=== PATIENT | male | born 1945 | race Caucasian/White ===

== ENCOUNTER 2017-12-08 10:46 | Inpatient (IN) | payer MEDICARE ==
[2017-12-08] MEDS ORDERED: ASPIRIN 81 MG TABLET, CHEWABLE PO ONE (12:31)
[2017-12-08 12:39] LABS: HEMATOCRIT 51.7 % (37.9-51.0); HEMOGLOBIN 17.2 g/dL (13.5-17.0); MEAN CORPUSCULAR HEMOGLOBIN 28.9 pg (27.0-33.4); MEAN CORPUSCULAR HGB CONC 33.3 g/dL (32.0-36.0); MEAN CORPUSCULAR VOLUME 87 fl (80-97); PLATELET COUNT 231 10^3/uL (150-450); RED BLOOD COUNT 5.95 10^6/uL (4.35-5.55)
[2017-12-08 12:54] LABS: BLOOD UREA NITROGEN 15 mg/dL (7-20); CALCIUM 10.5 mg/dL (8.4-10.2); GLUCOSE 374 mg/dL (75-110)
[2017-12-08 12:55] LABS: ALANINE AMINOTRANSFERASE 17 U/L (21-72); ALBUMIN 4.2 g/dL (3.5-5.0); ALKALINE PHOSPHATASE 105 U/L (38-126); ANION GAP 17 (5-19); ASPARTATE AMINO TRANSFERASE 10 U/L (17-59); BILIRUBIN,DIRECT 0.4 mg/dL (0.0-0.4); BILIRUBIN,TOTAL 0.9 mg/dL (0.2-1.3); CARBON DIOXIDE 22 mmol/L (22-30); CHLORIDE 99 mmol/L (98-107); CREATINE KINASE 32 U/L (55-170); POTASSIUM 4.1 mmol/L (3.6-5.0); SODIUM 137.6 mmol/L (137-145); TOTAL PROTEIN 7.6 g/dL (6.3-8.2)
[2017-12-08 13:02] LABS: ABSOLUTE LYMPHOCYTES# (MANUAL) 0.8 10^3/uL (0.5-4.7); ABSOLUTE MONOCYTES # (MANUAL) 2.3 10^3/uL (0.1-1.4); ABSOLUTE NEUTROPHILS# (MANUAL) 17.9 10^3/uL (1.7-8.2); BASOPHILS % (MANUAL) 0 % (0-2); EOSINOPHILS % (MANUAL) 0 % (0-6); LYMPHOCYTES % (MANUAL) 4 % (13-45); MONOCYTES % (MANUAL) 11 % (3-13); SEGMENTED NEUTROPHILS % (MAN) 85 % (42-78); TOTAL CELLS COUNTED 100
--- NOTE | 2017-12-08 13:02 | ER Document Report ---
ED General - General Mode of Arrival: Ambulatory Information source: Patient TRAVEL OUTSIDE OF THE [place] IN LAST 30 DAYS: No <GAYLE CAPPS - Last Filed: 12/08/17 16:08> <CHARLENE FLORES - Last Filed: 12/08/17 19:38> - General Chief Complaint: Chest Pain Stated Complaint: CHEST PAIN Time Seen by Provider: 12/08/17 12:30 Notes: Patient is a 72 year old male that presents to the emergency department today with complaints of chest pain with associated shortness of breath for the last two days. Patient states yesterday these symptoms "eased off yesterday" but were worse this morning upon awakening. Patient states that he also has had a cough for around a month. Patient has an extensive smoking history. (GAYLE CAPPS) - Related Data Allergies/Adverse Reactions: No Known Allergies Allergy (Verified 04/12/14 12:57) Past Medical History - General Information source: Patient - Social History Smoking Status: Current Every Day Smoker Cigarette use (# per day): Yes Chew tobacco use (# tins/day): No Frequency of alcohol use: None Drug Abuse: None Lives with: Family Family History: Reviewed & Not Pertinent - Past Medical History Cardiac Medical History: Reports: Hx Atrial Fibrillation, Hx Hypercholesterolemia, Hx Hypertension Endocrine Medical History: Reports: Hx Diabetes Mellitus Type 2 Malignancy Medical History: Reports Hx Prostate Cancer Past Surgical History: Reports: Hx Abdominal Surgery, Other - Prostatectomy - Immunizations Hx Diphtheria, Pertussis, Tetanus Vaccination: Yes - <5 years <GAYLE CAPPS - Last Filed: 12/08/17 16:08> Review of Systems - Review of Systems Constitutional: No symptoms reported EENT: No symptoms reported Cardiovascular: See HPI, Chest pain Respiratory: See HPI, Cough, Short of breath Gastrointestinal: No symptoms reported Genitourinary: No symptoms reported Male Genitourinary: No symptoms reported Musculoskeletal: No symptoms reported Skin: No symptoms reported Hematologic/Lymphatic: No symptoms reported Neurological/Psychological: No symptoms reported -: Yes All other systems reviewed and negative <GAYLE CAPPS - Last Filed: 12/08/17 16:08> Physical Exam <GAYLE CAPPS - Last Filed: 12/08/17 16:08> <CHARLENE FLORES - Last Filed: 12/08/17 19:38> - Vital signs Vitals: Temp Pulse Resp BP Pulse Ox 97.8 F 84 24 H 137/59 H 95 12/08/17 11:06 12/08/17 11:06 12/08/17 11:06 12/08/17 11:06 12/08/17 11:06 - Notes Notes: PHYSICAL EXAM GENERAL: Alert, interacts well. Appears in mild distress secondary to shortness of breath. HEAD: Normocephalic, atraumatic. EYES: Pupils equal, round, and reactive to light. Extraocular movements intact. ENT: Oral mucosa moist, tongue midline. NECK: Full range of motion. Supple. Trachea midline. LUNGS: Clear to auscultation bilaterally, no wheezes, rales, or rhonchi. Mild respiratory distress, tachypneic. HEART: Irregularly irregular, tachycardic. Regular rate and rhythm. No murmurs, gallops, or rubs. ABDOMEN: Soft, non-tender. Non-distended. Bowel sounds present in all 4 quadrants. EXTREMITIES: Moves all 4 extremities spontaneously. No edema, radial and dorsalis pedis pulses 2/4 bilaterally. No cyanosis. NEUROLOGICAL: Alert and oriented x3. Normal speech. PSYCH: Normal affect, normal mood. SKIN: Warm, dry, normal turgor. No rashes or lesions noted. (GAYLE CAPPS) Course - Laboratory Result Diagrams: 12/08/17 12:07 12/08/17 12:07 <GAYLE CAPPS - Last Filed: 12/08/17 16:08> - Laboratory Result Diagrams: 12/08/17 12:07 12/08/17 12:07 <CHARLENE FLORES - Last Filed: 12/08/17 19:38> - Re-evaluation Re-evalutation: 12/08/17 16:06 CBC shows marked leukocytosis with some hemoconcentration with hemoglobin 17.2, platelets normal, denies using steroids at this time, glucose is elevated, chemistries otherwise unremarkable, cardiac enzymes negative, chest x-ray shows no acute process per radiology, there does appear to be a little bit of cephalization per my interpretation but there is no history of CHF and he has no crackles on exam. This may simply be scarring from his COPD. Patient does appear to have atrial fibrillation which he has had at least once before but does not recall this. Patient was set up for a CT angiogram to look for pulmonary embolism however when sent over for his CTA patient states that he cannot receive the dye because he has Buerger's disease and he has been told that receiving this diet could cause his fingers or toes to fall off. Patient will have a VQ scan instead. 12/08/17 19:11 Ventilation/perfusion scan is negative for PE. Patient has leukocytosis, persistent cough, A. fib, tachycardia, intermittent hypoxia and a new oxygen requirement. Patient is a presumed bacterial bronchitis given his history of COPD. Patient has been started on antibiotics, no steroids and indicated at this time as he is not wheezing. Maintained on oxygen and given a dose of Lovenox for the recurrence of atrial fibrillation. I will discuss this case with the hospitalist. 12/08/17 19:34 Agrees to accept the patient to his service in admission status on IMCU. Discussed with Dr. Landers. (CHARLENE FLORES) - Vital Signs Vital signs: Temp Pulse Resp BP Pulse Ox 97.8 F 84 19 124/85 95 12/08/17 11:06 12/08/17 11:06 12/08/17 19:01 12/08/17 19:01 12/08/17 19:01 - Laboratory Laboratory results interpreted by me: 12/08/17 12/08/17 12:07 12:07 WBC 21.0 H RBC 5.95 H Hgb 17.2 H Hct 51.7 H RDW 16.0 H Seg Neuts % (Manual) 85 H Lymphocytes % (Manual) 4 L Abs Neuts (Manual) 17.9 H Abs Monocytes (Manual) 2.3 H Glucose 374 H Calcium 10.5 H AST 10 L ALT 17 L Creatine Kinase 32 L - EKG Interpretation by Me Additional EKG results interpreted by me: 12/08/17 19:35 EKG shows A. fib RVR at a rate of 123, left axis deviation, no ST segment elevations or depressions, no T-wave inversions per my interpretation. (CHARLENE FLORES) Discharge <GAYLE CAPPS - Last Filed: 12/08/17 16:08> - Discharge Admitting Provider: [facility] - [facility] Unit Admitted: IMCU <CHARLENE FLORES - Last Filed: 12/08/17 19:38> - Discharge Clinical Impression: Atrial fibrillation with rapid ventricular response, Acute bacterial bronchitis Diabetes Qualifiers: Diabetes mellitus type: type 2 Diabetes mellitus complication status: with hyperglycemia Diabetes mellitus terminal block assembler insulin use: without terminal block assembler use Qualified Code(s): E11.65 - Type 2 diabetes mellitus with hyperglycemia Condition: Fair Disposition: ADMITTED INPATIENT Scribe Attestation: 12/08/17 19:38 I personally performed the services described in the documentation, reviewed and edited the documentation which was dictated to the scribe in my presence, and it accurately records my words and actions. (CHARLENE FLORES) Scribe Documentation - Scribe Written by Scribe:: Keely Cheung, 12/08/2017 1610 acting as scribe for :: Lilian <GAYLE CAPPS - Last Filed: 12/08/17 16:08>
[2017-12-08 13:06] LABS: ANISOCYTOSIS 1+; CREATINE KINASE MB 0.33 ng/mL (<4.55); TOXIC GRANULATION SLIGHT; TOXIC VACUOLATION PRESENT
[2017-12-08 13:07] LABS: PLATELET COMMENT ADEQUATE; PLATELET LARGE PRESENT
[2017-12-08 13:08] LABS: TROPONIN I < 0.012 ng/mL
--- NOTE | 2017-12-08 13:26 | RADIOLOGY REPORT (SQ) ---
EXAM DESCRIPTION: CHEST SINGLE VIEW COMPLETED DATE/TIME: 12/08/2017 1:17 pm REASON FOR STUDY: chest pain COMPARISON: None. EXAM PARAMETERS: NUMBER OF VIEWS: One view. TECHNIQUE: Single frontal radiographic view of the chest acquired. RADIATION DOSE: NA LIMITATIONS: None. FINDINGS: LUNGS AND PLEURA: No opacities, masses or pneumothorax. No pleural effusion. Chronic appe aring changes are identified. MEDIASTINUM AND HILAR STRUCTURES: No masses. Contour normal. HEART AND VASCULAR STRUCTURES: Heart normal in size. Normal vasculature. BONES: No acute findings. HARDWARE: None in the chest. OTHER: No other significant finding. IMPRESSION: NO ACUTE RADIOGRAPHIC FINDING IN THE CHEST. TECHNICAL DOCUMENTATION: JOB ID: [id number] [employer]- All Rights Reserved
[2017-12-08] MEDS ORDERED: ENOXAPARIN SODIUM INJ 80 MG/0.8 ML DISP.SYRIN SUBCUT ONE (16:07)
--- NOTE | 2017-12-08 19:00 | RADIOLOGY REPORT (SQ) ---
EXAM DESCRIPTION: NM LUNG VENT/PERF SCAN COMPLETED DATE/TIME: 12/08/2017 6:52 pm REASON FOR STUDY: hypoxia, SOB, nl CXE, r/o PE COMPARISON: Chest radiograph from 12/08/2017. RADIONUCLIDE AND DOSE: 5.36 millicuries TC-99m MAA Intravenous 32.0 millicuries TC-99m DTPA Inhaled aerosol TECHNIQUE: Eight views of the lungs acquired post ventilation of DTPA aerosol. Eight matching views of the lungs acquired following injection of MAA. LIMITATIONS: None. FINDINGS: VENTILATION: Symmetric and homogeneous distribution of DTPA aerosol during ventilatory pha se. No significant areas of photopenia. PERFUSION: Perfusion images with normal homogenous activity and no wedge-shaped or segmental defects. No ventilation-perfusion mismatches. OTHER: No other significant finding. IMPRESSION: NORMAL VENTILATION-PERFUSION LUNG SCAN. NEGATIVE FOR PULMONARY EMBOLI. TECHNICAL DOCUMENTATION: JOB ID: [id number] [employer]- All Rights Reserved
[2017-12-08] MEDS ORDERED: AZITHROMYCIN INJ 500 MG VIAL IV ONE (19:12)
[2017-12-08] MEDS ORDERED: HYDRALAZINE HCL INJ/PF 20 MG/1 ML SDV IV PRN (19:36)
[2017-12-08] MEDS ORDERED: IPRATROPIUM/ALBUTEROL 0.5-2.5 MG/3 ML AMPUL NEB PRN (19:37)
[2017-12-08] MEDS ORDERED: ACETAMINOPHEN 325 MG TABLET PO PRN (19:37)
[2017-12-08] MEDS ORDERED: DEXTROSE 50%-WATER 25 GM/50 ML DISP.SYRIN IV PRN ×2 (19:37)
[2017-12-08] MEDS ORDERED: INSULIN LISPRO 100 UNIT/ML 3 ML VIAL SUBCUT PRN (19:37)
[2017-12-08] MEDS ORDERED: GLUCAGON,HUMAN RECOMB 1 MG INJ IM PRN (19:37)
[2017-12-08] MEDS ORDERED: GUAIFENESIN SYRP 200 MG/10 ML UDC PO PRN (19:37)
[2017-12-08] MEDS ORDERED: DEXTROSE 40% GEL 15 GM TUBE PO PRN ×2 (19:37)
[2017-12-08] MEDS ORDERED: NORMAL SALINE 1000 ML 1,000 ML IV ONE (19:40)
[2017-12-08] MEDS ORDERED: DILTIAZEM HCL 60 MG TABLET PO ONE (19:42)
[2017-12-08] MEDS ORDERED: CEFEPIME 2 GM/D5W RTU 50 ML IV SCH (19:45)
[2017-12-08] MEDS ORDERED: CHLORPHENIRAMINE MALEATE 4 MG TABLET PO ONE (20:30)
[2017-12-08] MEDS: IPRATROPIUM/ALBUTEROL 0.5-2.5 MG/3 ML AMPUL NEB SCH (20:38)
[2017-12-08] MEDS ORDERED: HEPARIN SOD (PORCINE) 5,000 UNIT/ML 1 ML SYRINGE SUBCUT SCH (22:00)
[2017-12-08] MEDS: DILTIAZEM HCL 60 MG TABLET PO SCH (22:01)
--- NOTE | 2017-12-08 22:54 | PDOC H&P ---
History of Present Illness Admission Date/PCP: 12/08/17 19:46 Patient complains of: Shortness of breath and pleuritic chest pain History of Present Illness: RAJAN KEARNEY is a 72 year old male with a past medical history of diabetes, hypertension, paroxysmal atrial fibrillation, GERD, tobacco dependence and COPD. Patient presents with 3 days of exceptional shortness of breath, nonproductive cough and sharp chest wall pain with deep breathing. In the emergency room he is found to have A. fib with RVR, leukocytosis and a left lower lobe infiltrate. He started on empiric antibiotics, full dose Lovenox and referred to the hospitalist for admission. Patient admits [id number] medication use for symptoms without significant improvement. He denies infectious contacts Past Medical History Cardiac Medical History: Reports: Atrial Fibrillation, Hyperlipidema, Hypertension Pulmonary Medical History: Reports: Bronchitis, Chronic Obstructive Pulmonary Disease (COPD) Endocrine Medical History: Reports: Diabetes Mellitus Type 2 GI Medical History: Reports: Gastroesophageal Reflux Disease Psychiatric Medical History: Reports: Tobacco Dependency Past Surgical History Past Surgical History: Reports: Other - Prostatectomy Social History Information Source: Patient Lives with: Family Smoking Status: Current Every Day Smoker Frequency of Alcohol Use: None Drugs: None - Advance Directive Resuscitation Status: Full Code Family History Family History: COPD Parental Family History Reviewed: Yes Children Family History Reviewed: Yes Sibling(s) Family History Reviewed.: Yes Medication/Allergy Home Medications: Amlodipine Besylate [Norvasc 5 mg Tablet] 5 mg PO DAILY 12/08/17 Atorvastatin Calcium [Lipitor 80 mg Tablet] 80 mg PO DAILY 12/08/17 Glipizide [Glocotrol 5 Mg Tablet] 5 mg PO DAILY 12/08/17 Lisinopril [Prinivil 10 mg Tablet] 10 mg PO DAILY 12/08/17 Meclizine HCl [Antivert 25 mg Tablet] 25 mg PO Q8HP PRN 12/08/17 Metformin HCl [Glucophage] 1,000 mg PO Q12 12/08/17 Omeprazole 20 mg PO DAILY 12/08/17 Allergies/Adverse Reactions: No Known Allergies Allergy (Verified 04/12/14 12:57) Review of Systems Constitutional: PRESENT: as per HPI, fatigue, weakness. ABSENT: anorexia, chills, fever(s), headache(s), night sweats Eyes: ABSENT: visual disturbances Ears: ABSENT: hearing changes Cardiovascular: PRESENT: as per HPI, chest pain, dyspnea on exertion. ABSENT: edema, orthropnea, palpitations Respiratory: PRESENT: as per HPI, cough, dyspnea. ABSENT: hemoptysis, sputum Gastrointestinal: ABSENT: abdominal pain, constipation, diarrhea, hematemesis, hematochezia, nausea, vomiting Genitourinary: ABSENT: dysuria, hematuria Musculoskeletal: ABSENT: joint swelling Integumentary: ABSENT: rash, wounds Neurological: ABSENT: abnormal gait, abnormal speech, confusion, dizziness, focal weakness, syncope Psychiatric: ABSENT: anxiety, depression, homidical ideation, suicidal ideation Endocrine: ABSENT: cold intolerance, heat intolerance, polydipsia, polyuria Hematologic/Lymphatic: ABSENT: easy bleeding, easy bruising Physical Exam Vital Signs: Temp Pulse Resp BP Pulse Ox 97.8 F 135 H 18 124/85 92 12/08/17 11:06 12/08/17 20:38 12/08/17 20:38 12/08/17 19:01 12/08/17 20:38 General appearance: PRESENT: cooperative, mild distress, well-developed, well- nourished Head exam: PRESENT: atraumatic, normocephalic Eye exam: PRESENT: conjunctiva pink, EOMI, PERRLA. ABSENT: scleral icterus Ear exam: PRESENT: normal external ear exam Mouth exam: PRESENT: moist, tongue midline Neck exam: ABSENT: carotid bruit, JVD, lymphadenopathy, thyromegaly Respiratory exam: PRESENT: accessory muscle use, crackles, prolonged expiratory phas, rales, retraction, symmetrical, tachypnea. ABSENT: rhonchi, unlabored Cardiovascular exam: PRESENT: irregular rhythm, +S1, +S2, tachycardia. ABSENT: gallop, systolic murmur Pulses: PRESENT: normal dorsalis pedis pul Vascular exam: PRESENT: normal capillary refill GI/Abdominal exam: PRESENT: normal bowel sounds, soft. ABSENT: distended, guarding, mass, organolmegaly, rebound, tenderness Rectal exam: PRESENT: deferred Extremities exam: PRESENT: full ROM. ABSENT: calf tenderness, clubbing, pedal edema Neurological exam: PRESENT: alert, awake, oriented to person, oriented to place , oriented to time, oriented to situation, CN II-XII grossly intact. ABSENT: motor sensory deficit Psychiatric exam: PRESENT: anxious, unusual affect Skin exam: PRESENT: dry, intact, warm. ABSENT: cyanosis, rash Results Laboratory Results: 12/08/17 12/08/17 21:05 21:05 Troponin I < 0.012 NT-Pro-B Natriuret Pep 1840 H Impressions: Chest X-Ray 12/08/17 12:31 IMPRESSION: NO ACUTE RADIOGRAPHIC FINDING IN THE CHEST. Lung Scan-VQ NM 12/08/17 16:04 IMPRESSION: NORMAL VENTILATION-PERFUSION LUNG SCAN. NEGATIVE FOR PULMONARY EMBOLI. Assessment & Plan - Diagnosis (1) Acute bacterial bronchitis Is this a current diagnosis for this admission?: Yes Plan: Telemetry bed, empiric antibiotics, Flonase, flutter valve supplemental oxygen albuterol and Atrovent. (2) Atrial fibrillation with rapid ventricular response Is this a current diagnosis for this admission?: Yes Plan: Full dose Lovenox, Cardizem 60 every 8 hours and 2D echo, follow-up cardiac enzymes and TSH (3) Diabetes Qualifiers: Diabetes mellitus type: type 2 Diabetes mellitus complication status: with hyperglycemia Diabetes mellitus termite treater helper insulin use: without termite treater helper use Qualified Code(s): E11.65 - Type 2 diabetes mellitus with hyperglycemia Is this a current diagnosis for this admission?: Yes Plan: Home regiment with sliding scale coverage. - Time Time Spent: 50 to 70 Minutes - Inpatient Certification Medical Necessity: Need Close Monitoring Due to Risk of Patient Decompensation
[2017-12-08] MEDS ORDERED: METFORMIN HCL 500 MG TABLET PO ONE (23:00)
[2017-12-08] MEDS: GUAIFENESIN 600 MG TABLET.SA PO SCH (23:32)
[2017-12-08] MEDS: FLUTICASONE NASAL SPRAY 50 MCG/SPRY 120 SPRAY/16 GM NASL SCH (23:32)
[2017-12-08] MEDS: CEFEPIME HCL 2 GM in DEXTROSE 5%-WATER 50 ML IV SCH (23:33)
[2017-12-09] MEDS: IPRATROPIUM/ALBUTEROL 0.5-2.5 MG/3 ML AMPUL NEB SCH ×4 (02:29→19:38)
[2017-12-09 05:13] LABS: HEMATOCRIT 46.2 % (37.9-51.0); HEMOGLOBIN 15.4 g/dL (13.5-17.0); MEAN CORPUSCULAR HGB CONC 33.3 g/dL (32.0-36.0); MEAN CORPUSCULAR VOLUME 87 fl (80-97); PLATELET COUNT 210 10^3/uL (150-450); RED BLOOD COUNT 5.31 10^6/uL (4.35-5.55); RED CELL DISTRIBUTION WIDTH 15.9 % (11.5-14.0); WHITE BLOOD COUNT 22.3 10^3/uL (4.0-10.5)
[2017-12-09] MEDS: DILTIAZEM HCL 60 MG TABLET PO SCH ×3 (05:21→21:42)
[2017-12-09 05:28] LABS: ANION GAP 13 (5-19); BLOOD UREA NITROGEN 20 mg/dL (7-20); CALCIUM 9.8 mg/dL (8.4-10.2); CARBON DIOXIDE 21 mmol/L (22-30); CHLORIDE 102 mmol/L (98-107); GLUCOSE 229 mg/dL (75-110); POTASSIUM 4.2 mmol/L (3.6-5.0); SODIUM 136.4 mmol/L (137-145)
[2017-12-09 05:50] LABS: ABSOLUTE LYMPHOCYTES# (MANUAL) 2.7 10^3/uL (0.5-4.7); ABSOLUTE MONOCYTES # (MANUAL) 1.8 10^3/uL (0.1-1.4); ABSOLUTE NEUTROPHILS# (MANUAL) 17.8 10^3/uL (1.7-8.2); BAND NEUTROPHILS % (MANUAL) 1 % (3-5); BASOPHILS % (MANUAL) 0 % (0-2); EOSINOPHILS % (MANUAL) 0 % (0-6); LYMPHOCYTES % (MANUAL) 12 % (13-45); MONOCYTES % (MANUAL) 8 % (3-13); SEGMENTED NEUTROPHILS % (MAN) 79 % (42-78); TOTAL CELLS COUNTED 100; TOXIC GRANULATION SLIGHT; TOXIC VACUOLATION PRESENT
[2017-12-09 05:51] LABS: ANISOCYTOSIS 1+; PLATELET COMMENT ADEQUATE
[2017-12-09] MEDS: ASPIRIN 81 MG TABLET, CHEWABLE PO SCH (09:55)
[2017-12-09] MEDS: GUAIFENESIN 600 MG TABLET.SA PO SCH ×2 (09:55→21:41)
[2017-12-09] MEDS: LANSOPRAZOLE 15 MG TAB.RAP.DR PO SCH (09:56)
[2017-12-09] MEDS: CEFEPIME HCL 2 GM in DEXTROSE 5%-WATER 50 ML IV SCH ×2 (09:58→21:43)
[2017-12-09] MEDS: FLUTICASONE NASAL SPRAY 50 MCG/SPRY 120 SPRAY/16 GM NASL SCH ×2 (09:59→23:30)
[2017-12-09] MEDS ORDERED: GLIPIZIDE 5 MG TABLET PO SCH (10:00)
[2017-12-09] MEDS ORDERED: ENOXAPARIN SODIUM INJ 80 MG/0.8 ML DISP.SYRIN SUBCUT SCH (10:00)
[2017-12-09] MEDS ORDERED: METFORMIN HCL 500 MG TABLET PO SCH ×2 (10:00→16:00)
[2017-12-09] MEDS ORDERED: AMLODIPINE BESYLATE 5 MG TABLET PO SCH (10:00)
[2017-12-09] MEDS ORDERED: ATORVASTATIN CALCIUM 80 MG TABLET PO SCH (10:00)
--- NOTE | 2017-12-09 10:19 | EKG REPORT ---
SEVERITY:- ABNORMAL ECG - ATRIAL FIBRILLATION, V-RATE 102-163 : Confirmed by: Everardo Rocha 09-Dec-2017 10:17:31
[2017-12-09 12:22] LABS: APPEARANCE,URINE SLIGHTLY-CLOUDY; BILIRUBIN,URINE SMALL (NEGATIVE); COLOR,URINE AMBER; GLUCOSE, URINE 50 mg/dL (NEGATIVE); KETONES,URINE NEGATIVE (NEGATIVE); LEUKOCYTE ESTERASE,URINE TRACE (NEGATIVE); NITRITE,URINE POSITIVE (NEGATIVE); PROTEIN,URINE 100 mg/dL (NEGATIVE)
[2017-12-09] MEDS ORDERED: NICOTINE 14 MG/24 HR PATCH.TD24 TD PRN (13:18)
--- NOTE | 2017-12-09 13:24 | PDOC PROGRESS REPORT ---
Subjective Progress Note for:: 12/09/17 Subjective:: The patient is a 72-year-old male with a past medical history of diabetes, hypertension, proximal atrial fibrillation, GERD, tobacco dependence and COPD. He was admitted on 12/08/17 for bronchitis and atrial fibrillation with rapid ventricular response. He is currently on empiric antibiotics, full dose Lovenox , and Cardizem every 8 hours. He means in atrial fibrillation, although is now rate controlled. The patient is seen sitting upright in bed on supplemental oxygen via nasal cannula at 4 L/min with family members present. He reports continued productive cough and dyspnea with exertion. He denies fevers, chills, chest pain, palpitations, orthopnea. Reason For Visit: AFIB, COPD EXACERBATION ACUTE ON CHRONIC Physical Exam Vital Signs: Temp Pulse Resp BP Pulse Ox 98.5 F 106 H 18 129/75 H 96 12/09/17 12:08 12/09/17 12:08 12/09/17 12:08 12/09/17 12:08 12/09/17 12:08 Intake & Output 12/08/17 12/09/17 12/10/17 06:59 06:59 06:59 Intake Total 355 0 Output Total 0 1 Balance 355 -1 Weight 66.6 kg General appearance: PRESENT: no acute distress, cooperative, thin, well- developed, well-nourished Head exam: PRESENT: atraumatic, normocephalic Eye exam: PRESENT: conjunctiva pink, EOMI, PERRLA. ABSENT: scleral icterus Ear exam: PRESENT: normal external ear exam Mouth exam: PRESENT: moist, tongue midline Neck exam: ABSENT: carotid bruit, JVD, lymphadenopathy, thyromegaly Respiratory exam: PRESENT: clear to auscultation elise, prolonged expiratory phas , rales, rhonchi, symmetrical, tachypnea, other - Supplemental oxygen via nasal cannula. ABSENT: unlabored, wheezes Cardiovascular exam: PRESENT: irregular rhythm, +S1, +S2, tachycardia. ABSENT: diastolic murmur, rubs, systolic murmur Pulses: PRESENT: normal dorsalis pedis pul Vascular exam: PRESENT: normal capillary refill GI/Abdominal exam: PRESENT: normal bowel sounds, soft. ABSENT: distended, guarding, mass, organolmegaly, rebound, tenderness Rectal exam: PRESENT: deferred Extremities exam: PRESENT: full ROM. ABSENT: calf tenderness, clubbing, pedal edema Neurological exam: PRESENT: alert, awake, oriented to person, oriented to place , oriented to time, oriented to situation, CN II-XII grossly intact. ABSENT: motor sensory deficit Psychiatric exam: PRESENT: appropriate affect, normal mood. ABSENT: homicidal ideation, suicidal ideation Skin exam: PRESENT: dry, intact, warm. ABSENT: cyanosis, rash Results Laboratory Results: 12/09/17 04:24 12/09/17 04:24 12/09/17 12/09/17 12/09/17 04:24 04:24 04:24 WBC 22.3 H RBC 5.31 Hgb 15.4 Hct 46.2 MCV 87 MCH 29.0 MCHC 33.3 RDW 15.9 H Plt Count 210 Seg Neutrophils % Not Reportable Lymphocytes % Not Reportable Monocytes % Not Reportable Eosinophils % Not Reportable Basophils % Not Reportable Absolute Neutrophils Not Reportable Absolute Lymphocytes Not Reportable Absolute Monocytes Not Reportable Absolute Eosinophils Not Reportable Absolute Basophils Not Reportable Sodium 136.4 L Potassium 4.2 Chloride 102 Carbon Dioxide 21 L Anion Gap 13 BUN 20 Creatinine 0.90 Est GFR ( Amer) > 60 Est GFR (Non-Af Amer) > 60 Glucose 229 H Calcium 9.8 TSH 0.55 Urine Color Urine Appearance Urine pH Ur Specific Garrison Urine Protein Urine Glucose (UA) Urine Ketones Urine Blood Urine Nitrite Ur Leukocyte Esterase Urine WBC (Auto) Urine RBC (Auto) 12/09/17 07:16 WBC RBC Hgb Hct MCV MCH MCHC RDW Plt Count Seg Neutrophils % Lymphocytes % Monocytes % Eosinophils % Basophils % Absolute Neutrophils Absolute Lymphocytes Absolute Monocytes Absolute Eosinophils Absolute Basophils Sodium Potassium Chloride Carbon Dioxide Anion Gap BUN Creatinine Est GFR ( Amer) Est GFR (Non-Af Amer) Glucose Calcium TSH Urine Color PETE Urine Appearance SLIGHTLY-CLOUDY Urine pH 5.0 Ur Specific Garrison 1.030 Urine Protein 100 H Urine Glucose (UA) 50 H Urine Ketones NEGATIVE Urine Blood SMALL H Urine Nitrite POSITIVE H Ur Leukocyte Esterase TRACE H Urine WBC (Auto) 32 Urine RBC (Auto) 3 12/08/17 12/08/17 21:05 21:05 Troponin I < 0.012 NT-Pro-B Natriuret Pep 1840 H Impressions: Chest X-Ray 12/08/17 12:31 IMPRESSION: NO ACUTE RADIOGRAPHIC FINDING IN THE CHEST. Lung Scan-VQ MA 12/08/17 16:04 IMPRESSION: NORMAL VENTILATION-PERFUSION LUNG SCAN. NEGATIVE FOR PULMONARY EMBOLI. Assessment & Plan - Diagnosis (1) Acute bacterial bronchitis Is this a current diagnosis for this admission?: Yes Plan: The patient presented with worsening over the previous 3 days and a nonproductive cough. He does have a history of COPD with current tobacco use. Sputum and blood cultures are pending. He is admitted to [facility] on continuous cardiac telemetry. He has been empirically placed on cefepime. Will provide supplemental oxygen via nasal cannula to keep oxygen saturations greater than 88% He is provided scheduled and as needed DuoNeb treatments. He is provided Mucinex twice daily. Incentive spirometry and flutter valve to bedside. (2) Atrial fibrillation with rapid ventricular response Is this a current diagnosis for this admission?: Yes Plan: The patient's reports that he has been told that he has atrial fibrillation in the past. They state that he has never been on chronic anticoagulants. He does take a daily aspirin. TSH is appropriate at 0.55 Serial troponins are. He has been admitted on continuous cardiac telemetry. He was started on Cardizem 60 mg every 8 hours. He is now controlled in the low 100s. Continue full dose Lovenox; anticipate that the patient will require anticoagulation at discharge. Echocardiogram is pending. (3) Urinary tract infection Qualifiers: Urinary tract infection type: acute cystitis Hematuria presence: with hematuria Qualified Code(s): N30.01 - Acute cystitis with hematuria Is this a current diagnosis for this admission?: Yes Plan: Urinalysis reveals a urinary tract infection. Urine cultures are pending. He has empirically been placed on cefepime. (4) Leukocytosis Is this a current diagnosis for this admission?: Yes Plan: Secondary to bronchitis and urinary tract infection. Cultures are pending. He has been empirically placed on cefepime. (5) Diabetes Qualifiers: Diabetes mellitus type: type 2 Diabetes mellitus complication status: with hyperglycemia Diabetes mellitus terminologist insulin use: without half-way use Qualified Code(s): E11.65 - Type 2 diabetes mellitus with hyperglycemia Is this a current diagnosis for this admission?: Yes Plan: We will continue the patient's home regimen of glipizide 5 mg daily, metformin 1000 mg twice daily. He has been placed on a consistent carb diet. Will obtain Accu-Cheks before meals and at bedtime and provide Humalog for sliding scale coverage. (6) Tobacco dependence Is this a current diagnosis for this admission?: Yes Plan: Smoking cessation is encouraged. Nicotine replacement therapies are provided. - Time Time Spent with patient: 15-24 minutes Smoking Cessation Education: 3 to 10 minutes Medications reviewed and adjusted accordingly: Yes - Inpatient Certification Based on my medical assessment, after consideration of the patient's comorbidities, presenting symptoms, or acuity I expect that the services needed warrant INPATIENT care.: Yes Medical Necessity: Need For Continuous Telemetry Monitoring
[2017-12-09] MEDS ORDERED: CEFEPIME 2 GM/D5W RTU 2 GM/50 ML RTUPB IV ONE (21:21)
[2017-12-09] MEDS: ATORVASTATIN CALCIUM 80 MG TABLET PO SCH (21:40)
[2017-12-09] MEDS: AMLODIPINE BESYLATE 5 MG TABLET PO SCH (21:41)
[2017-12-09] MEDS: METFORMIN HCL 500 MG TABLET PO SCH (21:41)
[2017-12-10] MEDS: IPRATROPIUM/ALBUTEROL 0.5-2.5 MG/3 ML AMPUL NEB SCH ×4 (01:43→19:32)
[2017-12-10] MEDS: ENOXAPARIN SODIUM INJ 80 MG/0.8 ML DISP.SYRIN SUBCUT SCH ×3 (04:25→21:17)
[2017-12-10] MEDS: DILTIAZEM HCL 60 MG TABLET PO SCH ×3 (05:10→21:18)
[2017-12-10 05:41] LABS: HEMATOCRIT 42.5 % (37.9-51.0); HEMOGLOBIN 14.1 g/dL (13.5-17.0); MEAN CORPUSCULAR HEMOGLOBIN 28.7 pg (27.0-33.4); MEAN CORPUSCULAR HGB CONC 33.2 g/dL (32.0-36.0); MEAN CORPUSCULAR VOLUME 86 fl (80-97); RED BLOOD COUNT 4.93 10^6/uL (4.35-5.55); WHITE BLOOD COUNT 17.9 10^3/uL (4.0-10.5)
[2017-12-10 05:59] LABS: PLATELET COUNT 219 10^3/uL (150-450)
[2017-12-10 06:01] LABS: ANION GAP 11 (5-19); BLOOD UREA NITROGEN 25 mg/dL (7-20); CALCIUM 9.7 mg/dL (8.4-10.2); CARBON DIOXIDE 24 mmol/L (22-30); CHLORIDE 102 mmol/L (98-107); GLUCOSE 189 mg/dL (75-110); POTASSIUM 4.1 mmol/L (3.6-5.0); SODIUM 137.4 mmol/L (137-145)
[2017-12-10] MEDS: GUAIFENESIN 600 MG TABLET.SA PO SCH ×2 (07:44→21:18)
[2017-12-10] MEDS: GLIPIZIDE 5 MG TABLET PO SCH (07:44)
[2017-12-10] MEDS: CEFEPIME HCL 2 GM in DEXTROSE 5%-WATER 50 ML IV SCH ×2 (07:52→21:18)
[2017-12-10] MEDS: ASPIRIN 81 MG TABLET, CHEWABLE PO SCH ×2 (07:54→21:18)
[2017-12-10] MEDS: LANSOPRAZOLE 15 MG TAB.RAP.DR PO SCH (07:54)
--- NOTE | 2017-12-10 11:22 | PDOC PROGRESS REPORT ---
Subjective Progress Note for:: 12/10/17 Subjective:: The patient is a 72-year-old male with a past medical history of diabetes, hypertension, proximal atrial fibrillation, GERD, tobacco dependence and COPD. He was admitted on 12/08/17 for bronchitis and atrial fibrillation with rapid ventricular response. He is currently on empiric antibiotics, full dose Lovenox , and Cardizem every 8 hours. He means in atrial fibrillation, although is now rate controlled. The patient is seen sitting upright in bed on supplemental oxygen via nasal cannula at 4 L/min. He reports continued productive cough and dyspnea with exertion, although, states that this is slightly better today. He asks that I move as many of his medications as possible to a bedtime dose to reflect how he takes them at home. Otherwise, he has no questions or concerns. He denies fevers, chills, chest pain, palpitations, orthopnea. Reason For Visit: AFIB, COPD EXACERBATION ACUTE ON CHRONIC Physical Exam Vital Signs: Temp Pulse Resp BP Pulse Ox 98.6 F 81 20 135/77 H 93 12/10/17 07:30 12/10/17 07:50 12/10/17 07:50 12/10/17 07:30 12/10/17 07:50 Intake & Output 12/09/17 12/10/17 12/11/17 06:59 06:59 06:59 Intake Total 355 3255 Output Total 0 201 Balance 355 3054 Weight 66.6 kg 68.6 kg General appearance: PRESENT: no acute distress, thin, well-developed, well- nourished Head exam: PRESENT: atraumatic, normocephalic Eye exam: PRESENT: conjunctiva pink, EOMI, PERRLA. ABSENT: scleral icterus Ear exam: PRESENT: normal external ear exam Mouth exam: PRESENT: moist, tongue midline Neck exam: ABSENT: carotid bruit, JVD, lymphadenopathy, thyromegaly Respiratory exam: PRESENT: decreased breath sounds - bibasilar, prolonged expiratory phas, rhonchi, symmetrical, unlabored, other - Supplemental oxygen via NC at 4Lpm. ABSENT: rales, wheezes Cardiovascular exam: PRESENT: irregular rhythm, +S1, +S2. ABSENT: diastolic murmur, rubs, systolic murmur, tachycardia Pulses: PRESENT: normal dorsalis pedis pul Vascular exam: PRESENT: normal capillary refill GI/Abdominal exam: PRESENT: normal bowel sounds, soft. ABSENT: distended, guarding, mass, organolmegaly, rebound, tenderness Rectal exam: PRESENT: deferred Extremities exam: PRESENT: full ROM. ABSENT: calf tenderness, clubbing, pedal edema Neurological exam: PRESENT: alert, awake, oriented to person, oriented to place , oriented to time, oriented to situation, CN II-XII grossly intact. ABSENT: motor sensory deficit Psychiatric exam: PRESENT: appropriate affect, normal mood. ABSENT: homicidal ideation, suicidal ideation Skin exam: PRESENT: dry, intact, warm. ABSENT: cyanosis, rash Results Laboratory Results: 12/10/17 04:46 12/10/17 04:46 12/09/17 12/10/17 12/10/17 07:16 04:46 04:46 WBC 17.9 H RBC 4.93 Hgb 14.1 Hct 42.5 MCV 86 MCH 28.7 MCHC 33.2 RDW 16.0 H Plt Count 219 Sodium 137.4 Potassium 4.1 Chloride 102 Carbon Dioxide 24 Anion Gap 11 BUN 25 H Creatinine 0.98 Est GFR ( Amer) > 60 Est GFR (Non-Af Amer) > 60 Glucose 189 H Calcium 9.7 Urine Color PETE Urine Appearance SLIGHTLY-CLOUDY Urine pH 5.0 Ur Specific [place] 1.030 Urine Protein 100 H Urine Glucose (UA) 50 H Urine Ketones NEGATIVE Urine Blood SMALL H Urine Nitrite POSITIVE H Ur Leukocyte Esterase TRACE H Urine WBC (Auto) 32 Urine RBC (Auto) 3 12/08/17 12/08/17 21:05 21:05 Troponin I < 0.012 NT-Pro-B Natriuret Pep 1840 H Impressions: Chest X-Ray 12/08/17 12:31 IMPRESSION: NO ACUTE RADIOGRAPHIC FINDING IN THE CHEST. Lung Scan-VQ NM 12/08/17 16:04 IMPRESSION: NORMAL VENTILATION-PERFUSION LUNG SCAN. NEGATIVE FOR PULMONARY EMBOLI. Assessment & Plan - Diagnosis (1) Acute bacterial bronchitis Is this a current diagnosis for this admission?: Yes Plan: Slight improvement; The patient presented with worsening over the previous 3 days and a nonproductive cough. He does have a history of COPD with current tobacco use. Blood culture: No growth at 1 day Sputum culture: pending WBCs are trending down. He is admitted to [facility] on continuous cardiac telemetry. He has been empirically placed on cefepime. Will provide supplemental oxygen via nasal cannula to keep oxygen saturations greater than 88% He is provided scheduled and as needed DuoNeb treatments. He is provided Mucinex twice daily. Incentive spirometry and flutter valve to bedside. (2) Atrial fibrillation with rapid ventricular response Is this a current diagnosis for this admission?: Yes Plan: The patient's reports that he has been told that he has atrial fibrillation in the past. They state that he has never been on chronic anticoagulants. He does take a daily aspirin. TSH is appropriate at 0.55 Serial troponins are negative. He has been admitted on continuous cardiac telemetry. He was started on Cardizem 60 mg every 8 hours. He is now controlled in the 80- 90s; does increase to 130-140s during activity/coughing. Consider dose increase as HR and BP allow. Continue full dose Lovenox; anticipate that the patient will require anticoagulation at discharge. Echocardiogram is pending. (3) Urinary tract infection Qualifiers: Urinary tract infection type: acute cystitis Hematuria presence: with hematuria Qualified Code(s): N30.01 - Acute cystitis with hematuria Is this a current diagnosis for this admission?: Yes Plan: Urinalysis reveals a urinary tract infection. Urine cultures: No growth at 1 day He has empirically been placed on cefepime. (4) Leukocytosis Is this a current diagnosis for this admission?: Yes Plan: Trending down; Secondary to bronchitis and urinary tract infection. Cultures so far are negative. He has been empirically placed on cefepime. (5) Diabetes Qualifiers: Diabetes mellitus type: type 2 Diabetes mellitus complication status: with hyperglycemia Diabetes mellitus alf insulin use: without alf use Qualified Code(s): E11.65 - Type 2 diabetes mellitus with hyperglycemia Is this a current diagnosis for this admission?: Yes Plan: We will continue the patient's home regimen of glipizide 5 mg daily, metformin 1000 mg twice daily. He has been placed on a consistent carb diet. Will obtain Accu-Cheks before meals and at bedtime and provide Humalog for sliding scale coverage. (6) Tobacco dependence Is this a current diagnosis for this admission?: Yes Plan: Smoking cessation is encouraged. Nicotine replacement therapies are provided. - Time Time Spent with patient: 25-34 minutes Medications reviewed and adjusted accordingly: Yes Anticipated discharge: Home
[2017-12-10] MEDS: NORMAL SALINE 1000 ML 1,000 ML IV PRN (13:56)
[2017-12-10] MEDS: FLUTICASONE NASAL SPRAY 50 MCG/SPRY 120 SPRAY/16 GM NASL SCH ×2 (13:58→21:18)
[2017-12-10] MEDS: METFORMIN HCL 500 MG TABLET PO SCH (21:17)
[2017-12-10] MEDS: AMLODIPINE BESYLATE 5 MG TABLET PO SCH (21:18)
[2017-12-10] MEDS: ATORVASTATIN CALCIUM 80 MG TABLET PO SCH (21:18)
[2017-12-11] MEDS: IPRATROPIUM/ALBUTEROL 0.5-2.5 MG/3 ML AMPUL NEB SCH ×4 (01:22→20:00)
[2017-12-11] MEDS: NORMAL SALINE 1000 ML 1,000 ML IV PRN ×2 (03:50→18:39)
[2017-12-11 04:46] LABS: APPEARANCE,URINE CLEAR; BILIRUBIN,URINE NEGATIVE (NEGATIVE); COLOR,URINE YELLOW; GLUCOSE, URINE NEGATIVE (NEGATIVE); KETONES,URINE TRACE mg/dL (NEGATIVE); LEUKOCYTE ESTERASE,URINE NEGATIVE (NEGATIVE); NITRITE,URINE NEGATIVE (NEGATIVE); PROTEIN,URINE 30 mg/dL (NEGATIVE); URINE SPECIFIC GRAVITY 1.017; UROBILINOGEN,URINE NEGATIVE mg/dL (<2.0)
[2017-12-11] MEDS: DILTIAZEM HCL 60 MG TABLET PO SCH ×3 (05:09→22:09)
[2017-12-11 05:46] LABS: ANION GAP 11 (5-19); BLOOD UREA NITROGEN 20 mg/dL (7-20); CALCIUM 9.7 mg/dL (8.4-10.2); CARBON DIOXIDE 22 mmol/L (22-30); CHLORIDE 106 mmol/L (98-107); GLUCOSE 137 mg/dL (75-110); POTASSIUM 3.6 mmol/L (3.6-5.0); SODIUM 139.2 mmol/L (137-145)
[2017-12-11 05:49] LABS: HEMATOCRIT 40.3 % (37.9-51.0); HEMOGLOBIN 13.6 g/dL (13.5-17.0); MEAN CORPUSCULAR HEMOGLOBIN 29.2 pg (27.0-33.4); MEAN CORPUSCULAR HGB CONC 33.7 g/dL (32.0-36.0); MEAN CORPUSCULAR VOLUME 87 fl (80-97); RED BLOOD COUNT 4.66 10^6/uL (4.35-5.55); RED CELL DISTRIBUTION WIDTH 15.5 % (11.5-14.0); WHITE BLOOD COUNT 12.9 10^3/uL (4.0-10.5)
[2017-12-11 07:06] LABS: PLATELET COUNT 220 10^3/uL (150-450)
[2017-12-11] MEDS: GLIPIZIDE 5 MG TABLET PO SCH (07:33)
[2017-12-11] MEDS: FLUTICASONE NASAL SPRAY 50 MCG/SPRY 120 SPRAY/16 GM NASL SCH ×2 (10:31→22:10)
[2017-12-11] MEDS: LANSOPRAZOLE 15 MG TAB.RAP.DR PO SCH (10:33)
[2017-12-11] MEDS: GUAIFENESIN 600 MG TABLET.SA PO SCH ×2 (10:33→22:09)
[2017-12-11] MEDS: CEFEPIME HCL 2 GM in DEXTROSE 5%-WATER 50 ML IV SCH ×2 (10:34→22:09)
[2017-12-11] MEDS: ENOXAPARIN SODIUM INJ 80 MG/0.8 ML DISP.SYRIN SUBCUT SCH ×2 (10:34→22:09)
--- NOTE | 2017-12-11 10:51 | PDOC PROGRESS REPORT ---
Subjective Progress Note for:: 12/11/17 Subjective:: The patient is a 72-year-old male with a past medical history of diabetes, hypertension, proximal atrial fibrillation, GERD, tobacco dependence and COPD. He was admitted on 12/08/17 for bronchitis and atrial fibrillation with rapid ventricular response. He is currently on empiric antibiotics, full dose Lovenox , and Cardizem every 8 hours. He means in atrial fibrillation, although is now rate controlled. Remains oxygen dependent; pt does not have home oxygen. The patient is seen sitting upright in bed on supplemental oxygen via nasal cannula at 4 L/min. He reports that his productive cough has decreased slightly and his breathing is easier this morning. His primary concern today is his diet; he is unhappy with the consistent carb diet. He denies fevers, chills, chest pain, palpitations, and orthopnea. He has no other questions or concerns. Reason For Visit: AFIB, COPD EXACERBATION ACUTE ON CHRONIC Physical Exam Vital Signs: Temp Pulse Resp BP Pulse Ox 98.3 F 81 16 135/76 H 95 12/11/17 04:34 12/11/17 08:52 12/11/17 08:52 12/11/17 04:34 12/11/17 08:52 Intake & Output 12/10/17 12/11/17 12/12/17 06:59 06:59 06:59 Intake Total 3255 2722 Output Total 201 900 Balance 3054 1822 Weight 68.6 kg 67.3 kg General appearance: PRESENT: no acute distress, hard of hearing, thin, well- developed, well-nourished Head exam: PRESENT: atraumatic, normocephalic Eye exam: PRESENT: conjunctiva pink, EOMI, PERRLA. ABSENT: scleral icterus Ear exam: PRESENT: normal external ear exam Mouth exam: PRESENT: moist, tongue midline Neck exam: ABSENT: carotid bruit, JVD, lymphadenopathy, thyromegaly Respiratory exam: PRESENT: clear to auscultation elise, rhonchi, symmetrical, unlabored. ABSENT: rales, wheezes Cardiovascular exam: PRESENT: irregular rhythm, +S1, +S2. ABSENT: diastolic murmur, rubs, systolic murmur Pulses: PRESENT: normal dorsalis pedis pul Vascular exam: PRESENT: normal capillary refill GI/Abdominal exam: PRESENT: normal bowel sounds, soft. ABSENT: distended, guarding, mass, organolmegaly, rebound, tenderness Rectal exam: PRESENT: deferred Extremities exam: PRESENT: full ROM. ABSENT: calf tenderness, clubbing, pedal edema Neurological exam: PRESENT: alert, awake, oriented to person, oriented to place , oriented to time, oriented to situation, CN II-XII grossly intact. ABSENT: motor sensory deficit Psychiatric exam: PRESENT: agitated, appropriate affect, normal mood. ABSENT: homicidal ideation, suicidal ideation Skin exam: PRESENT: dry, intact, warm. ABSENT: cyanosis, rash Results Laboratory Results: 12/11/17 04:57 12/11/17 04:57 12/11/17 12/11/17 12/11/17 04:30 04:57 04:57 WBC 12.9 H RBC 4.66 Hgb 13.6 Hct 40.3 MCV 87 MCH 29.2 MCHC 33.7 RDW 15.5 H Plt Count 220 Sodium 139.2 Potassium 3.6 Chloride 106 Carbon Dioxide 22 Anion Gap 11 BUN 20 Creatinine 0.81 Est GFR ( Amer) > 60 Est GFR (Non-Af Amer) > 60 Glucose 137 H Calcium 9.7 Urine Color YELLOW Urine Appearance CLEAR Urine pH 5.0 Ur Specific [place] 1.017 Urine Protein 30 H Urine Glucose (UA) NEGATIVE Urine Ketones TRACE H Urine Blood NEGATIVE Urine Nitrite NEGATIVE Ur Leukocyte Esterase NEGATIVE Urine RBC (Auto) 1 12/09/17 07:16 Clean Catch Midstream Urine Culture - Final NO GROWTH 2 DAYS 12/08/17 12/08/17 21:05 21:05 Troponin I < 0.012 NT-Pro-B Natriuret Pep 1840 H Impressions: Chest X-Ray 12/08/17 12:31 IMPRESSION: NO ACUTE RADIOGRAPHIC FINDING IN THE CHEST. Lung Scan-VQ NM 12/08/17 16:04 IMPRESSION: NORMAL VENTILATION-PERFUSION LUNG SCAN. NEGATIVE FOR PULMONARY EMBOLI. Assessment & Plan - Diagnosis (1) Acute bacterial bronchitis Is this a current diagnosis for this admission?: Yes Plan: Improving; The patient presented with worsening shortness of breath over the previous 3 days and a nonproductive cough. He does have a history of COPD with current tobacco use. Blood culture: No growth at 48 hours Sputum culture: pending WBCs are trending down. He is admitted to [facility] on continuous cardiac telemetry. He has been empirically placed on cefepime. Will provide supplemental oxygen via nasal cannula to keep oxygen saturations greater than 88% He is provided scheduled and as needed DuoNeb treatments. He is provided Mucinex twice daily. Incentive spirometry and flutter valve to bedside. (2) Atrial fibrillation with rapid ventricular response Is this a current diagnosis for this admission?: Yes Plan: Now rate controlled. The patient's reports that he has been told that he has atrial fibrillation in the past. They state that he has never been on chronic anticoagulants. He does take a daily aspirin. TSH is appropriate at 0.55 Serial troponins are negative. He has been admitted on continuous cardiac telemetry. He was started on Cardizem 60 mg every 8 hours. He is now controlled in the 80- 90s. Continue full dose Lovenox; anticipate that the patient will require anticoagulation at discharge. Echocardiogram is pending. (3) Urinary tract infection Qualifiers: Urinary tract infection type: acute cystitis Hematuria presence: with hematuria Qualified Code(s): N30.01 - Acute cystitis with hematuria Is this a current diagnosis for this admission?: Yes Plan: Urinalysis reveals a urinary tract infection. Urine cultures: No growth at 2 day He has empirically been placed on cefepime. (4) Leukocytosis Is this a current diagnosis for this admission?: Yes Plan: Trending down; Secondary to bronchitis and urinary tract infection. Cultures so far are negative. He has been empirically placed on cefepime. 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 He has been placed on a consistent carb diet. Will obtain Accu-Cheks before meals and at bedtime and provide Humalog for sliding scale coverage. (6) Tobacco dependence Is this a current diagnosis for this admission?: Yes Plan: Smoking cessation is encouraged. Nicotine replacement therapies are provided. - Time Time Spent with patient: 25-34 minutes Medications reviewed and adjusted accordingly: Yes Anticipated discharge: Home
[2017-12-11] MEDS: METFORMIN HCL 500 MG TABLET PO SCH (18:40)
[2017-12-11] MEDS: ASPIRIN 81 MG TABLET, CHEWABLE PO SCH (22:09)
[2017-12-11] MEDS: ATORVASTATIN CALCIUM 80 MG TABLET PO SCH (22:09)
[2017-12-11] MEDS: AMLODIPINE BESYLATE 5 MG TABLET PO SCH (22:10)
[2017-12-12] MEDS: IPRATROPIUM/ALBUTEROL 0.5-2.5 MG/3 ML AMPUL NEB SCH ×4 (01:59→20:07)
[2017-12-12] MEDS: DILTIAZEM HCL 60 MG TABLET PO SCH ×3 (05:03→21:23)
[2017-12-12 05:13] LABS: ANION GAP 12 (5-19); BLOOD UREA NITROGEN 16 mg/dL (7-20); CALCIUM 9.5 mg/dL (8.4-10.2); CARBON DIOXIDE 22 mmol/L (22-30); CHLORIDE 107 mmol/L (98-107); GLUCOSE 131 mg/dL (75-110); POTASSIUM 3.5 mmol/L (3.6-5.0); SODIUM 141.4 mmol/L (137-145)
[2017-12-12 05:27] LABS: HEMATOCRIT 39.1 % (37.9-51.0); HEMOGLOBIN 13.1 g/dL (13.5-17.0); MEAN CORPUSCULAR HGB CONC 33.5 g/dL (32.0-36.0); MEAN CORPUSCULAR VOLUME 86 fl (80-97); PLATELET COUNT 296 10^3/uL (150-450); RED BLOOD COUNT 4.52 10^6/uL (4.35-5.55); RED CELL DISTRIBUTION WIDTH 15.5 % (11.5-14.0)
[2017-12-12] MEDS: CEFEPIME HCL 2 GM in DEXTROSE 5%-WATER 50 ML IV SCH ×2 (09:58→21:27)
[2017-12-12] MEDS: NORMAL SALINE 1000 ML 1,000 ML IV PRN (10:00)
[2017-12-12] MEDS: FLUTICASONE NASAL SPRAY 50 MCG/SPRY 120 SPRAY/16 GM NASL SCH ×2 (10:08→21:22)
[2017-12-12] MEDS: ENOXAPARIN SODIUM INJ 80 MG/0.8 ML DISP.SYRIN SUBCUT SCH ×2 (10:08→21:24)
[2017-12-12] MEDS: METFORMIN HCL 500 MG TABLET PO SCH ×2 (10:09→16:31)
[2017-12-12] MEDS: LANSOPRAZOLE 15 MG TAB.RAP.DR PO SCH (10:09)
[2017-12-12] MEDS: GUAIFENESIN 600 MG TABLET.SA PO SCH ×2 (10:09→21:22)
[2017-12-12] MEDS: GLIPIZIDE 5 MG TABLET PO SCH (10:10)
--- NOTE | 2017-12-12 19:47 | XCELERA REPORT ---
[address] [address] Transthoracic Echocardiogram Report Name: RAJAN KEARNEY Age: 72 yrs Gender: Male : 1945 Patient Status: Inpatient Patient Location: [address] [place] [address] Study Date: 12/12/2017 09:38 AM Height: 71 in Weight: 151 lb BSA: 1.9 m2 Procedure: A complete two-dimensional transthoracic echocardiogram was performed (2D, M-mode, spectral and color flow Doppler). The study was technically difficult with many images being suboptimal in quality. Reason For Study: AFIB Ordering Physician: CHIOMA GARG Performed By: Domi Prakash Interpretation Summary The study was technically difficult with many images being suboptimal in quality. The left ventricular ejection fraction is normal. LV diastolic function could not be adequately assessed. There is mild concentric left ventricular hypertrophy. The left ventricle is grossly normal size. Wall motion cannot be accurately commented on, but no definite regional wall motion abnormalities noted. The right ventricle is mildly dilated. The right atrium is moderately dilated. The left atrium is mildly dilated. There is no mitral valve stenosis. There is a trace to mild amount of mitral regurgitation There is no aortic valve stenosis No aortic regurgitation is present. No tricuspid regurgitation. There is no tricuspid stenosis. There is no pericardial effusion. MMode/2D Measurements & Calculations RVDd: 3.3 cm LVIDd: 5.5 cm FS: 30.5 % Ao root diam: 3.6 cm IVSd: 1.3 cm LVIDs: 3.8 cm EDV(Teich): 149.0 ml LVPWd: 1.3 cm ESV(Teich): 63.5 ml Ao root area: 10.1 cm2 EF(Teich): 57.4 % LA dimension: 4.7 cm Doppler Measurements & Calculations MV E max deni: MV P1/2t max deni: Ao V2 max: LV V1 max P.1 cm/sec 108.1 cm/sec 121.5 cm/sec 4.4 mmHg MV P1/2t: 91.6 msec Ao max PG: LV V1 max: 5.9 mmHg 105.5 cm/sec MVA(P1/2t): 2.4 cm2 MV dec slope: 345.7 cm/sec2 PA V2 max: 79.5 cm/sec PA max P.5 mmHg Left Ventricle The left ventricle is grossly normal size. There is mild concentric left ventricular hypertrophy. The left ventricular ejection fraction is normal. LV diastolic function could not be adequately assessed. Wall motion cannot be accurately commented on, but no definite regional wall motion abnormalities noted. Right Ventricle The right ventricle is mildly dilated. Right ventricular function cannot be assessed due to poor image quality. Atria The right atrium is moderately dilated. The left atrium is mildly dilated. Interarterial septum not well visualized and not well dopplered. Cannot comment on ASD/PFO presence. Mitral Valve The mitral valve is grossly normal. There is no mitral valve stenosis. There is a trace to mild amount of mitral regurgitation. Aortic Valve The aortic valve is not well visualized secondary to technical limitations. There is no aortic valve stenosis. No aortic regurgitation is present. Tricuspid Valve The tricuspid valve is not well visualized secondary to technical limitations. There is no tricuspid stenosis. No tricuspid regurgitation. Pulmonic Valve The pulmonic valve is not well visualized. Great Vessels The aortic root is not well visualized. The inferior vena cava appeared normal and decreased < 50% with respiration (RAP 10-15 mmHg). Effusions There is no pericardial effusion. : CHIOMA GARG > Everardo Rocha
[2017-12-12] MEDS: ATORVASTATIN CALCIUM 80 MG TABLET PO SCH (21:23)
[2017-12-12] MEDS: ASPIRIN 81 MG TABLET, CHEWABLE PO SCH (21:23)
[2017-12-12] MEDS: AMLODIPINE BESYLATE 5 MG TABLET PO SCH (21:23)
[2017-12-13] MEDS: NORMAL SALINE 1000 ML 1,000 ML IV PRN ×2 (00:35→13:53)
[2017-12-13] MEDS: IPRATROPIUM/ALBUTEROL 0.5-2.5 MG/3 ML AMPUL NEB SCH ×4 (02:15→19:44)
[2017-12-13] MEDS: DILTIAZEM HCL 60 MG TABLET PO SCH ×3 (05:02→21:27)
[2017-12-13 05:12] LABS: HEMATOCRIT 38.1 % (37.9-51.0); HEMOGLOBIN 12.6 g/dL (13.5-17.0); MEAN CORPUSCULAR HEMOGLOBIN 28.7 pg (27.0-33.4); MEAN CORPUSCULAR VOLUME 87 fl (80-97); PLATELET COUNT 321 10^3/uL (150-450); RED BLOOD COUNT 4.39 10^6/uL (4.35-5.55); RED CELL DISTRIBUTION WIDTH 15.5 % (11.5-14.0); WHITE BLOOD COUNT 13.3 10^3/uL (4.0-10.5)
[2017-12-13] MEDS: METFORMIN HCL 500 MG TABLET PO SCH ×2 (08:12→18:20)
[2017-12-13] MEDS: GLIPIZIDE 5 MG TABLET PO SCH (08:12)
[2017-12-13] MEDS ORDERED: POTASSIUM CHLORIDE 10 MEQ TABLET.SA PO ONE (09:14)
[2017-12-13] MEDS ORDERED: MAGNESIUM OXIDE 400 MG TABLET PO ONE (09:15)
--- NOTE | 2017-12-13 09:19 | PDOC PROGRESS REPORT ---
Subjective Progress Note for:: 12/12/17 Subjective:: 72-year-old who presents with COPD exacerbation due to bronchitis and A. fib with RVR. Patient states he is doing okay. Patient states he needs his dizzy pills. Patient also reports having fallen several times. Patient also complaining about his eyes getting worse and not being able to see anybody to have them taken care of. Patient states that every time he goes to see someone there if shuffling him around from place to place. Patient is requesting to be seen by an eye doctor while in the hospital. Reason For Visit: AFIB, COPD EXACERBATION ACUTE ON CHRONIC Physical Exam Vital Signs: Temp Pulse Resp BP Pulse Ox 98.7 F 90 20 113/76 100 12/12/17 20:17 12/12/17 20:17 12/12/17 20:17 12/12/17 20:17 12/12/17 20:17 Intake & Output 12/11/17 12/12/17 12/13/17 06:59 06:59 06:59 Intake Total 2722 2941 1923 Output Total 900 1160 600 Balance 1822 1781 1323 Weight 67.3 kg 68.9 kg General appearance: PRESENT: no acute distress, thin, well-developed Head exam: PRESENT: normocephalic Eye exam: PRESENT: EOMI. ABSENT: scleral icterus Ear exam: PRESENT: normal external ear exam Mouth exam: PRESENT: moist Neck exam: ABSENT: carotid bruit, JVD, lymphadenopathy, thyromegaly Respiratory exam: PRESENT: clear to auscultation elise. ABSENT: accessory muscle use, rales, rhonchi, unlabored, wheezes Cardiovascular exam: PRESENT: RRR. ABSENT: diastolic murmur, rubs, systolic murmur Pulses: PRESENT: normal dorsalis pedis pul Vascular exam: PRESENT: normal capillary refill GI/Abdominal exam: PRESENT: normal bowel sounds, soft. ABSENT: distended, guarding, mass, organolmegaly, rebound, tenderness Rectal exam: PRESENT: deferred Extremities exam: PRESENT: full ROM. ABSENT: calf tenderness, clubbing, pedal edema Neurological exam: PRESENT: alert, awake, oriented to person, oriented to place , oriented to time, oriented to situation, CN II-XII grossly intact. ABSENT: motor sensory deficit Psychiatric exam: PRESENT: appropriate affect, normal mood. ABSENT: homicidal ideation, suicidal ideation Skin exam: PRESENT: dry, intact, warm. ABSENT: cyanosis, rash Results Laboratory Results: 12/12/17 04:30 12/12/17 04:30 12/12/17 12/12/17 04:30 04:30 WBC 12.0 H RBC 4.52 Hgb 13.1 L Hct 39.1 MCV 86 MCH 29.0 MCHC 33.5 RDW 15.5 H Plt Count 296 Sodium 141.4 Potassium 3.5 L Chloride 107 Carbon Dioxide 22 Anion Gap 12 BUN 16 Creatinine 0.92 Est GFR ( Amer) > 60 Est GFR (Non-Af Amer) > 60 Glucose 131 H Calcium 9.5 12/08/17 12/08/17 21:05 21:05 Troponin I < 0.012 NT-Pro-B Natriuret Pep 1840 H Impressions: Chest X-Ray 12/08/17 12:31 IMPRESSION: NO ACUTE RADIOGRAPHIC FINDING IN THE CHEST. Lung Scan-VQ NM 12/08/17 16:04 IMPRESSION: NORMAL VENTILATION-PERFUSION LUNG SCAN. NEGATIVE FOR PULMONARY EMBOLI. Assessment & Plan - Diagnosis (1) Acute bacterial bronchitis Is this a current diagnosis for this admission?: Yes Plan: Patient with acute bronchitis. Patient appears to be doing well from a respiratory standpoint. Continue on nebs, antibiotics, Mucinex along with incentive spirometry and flutter valve. Will have patient ambulate in the a.m. PT. (2) Atrial fibrillation with rapid ventricular response Is this a current diagnosis for this admission?: Yes Plan: Patient heart rate still irregular however controlled on diltiazem to every 8. Patient on therapeutic doses of Lovenox. Echo completed and shows normal EF. TSH is appropriate serial troponins negative. Will monitor electrolytes. (3) Diabetes Qualifiers: Diabetes mellitus type: type 2 Diabetes mellitus complication status: with hyperglycemia Diabetes mellitus mcc insulin use: without mcc use Qualified Code(s): E11.65 - Type 2 diabetes mellitus with hyperglycemia Is this a current diagnosis for this admission?: Yes (4) Leukocytosis Is this a current diagnosis for this admission?: Yes Plan: Most likely due to acute infection. However this may have been a leukemoid reaction. His cultures are negative. You antibiotics for 1 more day empirically for acute bronchitis and then discontinue. 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 Continue patch ordered. (6) Urinary tract infection Qualifiers: Urinary tract infection type: acute cystitis Hematuria presence: with hematuria Qualified Code(s): N30.01 - Acute cystitis with hematuria Is this a current diagnosis for this admission?: Yes Plan: Patient urine culture is negative for antibiotics are being continued empirically for acute bronchitis. (7) Poor vision Is this a current diagnosis for this admission?: Yes Plan: Patient complaining of his vision patient getting worse. Patient states he has cataracts and has been evaluated several times however surgery has not been performed. Patient is asked that he seen by someone as he feels like he is losing vision in his good eye. Patient is very concerned. Will consult ophthalmology when available. - Time Time Spent with patient: 15-24 minutes
[2017-12-13] MEDS: LANSOPRAZOLE 15 MG TAB.RAP.DR PO SCH (09:59)
[2017-12-13] MEDS: MECLIZINE HCL 25 MG TABLET PO PRN (09:59)
[2017-12-13] MEDS: FLUTICASONE NASAL SPRAY 50 MCG/SPRY 120 SPRAY/16 GM NASL SCH ×2 (10:00→21:31)
[2017-12-13] MEDS: GUAIFENESIN 600 MG TABLET.SA PO SCH ×2 (10:00→21:27)
[2017-12-13] MEDS: ENOXAPARIN SODIUM INJ 80 MG/0.8 ML DISP.SYRIN SUBCUT SCH ×2 (10:01→21:28)
[2017-12-13] MEDS: CEFEPIME HCL 2 GM in DEXTROSE 5%-WATER 50 ML IV SCH ×2 (10:02→21:31)
[2017-12-13 10:28] LABS: APPEARANCE,URINE CLEAR; BILIRUBIN,URINE NEGATIVE (NEGATIVE); COLOR,URINE YELLOW; GLUCOSE, URINE NEGATIVE (NEGATIVE); KETONES,URINE TRACE mg/dL (NEGATIVE); LEUKOCYTE ESTERASE,URINE NEGATIVE (NEGATIVE); NITRITE,URINE NEGATIVE (NEGATIVE); PROTEIN,URINE NEGATIVE (NEGATIVE); URINE SPECIFIC GRAVITY 1.012; UROBILINOGEN,URINE NEGATIVE mg/dL (<2.0)
[2017-12-13 13:53] LABS: ANION GAP 8 (5-19); BLOOD UREA NITROGEN 12 mg/dL (7-20); CALCIUM 9.2 mg/dL (8.4-10.2); CARBON DIOXIDE 24 mmol/L (22-30); CHLORIDE 110 mmol/L (98-107); GLUCOSE 74 mg/dL (75-110); MAGNESIUM 1.4 mg/dL (1.6-2.3); POTASSIUM 3.8 mmol/L (3.6-5.0); SODIUM 142.3 mmol/L (137-145)
--- NOTE | 2017-12-13 19:25 | PDOC CONSULTATION ---
Consultation Consult Date: 12/13/17 Attending physician:: KRISTY SRINIVASAN Consult reason:: Atrial fibrillation History of Present Illness Admission Date/PCP: 12/08/17 19:46 Patient complains of: Shortness of breath History of Present Illness: RAJAN KEARNEY is a 72 year old male with a past medical history of diabetes, hypertension, paroxysmal atrial fibrillation, GERD, tobacco dependence and COPD. Patient presents with 3 days of exceptional shortness of breath, nonproductive cough and sharp chest wall pain with deep breathing. In the emergency room he is found to have A. fib with RVR, leukocytosis and a left lower lobe infiltrate. He started on empiric antibiotics, full dose Lovenox and referred to the hospitalist for admission. Patient admits [id number] medication use for symptoms without significant improvement. He denies infectious contacts. This history was reviewed, supplemented and confirmed. Patient denied any prior history of myocardial infarction, angina, congestive heart failure, strokes or mini strokes. Patient's and other family members at bedside. Past Medical History Cardiac Medical History: Reports: Atrial Fibrillation, Hyperlipidema, Hypertension Pulmonary Medical History: Reports: Bronchitis, Chronic Obstructive Pulmonary Disease (COPD) Endocrine Medical History: Reports: Diabetes Mellitus Type 2 GI Medical History: Reports: Gastroesophageal Reflux Disease Psychiatric Medical History: Reports: Tobacco Dependency Past Surgical History Past Surgical History: Reports: Other - Prostatectomy Social History Information Source: Patient Lives with: Family Smoking Status: Current Every Day Smoker Cigarettes Packs Per Day: 2 Frequency of Alcohol Use: None Hx Recreational Drug Use: No Drugs: None Hx Prescription Drug Abuse: No - Advance Directive Resuscitation Status: Full Code Surrogate healthcare decision maker:: Patient's is the surrogate decision-maker Family History Family History: COPD Parental Family History Reviewed: Yes Children Family History Reviewed: Yes Sibling(s) Family History Reviewed.: Yes Medication/Allergy Home Medications: Amlodipine Besylate [Norvasc 5 mg Tablet] 5 mg PO QHS 12/08/17 Atorvastatin Calcium [Lipitor 80 mg Tablet] 80 mg PO QHS 12/08/17 Glipizide [Glocotrol 5 Mg Tablet] 5 mg PO QHS 12/08/17 Lisinopril [Prinivil 10 mg Tablet] 10 mg PO QHS 12/08/17 Meclizine HCl [Antivert 25 mg Tablet] 25 mg PO Q8HP PRN 12/08/17 Metformin HCl [Glucophage] 1,000 mg PO QHS 12/08/17 Omeprazole 20 mg PO QHS 12/08/17 Metformin HCl [Glucophage] 1,000 mg PO DAILY PRN 12/09/17 Allergies/Adverse Reactions: No Known Allergies Allergy (Verified 04/12/14 12:57) Review of Systems Review of Systems: Please see history of present illness and past medical history as wall. Constitutional: Noted low-grade fever, general fatigue and tiredness. Head : No recent chronic headaches, recent head injury. Eyes: No recent eye pain, diplopia, redness, discharge, acute visual changes. Ears: No recent chronic ear pain, acute hearing loss, ear discharge. Oral cavity: No recent ulcerations, bleeding, oral cavity discomfort. Neck: No recent acute neck pain reported. Hematologic: No recent easy bruising or bleeding or hematologic malignancy reported. Lymphatic: No recent lymphatic malignancy, chronic lymphadenopathy reported yet Cardiovascular system review: See history of present illness. Respiratory system review: Noted cough with sputum production, occasionally blood-tinged but denied any history of blood clots in the lungs reported. Mild Shortness of breath on exertion at home which has gotten worse. Gastrointestinal system review: Negative for any recent acute or chronic abdominal pain, hematemesis, melena, recent change in bowel habits. Genitourinary system review: No recent acute or chronic hematuria, flank pain, UTI etc. reported. Skin system review: Negative for any recent abnormal bruising, no rash, no pruritus reported. Neurologic: No prior history of strokes, mini strokes, seizure disorder. Psychologic: No history of major psychosis or major depression reported. Musculoskeletal: Minor aches and pains reported. No acute joint swelling reported. Endocrine: No recent polyuria, polydipsia, recent heat or cold intolerance. Physical Exam Vital Signs: Temp Pulse Resp BP Pulse Ox 98.9 F 88 18 110/70 97 12/13/17 12:26 12/13/17 14:18 12/13/17 14:18 12/13/17 12:26 12/13/17 14:18 Intake & Output 12/12/17 12/13/17 12/14/17 06:59 06:59 06:59 Intake Total 2941 2423 1350 Output Total 1160 1650 650 Balance 1781 773 700 Weight 68.9 kg 70 kg Exam: GENERAL: well-nourished and in no acute distress. Alert and oriented x3 HEAD: Atraumatic, normocephalic. EYES: Pupils equal round and reactive to light, extraocular movements intact, sclera anicteric, conjunctiva are normal. ENT: TMs normal, nares patent, oropharynx clear without exudates. Moist mucous membranes. No oral ulcerations or bleeding gums noted NECK: supple without lymphadenopathy. Trachea is central. No cervical or axillary lymphadenopathy noted. Carotids are 2+, JVD WNL LUNGS: Respiration seems nonlabored, no significant accessory muscle action noted. Breath sounds bibasilar fine crackles and wheezing noted. CHEST: Palpation of the chest wall shows no significant chest wall tenderness. No other significant abnormalities noted. 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 ABDOMEN: Soft, no significant tenderness appreciated, normoactive bowel sounds. No guarding, no rebound. No rigidity noted . No masses appreciated. EXTREMITIES: Pedal pulses are 1-2+, no calf tenderness noted. No clubbing or cyanosis.trace to 1+ pedal edema noted NEUROLOGICAL: Focused neurological exam showed no significant neurologic deficit. Normal speech, no focal weakness appreciated. PSYCH: Normal mood, normal affect. Judgment and insight within normal limits. SKIN: No significant ecchymosis, rash, ulcerations or signs of pruritus noted. MUSCULOSKELETAL EXAM: No significant joint swelling noted. Results Laboratory Results: 12/13/17 04:28 12/13/17 13:12 12/13/17 12/13/17 12/13/17 04:28 10:10 13:12 WBC 13.3 H RBC 4.39 Hgb 12.6 L Hct 38.1 MCV 87 MCH 28.7 MCHC 33.0 RDW 15.5 H Plt Count 321 Sodium 142.3 Potassium 3.8 Chloride 110 H Carbon Dioxide 24 Anion Gap 8 BUN 12 Creatinine 0.74 Est GFR ( Amer) > 60 Est GFR (Non-Af Amer) > 60 Glucose 74 L Calcium 9.2 Magnesium 1.4 L Urine Color YELLOW Urine Appearance CLEAR Urine pH 5.0 Ur Specific [place] 1.012 Urine Protein NEGATIVE Urine Glucose (UA) NEGATIVE Urine Ketones TRACE H Urine Blood NEGATIVE Urine Nitrite NEGATIVE Ur Leukocyte Esterase NEGATIVE Urine WBC (Auto) 1 Urine RBC (Auto) 1 12/08/17 12/08/17 21:05 21:05 Troponin I < 0.012 NT-Pro-B Natriuret Pep 1840 H EKG Comments: Atrial fibrillation with rapid ventricular response. Borderline Q waves noted inferiorly. No acute ST-T wave changes noted. Impressions: Chest X-Ray 12/08/17 12:31 IMPRESSION: NO ACUTE RADIOGRAPHIC FINDING IN THE CHEST. Lung Scan-VQ NM 12/08/17 16:04 IMPRESSION: NORMAL VENTILATION-PERFUSION LUNG SCAN. NEGATIVE FOR PULMONARY EMBOLI. Assessment & Plan - Diagnosis (1) Atrial fibrillation with rapid ventricular response Is this a current diagnosis for this admission?: Yes (2) COPD with exacerbation Is this a current diagnosis for this admission?: Yes (3) Acute bacterial bronchitis Is this a current diagnosis for this admission?: Yes (4) Diabetes Qualifiers: Diabetes mellitus type: type 2 Diabetes mellitus complication status: with hyperglycemia Diabetes mellitus alf insulin use: without alf use Qualified Code(s): E11.65 - Type 2 diabetes mellitus with hyperglycemia Is this a current diagnosis for this admission?: Yes (5) Tobacco dependence Is this a current diagnosis for this admission?: Yes (6) Hypertension Qualifiers: Hypertension type: essential hypertension Qualified Code(s): I10 - Essential (primary) hypertension Is this a current diagnosis for this admission?: Yes - Notes Notes: Atrial fibrillation with rapid ventricular response: Recommend rate control with Cardizem or verapamil. Will also recommend chronic anticoagulation with newer oral anticoagulants. This is based on patient's chads score. However patient has been noted to have some progressive drop in hemoglobin. Will recommend that any active bleed to be ruled out prior to starting Eliquis therapy. COPD with exacerbation: Continue antibiotics and bronchodilator therapy as well as oxygen supplementation as needed. Patient seems to have element of emphysema. Acute bronchitis: Continue antibiotic therapy. Diabetes: Agree with current management plans. Will obtain a glycohemoglobin level. Hypertension: This is under reasonable control. Tobacco abuse: Patient has been advised to quit smoking. Patient currently generally stable. His chart was reviewed. Cardiac enzymes noted to be negative. 2D echocardiogram reviewed and does show enlarged right atrium and right ventricle most likely related to COPD and emphysema. Patient may need evaluation for nocturnal hypoxemia which can be performed through my office if needed. - Time Time Spent: 30 to 50 Minutes - CODE STATUS was discussed, patient remains full code. Surrogate decision-maker unchanged. Multiple medical problems were addressed. More than 50% of the time spent coordinating care, discussing management plans with involved caregivers. Management plans discussed with involved personnels. Medical decision making was of moderate to high complexity , patient's has multiple comorbidities. Medications reviewed and adjusted accordingly: Yes
[2017-12-13] MEDS: ATORVASTATIN CALCIUM 80 MG TABLET PO SCH (21:28)
[2017-12-13] MEDS: ASPIRIN 81 MG TABLET, CHEWABLE PO SCH (21:29)
[2017-12-13] MEDS: AMLODIPINE BESYLATE 5 MG TABLET PO SCH (21:30)
[2017-12-14] MEDS: IPRATROPIUM/ALBUTEROL 0.5-2.5 MG/3 ML AMPUL NEB SCH ×4 (02:02→19:56)
[2017-12-14] MEDS: NORMAL SALINE 1000 ML 1,000 ML IV PRN (04:37)
[2017-12-14] MEDS: DILTIAZEM HCL 60 MG TABLET PO SCH ×3 (05:15→22:17)
[2017-12-14] MEDS: METFORMIN HCL 500 MG TABLET PO SCH ×2 (08:59→16:25)
[2017-12-14] MEDS: GLIPIZIDE 5 MG TABLET PO SCH (08:59)
[2017-12-14] MEDS: GUAIFENESIN 600 MG TABLET.SA PO SCH ×2 (09:00→22:17)
[2017-12-14] MEDS: APIXABAN 5 MG TABLET PO SCH ×2 (09:01→18:08)
[2017-12-14] MEDS: FLUTICASONE NASAL SPRAY 50 MCG/SPRY 120 SPRAY/16 GM NASL SCH ×2 (09:01→22:17)
[2017-12-14] MEDS: LANSOPRAZOLE 15 MG TAB.RAP.DR PO SCH (09:01)
[2017-12-14] MEDS: MECLIZINE HCL 25 MG TABLET PO PRN (09:08)
--- NOTE | 2017-12-14 09:50 | PDOC PROGRESS REPORT ---
Subjective Progress Note for:: 12/13/17 Subjective:: 72-year-old who presents with COPD exacerbation due to bronchitis and A. fib with RVR. Patient states he is doing okay. He was happy to see the eye doctor. Per the nurse patient refused to work with PT despite complaining of falls. Patient refused to take his insulin despite being diabetic. Patient requesting to take a shower tomorrow. Informed patient that if he is doing well , he may be discharged home. Reason For Visit: AFIB, COPD EXACERBATION ACUTE ON CHRONIC Physical Exam Vital Signs: Temp Pulse Resp BP Pulse Ox 99.3 F 95 18 130/74 H 97 12/13/17 19:38 12/13/17 19:44 12/13/17 19:44 12/13/17 19:38 12/13/17 19:44 Intake & Output 12/12/17 12/13/17 12/14/17 06:59 06:59 06:59 Intake Total 2941 2423 1350 Output Total 1160 1650 650 Balance 1781 773 700 Weight 68.9 kg 70 kg General appearance: PRESENT: no acute distress, disheveled, thin Head exam: PRESENT: normocephalic Eye exam: PRESENT: EOMI. ABSENT: scleral icterus Ear exam: PRESENT: normal external ear exam Mouth exam: PRESENT: moist Neck exam: ABSENT: carotid bruit, JVD, lymphadenopathy, thyromegaly Respiratory exam: PRESENT: clear to auscultation elise. ABSENT: rales, rhonchi, wheezes Cardiovascular exam: PRESENT: RRR. ABSENT: diastolic murmur, rubs, systolic murmur Pulses: PRESENT: normal dorsalis pedis pul Vascular exam: PRESENT: normal capillary refill GI/Abdominal exam: PRESENT: normal bowel sounds, soft. ABSENT: distended, guarding, mass, organolmegaly, rebound, tenderness Rectal exam: PRESENT: deferred Extremities exam: PRESENT: full ROM. ABSENT: calf tenderness, clubbing, pedal edema Neurological exam: PRESENT: alert, awake, oriented to person, oriented to place , oriented to time, oriented to situation, CN II-XII grossly intact. ABSENT: motor sensory deficit Psychiatric exam: PRESENT: appropriate affect, normal mood. ABSENT: homicidal ideation, suicidal ideation Skin exam: PRESENT: dry, intact, warm. ABSENT: cyanosis, rash Results Laboratory Results: 12/13/17 04:28 12/13/17 13:12 12/13/17 12/13/17 12/13/17 04:28 10:10 13:12 WBC 13.3 H RBC 4.39 Hgb 12.6 L Hct 38.1 MCV 87 MCH 28.7 MCHC 33.0 RDW 15.5 H Plt Count 321 Sodium 142.3 Potassium 3.8 Chloride 110 H Carbon Dioxide 24 Anion Gap 8 BUN 12 Creatinine 0.74 Est GFR ( Amer) > 60 Est GFR (Non-Af Amer) > 60 Glucose 74 L Calcium 9.2 Magnesium 1.4 L Urine Color YELLOW Urine Appearance CLEAR Urine pH 5.0 Ur Specific [place] 1.012 Urine Protein NEGATIVE Urine Glucose (UA) NEGATIVE Urine Ketones TRACE H Urine Blood NEGATIVE Urine Nitrite NEGATIVE Ur Leukocyte Esterase NEGATIVE Urine WBC (Auto) 1 Urine RBC (Auto) 1 12/08/17 12/08/17 21:05 21:05 Troponin I < 0.012 NT-Pro-B Natriuret Pep 1840 H Impressions: Chest X-Ray 12/08/17 12:31 IMPRESSION: NO ACUTE RADIOGRAPHIC FINDING IN THE CHEST. Lung Scan-VQ NM 12/08/17 16:04 IMPRESSION: NORMAL VENTILATION-PERFUSION LUNG SCAN. NEGATIVE FOR PULMONARY EMBOLI. Assessment & Plan - Diagnosis (1) Acute bacterial bronchitis Is this a current diagnosis for this admission?: Yes Plan: Patient with acute bronchitis. Patient appears to be doing well from a respiratory standpoint. Continue on nebs, antibiotics, Mucinex along with incentive spirometry and flutter valve. Continue IV antibiotics for 1 more day. (2) Atrial fibrillation with rapid ventricular response Is this a current diagnosis for this admission?: Yes Plan: Patient heart rate still irregular however controlled on diltiazem to every 8. Patient on therapeutic doses of Lovenox. Echo completed and shows normal EF. TSH is appropriate serial troponins negative. Cardiology following. Patient will need on going anticoagulation. (3) Diabetes Qualifiers: Diabetes mellitus type: type 2 Diabetes mellitus complication status: with hyperglycemia Diabetes mellitus manager intermediate insulin use: without manager intermediate use Qualified Code(s): E11.65 - Type 2 diabetes mellitus with hyperglycemia Is this a current diagnosis for this admission?: Yes Plan: Continue home medications. Patient refusing SSI. (4) Leukocytosis Is this a current diagnosis for this admission?: Yes Plan: Most likely due to acute infection. However this may have been a leukemoid reaction. His cultures are negative. Continue antibiotics for 1 more day. 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 Continue patch ordered. (6) Urinary tract infection Qualifiers: Urinary tract infection type: acute cystitis Hematuria presence: with hematuria Qualified Code(s): N30.01 - Acute cystitis with hematuria Is this a current diagnosis for this admission?: Yes Plan: Patient urine culture is negative for antibiotics are being continued empirically for acute bronchitis. (7) Poor vision Is this a current diagnosis for this admission?: Yes Plan: Patient complaining of his vision patient getting worse. Patient states he has cataracts and has been evaluated several times however surgery has not been performed. Patient seen by ophthalmology and they would like to follow with patient on discharge. Patient states he will call to make an appointment when he has some money. (8) Anemia Is this a current diagnosis for this admission?: Yes Plan: This may be dilutional as patient has been on fluids. He may have been a little dehydrated in the beginning which would explain a hemoglobin of 17 on admission. Will do an anemia work up. - Time Time Spent with patient: Less than 15 minutes Anticipated discharge: Home Within: within 48 hours
[2017-12-14] MEDS ORDERED: LEVOFLOXACIN 500 MG TABLET PO SCH (10:00)
[2017-12-14 10:40] LABS: ABSOLUTE RETICS # 0.033 10^6/uL (0.028-0.122); HEMATOCRIT 40.5 % (37.9-51.0); HEMOGLOBIN 13.7 g/dL (13.5-17.0); MEAN CORPUSCULAR HEMOGLOBIN 29.2 pg (27.0-33.4); MEAN CORPUSCULAR HGB CONC 33.7 g/dL (32.0-36.0); MEAN CORPUSCULAR VOLUME 87 fl (80-97); PLATELET COUNT 353 10^3/uL (150-450); RED BLOOD COUNT 4.68 10^6/uL (4.35-5.55); RED CELL DISTRIBUTION WIDTH 15.2 % (11.5-14.0); RETICULOCYTE COUNT (AUTO) 0.71 % (0.66-2.85); WHITE BLOOD COUNT 14.9 10^3/uL (4.0-10.5)
[2017-12-14 12:17] LABS: IRON(TIBC) < 10.1 ug/dL (49-181)
[2017-12-14] MEDS ORDERED: IRON SUCROSE COMPLEX INJ/PF 100 MG/5 ML SDV IV ONE (13:05)
[2017-12-14] MEDS ORDERED: CYANOCOBALAMIN (VITAMIN B-12) INJ 1000 MCG/1 ML VIAL IM ONE (13:12)
[2017-12-14] MEDS ORDERED: IRON SUCROSE COMPLEX 200 MG in NORMAL SALINE 100 ML IV ONE (15:00)
--- NOTE | 2017-12-14 16:40 | PDOC PROGRESS REPORT ---
Subjective Subjective:: 72-year-old who presents with COPD exacerbation due to bronchitis and A. fib with RVR. She states he is doing better today. Explained to patient that he is severely anemic and will need iron infusion. Explained to patient that he is most likely be discharged tomorrow after he received his infusion. Patient will most likely have to continue oral iron replacement. Patient did well today with ambulating to the restroom and washing and shaving. Reason For Visit: AFIB, COPD EXACERBATION ACUTE ON CHRONIC Physical Exam Vital Signs: Temp Pulse Resp BP Pulse Ox 98.7 F 89 18 111/70 98 12/14/17 12:18 12/14/17 14:32 12/14/17 14:32 12/14/17 12:18 12/14/17 14:32 Intake & Output 12/13/17 12/14/17 12/15/17 06:59 06:59 06:59 Intake Total 2423 3000 237 Output Total 1650 1860 450 Balance 773 1140 -213 Weight 70 kg 68.8 kg General appearance: PRESENT: no acute distress, thin, well-developed Head exam: PRESENT: normocephalic Eye exam: PRESENT: EOMI. ABSENT: scleral icterus Ear exam: PRESENT: normal external ear exam Mouth exam: PRESENT: moist Neck exam: ABSENT: carotid bruit, JVD, lymphadenopathy, thyromegaly Respiratory exam: PRESENT: clear to auscultation elise. ABSENT: rales, rhonchi, wheezes Cardiovascular exam: PRESENT: RRR. ABSENT: diastolic murmur, rubs, systolic murmur Pulses: PRESENT: normal dorsalis pedis pul Vascular exam: PRESENT: normal capillary refill GI/Abdominal exam: PRESENT: normal bowel sounds, soft. ABSENT: distended, guarding, mass, organolmegaly, rebound, tenderness Rectal exam: PRESENT: deferred Extremities exam: PRESENT: full ROM. ABSENT: calf tenderness, clubbing, pedal edema Neurological exam: PRESENT: alert, awake, oriented to person, oriented to place , oriented to time, oriented to situation, CN II-XII grossly intact. ABSENT: motor sensory deficit Psychiatric exam: PRESENT: appropriate affect, normal mood. ABSENT: homicidal ideation, suicidal ideation Skin exam: PRESENT: dry, intact, warm. ABSENT: cyanosis, rash Results Laboratory Results: 12/14/17 10:21 12/13/17 13:12 12/14/17 12/14/17 12/14/17 04:44 10:21 10:21 WBC 14.9 H RBC 4.68 Hgb 13.7 Hct 40.5 MCV 87 MCH 29.2 MCHC 33.7 RDW 15.2 H Plt Count 353 Retic Count (auto) 0.71 Absolute Retic 0.033 Iron < 10.1 L TIBC 204 L % Saturation UNABLE TO CALCULATE Ferritin 205.00 Vitamin B12 289.0 Folate 10.50 Stool Occult Blood NEGATIVE 12/09/17 03:09 Blood Blood Culture - Final NO GROWTH IN 5 DAYS 12/09/17 01:28 Blood Blood Culture - Final NO GROWTH IN 5 DAYS 12/08/17 12/08/17 21:05 21:05 Troponin I < 0.012 NT-Pro-B Natriuret Pep 1840 H Impressions: Chest X-Ray 12/08/17 12:31 IMPRESSION: NO ACUTE RADIOGRAPHIC FINDING IN THE CHEST. Lung Scan-VQ NM 12/08/17 16:04 IMPRESSION: NORMAL VENTILATION-PERFUSION LUNG SCAN. NEGATIVE FOR PULMONARY EMBOLI. Assessment & Plan - Diagnosis (1) Acute bacterial bronchitis Is this a current diagnosis for this admission?: Yes Plan: Patient with acute bronchitis. Patient appears to be doing well from a respiratory standpoint. Continue on nebs, antibiotics, Mucinex along with incentive spirometry and flutter valve. Discontinue cefepime. Patient has received 5 days of antibiotics. (2) Atrial fibrillation with rapid ventricular response Is this a current diagnosis for this admission?: Yes Plan: Patient heart rate still irregular however controlled on diltiazem to every 8. Eliquis 5 mg p.o. twice daily. Consult discharge planning in regards to assisting patient with the medication.. Echo completed and shows normal EF. TSH is appropriate serial troponins negative. Cardiology following. (3) Diabetes Qualifiers: Diabetes mellitus type: type 2 Diabetes mellitus complication status: with hyperglycemia Diabetes mellitus chcf insulin use: without chcf use Qualified Code(s): E11.65 - Type 2 diabetes mellitus with hyperglycemia Is this a current diagnosis for this admission?: Yes Plan: Continue home medications. Patient refusing SSI. Blood glucoses have been on the lower side of normal. Patient advised that he needs to eat. Patient has not been in the hospital. And that it does not taste good. Patient is going to get something for him to eat. (4) Leukocytosis Is this a current diagnosis for this admission?: Yes Plan: Leukocytosis has improved. 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 Continue patch ordered. (6) Urinary tract infection Qualifiers: Urinary tract infection type: acute cystitis Hematuria presence: with hematuria Qualified Code(s): N30.01 - Acute cystitis with hematuria Is this a current diagnosis for this admission?: Yes Plan: Patient urine culture is negative for antibiotics are being continued empirically for acute bronchitis. (7) Poor vision Is this a current diagnosis for this admission?: Yes Plan: Patient complaining of his vision patient getting worse. Patient states he has cataracts and has been evaluated several times however surgery has not been performed. Patient seen by ophthalmology and they would like to follow with patient on discharge. Patient states he will call to make an appointment when he has some money. (8) Anemia Is this a current diagnosis for this admission?: Yes Plan: She with profound iron deficiency anemia. Patient iron level is less than 10. Stool occult blood was negative. Venofer 200 mg 2. Patient will be given oral iron on discharge. Patient will be advised to follow his PCP and have colonoscopy completed along with endoscopy help determine why patient is so iron deficient. I do not believe this is only related to poor nutrition. - Time Time Spent with patient: 15-24 minutes Anticipated discharge: Home Within: within 24 hours
[2017-12-14] MEDS: ATORVASTATIN CALCIUM 80 MG TABLET PO SCH (22:17)
[2017-12-14] MEDS: ASPIRIN 81 MG TABLET, CHEWABLE PO SCH (22:17)
[2017-12-15] MEDS: IPRATROPIUM/ALBUTEROL 0.5-2.5 MG/3 ML AMPUL NEB SCH ×2 (01:28→08:02)
[2017-12-15 05:18] LABS: HEMATOCRIT 38.9 % (37.9-51.0); HEMOGLOBIN 13.1 g/dL (13.5-17.0); MEAN CORPUSCULAR HEMOGLOBIN 29.1 pg (27.0-33.4); MEAN CORPUSCULAR HGB CONC 33.6 g/dL (32.0-36.0); MEAN CORPUSCULAR VOLUME 86 fl (80-97); PLATELET COUNT 338 10^3/uL (150-450); RED CELL DISTRIBUTION WIDTH 15.2 % (11.5-14.0); WHITE BLOOD COUNT 14.2 10^3/uL (4.0-10.5)
[2017-12-15] MEDS: DILTIAZEM HCL 60 MG TABLET PO SCH (05:20)
[2017-12-15] MEDS ORDERED: IRON SUCROSE COMPLEX 200 MG in NORMAL SALINE 100 ML IV ONE (06:00)
[2017-12-15] MEDS ORDERED: CYANOCOBALAMIN (VITAMIN B-12) INJ 1000 MCG/1 ML VIAL IM ONE (08:30)
[2017-12-15] MEDS: METFORMIN HCL 500 MG TABLET PO SCH (08:44)
[2017-12-15] MEDS: GLIPIZIDE 5 MG TABLET PO SCH (08:45)
[2017-12-15] MEDS ORDERED: MAGNESIUM SULFATE 4 GM/100 ML RTUPB IV ONE (09:00)
[2017-12-15] MEDS ORDERED: POTASSIUM CHLORIDE 20 MEQ/15 ML UDCUP PO ONE (09:00)
[2017-12-15] MEDS ORDERED: DILTIAZEM HCL 180 MG CAPSULE.CR PO SCH (10:00)
[2017-12-15] MEDS: GUAIFENESIN 600 MG TABLET.SA PO SCH (10:05)
[2017-12-15] MEDS: LANSOPRAZOLE 15 MG TAB.RAP.DR PO SCH (10:05)
[2017-12-15] MEDS: APIXABAN 5 MG TABLET PO SCH (10:06)
[2017-12-15] MEDS: FLUTICASONE NASAL SPRAY 50 MCG/SPRY 120 SPRAY/16 GM NASL SCH (10:07)
[2017-12-15 13:22] VITALS: BP 132/55
--- NOTE | 2017-12-15 20:23 | PDOC PROGRESS REPORT ---
Subjective Progress Note for:: 12/14/17 Subjective:: Feels better. Patient seems to be doing better with gradual improvement. Pt is denying any chest arm or neck discomfort. Patient denying any PND, orthopnea. Patient denied any sustained palpitations, dizziness, syncope, near syncope. Patient denying any fever chills. Patient denying any other significant discomfort. Patient is maintaining chronic atrial fibrillation, heart rate is well controlled. Review of systems: Rest review of systems negative. Medications: Medications have been reviewed. Reason For Visit: AFIB, COPD EXACERBATION ACUTE ON CHRONIC Physical Exam Vital Signs: Temp Pulse Resp BP Pulse Ox 98.3 F 101 H 19 121/73 90 L 12/14/17 15:34 12/14/17 15:34 12/14/17 15:34 12/14/17 15:34 12/14/17 15:34 Intake & Output 12/13/17 12/14/17 12/15/17 06:59 06:59 06:59 Intake Total 2423 3000 724 Output Total 1650 1860 820 Balance 773 1140 -96 Weight 70 kg 68.8 kg Exam: GENERAL: well-nourished and in no acute distress. Alert and oriented x3 HEAD: Atraumatic, normocephalic. EYES: Pupils equal round and reactive to light, extraocular movements intact, sclera anicteric, conjunctiva are normal. ENT: TMs normal, nares patent, oropharynx clear without exudates. Moist mucous membranes. No oral ulcerations or bleeding gums noted NECK: supple without lymphadenopathy. Trachea is central. No cervical or axillary lymphadenopathy noted. Carotids are 2+, JVD WNL LUNGS: Respiration seems nonlabored, no significant accessory muscle action noted. Breath sounds bibasilar fine crackles and wheezing noted. CHEST: Palpation of the chest wall shows no significant chest wall tenderness. No other significant abnormalities noted. 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 ABDOMEN: Soft, no significant tenderness appreciated, normoactive bowel sounds. No guarding, no rebound. No rigidity noted . No masses appreciated. EXTREMITIES: Pedal pulses are 1-2+, no calf tenderness noted. No clubbing or cyanosis.trace to 1+ pedal edema noted NEUROLOGICAL: Focused neurological exam showed no significant neurologic deficit. Normal speech, no focal weakness appreciated. PSYCH: Normal mood, normal affect. Judgment and insight within normal limits. SKIN: No significant ecchymosis, rash, ulcerations or signs of pruritus noted. MUSCULOSKELETAL EXAM: No significant joint swelling noted. Results Laboratory Results: 12/14/17 10:21 12/13/17 13:12 12/14/17 12/14/17 12/14/17 04:44 10:21 10:21 WBC 14.9 H RBC 4.68 Hgb 13.7 Hct 40.5 MCV 87 MCH 29.2 MCHC 33.7 RDW 15.2 H Plt Count 353 Retic Count (auto) 0.71 Absolute Retic 0.033 Iron < 10.1 L TIBC 204 L % Saturation UNABLE TO CALCULATE Ferritin 205.00 Vitamin B12 289.0 Folate 10.50 Stool Occult Blood NEGATIVE 12/09/17 03:09 Blood Blood Culture - Final NO GROWTH IN 5 DAYS 12/09/17 01:28 Blood Blood Culture - Final NO GROWTH IN 5 DAYS 12/08/17 12/08/17 21:05 21:05 Troponin I < 0.012 NT-Pro-B Natriuret Pep 1840 H EKG Comments: Atrial fibrillation with well-controlled heart rate response Impressions: Chest X-Ray 12/08/17 12:31 IMPRESSION: NO ACUTE RADIOGRAPHIC FINDING IN THE CHEST. Lung Scan-VQ NM 12/08/17 16:04 IMPRESSION: NORMAL VENTILATION-PERFUSION LUNG SCAN. NEGATIVE FOR PULMONARY EMBOLI. Assessment & Plan - Diagnosis (1) Atrial fibrillation with rapid ventricular response Is this a current diagnosis for this admission?: Yes (2) COPD with exacerbation Is this a current diagnosis for this admission?: Yes (3) Acute bacterial bronchitis Is this a current diagnosis for this admission?: Yes (4) Diabetes Qualifiers: Diabetes mellitus type: type 2 Diabetes mellitus complication status: with hyperglycemia Diabetes mellitus supervisor intermediates insulin use: without fdc use Qualified Code(s): E11.65 - Type 2 diabetes mellitus with hyperglycemia Is this a current diagnosis for this admission?: Yes (5) Tobacco dependence Is this a current diagnosis for this admission?: Yes (6) Hypertension Qualifiers: Hypertension type: essential hypertension Qualified Code(s): I10 - Essential (primary) hypertension Is this a current diagnosis for this admission?: Yes - Notes Notes: Atrial fibrillation with rapid ventricular response: Recommend rate control with Cardizem or verapamil. Will also recommend chronic anticoagulation with newer oral anticoagulants. This is based on patient's chads score. Patient started on Eliquis therapy. COPD with exacerbation: Continue antibiotics and bronchodilator therapy as well as oxygen supplementation as needed. Patient seems to have element of emphysema. This has significantly improved. Acute bronchitis: Continue antibiotic therapy. Improved. Diabetes: Agree with current management plans. Hypertension: This is under reasonable control. Tobacco abuse: Patient has been advised to quit smoking. Patient currently generally stable. His chart was reviewed. Cardiac enzymes noted to be negative. 2D echocardiogram reviewed and does show enlarged right atrium and right ventricle most likely related to COPD and emphysema. Patient may need evaluation for nocturnal hypoxemia which can be performed through my office if needed. - Time Time with patient: 15-25 minutes - CODE STATUS was discussed, patient remains full code. Surrogate decision-maker unchanged. Multiple medical problems were addressed. More than 50% of the time spent coordinating care, discussing management plans with involved caregivers. Management plans discussed with involved personnels. Medical decision making was of moderate to high complexity , patient's has multiple comorbidities. Medications reviewed and adjusted accordingly: Yes
--- NOTE | 2017-12-15 20:25 | PDOC PROGRESS REPORT ---
Subjective Progress Note for:: 12/15/17 Subjective:: Feels better. Patient seen on morning rounds. He claims to be improved enough to go home. Pt is denying any chest arm or neck discomfort. Patient denying any PND, orthopnea. Patient denied any sustained palpitations, dizziness, syncope, near syncope. Patient denying any fever chills. Patient denying any other significant discomfort. Patient is maintaining chronic atrial fibrillation, heart rate is well controlled. Review of systems: Rest review of systems negative. Medications: Medications have been reviewed. Reason For Visit: AFIB, COPD EXACERBATION ACUTE ON CHRONIC Physical Exam Vital Signs: Temp Pulse Resp BP Pulse Ox 98.9 F 73 18 132/55 H 94 12/15/17 13:20 12/15/17 13:20 12/15/17 13:20 12/15/17 13:20 12/15/17 13:20 Intake & Output 12/14/17 12/15/17 12/16/17 06:59 06:59 06:59 Intake Total 3000 2124 Output Total 1860 1520 Balance 1140 604 Weight 68.8 kg 67.9 kg Exam: GENERAL: well-nourished and in no acute distress. Alert and oriented x3 HEAD: Atraumatic, normocephalic. EYES: Pupils equal round and reactive to light, extraocular movements intact, sclera anicteric, conjunctiva are normal. ENT: TMs normal, nares patent, oropharynx clear without exudates. Moist mucous membranes. No oral ulcerations or bleeding gums noted NECK: supple without lymphadenopathy. Trachea is central. No cervical or axillary lymphadenopathy noted. Carotids are 2+, JVD WNL LUNGS: Respiration seems nonlabored, no significant accessory muscle action noted. Breath sounds clear to auscultation bilaterally and equal noted. No wheezes rales or rhonchi noted. No significant dullness noted on percussion. CHEST: Palpation of the chest wall shows no significant chest wall tenderness. No other significant abnormalities noted. 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 ABDOMEN: Soft, no significant tenderness appreciated, normoactive bowel sounds. No guarding, no rebound. No rigidity noted . No masses appreciated. EXTREMITIES: Pedal pulses are 1-2+, no calf tenderness noted. No clubbing or cyanosis.trace pedal edema noted NEUROLOGICAL: Focused neurological exam showed no significant neurologic deficit. Normal speech, no focal weakness appreciated. PSYCH: Normal mood, normal affect. Judgment and insight within normal limits. SKIN: No significant ecchymosis, rash, ulcerations or signs of pruritus noted. MUSCULOSKELETAL EXAM: No significant joint swelling noted. Results Laboratory Results: 12/15/17 04:22 12/13/17 13:12 12/15/17 04:22 WBC 14.2 H RBC 4.50 Hgb 13.1 L Hct 38.9 MCV 86 MCH 29.1 MCHC 33.6 RDW 15.2 H Plt Count 338 12/08/17 12/08/17 21:05 21:05 Troponin I < 0.012 NT-Pro-B Natriuret Pep 1840 H EKG Comments: Atrial fibrillation with controlled ventricular response Impressions: Chest X-Ray 12/08/17 12:31 IMPRESSION: NO ACUTE RADIOGRAPHIC FINDING IN THE CHEST. Lung Scan-VQ NM 12/08/17 16:04 IMPRESSION: NORMAL VENTILATION-PERFUSION LUNG SCAN. NEGATIVE FOR PULMONARY EMBOLI. Assessment & Plan - Diagnosis (1) Atrial fibrillation with rapid ventricular response Is this a current diagnosis for this admission?: Yes (2) COPD with exacerbation Is this a current diagnosis for this admission?: Yes (3) Acute bacterial bronchitis Is this a current diagnosis for this admission?: Yes (4) Diabetes Qualifiers: Diabetes mellitus type: type 2 Diabetes mellitus complication status: with hyperglycemia Diabetes mellitus care home insulin use: without care home use Qualified Code(s): E11.65 - Type 2 diabetes mellitus with hyperglycemia Is this a current diagnosis for this admission?: Yes (5) Tobacco dependence Is this a current diagnosis for this admission?: Yes (6) Hypertension Qualifiers: Hypertension type: essential hypertension Qualified Code(s): I10 - Essential (primary) hypertension Is this a current diagnosis for this admission?: Yes - Notes Notes: Atrial fibrillation with rapid ventricular response: Heart rate now well controlled. Patient on chronic anticoagulation with newer Eliquis. No bleeding complications noted. COPD with exacerbation: This has significantly improved. Acute bronchitis: Continue antibiotic therapy. Improved. Diabetes: Agree with current management plans. Hypertension: This is under reasonable control. Tobacco abuse: Patient has been advised to quit smoking. Patient currently generally stable. His chart was reviewed. Cardiac enzymes noted to be negative. 2D echocardiogram reviewed and does show enlarged right atrium and right ventricle most likely related to COPD and emphysema. Patient may need evaluation for nocturnal hypoxemia which can be performed through my office if needed. - Time Time Spent with patient: CODE STATUS was discussed, patient remains full code. Surrogate decision-maker unchanged. Multiple medical problems were addressed. More than 50% of the time spent coordinating care, discussing management plans with involved caregivers. Management plans discussed with involved personnels. Medical decision making was of moderate to high complexity, patient's has multiple comorbidities. Time with patient: 15-25 minutes - CODE STATUS was discussed, patient remains full code. Surrogate decision-maker unchanged. Multiple medical problems were addressed. More than 50% of the time spent coordinating care, discussing management plans with involved caregivers. Management plans discussed with involved personnels. Medical decision making was of moderate to high complexity , patient's has multiple comorbidities. Medications reviewed and adjusted accordingly: Yes
--- NOTE | 2017-12-15 23:16 | PDOC DISCHARGE SUMMARY ---
General - Admit/Disc Date/PCP Admission Date/Primary Care Provider: 12/08/17 19:46 Discharge Date: 12/15/17 - Discharge Diagnosis (1) Acute bacterial bronchitis Is this a current diagnosis for this admission?: Yes (2) Atrial fibrillation with rapid ventricular response Is this a current diagnosis for this admission?: Yes (3) Diabetes Is this a current diagnosis for this admission?: Yes (4) Leukocytosis Is this a current diagnosis for this admission?: Yes (5) Tobacco dependence Is this a current diagnosis for this admission?: Yes (6) Urinary tract infection Is this a current diagnosis for this admission?: Yes (7) Poor vision Is this a current diagnosis for this admission?: Yes (8) Anemia Is this a current diagnosis for this admission?: Yes - Additional Information Resuscitation Status: Full Code Discharge Diet: Cardiac, Diabetic Discharge Activity: Activity As Tolerated, Balance Activity w/Rest Prescriptions: Apixaban [Eliquis 5 mg Tablet] 5 mg PO BID 60 Days #60 tablet Diltiazem HCl [Cardizem Cd 180 mg Capsule] 180 mg PO Q12 60 Days #60 capsule.cr Ferrous Sulfate 325 mg PO DAILY 30 Days #30 tablet. [place] Medications: Atorvastatin Calcium [Lipitor 80 mg Tablet] 80 mg PO QHS 12/08/17 Glipizide [Glucotrol 5 mg Tablet] 5 mg PO QHS 12/08/17 Meclizine HCl [Antivert 25 mg Tablet] 25 mg PO Q8HP PRN 12/08/17 Metformin HCl [Glucophage] 1,000 mg PO QHS 12/08/17 Omeprazole 20 mg PO QHS 12/08/17 Metformin HCl [Glucophage] 1,000 mg PO DAILY PRN 12/09/17 Apixaban [Eliquis 5 mg Tablet] 5 mg PO BID 60 Days #60 tablet 12/15/17 Diltiazem HCl [Cardizem Cd 180 mg Capsule] 180 mg PO Q12 60 Days #60 capsule.cr 12/15/17 Ferrous Sulfate 325 mg PO DAILY 30 Days #30 tablet. 12/15/17 Lisinopril [Prinivil 10 mg Tablet] 5 mg PO QHS #0 12/15/17 History of Present Illness History of Present Illness: RAJAN KEARNEY is a 72 year old male with a past medical history of diabetes, hypertension, paroxysmal atrial fibrillation, GERD, tobacco dependence and COPD. Patient presents with 3 days of exceptional shortness of breath, nonproductive cough and sharp chest wall pain with deep breathing. In the emergency room he is found to have A. fib with RVR, leukocytosis and a left lower lobe infiltrate. He started on empiric antibiotics, full dose Lovenox and referred to the hospitalist for admission. Patient admits [id number] medication use for symptoms without significant improvement. He denies infectious contacts This H&P was dictated by Dr. Landers, please refer to it for further details. Hospital Course Hospital Course: Patient was admitted for acute bronchitis and chest pain. Patient was treated with nebs and 5 days of antibiotics. Patient leukocytosis did resolved. Due to his complaint of chest pain, PE was ruled out with VQ scan. VQ scan was low probability. Patient was noted to have afib with RVR. Patient was started on po cardizem and lovenox. Echo was normal and troponins was normal. Patient was transisted to extended release cardizem. 120mg po bid and eliquis. Patient currently in NSR with PVCs. Patient is to follow up with cardiology. Patient was found to be profoundly anemic. Patient was given IV iron 200 x 2 and B12 1000mcg x 2 injections (for low normal B12 level). Patient was discharge on oral iron. Patient advised for follow up with PCP GI work up. EGD and colonoscopy. Patient continue on his oral medication for diabetes. Patient also has poor vision. Patient was seen by ophthalmology who asked him to please follow up as out patient. Patient is overall doing well and being discharge home with the appropriate medications and follow up. Physical Exam Vital Signs: Temp Pulse Resp BP Pulse Ox 98.9 F 73 18 132/55 H 94 12/15/17 13:20 12/15/17 13:20 12/15/17 13:20 12/15/17 13:20 12/15/17 13:20 Intake & Output 12/14/17 12/15/17 12/16/17 06:59 06:59 06:59 Intake Total 3000 2124 Output Total 1860 1520 Balance 1140 604 Weight 68.8 kg 67.9 kg General appearance: PRESENT: no acute distress, thin, well-developed Head exam: PRESENT: normocephalic Eye exam: PRESENT: EOMI. ABSENT: scleral icterus Mouth exam: PRESENT: moist Teeth exam: PRESENT: edentulous Neck exam: ABSENT: carotid bruit, JVD, lymphadenopathy, thyromegaly Respiratory exam: PRESENT: clear to auscultation elise. ABSENT: rales, rhonchi, wheezes Cardiovascular exam: PRESENT: RRR. ABSENT: diastolic murmur, rubs, systolic murmur Pulses: PRESENT: normal dorsalis pedis pul Vascular exam: PRESENT: normal capillary refill GI/Abdominal exam: PRESENT: normal bowel sounds, soft. ABSENT: distended, guarding, mass, organolmegaly, rebound, tenderness Rectal exam: PRESENT: deferred Extremities exam: PRESENT: full ROM. ABSENT: calf tenderness, clubbing, pedal edema Neurological exam: PRESENT: alert, awake, oriented to person, oriented to place , oriented to time, oriented to situation, CN II-XII grossly intact. ABSENT: motor sensory deficit Psychiatric exam: PRESENT: appropriate affect, normal mood. ABSENT: homicidal ideation, suicidal ideation Skin exam: PRESENT: dry, intact, warm. ABSENT: cyanosis, rash Results Laboratory Results: 12/15/17 04:22 12/13/17 13:12 12/15/17 04:22 WBC 14.2 H RBC 4.50 Hgb 13.1 L Hct 38.9 MCV 86 MCH 29.1 MCHC 33.6 RDW 15.2 H Plt Count 338 12/08/17 12/08/17 21:05 21:05 Troponin I < 0.012 NT-Pro-B Natriuret Pep 1840 H Impressions: Chest X-Ray 12/08/17 12:31 IMPRESSION: NO ACUTE RADIOGRAPHIC FINDING IN THE CHEST. Lung Scan-VQ HI 12/08/17 16:04 IMPRESSION: NORMAL VENTILATION-PERFUSION LUNG SCAN. NEGATIVE FOR PULMONARY EMBOLI. Qualifiers PATEINT BEING DISCHARGED WITH ANY OF THE FOLLOWING DIAGNOSIS?: No Plan Time Spent: Greater than 30 Minutes
== END 2017-12-15 14:04 | disposition home or self-care (01) | DRG 202 ==
LOC: ER 10:46 → EH 19:46 → 3W 12-09 02:25
PROVIDERS: ADMIT Internal Medicine; ATTEND Internal Medicine
PROC: 3E0F73Z Introduction of Anti-inflammatory into Respiratory Tract, Via Natural or Artificial Opening (ICD-10-PCS; principal; 2017-12-08)
DX: J20.9 Acute bronchitis, unspecified (principal); J44.1 Chronic obstructive pulmonary disease with (acute) exacerbation; J44.0 Chronic obstructive pulmonary disease with (acute) lower respiratory infection; N30.01 Acute cystitis with hematuria; I48.0 Paroxysmal atrial fibrillation; H54.7 Unspecified visual loss; D64.9 Anemia, unspecified; I10 Essential (primary) hypertension; K21.9 Gastro-esophageal reflux disease without esophagitis; F17.210 Nicotine dependence, cigarettes, uncomplicated; E11.65 Type 2 diabetes mellitus with hyperglycemia; E78.00 Pure hypercholesterolemia, unspecified; Z79.899 Other long term (current) drug therapy; Z90.79 Acquired absence of other genital organ(s); Z83.6 Family history of other diseases of the respiratory system; Z85.46 Personal history of malignant neoplasm of prostate
CPT/HCPCS: 36415; 71045; 78582; 80048; 80053; 81001; 82272; 82550; 82553; 82607; 82728; 82746; 82962; 83036; 83540; 83550; 83735; 83880; 84443; 84466; 84484; 85025; 85027; 85045; 87040; 87070; 87086; 87205; 93005; 93010; 93306; 94640; 94667; 94668; 94799; 96372; 99285; A9540; A9567; J0456; J0692; J1650; J1756; J1815; J3420; J3475; J3490; J7030; J7620; Q9969

== ENCOUNTER 2018-07-11 08:01 | Day surgery (SDC) | payer MEDICARE ==
[~2018-07-11 08:01] MED LIST: KETOROLAC TROMETHAMINE 0.45% 4 DROP/0.4 ML DROPERETTE OS PRN; MIDAZOLAM 2 MG/2 ML INJ ONE
[2018-07-11] MEDS ORDERED: LIDOCAINE 1% INJ-PF (10 MG/ML) 30 ML SDV ONE (08:35)
[2018-07-11] MEDS ORDERED: ALBUTEROL SULFATE 0.083% NEB 2.5 MG/3 ML AMPUL NEB ONE (08:40)
[2018-07-11] MEDS: TROPICAMIDE 1% OPH SOLN 3 ML OS PRN ×4 (08:40→09:00)
[2018-07-11] MEDS: CYCLOPENTOLATE 0.2%/PHENYLEPHRINE 1% OPH SOLN 2 ML OS PRN ×4 (08:40→09:00)
[2018-07-11] MEDS: TETRACAINE HCL 0.5% OPH SOLN 0.6 ML DROPERETTE OS PRN ×3 (08:41→09:13)
[2018-07-11] MEDS: BESIFLOXACIN HCL 0.6% OPH SUSP 5 ML BOTTLE OS PRN ×5 (08:41→09:36)
[2018-07-11] MEDS: CHONDR SU A NA/HYALUR INTRAOC KIT (SURGICARE) ONE ×2 (09:25)
[2018-07-11] MEDS: EPINEPHRINE INJ/PF 1 MG/1 ML AMPULE ONE ×2 (09:25)
[2018-07-11] MEDS: TOBRAMYCIN SULFATE/DEXAMETH OPH OINTMENT 3.5 GM ONE ×2 (09:36)
== END 2018-07-11 10:20 | disposition home or self-care (01) ==
LOC: SC 08:01
PROVIDERS: ATTEND Ophthalmology
DX: H25.12 Age-related nuclear cataract, left eye (principal); F17.210 Nicotine dependence, cigarettes, uncomplicated; E11.9 Type 2 diabetes mellitus without complications; K21.9 Gastro-esophageal reflux disease without esophagitis; M19.90 Unspecified osteoarthritis, unspecified site; I10 Essential (primary) hypertension; E78.00 Pure hypercholesterolemia, unspecified; Z79.899 Other long term (current) drug therapy; Z79.84 Long term (current) use of oral hypoglycemic drugs; Z85.46 Personal history of malignant neoplasm of prostate
CPT/HCPCS: 66984; 82962; V2632; J2250; J3490 ×3; A9270 ×2; J0171; 142

== ENCOUNTER 2019-01-24 17:45 | Inpatient (IN) | payer MEDICARE ==
[2019-01-24 18:28] LABS: ABSOLUTE BASOPHILS # (AUTO) 0.1 10^3/uL (0.0-0.2); ABSOLUTE LYMPHOCYTES (AUTO) 2.5 10^3/uL (0.5-4.7); ABSOLUTE MONOCYTES (AUTO) 1.3 10^3/uL (0.1-1.4); ABSOLUTE NEUT (AUTO) 10.4 10^3/uL (1.7-8.2); BASOPHILS % (AUTO) 0.7 % (0-2); EOSINOPHILS % (AUTO) 0.3 % (0-6); HEMOGLOBIN 15.9 g/dL (13.5-17.0); LYMPHOCYTES % (AUTO) 17.7 % (13-45); MEAN CORPUSCULAR HEMOGLOBIN 30.6 pg (27.0-33.4); MEAN CORPUSCULAR HGB CONC 33.9 g/dL (32.0-36.0); MEAN CORPUSCULAR VOLUME 90 fl (80-97); MONOCYTES % (AUTO) 8.9 % (3-13); PLATELET COUNT 217 10^3/uL (150-450); RED BLOOD COUNT 5.21 10^6/uL (4.35-5.55); RED CELL DISTRIBUTION WIDTH 16.3 % (11.5-14.0); SEGMENTED NEUTROPHILS % (AUTO) 72.4 % (42-78); TOTAL CELLS COUNTED % (AUTO) 100 %; WHITE BLOOD COUNT 14.4 10^3/uL (4.0-10.5)
[2019-01-24 18:45] LABS: ALANINE AMINOTRANSFERASE < 6 U/L (21-72); ALBUMIN 4.5 g/dL (3.5-5.0); ALKALINE PHOSPHATASE 94 U/L (38-126); ANION GAP 16 (5-19); ASPARTATE AMINO TRANSFERASE 17 U/L (17-59); BILIRUBIN,DIRECT 0.4 mg/dL (0.0-0.4); BILIRUBIN,TOTAL 0.5 mg/dL (0.2-1.3); BLOOD UREA NITROGEN 20 mg/dL (7-20); CALCIUM 10.4 mg/dL (8.4-10.2); CARBON DIOXIDE 22 mmol/L (22-30); CHLORIDE 102 mmol/L (98-107); CREATINE KINASE 63 U/L (55-170); GLUCOSE 278 mg/dL (75-110); POTASSIUM 4.3 mmol/L (3.6-5.0); SODIUM 140.3 mmol/L (137-145); TOTAL PROTEIN 7.7 g/dL (6.3-8.2)
--- NOTE | 2019-01-24 18:59 | RADIOLOGY REPORT (SQ) ---
EXAM DESCRIPTION: CHEST SINGLE VIEW COMPLETED DATE/TIME: 01/24/2019 6:35 pm REASON FOR STUDY: chest pain; irregular HR COMPARISON: None. EXAM PARAMETERS: NUMBER OF VIEWS: One view. TECHNIQUE: Single frontal radiographic view of the chest acquired. RADIATION DOSE: NA LIMITATIONS: None. FINDINGS: LUNGS AND PLEURA: No opacities, masses or pneumothorax. No pleural effusion. MEDIASTINUM AND HILAR STRUCTURES: Age-appropriate contour. HEART AND VASCULAR STRUCTURES: Heart normal in size. Normal vasculature. BONES: No acute findings. HARDWARE: None in the chest. OTHER: No other significant finding. IMPRESSION: NO ACUTE RADIOGRAPHIC FINDING IN THE CHEST. TECHNICAL DOCUMENTATION: JOB ID: [id number] [employer]- All Rights Reserved Reading location - IP/workstation name: [email or web address]
[2019-01-24 19:02] LABS: CREATINE KINASE MB 0.91 ng/mL (<4.55)
[2019-01-24 19:10] LABS: TROPONIN I < 0.012 ng/mL
[2019-01-24] MEDS ORDERED: DILTIAZEM HCL 60 MG TABLET PO ONE (20:22)
[2019-01-24] MEDS ORDERED: DILTIAZEM HCL INJ 25 MG/5 ML VIAL IV ONE (20:22)
[2019-01-24] MEDS ORDERED: METHYLPREDNISOLONE INJ 125 MG/2 ML SDV IV ONE (20:26)
[2019-01-24] MEDS ORDERED: APIXABAN 5 MG TABLET PO ONE (20:26)
--- NOTE | 2019-01-24 20:26 | ER Document Report ---
ED Cardiac - General Chief Complaint: Irregular Pulse Stated Complaint: HEART PALPITATIONS Time Seen by Provider: 01/24/19 18:42 Primary Care Provider: LALITA EDWARD PA [Primary Care Provider] - Follow up as needed Notes: This is a 73-year-old male to the emergency department chief complaint of heart racing, cough generally not feeling well. Patient states that he has been seen as an outpatient today. Received a shot of antibiotics and a prescription but told to come here because his heart was racing. Patient has a history of atrial fibrillation. Smokes a pack a day of cigarettes. History of prostate cancer. Not on anticoagulation therapy. Generally has not been feeling well for 2 weeks he says. Denies any chest pain at this time. TRAVEL OUTSIDE OF THE [place] IN LAST 30 DAYS: No - HPI Patient complains to provider of: Palpitations, Shortness of breath Quality of pain: None Severity now: Moderate Severity at worst: Moderate Pain level currently: Denies Associated symptoms: Lightheaded, Palpitations, Shortness of breath Relieved by: Nothing - Related Data Allergies/Adverse Reactions: No Known Allergies Allergy (Verified 01/24/19 17:49) Past Medical History - General Information source: Patient - Social History Smoking Status: Current Every Day Smoker Frequency of alcohol use: None Drug Abuse: None Lives with: Spouse/Significant other Family History: COPD Patient has suicidal ideation: No Patient has homicidal ideation: No - Past Medical History Cardiac Medical History: Reports: Hx Atrial Fibrillation, Hx Hypercholesterolemia, Hx Hypertension Denies: Hx Heart Attack Pulmonary Medical History: Reports: Hx Bronchitis, Hx COPD Denies: Hx Asthma Neurological Medical History: Denies: Hx Cerebrovascular Accident, Hx Seizures Endocrine Medical History: Reports: Hx Diabetes Mellitus Type 2 Renal/ Medical History: Denies: Hx Peritoneal Dialysis Malignancy Medical History: Reports Hx Prostate Cancer GI Medical History: Reports: Hx Gastroesophageal Reflux Disease. Denies: Hx Hepatitis, Hx Hiatal Hernia, Hx Ulcer Infectious Medical History: Denies: Hx Hepatitis Past Surgical History: Reports: Hx Abdominal Surgery, Other - Prostatectomy. Denies: Hx Open Heart Surgery, Hx Pacemaker - Immunizations Hx Diphtheria, Pertussis, Tetanus Vaccination: Yes - <5 years Review of Systems - Review of Systems Notes: Constitutional: denies: Chills, Diaphoresis, Fever, Malaise, Weakness EENT: denies: Eye discharge, Blurred vision, Tearing, Double vision, Nose congestion, Nose discharge, Throat swelling, Mouth pain Cardiovascular: Complaining of palpitations, tachycardia, dyspnea, dyspnea on exertion Respiratory: Cough, congestion, shortness of breath, difficulty breathing Gastrointestinal: denies: Abdominal pain, Diarrhea, Nausea, Vomiting, Black stools, bright red blood in stool Genitourinary: denies: Burning, Dysuria, Discharge, Frequency, Flank pain, Hematuria Musculoskeletal: denies: Joint pain, Joint swelling, Muscle pain, Muscle stiffness, back pain Hematologic/Lymphatic: denies: Anemia, Easy bleeding, Easy bruising, Blood clots Neurological/Psychological: denies: Confusion, Dementia, Depression, Loss of c onsciousness Skin: No lesions, no masses, no skin breakdown, no abscesses Physical Exam - Vital signs Vitals: Resp Pulse Ox 26 H 94 01/24/19 18:12 01/24/19 18:12 Interpretation: Normal - General General appearance: Appears well, Alert - HEENT Head: Normocephalic, Atraumatic Eyes: Normal Pupils: PERRL - Respiratory Respiratory status: No respiratory distress Chest status: Nontender Breath sounds: Decreased air movement, Nonproductive cough, Wheezing Chest palpation: Normal - Cardiovascular Rhythm: Irregularly irregular, Tachycardia Heart sounds: Normal auscultation Murmur: No - Abdominal Inspection: Normal Distension: No distension Bowel sounds: Normal Tenderness: Nontender Organomegaly: No organomegaly - Back Back: Normal, Nontender - Extremities General upper extremity: Normal inspection, Nontender, Normal color, Normal ROM, Normal temperature General lower extremity: Normal inspection, Nontender, Normal color, Normal ROM, Normal temperature, Normal weight bearing. No: Leroy's sign - Neurological Neuro grossly intact: Yes Cognition: Normal Orientation: AAOx4 Martin Coma Scale Eye Opening: Spontaneous Martin Coma Scale Verbal: Oriented [place] Coma Scale Motor: Obeys Commands [place] Coma Scale Total: 15 Speech: Normal Motor strength normal: LUE, RUE, LLE, RLE Sensory: Normal - Psychological Associated symptoms: Normal affect, Normal mood - Skin Skin Temperature: Warm Skin Moisture: Dry Skin Color: Normal Course - Re-evaluation Re-evalutation: 01/24/19 21:13 Patient has A. fib with RVR. Started on diltiazem, diltiazem drip come to size and p.o. Not a great candidate for anticoagulant therapy at his age. Also has COPD exacerbation with some low oxygen sats. Patient will benefit from inpatient admission. Consulted hospitalist will admit at this time in stable condition. 01/24/19 21:13 Laboratory 01/24/19 01/24/19 01/24/19 18:12 18:12 18:12 WBC 14.4 H RBC 5.21 Hgb 15.9 Hct 47.0 MCV 90 MCH 30.6 MCHC 33.9 RDW 16.3 H Plt Count 217 Seg Neutrophils % 72.4 Lymphocytes % 17.7 Monocytes % 8.9 Eosinophils % 0.3 Basophils % 0.7 Absolute Neutrophils 10.4 H Absolute Lymphocytes 2.5 Absolute Monocytes 1.3 Absolute Eosinophils 0.0 Absolute Basophils 0.1 PT INR APTT Sodium 140.3 Potassium 4.3 Chloride 102 Carbon Dioxide 22 Anion Gap 16 BUN 20 Creatinine 0.87 Est GFR ( Amer) > 60 Est GFR (Non-Af Amer) > 60 Glucose 278 H Calcium 10.4 H Total Bilirubin 0.5 Direct Bilirubin 0.4 Neonat Total Bilirubin Not Reportable Neonat Direct Bilirubin Not Reportable Neonat Indirect Bili Not Reportable AST 17 ALT < 6 L Alkaline Phosphatase 94 Creatine Kinase 63 CK-MB (CK-2) 0.91 Troponin I < 0.012 Total Protein 7.7 Albumin 4.5 01/24/19 18:12 WBC RBC Hgb Hct MCV MCH MCHC RDW Plt Count Seg Neutrophils % Lymphocytes % Monocytes % Eosinophils % Basophils % Absolute Neutrophils Absolute Lymphocytes Absolute Monocytes Absolute Eosinophils Absolute Basophils PT 13.8 INR 1.01 APTT 32.0 Sodium Potassium Chloride Carbon Dioxide Anion Gap BUN Creatinine Est GFR ( Amer) Est GFR (Non-Af Amer) Glucose Calcium Total Bilirubin Direct Bilirubin Neonat Total Bilirubin Neonat Direct Bilirubin Neonat Indirect Bili AST ALT Alkaline Phosphatase Creatine Kinase CK-MB (CK-2) Troponin I Total Protein Albumin Chest X-Ray 01/24/19 18:15 IMPRESSION: NO ACUTE RADIOGRAPHIC FINDING IN THE CHEST. - Vital Signs Vital signs: Temp Pulse Resp BP Pulse Ox 97.9 F 18 143/86 H 93 01/24/19 18:22 01/24/19 21:00 01/24/19 20:54 01/24/19 21:00 - Laboratory Result Diagrams: 01/24/19 18:12 01/24/19 18:12 Laboratory results interpreted by me: 01/24/19 01/24/19 18:12 18:12 WBC 14.4 H RDW 16.3 H Absolute Neutrophils 10.4 H Glucose 278 H Calcium 10.4 H ALT < 6 L Critical Care Note - Critical Care Note Total time excluding time spent on procedures (mins): 35 Comments: Tachycardia, hypoxia, consultation with specialist, coordination of care. Discharge - Discharge Clinical Impression: Atrial fibrillation with RVR, COPD exacerbation Condition: Good Disposition: ADMITTED INPATIENT [facility] Unit Admitted: I[facility]U Referrals: LALITA EDWARD PA [Primary Care Provider] - Follow up as needed
[2019-01-24 20:41] LABS: INTERNATIONAL RATION (INR) 1.01; PROTHROMBIN TIME 13.8 SEC (11.4-15.4)
[2019-01-24] MEDS ORDERED: DILTIAZEM HCL/D5W 125 MG/125 ML RTUINJ IV PRN ×2 (21:06→21:29)
[2019-01-24] MEDS ORDERED: MAG HYDROX/AL HYDROX/SIMETH SUSP 30 ML UDCUP PO PRN (21:09)
[2019-01-24] MEDS ORDERED: MAGNESIUM HYDROXIDE SUSP 30 ML UDCUP PO PRN (21:09)
[2019-01-24] MEDS ORDERED: ONDANSETRON 4 MG TAB.RAPDIS PO PRN (21:09)
[2019-01-24] MEDS ORDERED: DEXTROSE 40% GEL 15 GM TUBE PO PRN ×2 (21:23)
[2019-01-24] MEDS ORDERED: GLUCAGON,HUMAN RECOMB 1 MG INJ IM PRN (21:23)
[2019-01-24] MEDS ORDERED: ALBUTEROL SULFATE 0.083% NEB 2.5 MG/3 ML AMPUL NEB PRN (21:23)
[2019-01-24] MEDS ORDERED: METOPROLOL TARTRATE PF/INJ 5 MG/5 ML SDV IV PRN (21:23)
[2019-01-24] MEDS ORDERED: DEXTROSE 50%-WATER 25 GM/50 ML DISP.SYRIN IV PRN ×2 (21:23)
[2019-01-24] MEDS: LEVOFLOXACIN 750 MG/D5W RTU 750 MG/150 ML RTUPB IV SCH (21:29)
[2019-01-24] MEDS ORDERED: LEVOFLOXACIN 750 MG/D5W RTU 750 MG/150 ML RTUPB IV SCH (21:30)
[2019-01-24] MEDS ORDERED: NICOTINE 21 MG/24 HR PATCH.TD24 TD PRN (22:07)
--- NOTE | 2019-01-24 23:57 | PDOC H&P ---
History of Present Illness Admission Date/PCP: SB FERNANDEZ Patient complains of: Palpitations with dyspnea History of Present Illness: RAJAN KEARNEY is a 73 year old male who presented to the emergency room with a 3-week history of progressively worsening dyspnea. He admits that for the last 3 weeks he has not been feeling well with generally slowly worsening dyspnea and a nonproductive cough, both of which increased substantially over the last 24 hours when he developed palpitations and a rapid heartbeat. He states his dyspnea is severe and severely limits his ability to be active as it is substantially worsened by any exertion. He has palpitations are also severe and seem to be increased with any activity. He was seen in his primary care [facility] p[facility]'s office today and was given a shot of Rocephin and a prescription for Augmentin and instructed that he might need to be in the hospital if he is not getting better. After a short interval when he was not feeling better he presented to the emergency room for further evaluation and treatment. He admits numerous similar previous episodes related to his COPD and he has not identified any additional aggravating or ameliorating factors for his dyspnea or palpitations. In the emergency room he was found to have atrial fibrillation with a rapid ventricular response and acute on chronic respiratory failure with hypoxia. With these findings patient was admitted to the hospital for further evaluation and treatment. Past Medical History Cardiac Medical History: Reports: Atrial Fibrillation, Hyperlipidema, Hypertension Denies: Myocardial Infarction Pulmonary Medical History: Reports: Bronchitis, Chronic Obstructive Pulmonary Disease (COPD), Pneumonia - more than 16 times Denies: Asthma, Intubation, Respiratory Failure EENT Medical History: Denies: Cataracts, Nose - Nasal polyps Neurological Medical History: Denies: Hemorrhagic CVA, Ischemic CVA, Seizures Endocrine Medical History: Reports: Diabetes Mellitus Type 2 Denies: Diabetes Mellitus Type 1, Hyperthyroidism, Hypothyroidism, Obesity Renal/ Medical History: Denies: Chronic Kidney Disease, Nephrolithiasis Malignancy Medical History: Reports: Other - Prostate cancer GI Medical History: Reports: Gastroesophageal Reflux Disease Denies: Cirrhosis, Hepatitis, Hiatal Hernia Musculoskeltal Medical History: Denies: Arthritis, Gout Skin Medical History: Denies: Eczema, Psoriasis Psychiatric Medical History: Reports: Tobacco Dependency Denies: Alcohol Dependency, Substance Abuse Traumatic Medical History: Reports: None Hematology: Denies: Anemia, Bleeding Tendencies Infectious Medical History: Reports: None Past Surgical History Past Surgical History: Reports: Other - Prostatectomy Social History Information Source: Patient Lives with: Spouse/Significant other Smoking Status: Current Every Day Smoker Frequency of Alcohol Use: None Hx Recreational Drug Use: No Drugs: None Hx Prescription Drug Abuse: No - Advance Directive Resuscitation Status: Full Code Surrogate healthcare decision maker:: Spouse Family History Family History: COPD Parental Family History Reviewed: Yes Children Family History Reviewed: No Sibling(s) Family History Reviewed.: Yes Medication/Allergy Home Medications: Amlodipine Besylate [Norvasc 5 mg Tablet] 5 mg PO QPM 01/24/19 Atorvastatin Calcium [Lipitor 80 mg Tablet] 80 mg PO QPM 01/24/19 Glipizide [Glucotrol] 5 mg PO QPM 01/24/19 Lisinopril [Zestril] 10 mg PO QPM 01/24/19 Meclizine HCl [Antivert 25 mg Tablet] 25 mg PO TIDP PRN 01/24/19 Metformin HCl [Glucophage] 1,000 mg PO QPM 01/24/19 Omeprazole 20 mg PO QPM 01/24/19 Allergies/Adverse Reactions: No Known Allergies Allergy (Verified 01/24/19 17:49) Review of Systems Constitutional: ABSENT: chills, fever(s) Eyes: PRESENT: other - General chronic decreased vision bilaterally. ABSENT: visual disturbances Ears: ABSENT: hearing changes, other - Ear pain Nose, Mouth, and Throat: ABSENT: mouth pain, sore throat Cardiovascular: PRESENT: as per HPI, dyspnea on exertion, palpitations. ABSENT: chest pain, edema, orthropnea Respiratory: PRESENT: as per HPI, cough, dyspnea Gastrointestinal: ABSENT: abdominal pain, constipation, diarrhea, nausea, vomiting Genitourinary: ABSENT: dysuria, hematuria Musculoskeletal: ABSENT: deformity, joint swelling Integumentary: ABSENT: pruritus, rash Neurological: ABSENT: confusion, convulsions, focal weakness, memory loss Psychiatric: ABSENT: anxiety, depression Endocrine: ABSENT: cold intolerance, heat intolerance Hematologic/Lymphatic: ABSENT: easy bleeding, easy bruising Physical Exam Vital Signs: Temp Pulse Resp BP Pulse Ox 97.9 F 18 143/86 H 93 01/24/19 18:22 01/24/19 21:00 01/24/19 20:54 01/24/19 21:00 Intake & Output 01/22/19 01/23/1901/24/19 23:59 23:59 23:59 Weight 57 kg General appearance: PRESENT: cooperative, mild distress - Mild respiratory distress noted, thin Head exam: PRESENT: atraumatic, normocephalic Eye exam: ABSENT: conjunctiva pink, scleral icterus Ear exam: PRESENT: normal external ear exam. ABSENT: bleeding, drainage Mouth exam: PRESENT: dry mucosa, neck supple Neck exam: ABSENT: thyromegaly, tracheal deviation Respiratory exam: PRESENT: decreased breath sounds - Moderately decreased breath sounds throughout all franks consistent with moderate to severe COPD, prolonged expiratory phas - Moderately prolonged expiratory phase in all franks, symmetrical, tachypnea, wheezes - Moderate expiratory wheezes throughout all franks. ABSENT: rales, rhonchi Cardiovascular exam: PRESENT: irregular rhythm - Irregularly irregular rate and rhythm, tachycardia. ABSENT: clicks, gallop, rubs Pulses: PRESENT: normal radial pulses, normal dorsalis pedis pul Vascular exam: PRESENT: normal capillary refill. ABSENT: pallor GI/Abdominal exam: PRESENT: normal bowel sounds, soft Rectal exam: PRESENT: deferred Extremities exam: ABSENT: joint swelling, pedal edema Musculoskeletal exam: ABSENT: deformity, dislocation Neurological exam: PRESENT: alert, oriented to person, oriented to place, oriented to time, oriented to situation, CN II-XII grossly intact. ABSENT: motor sensory deficit Psychiatric exam: PRESENT: appropriate affect, normal mood Skin exam: PRESENT: dry, intact, warm. ABSENT: jaundice, rash, urticaria Results Laboratory Results: 01/24/19 18:12 01/24/19 18:12 01/24/19 01/24/19 18:12 18:12 WBC 14.4 H RBC 5.21 Hgb 15.9 Hct 47.0 MCV 90 MCH 30.6 MCHC 33.9 RDW 16.3 H Plt Count 217 Seg Neutrophils % 72.4 Lymphocytes % 17.7 Monocytes % 8.9 Eosinophils % 0.3 Basophils % 0.7 Absolute Neutrophils 10.4 H Absolute Lymphocytes 2.5 Absolute Monocytes 1.3 Absolute Eosinophils 0.0 Absolute Basophils 0.1 Sodium 140.3 Potassium 4.3 Chloride 102 Carbon Dioxide 22 Anion Gap 16 BUN 20 Creatinine 0.87 Est GFR ( Amer) > 60 Est GFR (Non-Af Amer) > 60 Glucose 278 H Calcium 10.4 H Total Bilirubin 0.5 AST 17 ALT < 6 L Alkaline Phosphatase 94 Total Protein 7.7 Albumin 4.5 01/24/19 01/24/19 18:12 18:12 Creatine Kinase 63 CK-MB (CK-2) 0.91 Troponin I < 0.012 Impressions: Chest X-Ray 01/24/19 18:15 IMPRESSION: NO ACUTE RADIOGRAPHIC FINDING IN THE CHEST. Assessment & Plan - Diagnosis (1) Acute and chronic respiratory failure with hypoxia Is this a current diagnosis for this admission?: Yes Plan: Patient is treated with supplemental oxygen per nasal cannula to support his oxygen saturation to 90-94%. He will receive further oxygen support with nasal cannula and/or other pressure support devices such as CPAP or BiPAP as required. DNI status. (2) COPD with exacerbation Is this a current diagnosis for this admission?: Yes Plan: Patient will be treated with an aggressive pulmonary toilet utilizing Xopenex, Pulmicort, Atrovent and albuterol via nebulizers. He will receive IV Solu- Medrol and other supportive and symptomatic cares as needed. He will also be on supplemental oxygen as required to maintain an O2 sat between 90 and 94%. (3) Atrial fibrillation with rapid ventricular response Is this a current diagnosis for this admission?: Yes Plan: Patient is placed on a diltiazem infusion to control his atrial fibrillation. Once control has been established patient can be converted to oral rate control agents. Patient is noted to have recently been discontinued from anticoagulants after a risk versus benefit analysis by his primary care provider. Patient will therefore not be restarted on anticoagulation at this time. (4) Diabetes mellitus type 2 in nonobese Is this a current diagnosis for this admission?: Yes Plan: Patient will be continued on his current diabetic therapeutic regiment. Hemoglobin A1c will be obtained to evaluate the efficacy of his current therapy and he will also be on a sliding scale regular insulin regiment with before meals and at bedtime blood sugars during his hospital course especially while he is being treated with IV steroids. (5) Tobacco use disorder, severe, dependence Is this a current diagnosis for this admission?: Yes Plan: Recommendation for discontinuation of smoking has been made. Cessation counseling has been provided briefly. A nicotine patch is available for the patient's use if desired. - Time Time Spent: 30 to 50 Minutes Critical Time spent with patient: Less than 15 minutes Smoking Cessation Education: 3 to 10 minutes Medications reviewed and adjusted accordingly: Yes Anticipated discharge: Home - Inpatient Certification Based on my medical assessment, after consideration of the patient's comorbidities, presenting symptoms, or acuity I expect that the services needed warrant INPATIENT care.: Yes I certify that my determination is in accordance with my understanding of Medicare's requirements for reasonable and necessary INPATIENT services [42 CFR 412.3e].: Yes Medical Necessity: Failure to Improve With Outpatient Therapy, Significant Comorbidiites Make Outpatient Treatment Too Risky, Need Close Monitoring Due to Risk of Patient Decompensation, Need For Continuous Telemetry Monitoring, Need for Nebulizer Therapy and Monitoring of Response, Risk of Complication if Not Cared For in Hospital
[2019-01-25] MEDS: IPRATROPIUM BROMIDE 0.02% NEB 0.5 MG/2.5 ML AMPUL NEB SCH ×3 (00:24→16:01)
[2019-01-25] MEDS: LEVALBUTEROL HCL NEB 1.25 MG/3 ML AMPUL NEB SCH ×3 (00:24→16:01)
[2019-01-25 01:05] LABS: CREATINE KINASE MB 0.78 ng/mL (<4.55); TROPONIN I 0.018 ng/mL
[2019-01-25] MEDS: LISINOPRIL 10 MG TABLET PO SCH ×2 (01:07→21:56)
[2019-01-25] MEDS: ATORVASTATIN CALCIUM 80 MG TABLET PO SCH ×2 (01:07→21:56)
[2019-01-25] MEDS: FAMOTIDINE 20 MG TABLET PO SCH ×3 (01:07→21:57)
[2019-01-25] MEDS: AMLODIPINE BESYLATE 5 MG TABLET PO SCH ×2 (01:08→21:57)
[2019-01-25] MEDS: METFORMIN HCL 500 MG TABLET PO SCH ×2 (01:08→21:57)
[2019-01-25] MEDS: INSULIN REG, HUMAN 100 UNIT/ML 3 ML VIAL (PYX) SUBCUT PRN ×2 (01:09→22:17)
[2019-01-25] MEDS: HEPARIN SOD (PORCINE) 5,000 UNIT/ML 1 ML SYRINGE SUBCUT SCH ×3 (01:11→14:58)
[2019-01-25 02:55] LABS: APPEARANCE,URINE SLIGHTLY-CLOUDY; BILIRUBIN,URINE NEGATIVE (NEGATIVE); COLOR,URINE AMBER; GLUCOSE, URINE 150 mg/dL (NEGATIVE); KETONES,URINE TRACE mg/dL (NEGATIVE); LEUKOCYTE ESTERASE,URINE NEGATIVE (NEGATIVE); NITRITE,URINE NEGATIVE (NEGATIVE); PROTEIN,URINE 100 mg/dL (NEGATIVE); URINE SPECIFIC GRAVITY 1.032; UROBILINOGEN,URINE NEGATIVE mg/dL (<2.0)
[2019-01-25] MEDS: METHYLPREDNISOLONE INJ 40 MG/1 ML SDV IV SCH ×4 (04:30→21:57)
[2019-01-25 07:48] LABS: BLOOD UREA NITROGEN 24 mg/dL (7-20); CALCIUM 10.1 mg/dL (8.4-10.2); GLUCOSE 288 mg/dL (75-110); POTASSIUM 4.9 mmol/L (3.6-5.0); TRIGLYCERIDES 102 mg/dL (<150)
[2019-01-25 07:53] LABS: ABSOLUTE LYMPHOCYTES (AUTO) 1.3 10^3/uL (0.5-4.7); ABSOLUTE MONOCYTES (AUTO) 0.3 10^3/uL (0.1-1.4); BASOPHILS % (AUTO) 0.1 % (0-2); CARBON DIOXIDE 15 mmol/L (22-30); CHLORIDE 104 mmol/L (98-107); HEMATOCRIT 45.7 % (37.9-51.0); HEMOGLOBIN 15.2 g/dL (13.5-17.0); LYMPHOCYTES % (AUTO) 12.5 % (13-45); MEAN CORPUSCULAR HEMOGLOBIN 29.9 pg (27.0-33.4); MEAN CORPUSCULAR HGB CONC 33.3 g/dL (32.0-36.0); MEAN CORPUSCULAR VOLUME 90 fl (80-97); MONOCYTES % (AUTO) 2.6 % (3-13); RED BLOOD COUNT 5.08 10^6/uL (4.35-5.55); RED CELL DISTRIBUTION WIDTH 15.7 % (11.5-14.0); SEGMENTED NEUTROPHILS % (AUTO) 84.8 % (42-78); SODIUM 140.1 mmol/L (137-145); TOTAL CELLS COUNTED % (AUTO) 100 %; WHITE BLOOD COUNT 10.7 10^3/uL (4.0-10.5)
[2019-01-25 07:55] LABS: PLATELET COUNT 191 10^3/uL (150-450)
[2019-01-25 07:59] LABS: DIRECT LDL 122 mg/dL (<100)
[2019-01-25 08:00] LABS: CREATINE KINASE MB 0.69 ng/mL (<4.55)
[2019-01-25 08:03] LABS: ANION GAP 21 (5-19); FREE T3 3.12 pg/mL (2.77-5.27); FREE T4 (FREE THYROXINE) 1.62 ng/dL (0.78-2.19); TROPONIN I < 0.012 ng/mL
[2019-01-25] MEDS: BUDESONIDE NEB 0.5 MG/2 ML AMPUL NEB SCH ×2 (08:12→20:18)
[2019-01-25 08:16] LABS: THYROID STIMULATING HORMONE 0.37 uIU/mL (0.47-4.68)
[2019-01-25] MEDS: GLIPIZIDE 5 MG TABLET PO SCH (08:45)
[2019-01-25] MEDS: DOCUSATE SODIUM 100 MG CAPSULE PO SCH ×2 (09:34→17:02)
[2019-01-25 14:33] LABS: CREATINE KINASE MB 0.85 ng/mL (<4.55)
[2019-01-25 14:39] LABS: TROPONIN I < 0.012 ng/mL
[2019-01-25] MEDS ORDERED: DILTIAZEM HCL 30 MG TABLET PO ONE (18:10)
--- NOTE | 2019-01-25 21:25 | PDOC PROGRESS REPORT ---
Subjective Progress Note for:: 01/25/19 Subjective:: The patient is resting comfortably in bed. Talking on the phone. Reason For Visit: ACUTE EXACERBATION OF COPD,ATRIAL FIBRILLATION W Physical Exam Vital Signs: Temp Pulse Resp BP Pulse Ox 98.3 F 94 18 127/61 H 92 01/25/19 03:46 01/25/19 19:00 01/25/19 16:01 01/25/19 19:00 01/25/19 16:01 Intake & Output 01/24/19 01/25/19 01/26/19 06:59 06:59 06:59 Intake Total 470 575 Output Total 200 275 Balance 270 300 Weight 57 kg General appearance: PRESENT: no acute distress, cooperative, thin, well-developed Head exam: PRESENT: atraumatic, normocephalic Eye exam: PRESENT: conjunctiva pink. ABSENT: scleral icterus Mouth exam: PRESENT: moist, neck supple, tongue midline Respiratory exam: PRESENT: clear to auscultation elise, symmetrical, unlabored. ABSENT: rhonchi, wheezes Cardiovascular exam: PRESENT: irregular rhythm GI/Abdominal exam: PRESENT: normal bowel sounds, soft. ABSENT: distended, tenderness Rectal exam: PRESENT: deferred Gentrourinary exam: ABSENT: indwelling catheter Extremities exam: ABSENT: pedal edema Musculoskeletal exam: PRESENT: ambulatory, normal inspection Neurological exam: PRESENT: alert, awake, oriented to person, oriented to place, oriented to time, oriented to situation, CN II-XII grossly intact Psychiatric exam: PRESENT: appropriate affect, normal mood. ABSENT: agitated, anxious Focused psych exam: ABSENT: delusional, restlessness Skin exam: PRESENT: dry, normal color, warm. ABSENT: rash Results Laboratory Results: 01/25/19 06:45 01/25/19 06:45 01/25/19 01/25/19 01/25/19 02:35 06:45 06:45 WBC 10.7 H RBC 5.08 Hgb 15.2 Hct 45.7 MCV 90 MCH 29.9 MCHC 33.3 RDW 15.7 H Plt Count 191 Seg Neutrophils % 84.8 H Lymphocytes % 12.5 L Monocytes % 2.6 L Eosinophils % 0.0 Basophils % 0.1 Absolute Neutrophils 9.0 H Absolute Lymphocytes 1.3 Absolute Monocytes 0.3 Absolute Eosinophils 0.0 Absolute Basophils 0.0 Sodium 140.1 Potassium 4.9 Chloride 104 Carbon Dioxide 15 L Anion Gap 21 H BUN 24 H Creatinine 0.85 Est GFR ( Amer) > 60 Est GFR (Non-Af Amer) > 60 Glucose 288 H Calcium 10.1 Magnesium 1.6 Triglycerides 102 Cholesterol 179.40 LDL Cholesterol Direct 122 H VLDL Cholesterol 20.0 HDL Cholesterol 34 L TSH Free T4 Free T3 pg/mL Urine Color PETE Urine Appearance SLIGHTLY-CLOUDY Urine pH 5.0 Ur Specific [place] 1.032 Urine Protein 100 H Urine Glucose (UA) 150 H Urine Ketones TRACE H Urine Blood NEGATIVE Urine Nitrite NEGATIVE Ur Leukocyte Esterase NEGATIVE Urine WBC (Auto) 2 Urine RBC (Auto) 2 01/25/19 06:45 WBC RBC Hgb Hct MCV MCH MCHC RDW Plt Count Seg Neutrophils % Lymphocytes % Monocytes % Eosinophils % Basophils % Absolute Neutrophils Absolute Lymphocytes Absolute Monocytes Absolute Eosinophils Absolute Basophils Sodium Potassium Chloride Carbon Dioxide Anion Gap BUN Creatinine Est GFR ( Amer) Est GFR (Non-Af Amer) Glucose Calcium Magnesium Triglycerides Cholesterol LDL Cholesterol Direct VLDL Cholesterol HDL Cholesterol TSH 0.37 L Free T4 1.62 Free T3 pg/mL 3.12 Urine Color Urine Appearance Urine pH Ur Specific [place] Urine Protein Urine Glucose (UA) Urine Ketones Urine Blood Urine Nitrite Ur Leukocyte Esterase Urine WBC (Auto) Urine RBC (Auto) 01/24/19 01/24/19 01/24/19 18:12 18:12 18:12 Creatine Kinase 63 CK-MB (CK-2) 0.91 Troponin I < 0.012 Cancelled NT-Pro-B Natriuret Pep 591 01/25/19 01/25/19 01/25/19 00:32 00:32 06:45 Creatine Kinase 52 L 46 L CK-MB (CK-2) 0.78 Troponin I 0.018 NT-Pro-B Natriuret Pep 01/25/19 01/25/19 01/25/19 06:45 12:58 12:58 Creatine Kinase 46 L CK-MB (CK-2) 0.69 0.85 Troponin I < 0.012 < 0.012 NT-Pro-B Natriuret Pep Impressions: Chest X-Ray 01/24/19 18:15 IMPRESSION: NO ACUTE RADIOGRAPHIC FINDING IN THE CHEST. Assessment & Plan - Diagnosis (1) Acute and chronic respiratory failure with hypoxia Is this a current diagnosis for this admission?: Yes Plan: Nebulizer therapy with intravenous steroids and antibiotics (patient did have an elevated white blood cell count). Oxygen supplementation as well. (2) Atrial fibrillation with rapid ventricular response Is this a current diagnosis for this admission?: Yes Plan: The diltiazem drip at 5 mg/h has got the patient into good rate control. I am going to switch him to 30 mg every 6 hours. If this is effective he can switch to the 120 mg long-acting daily dose. Apixaban for anticoagulation. He did have an episode of atrial fibrillation when he had his prostatectomy years ago. (3) COPD exacerbation Is this a current diagnosis for this admission?: Yes Plan: Continue nebulizer treatments as well as systemic steroids. The systemic steroids are greatly increasing his glucose. (4) Diabetes mellitus type 2 in nonobese Is this a current diagnosis for this admission?: Yes Plan: Significant increase in serum glucose with steroids. I have added Lantus in add ition to the sliding scale. (5) Tobacco use disorder, severe, dependence Is this a current diagnosis for this admission?: Yes Plan: Encourage tobacco cessation. Nicotine patch available. (6) Constipation Qualifiers: Constipation type: unspecified constipation type Qualified Code(s): K59.00 - Constipation, unspecified Is this a current diagnosis for this admission?: Yes Plan: MiraLAX has been added. If this is ineffective he can receive magnesium citrate. - Time Time Spent with patient: 15-24 minutes Smoking Cessation Education: 3 to 10 minutes Medications reviewed and adjusted accordingly: Yes Anticipated discharge: Home Within: within 48 hours
[2019-01-25] MEDS: LEVOFLOXACIN 750 MG TABLET PO SCH (21:57)
[2019-01-25] MEDS: LEVOFLOXACIN 750 MG/D5W RTU 750 MG/150 ML RTUPB IV SCH (21:58)
[2019-01-25] MEDS: APIXABAN 5 MG TABLET PO SCH (22:02)
[2019-01-26] MEDS: ZOLPIDEM TARTRATE 5 MG TABLET PO PRN ×2 (00:01→23:50)
[2019-01-26] MEDS: DILTIAZEM HCL 30 MG TABLET PO SCH ×3 (00:01→12:02)
[2019-01-26] MEDS: LEVALBUTEROL HCL NEB 1.25 MG/3 ML AMPUL NEB SCH ×4 (00:37→23:54)
[2019-01-26] MEDS: IPRATROPIUM BROMIDE 0.02% NEB 0.5 MG/2.5 ML AMPUL NEB SCH ×4 (00:37→23:54)
[2019-01-26] MEDS: METHYLPREDNISOLONE INJ 40 MG/1 ML SDV IV SCH ×3 (05:18→21:30)
[2019-01-26 06:25] LABS: ABSOLUTE LYMPHOCYTES (AUTO) 1.3 10^3/uL (0.5-4.7); ABSOLUTE MONOCYTES (AUTO) 1.1 10^3/uL (0.1-1.4); ABSOLUTE NEUT (AUTO) 16.7 10^3/uL (1.7-8.2); BASOPHILS % (AUTO) 0.2 % (0-2); HEMATOCRIT 42.4 % (37.9-51.0); HEMOGLOBIN 14.1 g/dL (13.5-17.0); LYMPHOCYTES % (AUTO) 6.9 % (13-45); MEAN CORPUSCULAR HEMOGLOBIN 30.2 pg (27.0-33.4); MEAN CORPUSCULAR HGB CONC 33.3 g/dL (32.0-36.0); MEAN CORPUSCULAR VOLUME 91 fl (80-97); MONOCYTES % (AUTO) 5.5 % (3-13); RED BLOOD COUNT 4.67 10^6/uL (4.35-5.55); RED CELL DISTRIBUTION WIDTH 15.7 % (11.5-14.0); SEGMENTED NEUTROPHILS % (AUTO) 87.4 % (42-78); TOTAL CELLS COUNTED % (AUTO) 100 %; WHITE BLOOD COUNT 19.2 10^3/uL (4.0-10.5)
[2019-01-26 06:52] LABS: BLOOD UREA NITROGEN 37 mg/dL (7-20); CARBON DIOXIDE 17 mmol/L (22-30); CHLORIDE 100 mmol/L (98-107); GLUCOSE 198 mg/dL (75-110); POTASSIUM 4.2 mmol/L (3.6-5.0)
[2019-01-26 06:58] LABS: SODIUM 137.4 mmol/L (137-145)
[2019-01-26 06:59] LABS: ANION GAP 20 (5-19)
[2019-01-26 07:05] LABS: PLATELET COUNT 193 10^3/uL (150-450)
[2019-01-26] MEDS: BUDESONIDE NEB 0.5 MG/2 ML AMPUL NEB SCH ×2 (08:23→19:53)
[2019-01-26] MEDS: INSULIN REG, HUMAN 100 UNIT/ML 3 ML VIAL (PYX) SUBCUT PRN ×4 (08:25→21:29)
[2019-01-26] MEDS: GLIPIZIDE 5 MG TABLET PO SCH (08:25)
[2019-01-26] MEDS: FAMOTIDINE 20 MG TABLET PO SCH ×2 (09:27→21:31)
[2019-01-26] MEDS: DOCUSATE SODIUM 100 MG CAPSULE PO SCH ×2 (09:27→18:27)
[2019-01-26] MEDS: APIXABAN 5 MG TABLET PO SCH ×2 (09:27→18:27)
[2019-01-26] MEDS: POLYETHYLENE GLYCOL 3350 POWDER 17 GM/1 PACKET PO SCH (12:02)
[2019-01-26] MEDS ORDERED: MAGNESIUM CITRATE 296 ML BOTTLE PO PRN (18:02)
[2019-01-26] MEDS ORDERED: MAGNESIUM CITRATE 296 ML BOTTLE PO ONE (18:15)
--- NOTE | 2019-01-26 19:25 | PDOC PROGRESS REPORT ---
Subjective Progress Note for:: 01/26/19 Subjective:: The patient is resting in bed. I was told that when he tried to get up and walk earlier he became lightheaded. He thought it might have been due to no Antivert being available however it is more likely related to his pulse rate and blood pressure. Reason For Visit: ACUTE EXACERBATION OF COPD,ATRIAL FIBRILLATION W Physical Exam Vital Signs: Temp Pulse Resp BP Pulse Ox 97.3 F 108 H 18 122/73 94 01/26/19 15:43 01/26/19 15:43 01/26/19 15:43 01/26/19 15:43 01/26/19 15:43 Intake & Output 01/25/19 01/26/19 01/27/19 06:59 06:59 07:59 Intake Total 470 575 Output Total 200 775 875 Balance 270 -200 -875 Weight 57 kg 58.3 kg General appearance: PRESENT: no acute distress, thin, well-developed Head exam: PRESENT: normocephalic Eye exam: PRESENT: conjunctiva pale Mouth exam: PRESENT: moist, neck supple, tongue midline Neck exam: ABSENT: carotid bruit, JVD, lymphadenopathy Respiratory exam: PRESENT: clear to auscultation elise, symmetrical. ABSENT: rales, rhonchi, wheezes Cardiovascular exam: PRESENT: irregular rhythm, tachycardia GI/Abdominal exam: PRESENT: normal bowel sounds, soft. ABSENT: distended, tenderness Rectal exam: PRESENT: deferred Extremities exam: ABSENT: pedal edema Musculoskeletal exam: PRESENT: ambulatory Neurological exam: PRESENT: alert, awake, oriented to person, oriented to place, oriented to time, oriented to situation, CN II-XII grossly intact Psychiatric exam: PRESENT: appropriate affect, normal mood. ABSENT: agitated, anxious Focused psych exam: ABSENT: delusional, restlessness Results Laboratory Results: 01/26/19 05:47 01/26/19 05:47 01/26/19 01/26/19 05:47 05:47 WBC 19.2 H RBC 4.67 Hgb 14.1 Hct 42.4 MCV 91 MCH 30.2 MCHC 33.3 RDW 15.7 H Plt Count 193 Seg Neutrophils % 87.4 H Lymphocytes % 6.9 L Monocytes % 5.5 Eosinophils % 0.0 Basophils % 0.2 Absolute Neutrophils 16.7 H Absolute Lymphocytes 1.3 Absolute Monocytes 1.1 Absolute Eosinophils 0.0 Absolute Basophils 0.0 Sodium 137.4 Potassium 4.2 Chloride 100 Carbon Dioxide 17 L Anion Gap 20 H BUN 37 H Creatinine 1.04 Est GFR ( Amer) > 60 Est GFR (Non-Af Amer) > 60 Glucose 198 H Calcium 10.0 Magnesium 2.3 01/24/19 01/24/19 01/24/19 18:12 18:12 18:12 Creatine Kinase 63 CK-MB (CK-2) 0.91 Troponin I < 0.012 Cancelled NT-Pro-B Natriuret Pep 591 01/25/19 01/25/19 01/25/19 00:32 00:32 06:45 Creatine Kinase 52 L 46 L CK-MB (CK-2) 0.78 Troponin I 0.018 NT-Pro-B Natriuret Pep 01/25/19 01/25/19 01/25/19 06:45 12:58 12:58 Creatine Kinase 46 L CK-MB (CK-2) 0.69 0.85 Troponin I < 0.012 < 0.012 NT-Pro-B Natriuret Pep Impressions: Chest X-Ray 01/24/19 18:15 IMPRESSION: NO ACUTE RADIOGRAPHIC FINDING IN THE CHEST. Assessment & Plan - Diagnosis (1) Acute and chronic respiratory failure with hypoxia Is this a current diagnosis for this admission?: Yes Plan: The patient has a congested cough. His white blood cell count has gone up. It is most likely due to steroids but I will repeat a chest x-ray tomorrow. Otherwise continue nebulizer treatments and steroids. He will be off of the steroids in 1-2 days. (2) Atrial fibrillation with rapid ventricular response Is this a current diagnosis for this admission?: Yes Plan: I thought I had reasonable control however he has been tachycardic quite a few times today. It is unlikely to be the steroids. I increased his diltiazem once already. I am going to give him 0.25 mg of digoxin IV x1 now and then start 0.125 mg each morning. I am also going to start 240 mg of extended release diltiazem in the morning with overlap from his 6 AM 60 mg short acting diltiazem dose. When he tries to exert himself he gets a quick response with rapid ventricular rate. Hopefully the medication changes will be effective. I discontinued his amlodipine and decreased his lisinopril to 5 mg 2 compensate for the increased dose of diltiazem with regard to his blood pressure. (3) COPD exacerbation Is this a current diagnosis for this admission?: Yes Plan: Inhalers and steroids. He is on levofloxacin for possible bronchitis. (4) Diabetes mellitus type 2 in nonobese Is this a current diagnosis for this admission?: Yes Plan: Initially the patient was refusing fingersticks and sliding scale coverage. I stressed today that it was because of the steroids and would be temporary. He is amenable to comply with the regimen. Fingersticks are slowly improving. (5) Tobacco use disorder, severe, dependence Is this a current diagnosis for this admission?: Yes Plan: Encourage tobacco cessation. Nicotine patch available. (6) Constipation Qualifiers: Constipation type: unspecified constipation type Qualified Code(s): K59.00 - Constipation, unspecified Is this a current diagnosis for this admission?: Yes Plan: Still with no bowel movement. We will administer a bottle of citrate of magnesia. - Time Time Spent with patient: 15-24 minutes Smoking Cessation Education: 3 to 10 minutes Medications reviewed and adjusted accordingly: Yes Anticipated discharge: Home
[2019-01-26] MEDS: METFORMIN HCL 500 MG TABLET PO SCH (21:30)
[2019-01-26] MEDS: LEVOFLOXACIN 750 MG TABLET PO SCH (21:30)
[2019-01-26] MEDS ORDERED: DIGOXIN INJ 0.5 MG/2 ML AMPULE IV ONE (21:30)
[2019-01-26] MEDS: DILTIAZEM HCL 60 MG TABLET PO SCH (21:31)
[2019-01-26] MEDS: ATORVASTATIN CALCIUM 80 MG TABLET PO SCH (21:31)
[2019-01-26] MEDS: LISINOPRIL 10 MG TABLET PO SCH (21:31)
--- NOTE | 2019-01-26 22:05 | RADIOLOGY REPORT (SQ) ---
EXAM DESCRIPTION: XR CHEST 2 VIEWS COMPLETED DATE/TME: 01/26/2019 00:00 CLINICAL HISTORY: 73 years, Male, COPD COMPARISON: 01/24/2019 chest NUMBER OF VIEWS: 2 TECHNIQUE: 2 view chest LIMITATIONS: None. FINDINGS: Heart size is normal. Atheromatous change of the thoracic aorta. Osteopenia with COPD. Lungs are clear. No pneumothorax IMPRESSION: COPD. Lungs are clear copyright 2010 [employer]- All Rights Reserved
[2019-01-27] MEDS: DILTIAZEM HCL 60 MG TABLET PO SCH (05:17)
[2019-01-27 05:37] LABS: HEMATOCRIT 41.1 % (37.9-51.0); HEMOGLOBIN 13.8 g/dL (13.5-17.0); MEAN CORPUSCULAR HGB CONC 33.6 g/dL (32.0-36.0); MEAN CORPUSCULAR VOLUME 89 fl (80-97); RED BLOOD COUNT 4.59 10^6/uL (4.35-5.55); RED CELL DISTRIBUTION WIDTH 16.2 % (11.5-14.0); WHITE BLOOD COUNT 22.7 10^3/uL (4.0-10.5)
[2019-01-27 05:44] LABS: ANION GAP 16 (5-19); BLOOD UREA NITROGEN 49 mg/dL (7-20); CALCIUM 9.8 mg/dL (8.4-10.2); CARBON DIOXIDE 21 mmol/L (22-30); CHLORIDE 99 mmol/L (98-107); GLUCOSE 275 mg/dL (75-110); POTASSIUM 4.4 mmol/L (3.6-5.0); SODIUM 135.9 mmol/L (137-145)
[2019-01-27 06:28] LABS: ABSOLUTE LYMPHOCYTES# (MANUAL) 0.7 10^3/uL (0.5-4.7); ABSOLUTE MONOCYTES # (MANUAL) 0.2 10^3/uL (0.1-1.4); ABSOLUTE NEUTROPHILS# (MANUAL) 21.8 10^3/uL (1.7-8.2); BASOPHILS % (MANUAL) 0 % (0-2); EOSINOPHILS % (MANUAL) 0 % (0-6); LYMPHOCYTES % (MANUAL) 3 % (13-45); MONOCYTES % (MANUAL) 1 % (3-13); SEGMENTED NEUTROPHILS % (MAN) 96 % (42-78); TOTAL CELLS COUNTED 100
[2019-01-27 06:33] LABS: ANISOCYTOSIS 1+; BURR CELLS SLIGHT; OVALOCYTES 1+; PLATELET COMMENT ADEQUATE; POIKILOCYTOSIS 1+; TEAR DROP CELLS SLIGHT; TOXIC GRANULATION 1+; TOXIC VACUOLATION PRESENT
[2019-01-27 06:34] LABS: PLATELET COUNT 184 10^3/uL (150-450)
[2019-01-27] MEDS: GLIPIZIDE 5 MG TABLET PO SCH (08:00)
[2019-01-27] MEDS: INSULIN REG, HUMAN 100 UNIT/ML 3 ML VIAL (PYX) SUBCUT PRN ×3 (08:00→21:43)
[2019-01-27] MEDS: IPRATROPIUM BROMIDE 0.02% NEB 0.5 MG/2.5 ML AMPUL NEB SCH ×2 (08:20→17:08)
[2019-01-27] MEDS: LEVALBUTEROL HCL NEB 1.25 MG/3 ML AMPUL NEB SCH ×2 (08:20→17:08)
[2019-01-27] MEDS: BUDESONIDE NEB 0.5 MG/2 ML AMPUL NEB SCH (08:20)
[2019-01-27] MEDS: DOCUSATE SODIUM 100 MG CAPSULE PO SCH ×2 (09:07→17:41)
[2019-01-27] MEDS: DIGOXIN 0.125 MG TABLET PO SCH (09:07)
[2019-01-27] MEDS: DILTIAZEM HCL 240 MG CAPSULE.CR PO SCH (09:07)
[2019-01-27] MEDS: FAMOTIDINE 20 MG TABLET PO SCH ×2 (09:07→21:29)
[2019-01-27] MEDS: APIXABAN 5 MG TABLET PO SCH ×2 (09:07→17:41)
[2019-01-27] MEDS: MECLIZINE HCL 25 MG TABLET PO PRN ×2 (09:12→15:43)
[2019-01-27] MEDS: ONDANSETRON HCL INJ/PF 4 MG/2 ML SDV IV PRN ×2 (15:57→18:58)
[2019-01-27] MEDS ORDERED: ALBUTEROL SULFATE 0.083% NEB 2.5 MG/3 ML AMPUL NEB PRN (17:26)
--- NOTE | 2019-01-27 17:34 | PDOC PROGRESS REPORT ---
Subjective Progress Note for:: 01/27/19 Subjective:: Resting in bed. and son are at the bedside. Reason For Visit: ACUTE EXACERBATION OF COPD,ATRIAL FIBRILLATION W Physical Exam Vital Signs: Temp Pulse Resp BP Pulse Ox 97.2 F 91 22 H 109/64 95 01/27/19 11:24 01/27/19 15:39 01/27/19 15:39 01/27/19 15:39 01/27/19 15:39 Intake & Output 01/26/19 01/27/19 01/28/19 05:59 06:59 06:59 Intake Total Output Total 250 Balance -250 Weight General appearance: PRESENT: no acute distress, cooperative, thin, well- developed Head exam: PRESENT: normocephalic Ear exam: PRESENT: normal external ear exam Mouth exam: PRESENT: moist, tongue midline Respiratory exam: PRESENT: symmetrical, unlabored, wheezes - Intermittently. ABSENT: accessory muscle use, rhonchi Cardiovascular exam: PRESENT: irregular rhythm GI/Abdominal exam: PRESENT: normal bowel sounds, soft. ABSENT: distended, tenderness Rectal exam: PRESENT: deferred Musculoskeletal exam: PRESENT: ambulatory Neurological exam: PRESENT: alert, awake, oriented to person, oriented to place, oriented to time, oriented to situation, CN II-XII grossly intact Psychiatric exam: PRESENT: flat affect. ABSENT: agitated, anxious Focused psych exam: ABSENT: delusional, restlessness Results Laboratory Results: 01/27/19 04:08 01/27/19 04:08 01/27/19 01/27/19 04:08 04:08 WBC 22.7 H RBC 4.59 Hgb 13.8 Hct 41.1 MCV 89 MCH 30.0 MCHC 33.6 RDW 16.2 H Plt Count 184 Seg Neutrophils % Not Reportable Lymphocytes % Not Reportable Monocytes % Not Reportable Eosinophils % Not Reportable Basophils % Not Reportable Absolute Neutrophils Not Reportable Absolute Lymphocytes Not Reportable Absolute Monocytes Not Reportable Absolute Eosinophils Not Reportable Absolute Basophils Not Reportable Sodium 135.9 L Potassium 4.4 Chloride 99 Carbon Dioxide 21 L Anion Gap 16 BUN 49 H Creatinine 0.99 Est GFR ( Amer) > 60 Est GFR (Non-Af Amer) > 60 Glucose 275 H Calcium 9.8 Magnesium 3.7 H D 03/07/19 03/07/19 03/07/19 18:12 18:12 18:12 Creatine Kinase 63 CK-MB (CK-2) 0.91 Troponin I < 0.012 Cancelled NT-Pro-B Natriuret Pep 591 01/25/19 01/25/19 01/25/19 00:32 00:32 06:45 Creatine Kinase 52 L 46 L CK-MB (CK-2) 0.78 Troponin I 0.018 NT-Pro-B Natriuret Pep 01/25/19 01/25/19 01/25/19 06:45 12:58 12:58 Creatine Kinase 46 L CK-MB (CK-2) 0.69 0.85 Troponin I < 0.012 < 0.012 NT-Pro-B Natriuret Pep Impressions: Chest X-Ray 01/26/19 00:00 IMPRESSION: COPD. Lungs are clear copyright 2011 [employer]- All Rights Reserved Assessment & Plan - Diagnosis (1) Acute and chronic respiratory failure with hypoxia Is this a current diagnosis for this admission?: Yes Plan: Is still a smoker. I am going to convert his nebulizers to a Brio Ellipta for outpatient use. He is back on room air. (2) Atrial fibrillation with rapid ventricular response Is this a current diagnosis for this admission?: Yes Plan: Changing to long-acting diltiazem. Anticoagulation on board. (3) COPD exacerbation Is this a current diagnosis for this admission?: Yes Plan: The patient denies using any scheduled inhalers at home. I will initiate Brio Ellipta as above. I encouraged him to stop smoking. Family agrees. (4) Diabetes mellitus type 2 in nonobese Is this a current diagnosis for this admission?: Yes Plan: Still without adequate glucose control. Steroids are completed so his sugars should start decreasing. (5) Tobacco use disorder, severe, dependence Is this a current diagnosis for this admission?: Yes Plan: Continue nicotine but reinforce tobacco cessation. 1 pack of cigarettes last some 3-4 days. He used to smoke 2-3 packs a day. (6) Constipation Qualifiers: Constipation type: unspecified constipation type Qualified Code(s): K59.00 - Constipation, unspecified Is this a current diagnosis for this admission?: Yes Plan: Citrate of magnesia given. On scheduled MiraLAX. Continue as needed med ications. (7) Buergers disease Is this a current diagnosis for this admission?: Yes Plan: The patient reported that he has a history of Buerger's disease. He states that he used to take aspirin. I will start aspirin 81 mg daily. This is in addition to his anticoagulation for his atrial fibrillation. - Time Time Spent with patient: 15-24 minutes Smoking Cessation Education: 3 to 10 minutes Medications reviewed and adjusted accordingly: Yes Anticipated discharge: Home Within: within 48 hours
[2019-01-27] MEDS: ACETAMINOPHEN 325 MG TABLET PO PRN ×2 (17:43→21:43)
[2019-01-27] MEDS: POLYETHYLENE GLYCOL 3350 POWDER 17 GM/1 PACKET PO SCH (17:44)
[2019-01-27] MEDS: ATORVASTATIN CALCIUM 80 MG TABLET PO SCH (21:29)
[2019-01-27] MEDS: LEVOFLOXACIN 750 MG TABLET PO SCH (21:30)
[2019-01-27] MEDS: METFORMIN HCL 500 MG TABLET PO SCH (21:30)
[2019-01-27] MEDS: LISINOPRIL 10 MG TABLET PO SCH (21:31)
[2019-01-27] MEDS ORDERED: ASPIRIN 81 MG TABLET, ENT COATED PO SCH (22:00)
[2019-01-28 05:02] LABS: HEMATOCRIT 41.9 % (37.9-51.0); MEAN CORPUSCULAR HGB CONC 33.5 g/dL (32.0-36.0); MEAN CORPUSCULAR VOLUME 90 fl (80-97); RED BLOOD COUNT 4.67 10^6/uL (4.35-5.55); RED CELL DISTRIBUTION WIDTH 16.2 % (11.5-14.0)
[2019-01-28 05:25] LABS: PLATELET COUNT 189 10^3/uL (150-450); WHITE BLOOD COUNT 21.9 10^3/uL (4.0-10.5)
[2019-01-28 05:55] LABS: ANION GAP 14 (5-19); BLOOD UREA NITROGEN 53 mg/dL (7-20); CALCIUM 9.8 mg/dL (8.4-10.2); CARBON DIOXIDE 23 mmol/L (22-30); CHLORIDE 99 mmol/L (98-107); POTASSIUM 4.6 mmol/L (3.6-5.0); SODIUM 136.2 mmol/L (137-145)
[2019-01-28 05:58] LABS: GLUCOSE 63 mg/dL (75-110)
[2019-01-28] MEDS: ACETAMINOPHEN 325 MG TABLET PO PRN ×2 (08:18→14:24)
[2019-01-28] MEDS: GLIPIZIDE 5 MG TABLET PO SCH (08:18)
[2019-01-28] MEDS: DILTIAZEM HCL 240 MG CAPSULE.CR PO SCH (09:55)
[2019-01-28] MEDS: DOCUSATE SODIUM 100 MG CAPSULE PO SCH (09:55)
[2019-01-28] MEDS: POLYETHYLENE GLYCOL 3350 POWDER 17 GM/1 PACKET PO SCH (09:55)
[2019-01-28] MEDS: APIXABAN 5 MG TABLET PO SCH (09:55)
[2019-01-28] MEDS: FAMOTIDINE 20 MG TABLET PO SCH (09:55)
[2019-01-28] MEDS: DIGOXIN 0.125 MG TABLET PO SCH (09:56)
[2019-01-28] MEDS ORDERED: FLUTICASONE/VILANTEROL 100-25 MCG/DOSE IH SCH (10:00)
[2019-01-28 17:11] VITALS: BP 114/60
--- NOTE | 2019-01-28 22:25 | PDOC DISCHARGE SUMMARY ---
General - Admit/Disc Date/PCP Admission Date/Primary Care Provider: 01/24/19 21:22 SYED DELONG MD Discharge Date: 01/28/19 - Discharge Diagnosis (1) Acute and chronic respiratory failure with hypoxia Is this a current diagnosis for this admission?: Yes Summary: Patient has history of chronic obstructive pulmonary disease and continues to smoke. He had transient episodes of pulse oximetry less than 90%. With deep breathing he was able to restore this. I do not believe he required oxygen supplementation during his admission. (2) Atrial fibrillation with rapid ventricular response Is this a current diagnosis for this admission?: Yes Summary: It took several adjustments in medication but the patient is in fact quite stable. He is on digoxin 0.125 mg daily and diltiazem 240 mg long-acting daily. He is on apixaban 5 mg twice daily for anticoagulation. (3) COPD exacerbation Is this a current diagnosis for this admission?: Yes Summary: I am going to discharge the patient on chronic inhaler therapy (Brio Ellipta) and a rescue inhaler. He needs to follow-up with his primary care provider. He still smokes and I encouraged him strongly to stop as his health will only decline if he does not. (4) Diabetes mellitus type 2 in nonobese Is this a current diagnosis for this admission?: Yes Summary: He will return to his oral medication regimen. (5) Tobacco use disorder, severe, dependence Is this a current diagnosis for this admission?: Yes Summary: Again I strongly encouraged him to stop smoking. A nicotine patch was available for use while in the hospital. (6) Constipation Is this a current diagnosis for this admission?: Yes Summary: Resolved (7) Buergers disease Is this a current diagnosis for this admission?: Yes Summary: Resume aspirin therapy - Additional Information Resuscitation Status: Full Code Discharge Diet: Cardiac, Diabetic Discharge Activity: Activity As Tolerated, Balance Activity w/Rest Prescriptions: Albuterol Sulfate [Proair Hfa Inhalation Aerosol 8.5 gm Mdi] 1 puff IH Q4 PRN #1 mdi PRN Reason: Apixaban [Eliquis 5 mg Tablet] 5 mg PO BID 30 Days #60 tablet Digoxin [Lanoxin 0.125 mg Tablet] 0.125 mg PO DAILY 30 Days #30 tablet Diltiazem HCl [Cardizem Cd 240 mg Capsule.cr] 240 mg PO DAILY 30 Days #30 capsule.cr Fluticasone/Vilanterol [Breo 100-25 Mcg Ellipta 14 Dose/Dpi] 1 inh IH DAILY 14 Days #1 inhaler Levofloxacin [Levaquin 500 mg Tablet] 500 mg PO DAILY 4 Days #4 tablet Lisinopril [Prinivil 5 mg Tablet] 5 mg PO DAILY #30 tablet Home Medications: Atorvastatin Calcium [Lipitor 80 mg Tablet] 80 mg PO QPM 01/24/19 Glipizide [Glucotrol] 5 mg PO QPM 01/24/19 Meclizine HCl [Antivert 25 mg Tablet] 25 mg PO TIDP PRN 01/24/19 Metformin HCl [Glucophage] 1,000 mg PO QPM 01/24/19 Omeprazole 20 mg PO QPM 01/24/19 Acetaminophen [Tylenol 325 mg Tablet] 650 mg PO Q4HP PRN tablet 01/28/19 Albuterol Sulfate [Proair Hfa Inhalation Aerosol 8.5 gm Mdi] 1 puff IH Q4 PRN #1 mdi 01/28/19 Apixaban [Eliquis 5 mg Tablet] 5 mg PO BID 30 Days #60 tablet 01/28/19 Aspirin [Ecotrin 81 mg EC Tablet] 81 mg PO QHS tabec 01/28/19 Atorvastatin Calcium [Lipitor 80 mg Tablet] 80 mg PO QHS tablet 01/28/19 Digoxin [Lanoxin 0.125 mg Tablet] 0.125 mg PO DAILY 30 Days #30 tablet 01/28/19 Diltiazem HCl [Cardizem Cd 240 mg Capsule.cr] 240 mg PO DAILY 30 Days #30 capsule.cr 01/28/19 Docusate Sodium [Colace 100 mg Capsule] 100 mg PO BID capsule 01/28/19 Fluticasone/Vilanterol [Breo 100-25 Mcg Ellipta 14 Dose/Dpi] 1 inh IH DAILY 14 Days #1 inhaler 01/28/19 Glipizide [Glucotrol 5 mg Tablet] 5 mg PO [id number] tablet 01/28/19 Levofloxacin [Levaquin 500 mg Tablet] 500 mg PO DAILY 4 Days #4 tablet 01/28/19 Lisinopril [Prinivil 5 mg Tablet] 5 mg PO DAILY #30 tablet 01/28/19 Meclizine HCl [Antivert 25 mg Tablet] 25 mg PO TIDP PRN tablet 01/28/19 Metformin HCl [Glucophage 500 mg Tablet] 1,000 mg PO QHS tablet 01/28/19 Nicotine [Nicoderm 21 mg/24 Hr Transderm Patch] 1 each TD DAILYP PRN patch.td24 01/28/19 Polyethylene Glycol 3350 [Miralax Powder 17 gm/Packet] 17 gm PO DAILY powd.pack 01/28/19 History of Present Illness Patient complains of: Repetitions and shortness of breath History of Present Illness: RAJAN KEARNEY is a 73 year old male who over the course of 3 weeks developed progressively worsening dyspnea. He felt unwell in general. He noted a nonproductive cough. The day prior to admission he noticed rapid heartbeat and this also compromised his activity. He finally presented to the emergency department for evaluation. He is found to be in atrial fibrillation. He also e xhibited acute on chronic respiratory failure with hypoxia. He was referred to the hospital service for admission. Hospital Course Hospital Course: Patient had a relatively uncomplicated hospital course. He was initially on diltiazem infusion. We utilized metoprolol and diltiazem for rate control. Unfortunately due to blood pressure limitations I discontinued the metoprolol in favor of digoxin and diltiazem. This seemed to work quite well. He completed a course of antibiotic therapy for the exacerbation of COPD with possible bronchitis. His blood pressure was controlled with the diltiazem and a decreased dose of lisinopril. He was decreased from 10-5 mg daily. His amlodipine was discontinued altogether. He was on a short course of steroids and this necessitated use of a sliding scale. At the time of discharge she was able to return to his oral medication regimen for his diabetes. Constipation was treated with stool softeners and laxatives. He does have a history of Buerger's disease. He is on statin therapy for hypercholesterolemia and reduction of plaque formation. He also has Buerger's disease. This is another reason why he should stop smoking. I did ask him to return to aspirin therapy. Physical Exam Vital Signs: Temp Pulse Resp BP Pulse Ox 97.3 F 96 16 122/58 L 93 01/28/19 07:35 01/28/19 08:00 01/28/19 08:00 01/28/19 07:35 01/28/19 08:00 Intake & Output 01/27/19 01/28/19 01/29/19 06:59 06:59 06:59 Output Total 625 Balance -625 Weight 56.3 kg General appearance: PRESENT: no acute distress, cooperative, thin, well- developed Head exam: PRESENT: normocephalic Mouth exam: PRESENT: moist, tongue midline Neck exam: ABSENT: carotid bruit, lymphadenopathy Respiratory exam: PRESENT: symmetrical, unlabored. ABSENT: clear to auscultation elise - Still with a congested cough, rales, rhonchi, wheezes Cardiovascular exam: PRESENT: irregular rhythm GI/Abdominal exam: PRESENT: normal bowel sounds, soft. ABSENT: distended, tenderness Rectal exam: PRESENT: deferred Gentrourinary exam: ABSENT: indwelling catheter Extremities exam: ABSENT: pedal edema Musculoskeletal exam: PRESENT: ambulatory Neurological exam: PRESENT: alert, awake, oriented to person, oriented to place, oriented to time, oriented to situation, CN II-XII grossly intact Psychiatric exam: PRESENT: appropriate affect, normal mood. ABSENT: agitated, anxious Focused psych exam: ABSENT: delusional, restlessness Results Laboratory Results: 01/28/19 04:16 01/28/19 04:16 01/28/19 01/28/19 04:16 04:16 WBC 21.9 H RBC 4.67 Hgb 14.0 Hct 41.9 MCV 90 MCH 30.0 MCHC 33.5 RDW 16.2 H Plt Count 189 Sodium 136.2 L Potassium 4.6 Chloride 99 Carbon Dioxide 23 Anion Gap 14 BUN 53 H Creatinine 1.01 Est GFR ( Amer) > 60 Est GFR (Non-Af Amer) > 60 Glucose 63 L Calcium 9.8 Magnesium 3.5 H 01/24/19 01/24/19 01/24/19 18:12 18:12 18:12 Creatine Kinase 63 CK-MB (CK-2) 0.91 Troponin I < 0.012 Cancelled NT-Pro-B Natriuret Pep 591 01/25/19 01/25/19 01/25/19 00:32 00:32 06:45 Creatine Kinase 52 L 46 L CK-MB (CK-2) 0.78 Troponin I 0.018 NT-Pro-B Natriuret Pep 01/25/19 01/25/19 01/25/19 06:45 12:58 12:58 Creatine Kinase 46 L CK-MB (CK-2) 0.69 0.85 Troponin I < 0.012 < 0.012 NT-Pro-B Natriuret Pep Impressions: Chest X-Ray 01/26/19 00:00 IMPRESSION: COPD. Lungs are clear copyright 2011 [employer]- All Rights Reserved Qualifiers - * PATIENT BEING DISCHARGED WITH ANY OF THE FOLLOWING DIAGNOSIS: No Plan Discharge Plan: Follow-up with primary care provider Establish locally with cardiology Time Spent: Greater than 30 Minutes
== END 2019-01-28 17:25 | disposition home or self-care (01) | DRG 308 ==
LOC: ER 17:45 → EH 21:22 → 3N 23:47
PROVIDERS: ADMIT Emergency Medicine; ATTEND Emergency Medicine
PROC: 3E0F73Z Introduction of Anti-inflammatory into Respiratory Tract, Via Natural or Artificial Opening (ICD-10-PCS; principal; 2019-01-25)
DX: I48.91 Unspecified atrial fibrillation (principal); J96.21 Acute and chronic respiratory failure with hypoxia; J44.1 Chronic obstructive pulmonary disease with (acute) exacerbation; E11.9 Type 2 diabetes mellitus without complications; K59.00 Constipation, unspecified; I73.1 Thromboangiitis obliterans [Buerger's disease]; E78.5 Hyperlipidemia, unspecified; I10 Essential (primary) hypertension; K21.9 Gastro-esophageal reflux disease without esophagitis; F17.210 Nicotine dependence, cigarettes, uncomplicated; Z71.6 Tobacco abuse counseling; Z79.899 Other long term (current) drug therapy; Z79.84 Long term (current) use of oral hypoglycemic drugs; Z85.46 Personal history of malignant neoplasm of prostate; Z90.79 Acquired absence of other genital organ(s); Z83.6 Family history of other diseases of the respiratory system
CPT/HCPCS: 36415; 71045; 71046; 80048; 80053; 80061; 81001; 82550; 82553; 82962; 83735; 83880; 84439; 84443; 84481; 84484; 85025; 85027; 85610; 85730; 87040; 96374; 96375; 99291; J1160; J1815; J1956; J2405; J2920; J2930; J3490

== ENCOUNTER 2019-07-05 22:13 | Inpatient (IN) | payer MEDICARE ==
[2019-07-05 23:01] LABS: ABSOLUTE BASOPHILS # (AUTO) 0.3 10^3/uL (0.0-0.2); ABSOLUTE EOSINOPHILS # (AUTO) 0.1 10^3/uL (0.0-0.6); ABSOLUTE LYMPHOCYTES (AUTO) 2.9 10^3/uL (0.5-4.7); ABSOLUTE NEUT (AUTO) 10.4 10^3/uL (1.7-8.2); BASOPHILS % (AUTO) 2.1 % (0-2); EOSINOPHILS % (AUTO) 0.9 % (0-6); HEMATOCRIT 49.3 % (37.9-51.0); HEMOGLOBIN 16.1 g/dL (13.5-17.0); LYMPHOCYTES % (AUTO) 19.6 % (13-45); MEAN CORPUSCULAR HEMOGLOBIN 28.9 pg (27.0-33.4); MEAN CORPUSCULAR HGB CONC 32.7 g/dL (32.0-36.0); MEAN CORPUSCULAR VOLUME 89 fl (80-97); MONOCYTES % (AUTO) 7.1 % (3-13); RED BLOOD COUNT 5.57 10^6/uL (4.35-5.55); RED CELL DISTRIBUTION WIDTH 14.9 % (11.5-14.0); SEGMENTED NEUTROPHILS % (AUTO) 70.3 % (42-78); TOTAL CELLS COUNTED % (AUTO) 100 %; WHITE BLOOD COUNT 14.8 10^3/uL (4.0-10.5)
--- NOTE | 2019-07-05 23:06 | RADIOLOGY REPORT (SQ) ---
XR CHEST 1 VIEW CLINICAL STATEMENT: SOB COMPARISON: 01/26/2019 FINDINGS: Heart is mildly enlarged. Mild pulmonary edema. Small bilateral pleural effusions. No pneumothorax. IMPRESSION: Findings consistent with mild CHF.
[2019-07-05] MEDS ORDERED: IPRATROPIUM/ALBUTEROL 0.5-2.5 MG/3 ML AMPUL NEB ONE (23:07)
[2019-07-05] MEDS ORDERED: APIXABAN 5 MG TABLET PO ONE (23:08)
[2019-07-05] MEDS ORDERED: DILTIAZEM HCL INJ 25 MG/5 ML VIAL IV ONE (23:08)
[2019-07-05 23:09] LABS: INTERNATIONAL RATION (INR) 1.02; PROTHROMBIN TIME 13.4 SEC (11.4-15.4)
[2019-07-05] MEDS ORDERED: METHYLPREDNISOLONE INJ 125 MG/2 ML SDV IV ONE (23:11)
[2019-07-05] MEDS ORDERED: FUROSEMIDE INJ/PF 40 MG/4 ML SDV IV ONE (23:12)
[2019-07-05] MEDS ORDERED: LISINOPRIL 5 MG TABLET PO ONE (23:13)
[2019-07-05 23:18] LABS: ALBUMIN 4.4 g/dL (3.5-5.0); ALKALINE PHOSPHATASE 107 U/L (38-126); ANION GAP 12 (5-19); ASPARTATE AMINO TRANSFERASE 19 U/L (17-59); BILIRUBIN,DIRECT 0.4 mg/dL (0.0-0.4); BILIRUBIN,TOTAL 0.5 mg/dL (0.2-1.3); BLOOD UREA NITROGEN 14 mg/dL (7-20); CALCIUM 9.9 mg/dL (8.4-10.2); CARBON DIOXIDE 22 mmol/L (22-30); CHLORIDE 103 mmol/L (98-107); GLUCOSE 237 mg/dL (75-110); TOTAL PROTEIN 7.7 g/dL (6.3-8.2)
--- NOTE | 2019-07-05 23:20 | ER Document Report ---
ED General - General Chief Complaint: Shortness Of Breath Stated Complaint: TROUBLE BREATHING Time Seen by Provider: 07/05/19 22:43 Primary Care Provider: SYED DELONG MD [ACTIVE STAFF] - Follow up as needed Mode of Arrival: Ambulatory Information source: Patient, Relative TRAVEL OUTSIDE OF THE [place] IN LAST 30 DAYS: No - HPI Notes: Patient is a 74-year-old male history of COPD, atrial fibrillation, type 2 diabetes, Buerger's disease, and medication noncompliance with continued smoking presents to the emergency department with report of progressive dyspnea with generalized malaise over the course of the last month. He has noticed slight amount of lower extremity edema. He reports dyspnea on exertion. He denies any chest pain, nausea, vomiting, constipation, diarrhea, dysuria. The patient reports no fever or chills. Patient has been taking his medications for diabetes which would include glipizide and metformin, but has been noncompliant for over a month with his cardiac medications which include digoxin 0.125 mg daily, diltiazem long-acting 240 mg daily, apixaban 5 mg p.o. twice daily, lisinopril 5 mg daily and Lipitor and aspirin. He claims a family does not have a car and he is unable to get in for follow-up visits and to get to the pharmacy. No productive cough - Related Data Allergies/Adverse Reactions: No Known Allergies Allergy (Verified 01/24/19 17:49) Past Medical History - General Information source: Patient, Relative - Social History Smoking Status: Current Every Day Smoker Frequency of alcohol use: None Drug Abuse: None Lives with: Family Family History: COPD - Past Medical History Cardiac Medical History: Reports: Hx Atrial Fibrillation, Hx Hypercholesterolemia, Hx Hypertension Denies: Hx Heart Attack Pulmonary Medical History: Reports: Hx Bronchitis, Hx COPD, Hx Pneumonia - more than 16 times Denies: Hx Asthma, Hx Intubation, Hx Respiratory Failure Neurological Medical History: Denies: Hx Cerebrovascular Accident, Hx Seizures Endocrine Medical History: Reports: Hx Diabetes Mellitus Type 2. Denies: Hx Diabetes Mellitus Type 1, Hx Hyperthyroidism, Hx Hypothyroidism Renal/ Medical History: Denies: Hx Peritoneal Dialysis Malignancy Medical History: Reports Hx Prostate Cancer GI Medical History: Reports: Hx Gastroesophageal Reflux Disease. Denies: Hx Cirrhosis, Hx Hepatitis, Hx Hiatal Hernia, Hx Ulcer Musculoskeletal Medical History: Denies Hx Arthritis, Denies Hx Gout Skin Medical History: Denies Hx Eczema, Denies Hx Psoriasis Infectious Medical History: Denies: Hx Hepatitis Past Surgical History: Reports: Hx Abdominal Surgery, Other - Prostatectomy. Denies: Hx Open Heart Surgery, Hx Pacemaker - Immunizations Hx Diphtheria, Pertussis, Tetanus Vaccination: Yes - <5 years Review of Systems - Review of Systems -: Yes All other systems reviewed and negative Physical Exam - Vital signs Vitals: Temp Pulse 98.0 F 133 H 07/05/19 22:40 07/05/19 22:40 - Notes Notes: PHYSICAL EXAMINATION: GENERAL: Well-appearing, well-nourished and in no acute distress. HEAD: Atraumatic, normocephalic. EYES: Pupils equal round and reactive to light, extraocular movements intact, sclera anicteric, conjunctiva are normal. ENT: Nares patent, oropharynx clear without exudates. Moist mucous membranes. NECK: Normal range of motion, supple without lymphadenopathy LUNGS: Coarse and diminished breath sounds. Scant expiratory wheeze. Slightly diminished with Rales in both bases. HEART: Tachycardic irregular rate 130 at the bedside. 1/6 DIEGO over apex. ABDOMEN: Soft, nontender, nondistended abdomen. No guarding, no rebound. No masses appreciated. Musculoskeletal: Normal range of motion, 1+ BLE edema. No cyanosis. Negative Homans. No palpable cord. NEUROLOGICAL: Cranial nerves grossly intact. Normal speech, normal gait. Normal sensory, motor exams PSYCH: Normal mood, normal affect. SKIN: Warm, Dry, normal turgor, no rashes or lesions noted. Course - Re-evaluation Re-evalutation: 07/05/19 23:24 Chest x-ray showed evidence for COPD with by basilar small effusions and evidence for CHF. The patient was in atrial fibrillation with heart rate ranging from 100 to 160 at rest, averaging approximately 120. The patient admitted to noncompliance with his digoxin and diltiazem and other medications. Patient was given diltiazem 20 mg IV x1 and then was given his regular dose of apixaban for anticoagulation and was given Solu-Medrol and a DuoNeb treatment. Patient was also given his regular dose of lisinopril 5 mg. 07/05/19 23:34 Patient was given diltiazem 20 mg IV x1 and repeat heart rate came down 80s to 90s with a systolic of 144. The patient repetitively would not hold still for the completion of the blood pressure as he would clench up in the diastolic was 131 which was erroneous. Manual blood pressures were improved from this. 07/06/19 00:34 Patient's BNP was elevated at 5800 today. The patient previously had a BNP of 1800 in November 2017, and only a BNP of 591 noted on admission 5 months ago, but he denies any history of CHF. After receiving the IV diltiazem, patient's heart rate came down into the 70s and 80s. He was given p.o. diltiazem 60 by mouth. The patient had no digoxin in his system at all, consistent with him not taking it for over a month. He was given a p.o. digoxin load at 0.25 mg, whereas his normal daily dose is 0.125 mg. 07/06/19 00:40 After diuresis and diltiazem and Solu-Medrol and DuoNeb, patient stated he felt better. Again he denied ever having any chest pain. The patient had appropriate O2 sat on room air and a pulse rate of 82 with a blood pressure 152/85 after medications. Discussed with the patient and he was in agreement with admission for further evaluation and care. Discussed with Dr. Felix, who agreed to admit the patient. 07/06/19 00:47 - Vital Signs Vital signs: Temp Pulse Resp BP Pulse Ox 98.0 F 133 H 27 H 162/91 H 96 07/05/19 22:40 07/05/19 22:40 07/05/19 23:46 07/05/19 23:46 07/05/19 23:46 - Laboratory Result Diagrams: 07/05/19 22:40 07/05/19 22:40 Laboratory results interpreted by nv: 07/05/19 07/05/19 07/05/19 22:40 22:40 22:40 WBC 14.8 H RBC 5.57 H RDW 14.9 H Basophils % 2.1 H Absolute Neutrophils 10.4 H Absolute Basophils 0.3 H Sodium 136.9 L Glucose 237 H NT-Pro-B Natriuret Pep Digoxin < 0.40 L 07/05/19 22:40 WBC RBC RDW Basophils % Absolute Neutrophils Absolute Basophils Sodium Glucose NT-Pro-B Natriuret Pep 5800 H Digoxin - EKG Interpretation by Me Rate: Tachycardia Rhythm: A.Fib Additional EKG results interpreted by me: 07/05/19 23:23 EKG as interpreted by me showed atrial fibrillation with rapid ventricular response rate of [address] segment depression. LVH is noted. There is a significant elevation of the heart rate as compared to previous EKG reviewed from 12/08/2017. LVH findings appear more pronounced. Critical Care Note - Critical Care Note Total time excluding time spent on procedures (mins): 46 Discharge - Discharge Clinical Impression: Medical non-compliance, Tobacco abuse CHF (congestive heart failure) Qualifiers: Heart failure type: unspecified Heart failure chronicity: acute Qualified Code(s): I50.9 - Heart failure, unspecified Atrial fibrillation Qualifiers: Atrial fibrillation type: chronic Qualified Code(s): I48.2 - Chronic atrial fibrillation COPD (chronic obstructive pulmonary disease) Qualifiers: COPD type: COPD with acute exacerbation Qualified Code(s): J44.1 - Chronic obstructive pulmonary disease with (acute) exacerbation Condition: Stable Disposition: ADMITTED INPATIENT Admitting Provider: Isidro (Hospitalist) Unit Admitted: IMCU Referrals: SYED DELONG MD [ACTIVE STAFF] - Follow up as needed
[2019-07-05 23:22] LABS: PLATELET COUNT 229 10^3/uL (150-450)
[2019-07-05 23:24] LABS: DIGOXIN < 0.40 ng/mL (0.8-2.0)
[2019-07-05] MEDS ORDERED: DILTIAZEM HCL 60 MG TABLET PO ONE (23:33)
[2019-07-06] MEDS ORDERED: DIGOXIN 0.25 MG TABLET PO ONE (00:32)
[2019-07-06] MEDS ORDERED: MAG HYDROX/AL HYDROX/SIMETH SUSP 30 ML UDCUP PO PRN (00:46)
[2019-07-06] MEDS ORDERED: MAGNESIUM HYDROXIDE SUSP 30 ML UDCUP PO PRN (00:46)
[2019-07-06] MEDS ORDERED: ACETAMINOPHEN 325 MG TABLET PO PRN (00:46)
[2019-07-06] MEDS ORDERED: ONDANSETRON HCL INJ/PF 4 MG/2 ML SDV IV PRN (00:46)
[2019-07-06 01:14] LABS: APPEARANCE,URINE CLEAR; BILIRUBIN,URINE NEGATIVE (NEGATIVE); COLOR,URINE STRAW; GLUCOSE, URINE 50 mg/dL (NEGATIVE); KETONES,URINE NEGATIVE (NEGATIVE); LEUKOCYTE ESTERASE,URINE NEGATIVE (NEGATIVE); NITRITE,URINE NEGATIVE (NEGATIVE); PROTEIN,URINE >=500 mg/dL (NEGATIVE); URINE SPECIFIC GRAVITY 1.008; UROBILINOGEN,URINE NEGATIVE mg/dL (<2.0)
--- NOTE | 2019-07-06 01:26 | PDOC H&P ---
History of Present Illness Admission Date/PCP: SB FERNANDEZ Patient complains of: Shortness of breath History of Present Illness: RAJAN KEARNEY is a 74 year old male with history of multiple medical problems that will be mentioned below who presented to the emergency room with acute onset of worsening dyspnea over the last 3 weeks with lower extr emity edema. He admits to dyspnea on exertion as well as orthopnea and dry cough without paroxysmal nocturnal dyspnea or wheezing. He denies any fever or chills. No chest pain or palpitations. No nausea vomiting or abdominal pain. No dysuria, oliguria or hematuria or flank pain. No bleeding diathesis. Upon presentation to the emergency room, blood pressure was 162/85 with a pulse oximetry of 93% on room air and otherwise normal vital signs as listed below. Labs are remarkable for leukocytosis of 14.8 with neutrophilia, magnesium of 1.7 and proBNP of 5800 with negative cardiac enzymes and urinalysis that showed proteinuria more than 500 with 50 glucose. Portable chest x-ray showed ca rdiomegaly with acute CHF. EKG showed atrial ablation with rapid ventricular response of 162 with PVCs and PACs, LVH with early repolarization and Q waves in V1. The patient was given 20 g of IV Cardizem and repeat EKG revealed atrial fibrillation with RVR of 123 and later on his heart rate on monitor came down to 90s. The patient was given 40 mg of IV Lasix, 0.25 mg p.o. digoxin in addition to 20 mg of IV Cardizem and nebulized duo nebs as well as Eliquis and lisinopril. He was also given 125 mg of IV Solu-Medrol. He will be admitted to telemetry bed for further evaluation and management. Past Medical History Cardiac Medical History: Reports: Atrial Fibrillation, Hyperlipidema, Hypertension Denies: Myocardial Infarction Pulmonary Medical History: Reports: Bronchitis, Chronic Obstructive Pulmonary Disease (COPD), Pneumonia - more than 16 times Denies: Asthma, Intubation, Respiratory Failure Neurological Medical History: Denies: Seizures Endocrine Medical History: Reports: Diabetes Mellitus Type 2 Denies: Diabetes Mellitus Type 1, Hyperthyroidism, Hypothyroidism GI Medical History: Reports: Gastroesophageal Reflux Disease Denies: Cirrhosis, Hepatitis, Hiatal Hernia Musculoskeltal Medical History: Denies: Arthritis, Gout Skin Medical History: Denies: Eczema, Psoriasis Hematology: Denies: Anemia, Sickle Cell Disease, Bleeding Tendencies Past Surgical History Past Surgical History: Reports: Other - Prostatectomy Denies: Pacemaker Social History Lives with: Family Smoking Status: Current Every Day Smoker Frequency of Alcohol Use: None Hx Recreational Drug Use: No Drugs: None Hx Prescription Drug Abuse: No Family History Family History: COPD Parental Family History Reviewed: Yes Children Family History Reviewed: Yes Sibling(s) Family History Reviewed.: Yes Medication/Allergy Home Medications: Atorvastatin Calcium [Lipitor 80 mg Tablet] 80 mg PO QPM 01/24/19 Glipizide [Glucotrol] 5 mg PO QPM 01/24/19 Meclizine HCl [Antivert 25 mg Tablet] 25 mg PO TIDP PRN 01/24/19 Metformin HCl [Glucophage] 1,000 mg PO QPM 01/24/19 Omeprazole 20 mg PO QPM 01/24/19 Acetaminophen [Tylenol 325 mg Tablet] 650 mg PO Q4HP PRN tablet 01/28/19 Albuterol Sulfate [Proair Hfa Inhalation Aerosol 8.5 gm Mdi] 1 puff IH Q4 PRN #1 mdi 01/28/19 Apixaban [Eliquis 5 mg Tablet] 5 mg PO BID 30 Days #60 tablet 01/28/19 Aspirin [Ecotrin 81 mg EC Tablet] 81 mg PO QHS tabec 01/28/19 Atorvastatin Calcium [Lipitor 80 mg Tablet] 80 mg PO QHS tablet 01/28/19 Digoxin [Lanoxin 0.125 mg Tablet] 0.125 mg PO DAILY 30 Days #30 tablet 01/28/19 Diltiazem HCl [Cardizem Cd 240 mg Capsule.cr] 240 mg PO DAILY 30 Days #30 capsule.cr 01/28/19 Docusate Sodium [Colace 100 mg Capsule] 100 mg PO BID capsule 01/28/19 Fluticasone/Vilanterol [Breo 100-25 Mcg Ellipta 14 Dose/Dpi] 1 inh IH DAILY 14 Days #1 inhaler 01/28/19 Glipizide [Glucotrol 5 mg Tablet] 5 mg PO [id number] tablet 01/28/19 Levofloxacin [Levaquin 500 mg Tablet] 500 mg PO DAILY 4 Days #4 tablet 01/28/19 Lisinopril [Prinivil 5 mg Tablet] 5 mg PO DAILY #30 tablet 01/28/19 Meclizine HCl [Antivert 25 mg Tablet] 25 mg PO TIDP PRN tablet 01/28/19 Metformin HCl [Glucophage 500 mg Tablet] 1,000 mg PO QHS tablet 01/28/19 Nicotine [Nicoderm 21 mg/24 Hr Transderm Patch] 1 each TD DAILYP PRN patch.td24 01/28/19 Polyethylene Glycol 3350 [Miralax Powder 17 gm/Packet] 17 gm PO DAILY powd.pack 01/28/19 Allergies/Adverse Reactions: No Known Allergies Allergy (Verified 01/24/19 17:49) Review of Systems Review of Systems: As per history of present illness. All pertinent systems were reviewed above. Constitutional, HEENT, cardiovascular, respiratory, GI, , musculoskeletal, neuro, psychiatric, endocrine, integumentary and hematologic systems were reviewed and are otherwise negative/unremarkable except for positive findings mentioned above in the HPI. Physical Exam Vital Signs: Temp Pulse Resp BP Pulse Ox 98.0 F 133 H 18 152/85 H 93 07/05/19 22:40 07/05/19 22:40 07/06/19 00:31 07/06/19 00:31 07/06/19 00:31 Intake & Output 07/04/19 07/05/19 07/06/19 06:59 06:59 06:59 Weight 63.5 kg Additional comments: Generally: Pleasant elderly male in mild respiratory distress with conversational dyspnea Vital signs-as listed Head - atraumatic, normocephalic. Pupils - equal, round and reactive to light and accommodation. Extraocular movements are intact. No scleral icterus. Oropharynx - moist mucous membranes and tongue. No pharyngeal erythema or exudate. Neck - supple. No JVD. Carotid pulses 2+ bilaterally. No carotid bruits. No palpable thyromegaly or lymphadenopathy. Cardiovascular - regular rate and rhythm. Normal S1 and S2. No murmurs, gallops or rubs. Lungs -diminished bibasilar breath sounds with bibasilar rales Abdomen - soft and nontender. Positive bowel sounds. No palpable organomegaly or masses. Extremities - no pitting edema, clubbing or cyanosis. Neuro - grossly non-focal. Skin - no rashes. and rectal exam - deferred. Results Laboratory Results: 07/05/19 22:40 07/05/19 22:40 07/05/19 07/05/19 07/05/19 22:40 22:40 22:40 WBC 14.8 H RBC 5.57 H Hgb 16.1 Hct 49.3 MCV 89 MCH 28.9 MCHC 32.7 RDW 14.9 H Plt Count 229 Seg Neutrophils % 70.3 Lymphocytes % 19.6 Monocytes % 7.1 Eosinophils % 0.9 Basophils % 2.1 H Absolute Neutrophils 10.4 H Absolute Lymphocytes 2.9 Absolute Monocytes 1.0 Absolute Eosinophils 0.1 Absolute Basophils 0.3 H Sodium 136.9 L Potassium 4.0 Chloride 103 Carbon Dioxide 22 Anion Gap 12 BUN 14 Creatinine 0.88 Est GFR ( Amer) > 60 Est GFR (Non-Af Amer) > 60 Glucose 237 H Calcium 9.9 Magnesium 1.7 Total Bilirubin 0.5 AST 19 Alkaline Phosphatase 107 Total Protein 7.7 Albumin 4.4 07/05/19 07/05/19 22:40 22:40 Troponin I 0.041 NT-Pro-B Natriuret Pep 5800 H Impressions: Chest X-Ray 07/05/19 22:17 IMPRESSION: Findings consistent with mild CHF. Assessment and Plan - Diagnosis (1) Acute CHF Qualifiers: Heart failure type: diastolic Qualified Code(s): I50.31 - Acute diastolic (congestive) heart failure Is this a current diagnosis for this admission?: Yes Plan: The patient will be admitted to a telemetry bed and will be diuresed with IV Lasix. Will follow serial cardiac enzymes. Will obtain a 2D echo(if not done last 6 months) and a cardiology consultation in a.m. the patient's last EF was within normal in November 2017 that showed mild concentric left ventricular hypertrophy and mild left atrial dilatation and moderate right atrial dilatation. (2) Atrial fibrillation with rapid ventricular response Is this a current diagnosis for this admission?: Yes Plan: The patient will be continued on p.o. Cardizem as he slowed down with IV Cardizem. Will follow serial cardiac enzymes and obtain a 2D echo and cardiology consult in a.m. we will continue Eliquis. (3) Type 2 diabetes mellitus Is this a current diagnosis for this admission?: Yes Plan: The patient will be placed on supplemental coverage with NovoLog. We will continue glipizide and hold off metformin. (4) Hypertension Qualifiers: Hypertension type: essential hypertension Qualified Code(s): I10 - Essential (primary) hypertension Is this a current diagnosis for this admission?: Yes Plan: We will continue lisinopril. (5) Tobacco dependence Is this a current diagnosis for this admission?: Yes Plan: The patient was counseled for smoking cessation and receive further counseling here. (6) DVT prophylaxis Is this a current diagnosis for this admission?: Yes Plan: Subcutaneous Lovenox - Time Time Spent with patient: 35 or more minutes Smoking Cessation Education: 3 to 10 minutes Medications reviewed and adjusted accordingly: Yes Anticipated discharge: Home Within: within 72 hours - Inpatient Certification Based on my medical assessment, after consideration of the patient's comorbidities, presenting symptoms, or acuity I expect that the services needed warrant INPATIENT care.: Yes I certify that my determination is in accordance with my understanding of Medicare's requirements for reasonable and necessary INPATIENT services [42 CFR 412.3e].: Yes Medical Necessity: Significant Comorbidiites Make Outpatient Treatment Too Risky, Need Close Monitoring Due to Risk of Patient Decompensation, Need For Continuous Telemetry Monitoring, Risk of Complication if Not Cared For in Hospital - Plan Summary Plan Summary: The plan of care was discussed in details with the patient. I answered all questions. The patient agreed to proceed with the above-mentioned plan. The patient is presumably full code. This note was created by [employer] dictating software and may contain typo errors that may have not been proofread.
[2019-07-06 06:05] LABS: ANION GAP 14 (5-19); BLOOD UREA NITROGEN 18 mg/dL (7-20); CALCIUM 9.7 mg/dL (8.4-10.2); CARBON DIOXIDE 22 mmol/L (22-30); CHLORIDE 101 mmol/L (98-107); GLUCOSE 338 mg/dL (75-110); POTASSIUM 4.4 mmol/L (3.6-5.0)
[2019-07-06 06:18] LABS: CREATINE KINASE MB 1.35 ng/mL (<4.55); TROPONIN I 0.046 ng/mL
[2019-07-06] MEDS ORDERED: ENOXAPARIN SODIUM INJ 40 MG/0.4 ML DISP.SYRIN SUBCUT SCH (10:00)
[2019-07-06] MEDS ORDERED: POTASSIUM CHLORIDE 10 MEQ CAPSULE.ER PO SCH (10:00)
[2019-07-06] MEDS ORDERED: FUROSEMIDE INJ/PF 40 MG/4 ML SDV IV SCH (10:00)
--- NOTE | 2019-07-06 10:12 | EKG REPORT ---
SEVERITY:- ABNORMAL ECG - ATRIAL FIBRILLATION WITH RAPID V-RATE PREMATURE COMPLEXES, VENTRICULAR LVH WITH SECONDARY REPOLARIZATION ABNORMALITY ANTERIOR Q WAVES, POSSIBLY DUE TO LVH : Confirmed by: Everardo Rocha 06-Jul-2019 10:11:45
[2019-07-06 11:33] LABS: CREATINE KINASE MB 1.38 ng/mL (<4.55); TROPONIN I 0.031 ng/mL
[2019-07-06] MEDS ORDERED: (PENDING PHARMACY ID) (Diltiazem Hcl [Cartia Xt] 240 MG) PO SCH (13:00)
[2019-07-06] MEDS ORDERED: DIGOXIN 0.125 MG TABLET PO SCH (13:30)
[2019-07-06 13:50] VITALS: BP 158/62
[2019-07-06] MEDS ORDERED: DILTIAZEM HCL 240 MG CAPSULE.CR PO SCH (14:00)
--- NOTE | 2019-07-06 15:56 | Left Against Medical Advice ---
Against Medical Advice Admission Date/Time: 07/06/19 00:46 Primary Care Provider: SB FERNANDEZ Date of Patient Emigration: 07/06/19 - Diagnosis: (1) Acute CHF Is this a current diagnosis for this admission?: Yes (2) Atrial fibrillation with rapid ventricular response Is this a current diagnosis for this admission?: Yes (3) Hypertension Is this a current diagnosis for this admission?: Yes (4) Tobacco dependence Is this a current diagnosis for this admission?: Yes (5) Type 2 diabetes mellitus Is this a current diagnosis for this admission?: Yes - Summary: Summary: Please see Admission and Progress Notes as well. RAJAN KEARNEY is a 74 M, who LEFT AGAINST MEDICAL ADVICE. The Patient was admitted on 07/06/19 00:46. H&P per Dr. Felix: RAJAN KEARNEY is a 74 year old male with history of multiple medical problems that will be mentioned below who presented to the emergency room with acute onset of worsening dyspnea over the last 3 weeks with lower extremity edema. He admits to dyspnea on exertion as well as orthopnea and dry cough without paroxysmal nocturnal dyspnea or wheezing. He denies any fever or chills. No chest pain or palpitations. No nausea vomiting or abdomina l pain. No dysuria, oliguria or hematuria or flank pain. No bleeding diathesis. Upon presentation to the emergency room, blood pressure was 162/85 with a pulse oximetry of 93% on room air and otherwise normal vital signs as listed below. Labs are remarkable for leukocytosis of 14.8 with neutrophilia, magnesium of 1.7 and proBNP of 5800 with negative cardiac enzymes and urinalysis that showed p roteinuria more than 500 with 50 glucose. Portable chest x-ray showed cardiomegaly with acute CHF. EKG showed atrial ablation with rapid ventricular response of 162 with PVCs and PACs, LVH with early repolarization and Q waves in V1. The patient was given 20 g of IV Cardizem and repeat EKG revealed atrial fibrillation with RVR of 123 and later on his heart rate on monitor came down to 90s. The patient was given 40 mg of IV Lasix, 0.25 mg p.o. digoxin in addition to 20 mg of IV Cardizem and nebulized duo nebs as well as Eliquis and lisinopril. He was also given 125 mg of IV Solu-Medrol. He will be admitted to telemetry bed for further evaluation and management. Course: Notified by nursing today that the patient remains in a.fib with HR generally in the mid-90s; increases to 140-160 when agitated (reportedly has been yelling at multiple staff members today). Per nursing, patient has been very agitated/aggressive with staff members regarding his current dietary recommendation of a cardiac diet. They have made multiple attempts to educate the patient on the importance of a low-sodium diet related to CHF. Patient met with registered dietitian as well. Despite this, he asked his family members to bring him outside food and to continue to be irate with the dietary staff when they called for meal orders. Nursing was advised that the patient would be seen this afternoon (was admitted after midnight today by the receipt and report clerk), however, the patient elected to leave AGAINST MEDICAL ADVICE prior to being seen again today. At the time of the patient's emigration, he demonstrated atrial fibrillation with a heart rate of 116 on cardiac telemetry, was maintaining oxygen saturations on room air, and was able to ambulate independently off of the floor.
[2019-07-06] MEDS ORDERED: ATORVASTATIN CALCIUM 80 MG TABLET PO SCH (22:00)
[2019-07-07] MEDS ORDERED: LISINOPRIL 5 MG TABLET PO SCH (10:00)
[2019-07-07] MEDS ORDERED: AMLODIPINE BESYLATE 5 MG TABLET PO SCH (10:00)
[2019-07-07] MEDS ORDERED: FLUTICASONE/VILANTEROL 100-25 MCG/DOSE IH SCH (10:00)
[2019-07-07] MEDS ORDERED: PANTOPRAZOLE SODIUM 20 MG TABLET.DR PO SCH (10:00)
[2019-07-07] MEDS ORDERED: RIVAROXABAN 10 MG TABLET PO SCH (10:00)
== END 2019-07-06 14:10 | disposition home or self-care (01) | DRG 291 ==
LOC: ER 22:13 → EH 07-06 00:46 → 5 07-06 03:20
PROVIDERS: ADMIT Family Medicine; ATTEND Family Medicine
DX: I11.0 Hypertensive heart disease with heart failure (principal); I50.31 Acute diastolic (congestive) heart failure; J44.1 Chronic obstructive pulmonary disease with (acute) exacerbation; I48.2 Chronic atrial fibrillation; E11.8 Type 2 diabetes mellitus with unspecified complications; K21.9 Gastro-esophageal reflux disease without esophagitis; I73.1 Thromboangiitis obliterans [Buerger's disease]; F17.210 Nicotine dependence, cigarettes, uncomplicated; Z91.14 Patient's other noncompliance with medication regimen; Z79.2 Long term (current) use of antibiotics; Z79.01 Long term (current) use of anticoagulants; Z79.84 Long term (current) use of oral hypoglycemic drugs; Z79.82 Long term (current) use of aspirin; Z79.51 Long term (current) use of inhaled steroids; Z79.899 Other long term (current) drug therapy
CPT/HCPCS: 36415; 71045; 80048; 80053; 80162; 81001; 82550; 82553; 83735; 83880; 84443; 84484; 85025; 85610; 93005; 93010; 94640; 96374; 96375; 99291; J1940; J2930; J3490; J7620

== ENCOUNTER 2019-10-08 04:48 | Emergency (ER) | payer MEDICARE ==
[2019-10-08] MEDS ORDERED: HEPARIN SOD (PORCINE) 1,000 UNIT/ML 10 ML VIAL IV ONE (05:14)
[2019-10-08] MEDS ORDERED: HEPARIN SODIUM,PORCINE/D5W 25,000 UNIT/250 ML RTUINJ IV PRN (05:14)
[2019-10-08] MEDS ORDERED: HEPARIN SODIUM,PORCINE/D5W 25,000 UNIT/250 ML RTUINJ IV ONE (05:20)
[2019-10-08] MEDS ORDERED: LIDOCAINE 2% URO-JET 5 ML KIT MM ONE (05:31)
[2019-10-08 05:41] LABS: ABSOLUTE BASOPHILS # (AUTO) 0.1 10^3/uL (0.0-0.2); ABSOLUTE EOSINOPHILS # (AUTO) 0.1 10^3/uL (0.0-0.6); ABSOLUTE LYMPHOCYTES (AUTO) 2.3 10^3/uL (0.5-4.7); ABSOLUTE MONOCYTES (AUTO) 1.1 10^3/uL (0.1-1.4); ABSOLUTE NEUT (AUTO) 14.7 10^3/uL (1.7-8.2); BASOPHILS % (AUTO) 0.5 % (0-2); EOSINOPHILS % (AUTO) 0.3 % (0-6); HEMATOCRIT 45.2 % (37.9-51.0); HEMOGLOBIN 15.1 g/dL (13.5-17.0); LYMPHOCYTES % (AUTO) 12.7 % (13-45); MEAN CORPUSCULAR HEMOGLOBIN 28.6 pg (27.0-33.4); MEAN CORPUSCULAR HGB CONC 33.3 g/dL (32.0-36.0); MEAN CORPUSCULAR VOLUME 86 fl (80-97); MONOCYTES % (AUTO) 6.2 % (3-13); PLATELET COUNT 211 10^3/uL (150-450); RED BLOOD COUNT 5.27 10^6/uL (4.35-5.55); SEGMENTED NEUTROPHILS % (AUTO) 80.3 % (42-78); TOTAL CELLS COUNTED % (AUTO) 100 %; WHITE BLOOD COUNT 18.3 10^3/uL (4.0-10.5)
[2019-10-08 05:44] LABS: INTERNATIONAL RATION (INR) 1.11; PROTHROMBIN TIME 14.3 SEC (11.4-15.4)
--- NOTE | 2019-10-08 05:51 | ER Document Report ---
ED Extremity Problem, Lower - General Chief Complaint: Leg Pain Stated Complaint: LEFT LEG PAIN Time Seen by Provider: 10/08/19 04:57 Primary Care Provider: LALITA EDWARD PA [Primary Care Provider] - Follow up as needed Mode of Arrival: Medic Information source: Patient Notes: Patient is a 74-year-old male with past medical history of atrial fibrillation, hyperlipidemia, hypertension, chronic obstructive pulmonary disease, pneumonia and Buerger's disease presenting to the emergency department with complaints of pain, altered sensation and cold temperature to his left lower extremity. Patient reports that from the knee down he has severe pain and altered sensati on. Patient reports the symptoms have been going on for 1 week. Patient denies any history of DVTs. He is on anticoagulant therapy, he takes Plavix daily. Patient denies any other complaints. When asked why patient has been having symptoms for 1 week without treatment, patient reports he just got tired of dealing with the pain. TRAVEL OUTSIDE OF THE [place] IN LAST 30 DAYS: No - Related Data Allergies/Adverse Reactions: No Known Allergies Allergy (Verified 10/08/19 04:51) Past Medical History - General Information source: Patient - Social History Smoking Status: Current Every Day Smoker Chew tobacco use (# tins/day): No Frequency of alcohol use: None Drug Abuse: None Family History: COPD Patient has suicidal ideation: No Patient has homicidal ideation: No - Past Medical History Cardiac Medical History: Reports: Hx Atrial Fibrillation, Hx Hypercholesterolemia, Hx Hypertension Denies: Hx Heart Attack Pulmonary Medical History: Reports: Hx Bronchitis, Hx COPD, Hx Pneumonia - more than 16 times Denies: Hx Asthma, Hx Intubation, Hx Respiratory Failure Neurological Medical History: Denies: Hx Cerebrovascular Accident, Hx Seizures Endocrine Medical History: Reports: Hx Diabetes Mellitus Type 2. Denies: Hx Diabetes Mellitus Type 1, Hx Hyperthyroidism, Hx Hypothyroidism Renal/ Medical History: Denies: Hx Peritoneal Dialysis Malignancy Medical History: Reports Hx Prostate Cancer GI Medical History: Reports: Hx Gastroesophageal Reflux Disease. Denies: Hx Cirrhosis, Hx Hepatitis, Hx Hiatal Hernia, Hx Ulcer Musculoskeletal Medical History: Denies Hx Arthritis, Denies Hx Gout Skin Medical History: Denies Hx Eczema, Denies Hx Psoriasis Infectious Medical History: Denies: Hx Hepatitis Past Surgical History: Reports: Hx Abdominal Surgery, Other - Prostatectomy. Denies: Hx Open Heart Surgery, Hx Pacemaker - Immunizations Hx Diphtheria, Pertussis, Tetanus Vaccination: Yes - <5 years Review of Systems - Review of Systems Constitutional: No symptoms reported EENT: No symptoms reported Cardiovascular: No symptoms reported Respiratory: No symptoms reported Gastrointestinal: No symptoms reported Genitourinary: No symptoms reported Male Genitourinary: No symptoms reported Musculoskeletal: See HPI Skin: See HPI Hematologic/Lymphatic: No symptoms reported Neurological/Psychological: No symptoms reported Physical Exam - Vital signs Vitals: Temp Pulse Resp BP Pulse Ox 95.6 F L 76 15 106/78 100 10/08/19 04:50 10/08/19 04:50 10/08/19 04:50 10/08/19 04:50 10/08/19 04:50 - Notes Notes: PHYSICAL EXAMINATION: GENERAL: Cachectic. HEAD: Atraumatic, normocephalic. EYES: Pupils equal round and reactive to light, extraocular movements intact, sclera anicteric, conjunctiva are normal. ENT: Nares patent, oropharynx clear without exudates. Moist mucous membranes. NECK: Normal range of motion, supple without lymphadenopathy LUNGS: Breath sounds clear to auscultation bilaterally and equal. No wheezes rales or rhonchi. HEART: Regular rate and rhythm without murmurs ABDOMEN: Soft, nontender, nondistended abdomen. No guarding, no rebound. No masses appreciated. Musculoskeletal: Left lower extremity cold and dusky from just below the knee down to the toes. Unable to find popliteal, dorsalis pedis or posterior tibialis pulse with Doppler or palpation. Cap refill absent. NEUROLOGICAL: Cranial nerves grossly intact. Normal speech. Normal sensory, motor exams PSYCH: Normal mood, normal affect. SKIN: See above. Course - Re-evaluation Re-evalutation: Patient rapidly evaluated on arrival due to concern for cold foot. Patient does have a cold foot with neurovascular compromise. I did call my attending to the room who also independently evaluated the patient and is in agreements. Unable to palpate or find via Doppler pulses in the left leg other than the femoral pulse. No dorsalis pedis pulse, posterior tibialis pulse or popliteal pulse. Skin to left leg very cool in comparison with right leg. 10/08/19 05:35 Patient accepted for transfer to [facility]. Dr. Rich Mcleod accepting for vascular surgery. 10/08/19 06:51 We have not received a bed assignment yet and are being told that we are on a wait list for [facility], calls being initiated for potential transfer to [facility] in [place]. No change in patient status at this time. 10/08/19 07:06 Called and spoke with Dr. Berry De La Cruz, vascular surgeon at [facility]. He is agreed to accept the patient for transfer, the patient will go ED to ED. Their transport crew is currently doing weather check. 10/08/19 07:34 [facility] is unable to fly in the current weather. Ground transport will be here within 30 minutes to take the patient to [facility]. 10/08/19 08:04 [facility] ground is at bedside to transport the patient. No change in patient's status. Patient stable for transport at this time. - Vital Signs Vital signs: Temp Pulse Resp BP Pulse Ox 96.4 F L 55 L 13 119/64 96 10/08/19 06:40 10/08/19 06:21 10/08/19 07:02 10/08/19 07:02 10/08/19 07:02 - Laboratory Result Diagrams: 10/08/19 05:10 10/08/19 05:10 Laboratory results interpreted by me: 10/08/19 10/08/19 05:10 05:10 WBC 18.3 H RDW 16.0 H Lymph % (Auto) 12.7 L Absolute Neuts (auto) 14.7 H Seg Neutrophils % 80.3 H Potassium 5.1 H Carbon Dioxide 16 L BUN 33 H Creatinine 2.10 H Est GFR ( Amer) 37 L Est GFR (MDRD) Non-Af 31 L Glucose 190 H AST 16 L Discharge - Discharge Clinical Impression: Arterial occlusion left lower extremity Condition: Fair Disposition: [facility] Referrals: LALITA EDWARD PA [Primary Care Provider] - Follow up as needed
--- NOTE | 2019-10-08 05:53 | ER Document Report ---
Doctor's Note Notes: 10/08/19 05:52 Patient was seen in conjunction with the nurse practitioner, please see her note correlate with mine. In short this is a 74-year-old male with known Buerger's disease, heavy smoker, who presented to the emergency department for evaluation of increasing and worsening left leg pain, over the last week. On exam he is found to be hypothermic. Palpation of the left lower extremity yields extreme coolness from the knee down. He has 2+ femoral pulses but popliteal and posterior tibial pulses on the left are not palpable. His toes on the left are dusky and pale. The patient has significant pain with palpation of the entire left lower extremity. Decision was made to proceed with anticoagulation and tra nsfer this patient to a facility with vascular surgery capabilities. Patient was placed on the bear hugger for rewarming, heparin started, patient will be sent to [facility] for further treatment and evaluation.
[2019-10-08 06:08] LABS: ALBUMIN 3.8 g/dL (3.5-5.0); ALKALINE PHOSPHATASE 104 U/L (38-126); ANION GAP 16 (5-19); ASPARTATE AMINO TRANSFERASE 16 U/L (17-59); BILIRUBIN,DIRECT 0.3 mg/dL (0.0-0.4); BILIRUBIN,TOTAL 0.4 mg/dL (0.2-1.3); BLOOD UREA NITROGEN 33 mg/dL (7-20); CARBON DIOXIDE 16 mmol/L (22-30); CHLORIDE 105 mmol/L (98-107); GLUCOSE 190 mg/dL (75-110); POTASSIUM 5.1 mmol/L (3.6-5.0); TOTAL PROTEIN 7.1 g/dL (6.3-8.2)
[2019-10-08] MEDS ORDERED: MORPHINE SULFATE 10 MG/ML INJ IV ONE (06:36)
--- NOTE | 2019-10-08 07:29 | EKG REPORT ---
SEVERITY:- ABNORMAL ECG - ATRIAL FIBRILLATION DIFFUSENONSPECIFIC ST-T CHANGES : Confirmed by: Jamshid Maldonado MD 08-Oct-2019 07:28:37
[2019-10-08 08:22] VITALS: BP 147/70
== END 2019-10-08 08:10 | disposition short-term general hospital (02) ==
LOC: ER 04:48
DX: I70.202 Unspecified atherosclerosis of native arteries of extremities, left leg (principal); T68.XXXA Hypothermia, initial encounter; M79.605 Pain in left leg; I10 Essential (primary) hypertension; J44.9 Chronic obstructive pulmonary disease, unspecified; F17.200 Nicotine dependence, unspecified, uncomplicated; E11.9 Type 2 diabetes mellitus without complications; I49.8 Other specified cardiac arrhythmias; I48.91 Unspecified atrial fibrillation; Z79.02 Long term (current) use of antithrombotics/antiplatelets; Z85.46 Personal history of malignant neoplasm of prostate
CPT/HCPCS: 93005; 36415; 85025; 85610; 85730; 80053; 93010; J1644 ×2; J2270; A9270; 96365; 96366; 96375; 96376; 99285; J3490

== ENCOUNTER 2019-10-23 10:16 | Inpatient (IN) | payer MEDICARE ==
[2019-10-23 11:14] LABS: ABSOLUTE BASOPHILS # (AUTO) 0.1 10^3/uL (0.0-0.2); ABSOLUTE EOSINOPHILS # (AUTO) 0.5 10^3/uL (0.0-0.6); ABSOLUTE LYMPHOCYTES (AUTO) 2.4 10^3/uL (0.5-4.7); ABSOLUTE MONOCYTES (AUTO) 1.3 10^3/uL (0.1-1.4); ABSOLUTE NEUT (AUTO) 12.7 10^3/uL (1.7-8.2); BASOPHILS % (AUTO) 0.4 % (0-2); EOSINOPHILS % (AUTO) 2.9 % (0-6); HEMATOCRIT 21.8 % (37.9-51.0); LYMPHOCYTES % (AUTO) 14.3 % (13-45); MEAN CORPUSCULAR HEMOGLOBIN 30.2 pg (27.0-33.4); MEAN CORPUSCULAR HGB CONC 32.2 g/dL (32.0-36.0); MONOCYTES % (AUTO) 7.7 % (3-13); PLATELET COUNT 512 10^3/uL (150-450); RED BLOOD COUNT 2.32 10^6/uL (4.35-5.55); RED CELL DISTRIBUTION WIDTH 19.7 % (11.5-14.0); SEGMENTED NEUTROPHILS % (AUTO) 74.7 % (42-78); TOTAL CELLS COUNTED % (AUTO) 100 %; WHITE BLOOD COUNT 16.9 10^3/uL (4.0-10.5)
[2019-10-23 11:19] LABS: MEAN CORPUSCULAR VOLUME 94 fl (80-97)
[2019-10-23 11:31] LABS: ALBUMIN 3.1 g/dL (3.5-5.0); ALKALINE PHOSPHATASE 95 U/L (38-126); ANION GAP 10 (5-19); ASPARTATE AMINO TRANSFERASE 17 U/L (17-59); BILIRUBIN,DIRECT 0.2 mg/dL (0.0-0.4); BILIRUBIN,TOTAL 0.3 mg/dL (0.2-1.3); BLOOD UREA NITROGEN 19 mg/dL (7-20); CALCIUM 9.3 mg/dL (8.4-10.2); CARBON DIOXIDE 24 mmol/L (22-30); CHLORIDE 103 mmol/L (98-107); GLUCOSE 171 mg/dL (75-110); POTASSIUM 4.9 mmol/L (3.6-5.0); TOTAL PROTEIN 6.2 g/dL (6.3-8.2)
--- NOTE | 2019-10-23 12:36 | ER Document Report ---
ED General - General Chief Complaint: Abnormal Lab Results Stated Complaint: ABNORMAL LABS Time Seen by Provider: 10/23/19 12:21 Primary Care Provider: LALITA EDWARD PA [Primary Care Provider] - Follow up as needed Notes: 74-year-old male with past medical history of atrial fibrillation, hyperlipidemia, hypertension, chronic obstructive pulmonary disease, pneumonia and Buerger's disease status post left SFA and popliteal artery stents, right RUNNER ON enterotomy Star close, left SFA AT, PT thrombectomy, and left lower ex tremity 4 compartment fasciotomy on October 08, 2019 presents to the emergency department for abnormal labs. Patient is on Plavix and Eliquis. Patient was transferred from his SNF for a critical hemoglobin measured at 6.7 there. Hemoglobin is 7.0 here. Patient also has a leukocytosis. Patient is a poor historian but said "all my records are at [place] you can call them". Patient denies any symptoms at this time to include dizziness, lightheadedness, fatigue. Denies chest pain, denies shortness of breath. Denies fevers or chills. TRAVEL OUTSIDE OF THE [place] IN LAST 30 DAYS: No - Related Data Allergies/Adverse Reactions: No Known Allergies Allergy (Verified 10/08/19 04:51) Past Medical History - Social History Smoking Status: Former Smoker Family History: COPD Patient has suicidal ideation: No Patient has homicidal ideation: No - Past Medical History Cardiac Medical History: Reports: Hx Atrial Fibrillation, Hx Hypercholestero lemia, Hx Hypertension Denies: Hx Heart Attack Pulmonary Medical History: Reports: Hx Bronchitis, Hx COPD, Hx Pneumonia - more than 16 times Denies: Hx Asthma, Hx Intubation, Hx Respiratory Failure Neurological Medical History: Denies: Hx Cerebrovascular Accident, Hx Seizures Endocrine Medical History: Reports: Hx Diabetes Mellitus Type 2. Denies: Hx Diabetes Mellitus Type 1, Hx Hyperthyroidism, Hx Hypothyroidism Renal/ Medical History: Denies: Hx Peritoneal Dialysis Malignancy Medical History: Reports Hx Prostate Cancer GI Medical History: Reports: Hx Gastroesophageal Reflux Disease. Denies: Hx Cirrhosis, Hx Hepatitis, Hx Hiatal Hernia, Hx Ulcer Musculoskeletal Medical History: Denies Hx Arthritis, Denies Hx Gout Skin Medical History: Denies Hx Eczema, Denies Hx Psoriasis Infectious Medical History: Denies: Hx Hepatitis Past Surgical History: Reports: Hx Abdominal Surgery, Other - Prostatectomy. Denies: Hx Open Heart Surgery, Hx Pacemaker - Immunizations Hx Diphtheria, Pertussis, Tetanus Vaccination: Yes - <5 years Review of Systems - Review of Systems Constitutional: See HPI EENT: No symptoms reported Cardiovascular: See HPI Respiratory: See HPI Gastrointestinal: See HPI Genitourinary: No symptoms reported Male Genitourinary: No symptoms reported Musculoskeletal: No symptoms reported Skin: No symptoms reported Hematologic/Lymphatic: No symptoms reported Neurological/Psychological: No symptoms reported Physical Exam - Vital signs Vitals: Temp Pulse Resp BP Pulse Ox 97.9 F 68 24 H 106/56 L 96 10/23/19 10:17 10/23/19 10:17 10/23/19 10:17 10/23/19 10:17 10/23/19 10:17 - Notes Notes: PHYSICAL EXAMINATION: Reviewed vital signs and charting by RN GENERAL: Alert, interacts well. Cachectic HEAD: Normocephalic, atraumatic. EYES: Pupils equal and round. Extraocular movements intact. ENT: Oral mucosa moist, tongue midline. NECK: Full range of motion. Trachea midline. LUNGS: Clear to auscultation bilaterally, no wheezes, rales, or rhonchi. No respiratory distress. HEART: Irregularly irregular rhythm with normal rate. No murmur ABDOMEN: soft, non-tender. No distention. Bowel sounds present EXTREMITIES: Moves all 4 extremities spontaneously. There is an incision site in the left groin with haleigh and a palpable mass deep to it unclear if this is clot versus infection, 2 longitudinal surgical incisions on the medial lateral aspect of the distal left lower extremity with haleigh, the lateral incision does have some mild serous weeping discharge and is warm to touch compared to the right leg, no obvious purulent discharge PSYCH: Normal affect, normal mood. SKIN: Warm, dry, normal turgor. No rashes or lesions noted. Course - Re-evaluation Re-evalutation: 10/23/19 12:43 Patient presents from his SNF for abnormal labs. 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 Patient is on anticoagulation. Hemoglobin 7.0 and normocytic. On 10/08 prior to his transfer to tertiary facility his hemoglobin was within normal limits. Plan is to give him 1 unit of packed RBCs and I will add an EKG, lactate. 10/23/19 14:35 I did speak with Dr. Luna, the patient's vascular surgeon, who said in the absence of any hematoma or significant bruising it is unlikely that the blood loss is secondary to surgery. He did recommend seeking out another source and did recommend against a CT angiogram as the benefits would not outweigh the risks with a lower index of suspicion for a vascular problem. I am going to do a Hemoccult. 10/23/19 15:19 Received a call from the lab lactate 4.4. Hemoccult was positive. [place] give a dose of pantoprazole 80 mg IV once. Attempted to call Dr. Lo to initiate admission or potential transfer. Patient is about to receive blood. 10/23/19 20:[address] Lo who is comfortable consulting on the patient for medical admission. He wanted to clarify that there was no pseudoaneurysm in the left groin which would be a reason to transfer patient. An serial duplex of the left upper extremity at the groin site was completed and I received a call from Dr. Murdock who states that there was no pseudoaneurysm present. I then initiated admission with Dr. Landers who was concerned due to the patient's significant comorbidities and the fact that we do not have GI animal control supervisor. I then had a conference call with the patient and his who both agreed that they were co mfortable staying here with the absence of GI coverage. I then spoke with Dr. Lo and he corroborated that yes he was going to do an EGD and a colonoscopy in the morning. Dr. Landers then admitted the patient to the [facility]. - Vital Signs Vital signs: Temp Pulse Resp BP Pulse Ox 98.1 F 48 L 18 102/57 L 100 10/23/19 16:15 10/23/19 16:00 10/23/19 16:15 10/23/19 16:15 10/23/19 16:10 - Laboratory Result Diagrams: 10/23/19 10:45 10/23/19 10:45 Laboratory results interpreted by me: 10/23/19 10/23/19 10/23/19 10:45 10:45 10:45 WBC 16.9 H RBC 2.32 L Hgb 7.0 L Hct 21.8 L RDW 19.7 H Plt Count 512 H Absolute Neuts (auto) 12.7 H Glucose 171 H Lactic Acid (Sepsis) Total Protein 6.2 L Albumin 3.1 L Crossmatch See Detail 12/04/19 13:49 WBC RBC Hgb Hct RDW Plt Count Absolute Neuts (auto) Glucose Lactic Acid (Sepsis) 4.4 H Total Protein Albumin Crossmatch Discharge - Discharge Clinical Impression: Upper GI bleed Anemia Qualifiers: Anemia type: unspecified type Qualified Code(s): D64.9 - Anemia, unspecified Condition: Stable Disposition: ADMITTED INPATIENT Admitting Provider: Anshul (Hospitalist) Unit Admitted: [facility]U Referrals: LALITA EDWARD PA [Primary Care Provider] - Follow up as needed
[2019-10-23] MEDS ORDERED: NORMAL SALINE 250 ML IV PRN ×3 (12:47→19:59)
--- NOTE | 2019-10-23 13:47 | RADIOLOGY REPORT (SQ) ---
EXAM DESCRIPTION: CHEST SINGLE VIEW COMPLETED DATE/TIME: 10/23/2019 1:36 pm REASON FOR STUDY: hx sob COMPARISON: 07/05/2019 EXAM PARAMETERS: NUMBER OF VIEWS: One view. TECHNIQUE: Single frontal radiographic view of the chest acquired. RADIATION DOSE: NA LIMITATIONS: None. FINDINGS: LUNGS AND PLEURA: The tip of the costophrenic angle is not included on the image. No opa cities, masses or pneumothorax. No pleural effusion. MEDIASTINUM AND HILAR STRUCTURES: No masses. Contour normal. HEART AND VASCULAR STRUCTURES: Heart normal in size. Normal vasculature. BONES: The osseous structures are stable in appearance. Old healed left rib fractures. HARDWARE: None in the chest. OTHER: No other significant finding. IMPRESSION: 1. Examination is slightly limited as above. NO ACUTE RADIOGRAPHIC FINDING IN THE CHES T. TECHNICAL DOCUMENTATION: JOB ID: [id number] [employer]- All Rights Reserved Reading location - IP/workstation name: [email or web address]
[2019-10-23 14:11] LABS: APPEARANCE,URINE CLEAR; BILIRUBIN,URINE NEGATIVE (NEGATIVE); COLOR,URINE STRAW; GLUCOSE, URINE NEGATIVE (NEGATIVE); KETONES,URINE NEGATIVE (NEGATIVE); PROTEIN,URINE NEGATIVE (NEGATIVE); URINE SPECIFIC GRAVITY 1.009; UROBILINOGEN,URINE NEGATIVE mg/dL (<2.0)
[2019-10-23] MEDS ORDERED: PANTOPRAZOLE SODIUM 40 MG VIAL IV ONE (15:58)
[2019-10-23] MEDS ORDERED: PANTOPRAZOLE SODIUM 40 MG VIAL IV PRN (19:58)
[2019-10-23] MEDS ORDERED: ACETAMINOPHEN 325 MG TABLET PO PRN ×2 (19:59)
[2019-10-23] MEDS ORDERED: IPRATROPIUM/ALBUTEROL 0.5-2.5 MG/3 ML AMPUL NEB PRN (19:59)
[2019-10-23] MEDS ORDERED: NORMAL SALINE 100 ML with PANTOPRAZOLE SODIUM 80 MG IV PRN ×2 (20:00)
[2019-10-23 20:24] LABS: ABSOLUTE RETICS # 0.153 10^6/uL (0.028-0.122); RETICULOCYTE COUNT (AUTO) 6.66 % (0.66-2.85)
[2019-10-23 20:27] LABS: IRON(TIBC) 82.9 ug/dL (49-181)
[2019-10-23] MEDS ORDERED: POLYETHYLENE GLYCOL 3350 POWDER 17 GM/1 PACKET PO ONE ×2 (21:00→23:30)
[2019-10-23] MEDS ORDERED: BISACODYL 5 MG TABEC PO ONE (21:30)
[2019-10-23] MEDS: HEPARIN SOD (PORCINE) 5,000 UNIT/ML 1 ML VIAL SUBCUT SCH (22:01)
--- NOTE | 2019-10-23 22:15 | PDOC CONSULTATION ---
Consultation Consult Date: 10/23/19 Provider Consulted: SURGICAL SURGICALIST History of Present Illness Admission Date/PCP: 10/23/19 20:07 SB FERNANDEZ Patient complains of: Melena History of Present Illness: RAJAN KEARNEY is a 74 year old male taking Eliquis and Pradaxa for history of peripheral vascular disease. The patient is seen in consultation by the hospitalist service. He is recently status post percutaneous arterial intervention including stent placement in the lower extremity. He was noted today to have melanotic stool and a hemoglobin of 6.7 at his nursing facility. He was transferred to the hospital for evaluation. The patient at this time denies any abdominal pain, hematemesis, surendra hematochezia, shortness of breath, chest pain, dizziness, orthostasis. Surgery has been consulted to evaluate his anemia and GI bleeding. Past Medical History Cardiac Medical History: Reports: Atrial Fibrillation, Hyperlipidema, Hypertens ion, Peripheral Vascular Disease Denies: Myocardial Infarction Pulmonary Medical History: Reports: Bronchitis, Chronic Obstructive Pulmonary Disease (COPD), Pneumonia - more than 16 times Denies: Asthma, Intubation, Respiratory Failure Neurological Medical History: Denies: Seizures Endocrine Medical History: Reports: Diabetes Mellitus Type 2 Denies: Diabetes Mellitus Type 1, Hyperthyroidism, Hypothyroidism GI Medical History: Reports: Gastroesophageal Reflux Disease Denies: Cirrhosis, Hepatitis, Hiatal Hernia Musculoskeltal Medical History: Denies: Arthritis, Gout Skin Medical History: Denies: Eczema, Psoriasis Hematology: Denies: Anemia, Sickle Cell Disease, Bleeding Tendencies Past Surgical History Past Surgical History: Reports: Other - Prostatectomy. Recent stent placement in lower extremities. Denies: Pacemaker Social History Smoking Status: Former Smoker Frequency of Alcohol Use: None Hx Recreational Drug Use: No Drugs: None Hx Prescription Drug Abuse: No Family History Family History: COPD Parental Family History Reviewed: Yes Children Family History Reviewed: Yes Sibling(s) Family History Reviewed.: Yes Medication/Allergy Allergies/Adverse Reactions: No Known Allergies Allergy (Verified 10/08/19 04:51) Review of Systems Constitutional: ABSENT: anorexia, chills, fatigue, fever(s), headache(s), night sweats Eyes: ABSENT: visual disturbances Ears: ABSENT: hearing changes Nose, Mouth, and Throat: ABSENT: sore throat Cardiovascular: ABSENT: chest pain Gastrointestinal: PRESENT: melena. ABSENT: abdominal pain, bloating, hematemesis, hematochezia, nausea, vomiting Genitourinary: ABSENT: dysuria Musculoskeletal: ABSENT: deformity Integumentary: ABSENT: pruritus, rash Neurological: ABSENT: confusion, convulsions, dizziness Psychiatric: ABSENT: anxiety, depression Endocrine: ABSENT: cold intolerance, heat intolerance Hematologic/Lymphatic: ABSENT: easy bleeding, easy bruising Physical Exam Vital Signs: Temp Pulse Resp BP Pulse Ox 98.1 F 48 L 18 102/57 L 100 10/23/19 16:15 10/23/19 16:00 10/23/19 16:15 10/23/19 16:15 10/23/19 16:10 Intake & Output 10/22/19 10/23/19 10/24/19 06:59 06:59 06:59 Intake Total 0 Balance 0 Weight 58.5 kg General appearance: PRESENT: cooperative. ABSENT: no acute distress Head exam: PRESENT: atraumatic, normocephalic Eye exam: PRESENT: EOMI, PERRLA. ABSENT: scleral icterus Mouth exam: PRESENT: moist, neck supple Neck exam: ABSENT: tenderness, thyromegaly, tracheal deviation, tracheostomy Respiratory exam: PRESENT: unlabored. ABSENT: tachypnea, wheezes Cardiovascular exam: PRESENT: RRR Pulses: PRESENT: normal radial pulses GI/Abdominal exam: PRESENT: soft. ABSENT: distended, tenderness Rectal exam: PRESENT: deferred Extremities exam: ABSENT: clubbing Musculoskeletal exam: ABSENT: deformity Neurological exam: PRESENT: alert, awake, oriented to person, oriented to place, oriented to time, oriented to situation, CN II-XII grossly intact Psychiatric exam: ABSENT: agitated, anxious, depressed Focused psych exam: ABSENT: delusional Skin exam: ABSENT: cyanosis, erythema, jaundice Results Laboratory Results: 10/23/19 10:45 10/23/19 10:45 10/23/19 10/23/19 10/23/19 10:45 10:45 10:45 WBC 16.9 H RBC 2.32 L Hgb 7.0 L Hct 21.8 L MCV 94 D MCH 30.2 MCHC 32.2 RDW 19.7 H Plt Count 512 H Seg Neutrophils % 74.7 Retic Count (auto) Sodium 137.3 Potassium 4.9 Chloride 103 Carbon Dioxide 24 Anion Gap 10 BUN 19 Creatinine 0.90 Est GFR ( Amer) > 60 Glucose 171 H Calcium 9.3 Total Bilirubin 0.3 AST 17 Alkaline Phosphatase 95 Total Protein 6.2 L Albumin 3.1 L Urine Color Urine Appearance Urine pH Ur Specific [place] Urine Protein Urine Glucose (UA) Urine Ketones Urine Blood Urine RBC (Auto) Blood Type B POSITIVE Antibody Screen NEGATIVE 10/23/19 10/23/19 10:45 10:45 WBC RBC Hgb Hct MCV MCH MCHC RDW Plt Count Seg Neutrophils % Retic Count (auto) 6.66 H Sodium Potassium Chloride Carbon Dioxide Anion Gap BUN Creatinine Est GFR ( Amer) Glucose Calcium Total Bilirubin AST Alkaline Phosphatase Total Protein Albumin Urine Color STRAW Urine Appearance CLEAR Urine pH 5.0 Ur Specific [place] 1.009 Urine Protein NEGATIVE Urine Glucose (UA) NEGATIVE Urine Ketones NEGATIVE Urine Blood NEGATIVE Urine RBC (Auto) 0 Blood Type Antibody Screen Impressions: Chest X-Ray 10/23/19 12:48 IMPRESSION: 1. Examination is slightly limited as above. NO ACUTE RADIOGRAPHIC FINDING IN THE CHEST. Assessment & Plan - Diagnosis (1) Melena Is this a current diagnosis for this admission?: Yes (2) Anemia Qualifiers: Anemia type: unspecified type Qualified Code(s): D64.9 - Anemia, unspecified Is this a current diagnosis for this admission?: Yes - Plan Summary Plan Summary: This is a 74-year-old male with a history of recent melena and anemia. His hemoglobin was measured at 7.0 in the ER. Surgery has been consulted to evaluate his anemia with EGD and colonoscopy. The patient denies abdominal pain, chest pain, or other signs of bowel wall compromise. The patient has been taking Plavix and Eliquis after his percutaneous peripheral intervention. It would be prudent to stop the Eliquis and Plavix at this time. Upon my evaluation, the patient is receiving a transfusion. I will order the patient a bowel prep to be given tonight, in anticipation of endoscopy tomorrow. Will follow.
--- NOTE | 2019-10-24 00:03 | EKG REPORT ---
SEVERITY:- ABNORMAL ECG - ATRIAL FIBRILLATION : Confirmed by: Bing Doty MD 24-Oct-2019 00:02:54
[2019-10-24] MEDS: IPRATROPIUM/ALBUTEROL 0.5-2.5 MG/3 ML AMPUL NEB SCH ×3 (00:26→16:38)
[2019-10-24] MEDS ORDERED: PANTOPRAZOLE SODIUM 40 MG VIAL IV ONE (02:52)
[2019-10-24 03:10] LABS: RED BLOOD COUNT 2.58 10^6/uL (4.35-5.55); WHITE BLOOD COUNT 12.6 10^3/uL (4.0-10.5)
[2019-10-24 03:19] LABS: ABSOLUTE EOSINOPHILS # (AUTO) 0.2 10^3/uL (0.0-0.6); ABSOLUTE LYMPHOCYTES (AUTO) 1.6 10^3/uL (0.5-4.7); ABSOLUTE MONOCYTES (AUTO) 0.9 10^3/uL (0.1-1.4); ABSOLUTE NEUT (AUTO) 9.8 10^3/uL (1.7-8.2); BASOPHILS % (AUTO) 0.2 % (0-2); EOSINOPHILS % (AUTO) 1.8 % (0-6); HEMATOCRIT 23.7 % (37.9-51.0); LYMPHOCYTES % (AUTO) 12.8 % (13-45); MEAN CORPUSCULAR HEMOGLOBIN 30.2 pg (27.0-33.4); MEAN CORPUSCULAR HGB CONC 32.9 g/dL (32.0-36.0); MEAN CORPUSCULAR VOLUME 92 fl (80-97); MONOCYTES % (AUTO) 7.1 % (3-13); PLATELET COUNT 332 10^3/uL (150-450); RED CELL DISTRIBUTION WIDTH 16.7 % (11.5-14.0); SEGMENTED NEUTROPHILS % (AUTO) 78.1 % (42-78); TOTAL CELLS COUNTED % (AUTO) 100 %
[2019-10-24 03:24] LABS: HEMOGLOBIN 7.8 g/dL (13.5-17.0)
--- NOTE | 2019-10-24 05:25 | PDOC H&P ---
History of Present Illness Admission Date/PCP: 10/23/19 20:07 SB FERNANDEZ Patient complains of: Abnormal labs History of Present Illness: RAJAN KEARNEY is a 74 year old male with a past medical history of COPD, diabetes, A. 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 Patient had follow-up labs while in rehab revealing a hemoglobin of 7 from 15. Patient is asymptomatic but is seen in the emergency room lying flat and comfortable. Hemoglobin is verified to be low at 7, Hemoccult stool is positive and admits approximately 6 days of black stools. His surgical site is clean and dry without aneurysm or pain. He is ordered 1 unit of packed red blood cells and referred to the hospitalist for admission. Consultation with vascular surgeon in [place] suggest holding Plavix. General surgery is consulted for GI bleed. Past Medical History Cardiac Medical History: Reports: Atrial Fibrillation, Hyperlipidema, Hypertension, Peripheral Vascular Disease Denies: Myocardial Infarction Pulmonary Medical History: Reports: Bronchitis, Chronic Obstructive Pulmonary Disease (COPD), Pneumonia - more than 16 times Denies: Asthma, Intubation, Respiratory Failure Neurological Medical History: Denies: Seizures Endocrine Medical History: Reports: Diabetes Mellitus Type 2 Denies: Diabetes Mellitus Type 1, Hyperthyroidism, Hypothyroidism GI Medical History: Reports: Gastroesophageal Reflux Disease Denies: Cirrhosis, Hepatitis, Hiatal Hernia Musculoskeltal Medical History: Denies: Arthritis, Gout Skin Medical History: Denies: Eczema, Psoriasis Hematology: Denies: Anemia, Sickle Cell Disease, Bleeding Tendencies Past Surgical History Past Surgical History: Reports: Vascular Surgery, Other - Prostatectomy. Recent stent placement in lower extremities. Denies: Pacemaker Social History Information Source: Patient, Emergency Med Personnel, [facility] Records Lives with: Spouse/Significant other Smoking Status: Former Smoker Frequency of Alcohol Use: None Hx Recreational Drug Use: No Drugs: None Hx Prescription Drug Abuse: No - Advance Directive Resuscitation Status: Full Code Family History Family History: COPD Parental Family History Reviewed: Yes Children Family History Reviewed: Yes Sibling(s) Family History Reviewed.: Yes Medication/Allergy Allergies/Adverse Reactions: No Known Allergies Allergy (Verified 10/08/19 04:51) Review of Systems Constitutional: ABSENT: chills, fever(s), headache(s), weight gain, weight loss Eyes: ABSENT: visual disturbances Ears: ABSENT: hearing changes Cardiovascular: ABSENT: chest pain, dyspnea on exertion, edema, orthropnea, pa lpitations Respiratory: ABSENT: cough, hemoptysis Gastrointestinal: ABSENT: abdominal pain, constipation, diarrhea, hematemesis, hematochezia, nausea, vomiting Genitourinary: ABSENT: dysuria, hematuria Musculoskeletal: ABSENT: joint swelling Integumentary: ABSENT: rash, wounds Neurological: ABSENT: abnormal gait, abnormal speech, confusion, dizziness, focal weakness, syncope Psychiatric: ABSENT: anxiety, depression, homidical ideation, suicidal ideation Endocrine: ABSENT: cold intolerance, heat intolerance, polydipsia, polyuria Hematologic/Lymphatic: ABSENT: easy bleeding, easy bruising Physical Exam Vital Signs: Temp Pulse Resp BP Pulse Ox 98.4 F 38 L 15 111/61 97 10/23/19 21:40 10/23/19 21:40 10/23/19 22:45 10/23/19 22:45 10/23/19 22:45 Intake & Output 10/22/19 10/23/19 10/24/19 11:59 11:59 11:59 Intake Total 550 Balance 550 Weight 58.5 kg General appearance: PRESENT: no acute distress, cooperative, thin, well- developed, well-nourished Head exam: PRESENT: atraumatic, normocephalic Eye exam: PRESENT: conjunctiva pink, EOMI, PERRLA. ABSENT: scleral icterus Ear exam: PRESENT: normal external ear exam Mouth exam: PRESENT: moist, tongue midline Neck exam: ABSENT: carotid bruit, JVD, lymphadenopathy, thyromegaly Respiratory exam: PRESENT: clear to auscultation elise. ABSENT: rales, rhonchi, wheezes Cardiovascular exam: PRESENT: RRR. ABSENT: diastolic murmur, rubs, systolic murmur Pulses: PRESENT: normal dorsalis pedis pul Vascular exam: PRESENT: normal capillary refill GI/Abdominal exam: PRESENT: normal bowel sounds, soft. ABSENT: distended, guarding, mass, organolmegaly, rebound, tenderness Rectal exam: PRESENT: deferred Extremities exam: PRESENT: full ROM. ABSENT: calf tenderness, clubbing, pedal edema Neurological exam: PRESENT: alert, awake, oriented to person, oriented to place, oriented to time, oriented to situation, CN II-XII grossly intact. ABSENT: motor sensory deficit Psychiatric exam: PRESENT: appropriate affect, normal mood. ABSENT: homicidal ideation, suicidal ideation Skin exam: PRESENT: dry, intact, warm. ABSENT: cyanosis, rash Results Laboratory Results: 10/24/19 02:28 10/23/19 10:45 10/23/19 10/23/19 10/23/19 10:45 10:45 10:45 WBC 16.9 H RBC 2.32 L Hgb 7.0 L Hct 21.8 L MCV 94 D MCH 30.2 MCHC 32.2 RDW 19.7 H Plt Count 512 H Seg Neutrophils % 74.7 Retic Count (auto) Sodium 137.3 Potassium 4.9 Chloride 103 Carbon Dioxide 24 Anion Gap 10 BUN 19 Creatinine 0.90 Est GFR ( Amer) > 60 Glucose 171 H Calcium 9.3 Iron TIBC % Saturation Ferritin Total Bilirubin 0.3 AST 17 Alkaline Phosphatase 95 Total Protein 6.2 L Albumin 3.1 L Vitamin B12 Folate Urine Color Urine Appearance Urine pH Ur Specific [place] Urine Protein Urine Glucose (UA) Urine Ketones Urine Blood Urine RBC (Auto) Blood Type B POSITIVE Antibody Screen NEGATIVE 10/23/19 10/23/19 10/23/19 10:45 10:45 10:45 WBC RBC Hgb Hct MCV MCH MCHC RDW Plt Count Seg Neutrophils % Retic Count (auto) 6.66 H Sodium Potassium Chloride Carbon Dioxide Anion Gap BUN Creatinine Est GFR ( Amer) Glucose Calcium Iron 82.9 TIBC 218 L % Saturation 38 Ferritin 163.00 Total Bilirubin AST Alkaline Phosphatase Total Protein Albumin Vitamin B12 443.0 Folate 13.60 Urine Color STRAW Urine Appearance CLEAR Urine pH 5.0 Ur Specific [place] 1.009 Urine Protein NEGATIVE Urine Glucose (UA) NEGATIVE Urine Ketones NEGATIVE Urine Blood NEGATIVE Urine RBC (Auto) 0 Blood Type Antibody Screen 10/24/19 02:28 WBC 12.6 H RBC 2.58 L Hgb 7.8 L Hct 23.7 L MCV 92 MCH 30.2 MCHC 32.9 RDW 16.7 H Plt Count 332 Seg Neutrophils % 78.1 H Retic Count (auto) Sodium Potassium Chloride Carbon Dioxide Anion Gap BUN Creatinine Est GFR ( Amer) Glucose Calcium Iron TIBC % Saturation Ferritin Total Bilirubin AST Alkaline Phosphatase Total Protein Albumin Vitamin B12 Folate Urine Color Urine Appearance Urine pH Ur Specific [place] Urine Protein Urine Glucose (UA) Urine Ketones Urine Blood Urine RBC (Auto) Blood Type Antibody Screen 10/23/19 10:45 NT-Pro-B Natriuret Pep 3040 H Impressions: Chest X-Ray 10/23/19 12:48 IMPRESSION: 1. Examination is slightly limited as above. NO ACUTE RADIOGRAPHIC FINDING IN THE CHEST. Assessment and Plan - Diagnosis (1) Anemia Qualifiers: Anemia type: unspecified type Qualified Code(s): D64.9 - Anemia, unspecified Is this a current diagnosis for this admission?: Yes Plan: Posthemorrhagic from GI source, complicated by anticoagulation, Plavix held. 2 units of packed red blood cells ordered. N.p.o. for endoscopy. Follow-up CBC and surgical consult (2) Upper GI bleed Is this a current diagnosis for this admission?: Yes Plan: See #1 follow-up CBC (3) COPD exacerbation Is this a current diagnosis for this admission?: Yes Plan: Albuterol, Atrovent, incentive spirometry (4) Diabetes mellitus type 2 in nonobese Is this a current diagnosis for this admission?: Yes Plan: Humalog sliding scale every 6. - Time Time Spent with patient: 25-34 minutes - Inpatient Certification Medical Necessity: Need Close Monitoring Due to Risk of Patient Decompensation
[2019-10-24] MEDS: HEPARIN SOD (PORCINE) 5,000 UNIT/ML 1 ML VIAL SUBCUT SCH ×2 (05:29→15:26)
[2019-10-24 06:36] LABS: ABSOLUTE BASOPHILS # (AUTO) 0.1 10^3/uL (0.0-0.2); ABSOLUTE EOSINOPHILS # (AUTO) 0.2 10^3/uL (0.0-0.6); ABSOLUTE MONOCYTES (AUTO) 1.1 10^3/uL (0.1-1.4); ABSOLUTE NEUT (AUTO) 11.2 10^3/uL (1.7-8.2); BASOPHILS % (AUTO) 0.4 % (0-2); EOSINOPHILS % (AUTO) 1.6 % (0-6); HEMATOCRIT 31.2 % (37.9-51.0); MEAN CORPUSCULAR HEMOGLOBIN 30.6 pg (27.0-33.4); MEAN CORPUSCULAR HGB CONC 34.1 g/dL (32.0-36.0); MEAN CORPUSCULAR VOLUME 90 fl (80-97); MONOCYTES % (AUTO) 7.5 % (3-13); PLATELET COUNT 446 10^3/uL (150-450); RED BLOOD COUNT 3.47 10^6/uL (4.35-5.55); RED CELL DISTRIBUTION WIDTH 17.3 % (11.5-14.0); SEGMENTED NEUTROPHILS % (AUTO) 76.5 % (42-78); TOTAL CELLS COUNTED % (AUTO) 100 %; WHITE BLOOD COUNT 14.6 10^3/uL (4.0-10.5)
[2019-10-24 06:41] LABS: HEMOGLOBIN 10.6 g/dL (13.5-17.0)
[2019-10-24 06:52] LABS: ANION GAP 9 (5-19); BLOOD UREA NITROGEN 23 mg/dL (7-20); CALCIUM 9.4 mg/dL (8.4-10.2); CARBON DIOXIDE 25 mmol/L (22-30); CHLORIDE 106 mmol/L (98-107); GLUCOSE 130 mg/dL (75-110); POTASSIUM 4.5 mmol/L (3.6-5.0)
--- NOTE | 2019-10-24 11:03 | PDOC PROGRESS REPORT ---
Subjective Progress Note for:: 10/24/19 Subjective:: No complaints at this time. No abdominal pain. Had some brown liquid and debris still with his bowel prep but no blood per rectum. He noted very dark bowel movement in the past but not gross blood per rectum and not gelatinous black bowel movements. He denies any NSAID nor alcohol abuse. Reason For Visit: GI BLEED Physical Exam Vital Signs: Temp Pulse Resp BP Pulse Ox 98.6 F 67 16 112/53 L 94 10/24/19 06:00 10/24/19 09:16 10/24/19 09:16 10/24/19 07:00 10/24/19 09:16 Intake & Output 10/23/19 10/24/19 10/25/19 06:59 06:59 06:59 Intake Total 550 Balance 550 Weight 58.5 kg General appearance: PRESENT: no acute distress, cooperative Respiratory exam: PRESENT: clear to auscultation elise Cardiovascular exam: PRESENT: RRR GI/Abdominal exam: PRESENT: other - Soft, nondistended, nontender to palpation. Results Laboratory Results: 10/24/19 06:12 10/24/19 06:12 10/23/19 10/23/19 10/23/19 10:45 10:45 10:45 WBC 16.9 H RBC 2.32 L Hgb 7.0 L Hct 21.8 L MCV 94 D MCH 30.2 MCHC 32.2 RDW 19.7 H Plt Count 512 H Seg Neutrophils % 74.7 Retic Count (auto) Sodium 137.3 Potassium 4.9 Chloride 103 Carbon Dioxide 24 Anion Gap 10 BUN 19 Creatinine 0.90 Est GFR ( Amer) > 60 Glucose 171 H Calcium 9.3 Iron TIBC % Saturation Ferritin Total Bilirubin 0.3 AST 17 Alkaline Phosphatase 95 Total Protein 6.2 L Albumin 3.1 L Vitamin B12 Folate Urine Color Urine Appearance Urine pH Ur Specific [place] Urine Protein Urine Glucose (UA) Urine Ketones Urine Blood Urine RBC (Auto) Blood Type B POSITIVE Antibody Screen NEGATIVE 10/23/19 10/23/19 10/23/19 10:45 10:45 10:45 WBC RBC Hgb Hct MCV MCH MCHC RDW Plt Count Seg Neutrophils % Retic Count (auto) 6.66 H Sodium Potassium Chloride Carbon Dioxide Anion Gap BUN Creatinine Est GFR ( Amer) Glucose Calcium Iron 82.9 TIBC 218 L % Saturation 38 Ferritin 163.00 Total Bilirubin AST Alkaline Phosphatase Total Protein Albumin Vitamin B12 443.0 Folate 13.60 Urine Color STRAW Urine Appearance CLEAR Urine pH 5.0 Ur Specific [place] 1.009 Urine Protein NEGATIVE Urine Glucose (UA) NEGATIVE Urine Ketones NEGATIVE Urine Blood NEGATIVE Urine RBC (Auto) 0 Blood Type Antibody Screen 10/24/19 10/24/19 10/24/19 02:28 06:12 06:12 WBC 12.6 H 14.6 H RBC 2.58 L 3.47 L Hgb 7.8 L 10.6 L D Hct 23.7 L 31.2 L MCV 92 90 MCH 30.2 30.6 MCHC 32.9 34.1 RDW 16.7 H 17.3 H Plt Count 332 446 Seg Neutrophils % 78.1 H 76.5 Retic Count (auto) Sodium 140.2 Potassium 4.5 Chloride 106 Carbon Dioxide 25 Anion Gap 9 BUN 23 H Creatinine 0.82 Est GFR ( Amer) > 60 Glucose 130 H Calcium 9.4 Iron TIBC % Saturation Ferritin Total Bilirubin AST Alkaline Phosphatase Total Protein Albumin Vitamin B12 Folate Urine Color Urine Appearance Urine pH Ur Specific [place] Urine Protein Urine Glucose (UA) Urine Ketones Urine Blood Urine RBC (Auto) Blood Type Antibody Screen 10/23/19 10:45 NT-Pro-B Natriuret Pep 3040 H Impressions: Chest X-Ray 10/23/19 12:48 IMPRESSION: 1. Examination is slightly limited as above. NO ACUTE RADIOGRAP HIC FINDING IN THE CHEST. Assessment & Plan - Diagnosis (1) Anemia Qualifiers: Anemia type: unspecified type Qualified Code(s): D64.9 - Anemia, unspecified Is this a current diagnosis for this admission?: Yes Plan: Anemia with heme positive stool, will plan upper endoscopy today. I have discussed with the patient the risk and benefits of the procedure including risk of intestinal injury and bleeding. Patient understands and agrees to proceed. Patient with inadequate bowel prep for a colonoscopy today. If upper endoscopy does not demonstrate a distinct source for bleed, will plan further bowel prep today for a colonoscopy tomorrow. - Time Time Spent with patient: Less than 15 minutes
[2019-10-24] MEDS ORDERED: NALOXONE HCL INJ/PF 0.4 MG/1 ML SDV ONE (11:49)
[2019-10-24] MEDS ORDERED: ONDANSETRON HCL INJ/PF 4 MG/2 ML SDV ONE (11:49)
[2019-10-24] MEDS ORDERED: GLUCAGON,HUMAN RECOMB 1 MG INJ ONE (11:49)
[2019-10-24] MEDS ORDERED: FLUMAZENIL INJ 0.5 MG/5 ML VIAL ONE (11:49)
[2019-10-24] MEDS ORDERED: EPINEPHRINE INJ 1 MG/10 ML DISP.SYRIN ONE (11:49)
[2019-10-24] MEDS ORDERED: DIPHENHYDRAMINE HCL 50 MG/ML VIAL ONE (11:49)
[2019-10-24] MEDS: MIDAZOLAM 2 MG/2 ML INJ ONE ×6 (12:00→14:00)
[2019-10-24] MEDS: FENTANYL CITRATE INJ/PF 100 MCG/2 ML AMPUL ONE ×2 (12:02→13:44)
--- NOTE | 2019-10-24 12:54 | XCELERA REPORT ---
[address] [address] Lower Extremity Arterial Evaluation Name: RAJAN KEARNEY Age: 74 yrs Gender: Male : 1945 Patient Status: Emergency Patient Location: ER Study Date: 10/23/2019 05:37 PM Procedure: A color flow and duplex scan of the lower extremity arteries was performed on the left with velocity and waveform anaylsis. Reason For Study: Rule out pseudoaneurysm Left groin Ordering Physician: ONDINA ARELLANO Performed By: Reyna Thornton Measurements and Calculations Right Left DIRECTOR OF CLINICAL SERVICES PSV 144.6 cm/sec Prox PFA PSV -113.1 cm/sec Prox Pop A PSV 51.3 cm/sec Left Side Arterial Evaluation A crescentic area of lucency noted immediately posterior to the Common Femoral artery. minimal episodic, Colour flow, partial, within. Normal velocity and triphasic waveforms noted from the Common Femoral artery to the Popliteal artery. Bandages in place, prevent evaluation of leg. Critical Findings Called in to Dr Arellano, in the Emergency room. Interpretation Summary Duplex study at rest shows normal arterial flow to the Popliteal on the left. An area of lucency, posterior to the Common Femoral may represent residua of intervention, possibly a thrombosed pseudoaneurysm. unusual in appearance. Most likely consistent with recent intervention. : ONDINA ARELLANO > Moises Murdock
[2019-10-24] MEDS ORDERED: MIDAZOLAM 2 MG/2 ML INJ ONE ×2 (13:57)
--- NOTE | 2019-10-24 13:59 | Operative Report ---
Operative Report DATE OF SURGERY: 10/24/19 PREOPERATIVE DIAGNOSIS: Anemia, gastrointestinal bleed. POSTOPERATIVE DIAGNOSIS: Same, duodenal bleed OPERATION: Esophagogastroduodenoscopy SURGEON: PARMINDER ROBERSON ANESTHESIA: Moderate Sedation TISSUE REMOVED OR ALTERED: None COMPLICATIONS: None ESTIMATED BLOOD LOSS: 10 cc PROCEDURE: Informed consent was obtained. Patient was brought to the endoscopy suite. IV sedation with Versed and fentanyl was administered. Endoscope was passed via the patient's mouth into stomach. The scope was able to be placed into the duodenum but with some difficulty due to the angulations. The second portion of the duodenum was visualized and the ampulla was visualized. There was a small amount of blood in the second portion of the duodenum. The ampulla was clearly visualized and there was no bleeding from the ampulla. Just proximal to the ampulla at the junction of the first and second portion of the duodenum there was a point of slow oozing of blood. This region was irrigated and I could not see any ulcerations nor any other visible lesions however it had continued slow oozing. The duodenal bulb was visualized and no ulcerations were seen in the duodenal bulb. There was small amount of blood in the duodenal bulb that was irrigated and no blood reaccumulated. The stomach appeared normal with no ulcerations no lesions. Retroflexed view demonstrated no lesions at the hiatus. The esophagus appeared normal. The stomach was desufflated and the scope was withdrawn. Patient tolerated procedure well with no apparent complications. Bleeding at the duodenum just proximal to the ampulla of unclear etiology. I have discussed this case with Dr. Peterson (gastroenterology) who has agreed to re- scope the patient today and perform any intervention he deems appropriate. I suspect that perhaps he has a vascular abnormality that is slowly bleeding secondary to his anticoagulation. Will await Dr. Christina's input. I have attempted to reach the patient's family who has left the hospital to obtain permission for the second endoscopy. If they do not call back I think it is perfectly appropriate for Dr. Cordova to proceed with the second endoscopy in this setting of ongoing bleeding.
--- NOTE | 2019-10-24 14:15 | Operative Report ---
Operative Report DATE OF SURGERY: 10/24/19 Operative Report: The risks benefits and alternatives of the procedure explained to the patient in detail and informed consent is obtained.A GIF Olympus video scope was inserted into the patient's mouth and hypopharynx, the esophagus is identified intubated and insufflated, the scope was then advanced through the esophagus stomach and duodenum, retroflexion maneuver is done the esophagus stomach and first and second portions of the duodenum examined. Dr. Duran contacted me about this patient who was initially seen by him. He had previously done an endoscopy and saw a potential bleeding lesion just proximal to the ampulla. I was asked to see if we could control the bleed. It appeared to be in the consistent with an AVM or Dieulafoy lesion. PREOPERATIVE DIAGNOSIS: GI bleeding POSTOPERATIVE DIAGNOSIS: Small bleeding AVM versus a Dieulafoy lesion. The lesion is ablated using ERBE device and hemospray is used OPERATION: EGD with control of hemorrhage SURGEON: KADE CALERO ANESTHESIA: Moderate Sedation - 5 mg of Versed, 50 mcg of fentanyl. Conscious sedation monitoring time 30 minutes. TISSUE REMOVED OR ALTERED: None. COMPLICATIONS: None. ESTIMATED BLOOD LOSS: None. INTRAOPERATIVE FINDINGS: As noted above. PROCEDURE: Patient tolerated the procedure well. No immediate postprocedure complications are noted. Patient is sent to his room in good condition. Keep n.p.o. Follow-up H&H. Surgery intends for probable colonoscopy although in the event that no further blood is seen and his H&H has stabilized that could probably be deferred as an outpatient follow-up to decide on that.
[2019-10-24] MEDS ORDERED: ACETAMINOPHEN 325 MG TABLET PO PRN (15:37)
--- NOTE | 2019-10-24 15:59 | PDOC PROGRESS REPORT ---
Subjective Progress Note for:: 10/24/19 Subjective:: Patient endorsed fatigue at time of encounter. Frustrated that he is on anticoagulation and that it probably caused his GI bleed. Patient is unable to tell me exactly why he is on anticoagulation medication. Patient denies any chest pains or shortness of breath at the time. Reason For Visit: GI BLEED Physical Exam Vital Signs: Temp Pulse Resp BP Pulse Ox 98.6 F 96 18 109/54 L 96 10/24/19 06:00 10/24/19 13:05 10/24/19 13:05 10/24/19 13:05 10/24/19 13:05 Intake & Output 10/23/19 10/24/19 10/25/19 06:59 06:59 06:59 Intake Total 550 500 Balance 550 500 Weight 58.5 kg General appearance: PRESENT: no acute distress, cooperative Respiratory exam: PRESENT: prolonged expiratory phas, symmetrical, unlabored. ABSENT: tachypnea Cardiovascular exam: PRESENT: RRR, +S1, +S2. ABSENT: tachycardia - She is GI/Abdominal exam: PRESENT: normal bowel sounds, soft. ABSENT: rebound, rigid, tenderness Neurological exam: PRESENT: alert, awake Psychiatric exam: ABSENT: agitated Results Laboratory Results: 10/24/19 06:12 10/24/19 06:12 10/23/19 10/23/19 10/23/19 10:45 10:45 10:45 WBC RBC Hgb Hct MCV MCH MCHC RDW Plt Count Seg Neutrophils % Retic Count (auto) 6.66 H Sodium Potassium Chloride Carbon Dioxide Anion Gap BUN Creatinine Est GFR ( Amer) Glucose Calcium Iron 82.9 TIBC 218 L % Saturation 38 Ferritin 163.00 Vitamin B12 443.0 Folate 13.60 Blood Type B POSITIVE Antibody Screen NEGATIVE 10/24/19 10/24/19 10/24/19 02:28 06:12 06:12 WBC 12.6 H 14.6 H RBC 2.58 L 3.47 L Hgb 7.8 L 10.6 L D Hct 23.7 L 31.2 L MCV 92 90 MCH 30.2 30.6 MCHC 32.9 34.1 RDW 16.7 H 17.3 H Plt Count 332 446 Seg Neutrophils % 78.1 H 76.5 Retic Count (auto) Sodium 140.2 Potassium 4.5 Chloride 106 Carbon Dioxide 25 Anion Gap 9 BUN 23 H Creatinine 0.82 Est GFR ( Amer) > 60 Glucose 130 H Calcium 9.4 Iron TIBC % Saturation Ferritin Vitamin B12 Folate Blood Type Antibody Screen 10/23/19 10:45 NT-Pro-B Natriuret Pep 3040 H Impressions: Chest X-Ray 10/23/19 12:48 IMPRESSION: 1. Examination is slightly limited as above. NO ACUTE RADIOGRAPHIC FINDING IN THE CHEST. Assessment and Plan - Diagnosis (1) Upper GI bleed Is this a current diagnosis for this admission?: Yes Plan: EGD today showed small bleeding lesion just proximal to the ampulla suspected to be an AVM or Dieulafoy lesion. The lesion was ablated and Hemospray was done. Anticoagulation will remain on hold for at least 48 hours per the recommendation from surgery. Keep n.p.o. for 24 hours. I will transition from Protonix drip to Protonix IV every 12 hours. (2) Anemia due to acute blood loss Is this a current diagnosis for this admission?: Yes Plan: Likely secondary to upper GI bleed Apparently, patient's hemoglobin has dropped from 15-7 in the past week per documentation Received 2 units of blood with improvement in hemoglobin level Monitor H&H (3) Buergers disease Is this a current diagnosis for this admission?: Yes Plan: Patient is status post left femoral and popliteal artery stenting with thrombectomy done at [facility] in [place] 7 days ago. Was on Plavix but Plavix has been held given upper GI bleed as documentation of admission says that vascular surgeon in [place] advised holding Plavix Will be resumed in 48 hours along with Eliquis. (4) COPD exacerbation Is this a current diagnosis for this admission?: Yes Plan: Mild exacerbation-albuterol, Atrovent, incentive spirometry (5) Diabetes mellitus type 2 in nonobese Is this a current diagnosis for this admission?: Yes Plan: Humalog sliding scale every 6 while n.p.o. Resume metformin once patient resumes diet. Accu-Cheks (6) Chronic atrial fibrillation Is this a current diagnosis for this admission?: Yes Plan: Continue Lopressor and diltiazem Eliquis on hold giving significant upper GI bleed. Will consider resuming in 48 hours. - Time Time Spent with patient: 15-24 minutes
[2019-10-24 17:03] LABS: HEMATOCRIT 28.5 % (37.9-51.0); HEMOGLOBIN 9.6 g/dL (13.5-17.0); MEAN CORPUSCULAR HEMOGLOBIN 30.7 pg (27.0-33.4); MEAN CORPUSCULAR HGB CONC 33.7 g/dL (32.0-36.0); MEAN CORPUSCULAR VOLUME 91 fl (80-97); PLATELET COUNT 402 10^3/uL (150-450); RED BLOOD COUNT 3.13 10^6/uL (4.35-5.55); RED CELL DISTRIBUTION WIDTH 16.9 % (11.5-14.0); WHITE BLOOD COUNT 15.7 10^3/uL (4.0-10.5)
[2019-10-24] MEDS: DOCUSATE SODIUM 100 MG CAPSULE PO SCH (17:05)
[2019-10-24 18:57] LABS: HEMATOCRIT 29.9 % (37.9-51.0); MEAN CORPUSCULAR HEMOGLOBIN 30.4 pg (27.0-33.4); MEAN CORPUSCULAR HGB CONC 33.4 g/dL (32.0-36.0); MEAN CORPUSCULAR VOLUME 91 fl (80-97); PLATELET COUNT 446 10^3/uL (150-450); RED BLOOD COUNT 3.29 10^6/uL (4.35-5.55); RED CELL DISTRIBUTION WIDTH 17.4 % (11.5-14.0); WHITE BLOOD COUNT 15.1 10^3/uL (4.0-10.5)
[2019-10-24] MEDS ORDERED: DEXTROSE 50%-WATER SYRINGE 25 GM/50 ML DOSE IV PRN (19:30)
[2019-10-24] MEDS ORDERED: DEXTROSE 50%-WATER SYRINGE 12.5 GM/25 ML DOSE IV PRN (19:30)
[2019-10-24] MEDS ORDERED: DEXTROSE 40% GEL 15 GM TUBE PO PRN (19:30)
[2019-10-24] MEDS ORDERED: DEXTROSE 40% GEL 15 GM TUBE X 2 PO PRN (19:30)
[2019-10-24] MEDS ORDERED: GLUCAGON,HUMAN RECOMB 1 MG INJ IM PRN (19:30)
[2019-10-24] MEDS: PANTOPRAZOLE SODIUM 40 MG VIAL IV SCH (21:46)
[2019-10-24] MEDS: METOPROLOL TARTRATE 25 MG TABLET PO SCH (21:54)
[2019-10-25] MEDS: IPRATROPIUM/ALBUTEROL 0.5-2.5 MG/3 ML AMPUL NEB SCH ×3 (00:26→16:42)
--- NOTE | 2019-10-25 01:04 | PDOC PROGRESS REPORT ---
Subjective Progress Note for:: 10/25/19 Subjective:: Easily arousable and appropriate. No complaints. Denies any abdominal pain. Reason For Visit: GI BLEED Physical Exam Vital Signs: Temp Pulse Resp BP Pulse Ox 97.5 F 49 L 15 137/55 H 98 10/24/19 20:16 10/25/19 00:26 10/25/19 00:26 10/24/19 20:16 10/25/19 00:26 Intake & Output 10/23/19 10/24/19 10/25/19 06:59 06:59 06:59 Intake Total 550 1280 Output Total 400 Balance 550 880 Weight 58.5 kg 57.1 kg General appearance: PRESENT: no acute distress, cooperative Respiratory exam: PRESENT: clear to auscultation elise Cardiovascular exam: PRESENT: bradycardia - Heart rate 50. GI/Abdominal exam: PRESENT: other - Soft, nondistended, nontender to palpation. Results Laboratory Results: 10/24/19 18:30 10/24/19 06:12 10/24/19 10/24/19 10/24/19 02:28 06:12 06:12 WBC 12.6 H 14.6 H RBC 2.58 L 3.47 L Hgb 7.8 L 10.6 L D Hct 23.7 L 31.2 L MCV 92 90 MCH 30.2 30.6 MCHC 32.9 34.1 RDW 16.7 H 17.3 H Plt Count 332 446 Seg Neutrophils % 78.1 H 76.5 Sodium 140.2 Potassium 4.5 Chloride 106 Carbon Dioxide 25 Anion Gap 9 BUN 23 H Creatinine 0.82 Est GFR ( Amer) > 60 Glucose 130 H Calcium 9.4 10/24/19 10/24/19 16:36 18:30 WBC 15.7 H 15.1 H RBC 3.13 L 3.29 L Hgb 9.6 L 10.0 L Hct 28.5 L 29.9 L MCV 91 91 MCH 30.7 30.4 MCHC 33.7 33.4 RDW 16.9 H 17.4 H Plt Count 402 446 Seg Neutrophils % Sodium Potassium Chloride Carbon Dioxide Anion Gap BUN Creatinine Est GFR ( Amer) Glucose Calcium 10/23/19 10:45 NT-Pro-B Natriuret Pep 3040 H Impressions: Chest X-Ray 10/23/19 12:48 IMPRESSION: 1. Examination is slightly limited as above. NO ACUTE RADIOGRAPHIC FINDING IN THE CHEST. Assessment & Plan - Diagnosis (1) Anemia Qualifiers: Anemia type: unspecified type Qualified Code(s): D64.9 - Anemia, unspecified Is this a current diagnosis for this admission?: Yes (2) Bleeding duodenal lesion Is this a current diagnosis for this admission?: Yes Plan: Bleeding ill-defined source at duodenum noted on EGD. Possible vascular malformation but could not be clearly visualized. No ulcer seen. The lesion was ablated by Dr. Christina. Patient does not demonstrate evidence of active bleeding. Recommend keeping the patient n.p.o. for 24 hours. If serial hematocrits are stable may start a clear liquid diet after 24 hours. Proton pump inhibitor. Defer work-up of his bradycardia to hospitalist but patient is asymptomatic. Discussed with patient the endoscopic findings. - Time Time Spent with patient: Less than 15 minutes
[2019-10-25 04:25] LABS: HEMATOCRIT 27.8 % (37.9-51.0); HEMOGLOBIN 9.5 g/dL (13.5-17.0); MEAN CORPUSCULAR HEMOGLOBIN 30.6 pg (27.0-33.4); MEAN CORPUSCULAR VOLUME 90 fl (80-97); PLATELET COUNT 403 10^3/uL (150-450); RED BLOOD COUNT 3.09 10^6/uL (4.35-5.55); RED CELL DISTRIBUTION WIDTH 17.2 % (11.5-14.0); WHITE BLOOD COUNT 11.7 10^3/uL (4.0-10.5)
[2019-10-25 04:44] LABS: ANION GAP 7 (5-19); BLOOD UREA NITROGEN 17 mg/dL (7-20); CARBON DIOXIDE 24 mmol/L (22-30); CHLORIDE 106 mmol/L (98-107); GLUCOSE 143 mg/dL (75-110)
[2019-10-25] MEDS: LIDOCAINE 5% (700 MG) TRANSDERMAL ADH..PATCH TP SCH (08:26)
[2019-10-25] MEDS: DILTIAZEM HCL 240 MG CAPSULE.CR PO SCH (08:51)
[2019-10-25] MEDS: TAMSULOSIN HCL 0.4 MG CAP.SR.24H PO SCH (08:52)
[2019-10-25] MEDS: DIGOXIN 0.125 MG TABLET PO SCH (08:53)
--- NOTE | 2019-10-25 10:33 | PDOC PROGRESS REPORT ---
Subjective Progress Note for:: 10/25/19 Subjective:: Feels okay this morning having bowel function Reason For Visit: GI BLEED Physical Exam Vital Signs: Temp Pulse Resp BP Pulse Ox 98.1 F 82 14 116/59 L 95 10/25/19 08:02 10/25/19 08:40 10/25/19 08:20 10/25/19 08:02 10/25/19 08:20 Intake & Output 10/24/19 10/25/19 10/26/19 06:59 06:59 06:59 Intake Total 550 1280 Output Total 550 Balance 550 730 Weight 58.5 kg 49.1 kg General appearance: PRESENT: no acute distress Head exam: PRESENT: normocephalic Eye exam: PRESENT: EOMI Ear exam: PRESENT: normal external ear exam Mouth exam: PRESENT: moist Neck exam: PRESENT: full ROM Respiratory exam: PRESENT: clear to auscultation elise Cardiovascular exam: PRESENT: RRR Pulses: PRESENT: normal radial pulses, normal femoral pulses GI/Abdominal exam: PRESENT: soft Rectal exam: PRESENT: deferred Extremities exam: PRESENT: full ROM Musculoskeletal exam: PRESENT: full ROM Neurological exam: PRESENT: alert, awake, oriented to person Psychiatric exam: PRESENT: appropriate affect Skin exam: PRESENT: dry Results Laboratory Results: 10/25/19 04:12 10/25/19 04:12 10/24/19 10/24/19 10/25/19 16:36 18:30 04:12 WBC 15.7 H 15.1 H 11.7 H RBC 3.13 L 3.29 L 3.09 L Hgb 9.6 L 10.0 L 9.5 L Hct 28.5 L 29.9 L 27.8 L MCV 91 91 90 MCH 30.7 30.4 30.6 MCHC 33.7 33.4 34.0 RDW 16.9 H 17.4 H 17.2 H Plt Count 402 446 403 Sodium Potassium Chloride Carbon Dioxide Anion Gap BUN Creatinine Est GFR ( Amer) Glucose Calcium 10/25/19 04:12 WBC RBC Hgb Hct MCV MCH MCHC RDW Plt Count Sodium 136.6 L Potassium 4.0 Chloride 106 Carbon Dioxide 24 Anion Gap 7 BUN 17 Creatinine 0.68 Est GFR ( Amer) > 60 Glucose 143 H Calcium 9.0 10/23/19 10:45 NT-Pro-B Natriuret Pep 3040 H Impressions: Chest X-Ray 10/23/19 12:48 IMPRESSION: 1. Examination is slightly limited as above. NO ACUTE RADIOGRAPHIC FINDING IN THE CHEST. 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 Morning hemoglobin dropped 0.5 g patient does not report any bloody bowel movements We will continue observation he can start on clear liquid diet today.
[2019-10-25] MEDS: DOCUSATE SODIUM 100 MG CAPSULE PO SCH ×2 (11:13→18:37)
[2019-10-25] MEDS: AMLODIPINE BESYLATE 5 MG TABLET PO SCH (11:13)
[2019-10-25] MEDS: METOPROLOL TARTRATE 25 MG TABLET PO SCH ×2 (11:13→22:14)
[2019-10-25] MEDS: LISINOPRIL 10 MG TABLET PO SCH (11:14)
[2019-10-25] MEDS: PANTOPRAZOLE SODIUM 40 MG VIAL IV SCH ×2 (11:15→22:14)
[2019-10-25] MEDS: NORMAL SALINE 1000 ML 1,000 ML IV PRN ×2 (11:20→22:30)
--- NOTE | 2019-10-25 12:49 | PDOC PROGRESS REPORT ---
Subjective Progress Note for:: 10/25/19 Subjective:: Patient is doing well today. States that he has not had a bowel movement yet. I also spoke to patient's Marylin after seeing Zyvox on his med rec but patient's states that patient is not on Zyvox anymore. Patient denies any melena or abdominal pain. Reason For Visit: GI BLEED Physical Exam Vital Signs: Temp Pulse Resp BP Pulse Ox 98.1 F 82 14 116/59 L 95 10/25/19 08:02 10/25/19 08:40 10/25/19 08:20 10/25/19 08:02 10/25/19 08:20 Intake & Output 10/24/19 10/25/19 10/26/19 06:59 06:59 06:59 Intake Total 550 1280 Output Total 550 Balance 550 730 Weight 58.5 kg 49.1 kg General appearance: PRESENT: no acute distress, cooperative Neck exam: ABSENT: JVD Respiratory exam: PRESENT: clear to auscultation elise, symmetrical, unlabored. ABSENT: tachypnea, wheezes Cardiovascular exam: PRESENT: irregular rhythm, +S1, +S2. ABSENT: tachycardia GI/Abdominal exam: PRESENT: normal bowel sounds, soft. ABSENT: distended, firm, guarding, tenderness Neurological exam: PRESENT: alert, awake, oriented to person, oriented to place, oriented to time Results Laboratory Results: 10/25/19 04:12 10/25/19 04:12 10/24/19 10/24/19 10/25/19 16:36 18:30 04:12 WBC 15.7 H 15.1 H 11.7 H RBC 3.13 L 3.29 L 3.09 L Hgb 9.6 L 10.0 L 9.5 L Hct 28.5 L 29.9 L 27.8 L MCV 91 91 90 MCH 30.7 30.4 30.6 MCHC 33.7 33.4 34.0 RDW 16.9 H 17.4 H 17.2 H Plt Count 402 446 403 Sodium Potassium Chloride Carbon Dioxide Anion Gap BUN Creatinine Est GFR ( Amer) Glucose Calcium 10/25/19 04:12 WBC RBC Hgb Hct MCV MCH MCHC RDW Plt Count Sodium 136.6 L Potassium 4.0 Chloride 106 Carbon Dioxide 24 Anion Gap 7 BUN 17 Creatinine 0.68 Est GFR ( Amer) > 60 Glucose 143 H Calcium 9.0 10/23/19 10:45 NT-Pro-B Natriuret Pep 3040 H Impressions: Chest X-Ray 10/23/19 12:48 IMPRESSION: 1. Examination is slightly limited as above. NO ACUTE RADIOGRAPHIC FINDING IN THE CHEST. Assessment and Plan - Diagnosis (1) Upper GI bleed Is this a current diagnosis for this admission?: Yes Plan: EGD done by surgicalist & Dr Peterson on 10/24/2019 showed small bleeding lesion just proximal to the ampulla suspected to be an AVM or Dieulafoy lesion. The lesion was ablated and Hemospray was done. Anticoagulation will remain on hold for at least until tomorrow morning per the recommendation from surgery. We will resume patient on clear liquids this afternoon Protonix IV every 12 hours. (2) Anemia due to acute blood loss Is this a current diagnosis for this admission?: Yes Plan: Likely secondary to upper GI bleed Apparently, patient's hemoglobin had dropped from 15 in the past week to 7 on admission according to documentation Received 2 units of blood on admission with improvement in hemoglobin level Continue to monitor H&H (3) Buergers disease Is this a current diagnosis for this admission?: Yes Plan: Patient is status post left femoral and popliteal artery stenting with thr ombectomy done at [facility] in [place] 7 days ago. Was on Plavix but Plavix has been held given upper GI bleed as documentation of admission says that vascular surgeon in [place] advised holding Plavix May need to consider putting patient on the on Eliquis and for going antiplatelet therapy given risk of bleeding. (4) COPD exacerbation Is this a current diagnosis for this admission?: Yes Plan: Mild exacerbation-albuterol, Atrovent, incentive spirometry (5) Diabetes mellitus type 2 in nonobese Is this a current diagnosis for this admission?: Yes Plan: Humalog sliding scale every 6 while n.p.o. Resume metformin. Accu-Cheks (6) Chronic atrial fibrillation Is this a current diagnosis for this admission?: Yes Plan: Continue Lopressor and diltiazem Eliquis on hold giving significant upper GI bleed. Will consider resuming later tomorrow. - Time Time Spent with patient: 15-24 minutes
[2019-10-25] MEDS: POLYETHYLENE GLYCOL 3350 POWDER 17 GM/1 PACKET PO SCH (18:36)
[2019-10-25] MEDS: OXYCODONE HCL IR 5 MG TABLET PO PRN (22:18)
[2019-10-26] MEDS: IPRATROPIUM/ALBUTEROL 0.5-2.5 MG/3 ML AMPUL NEB SCH ×4 (00:24→23:55)
[2019-10-26 05:21] LABS: HEMATOCRIT 25.1 % (37.9-51.0); HEMOGLOBIN 8.7 g/dL (13.5-17.0); MEAN CORPUSCULAR HEMOGLOBIN 31.6 pg (27.0-33.4); MEAN CORPUSCULAR HGB CONC 34.7 g/dL (32.0-36.0); MEAN CORPUSCULAR VOLUME 91 fl (80-97); PLATELET COUNT 383 10^3/uL (150-450); RED BLOOD COUNT 2.75 10^6/uL (4.35-5.55); RED CELL DISTRIBUTION WIDTH 17.3 % (11.5-14.0); WHITE BLOOD COUNT 10.5 10^3/uL (4.0-10.5)
[2019-10-26 05:46] LABS: ANION GAP 7 (5-19); BLOOD UREA NITROGEN 11 mg/dL (7-20); CALCIUM 8.5 mg/dL (8.4-10.2); CARBON DIOXIDE 24 mmol/L (22-30); CHLORIDE 108 mmol/L (98-107); GLUCOSE 146 mg/dL (75-110); POTASSIUM 3.8 mmol/L (3.6-5.0)
--- NOTE | 2019-10-26 08:44 | PDOC PROGRESS REPORT ---
Subjective Progress Note for:: 10/26/19 Reason For Visit: GI BLEED Physical Exam Vital Signs: Temp Pulse Resp BP Pulse Ox 97.9 F 43 L 17 125/58 L 98 10/26/19 08:07 10/26/19 08:07 10/26/19 08:07 10/26/19 08:07 10/26/19 08:07 Intake & Output 10/25/19 10/26/19 10/27/19 06:59 06:59 06:59 Intake Total 1280 1720 Output Total 550 1550 Balance 730 170 Weight 49.1 kg 49.4 kg General appearance: PRESENT: no acute distress Head exam: PRESENT: normocephalic Eye exam: PRESENT: EOMI Mouth exam: PRESENT: moist Neck exam: PRESENT: full ROM Respiratory exam: PRESENT: clear to auscultation elise Cardiovascular exam: PRESENT: RRR Pulses: PRESENT: other - ` Left foot is warm to touch good capillary refill palpable pedal pedis GI/Abdominal exam: PRESENT: soft Rectal exam: PRESENT: deferred Extremities exam: PRESENT: full ROM Musculoskeletal exam: PRESENT: full ROM Neurological exam: PRESENT: alert, awake, oriented to person Psychiatric exam: PRESENT: appropriate affect Skin exam: PRESENT: dry Results Laboratory Results: 10/26/19 04:15 10/26/19 04:15 10/26/19 10/26/19 04:15 04:15 WBC 10.5 RBC 2.75 L Hgb 8.7 L Hct 25.1 L MCV 91 MCH 31.6 MCHC 34.7 RDW 17.3 H Plt Count 383 Sodium 138.7 Potassium 3.8 Chloride 108 H Carbon Dioxide 24 Anion Gap 7 BUN 11 Creatinine 0.64 Est GFR ( Amer) > 60 Glucose 146 H Calcium 8.5 10/23/19 10:45 NT-Pro-B Natriuret Pep 3040 H Impressions: Chest X-Ray 10/23/19 12:48 IMPRESSION: 1. Examination is slightly limited as above. NO ACUTE RADIOGRAPHIC FINDING IN THE CHEST. Assessment & Plan - Time Time Spent with patient: 25-34 minutes - Plan Summary Plan Summary: Patient doing well this morning did not have stool or flatus yesterday hemoglobin this morning is 8.7 down to 9.5 however this most likely secondary to abrasion continue to trend. Left lower extremity is been evaluating the incisions are clean and dry we will remove the haleigh from the left groin and lower extremity from the previous vascular intervention We will continue to trend his hemoglobin.
[2019-10-26] MEDS: PANTOPRAZOLE SODIUM 40 MG VIAL IV SCH ×2 (10:06→21:35)
[2019-10-26] MEDS: METFORMIN HCL 500 MG TABLET PO SCH (10:06)
[2019-10-26] MEDS: AMLODIPINE BESYLATE 5 MG TABLET PO SCH (10:07)
[2019-10-26] MEDS: TAMSULOSIN HCL 0.4 MG CAP.SR.24H PO SCH (10:07)
[2019-10-26] MEDS: DOCUSATE SODIUM 100 MG CAPSULE PO SCH (10:07)
[2019-10-26] MEDS: METOPROLOL TARTRATE 25 MG TABLET PO SCH ×2 (10:07→21:36)
[2019-10-26] MEDS: DILTIAZEM HCL 240 MG CAPSULE.CR PO SCH (10:07)
[2019-10-26] MEDS: LISINOPRIL 10 MG TABLET PO SCH (10:07)
[2019-10-26] MEDS: DIGOXIN 0.125 MG TABLET PO SCH (10:07)
[2019-10-26] MEDS: POLYETHYLENE GLYCOL 3350 POWDER 17 GM/1 PACKET PO SCH (10:08)
[2019-10-26] MEDS: LIDOCAINE 5% (700 MG) TRANSDERMAL ADH..PATCH TP SCH ×3 (10:16→21:34)
[2019-10-26] MEDS: NORMAL SALINE 1000 ML 1,000 ML IV PRN ×2 (10:17→19:46)
--- NOTE | 2019-10-26 14:18 | PDOC PROGRESS REPORT ---
Subjective Progress Note for:: 10/26/19 Subjective:: Patient states that he has not had a bowel movement so far. He also expresses that he does not want to take any laxatives or stool softeners and asked that the orders be discontinued. Denies any hematochezia, hematemesis or hematuria. Denies abdominal pain shortness of breath or chest pain. Reason For Visit: GI BLEED Physical Exam Vital Signs: Temp Pulse Resp BP Pulse Ox 97.9 F 55 L 16 125/58 L 98 10/26/19 08:07 10/26/19 08:27 10/26/19 08:27 10/26/19 08:07 10/26/19 08:27 Intake & Output 10/25/19 10/26/19 10/27/19 06:59 06:59 06:59 Intake Total 1280 1720 1000 Output Total 550 1550 Balance 075 020 5804 Weight 49.1 kg 49.4 kg General appearance: PRESENT: no acute distress Neck exam: ABSENT: JVD Respiratory exam: PRESENT: clear to auscultation elise, unlabored. ABSENT: tachypnea, wheezes Cardiovascular exam: PRESENT: +S1, +S2. ABSENT: irregular rhythm, tachycardia GI/Abdominal exam: PRESENT: normal bowel sounds, soft. ABSENT: rebound, rigid, tenderness Extremities exam: PRESENT: other - [place] in left lower extremity with good healing of incision Neurological exam: PRESENT: alert, awake, oriented to person, oriented to place, oriented to time, oriented to situation, other - Speech somewhat slurred throughout hospital stay but that is patient's baseline Psychiatric exam: ABSENT: agitated Results Laboratory Results: 10/26/19 04:15 10/26/19 04:15 10/26/19 10/26/19 04:15 04:15 WBC 10.5 RBC 2.75 L Hgb 8.7 L Hct 25.1 L MCV 91 MCH 31.6 MCHC 34.7 RDW 17.3 H Plt Count 383 Sodium 138.7 Potassium 3.8 Chloride 108 H Carbon Dioxide 24 Anion Gap 7 BUN 11 Creatinine 0.64 Est GFR ( Amer) > 60 Glucose 146 H Calcium 8.5 10/23/19 10:45 NT-Pro-B Natriuret Pep 3040 H Impressions: Chest X-Ray 10/23/19 12:48 IMPRESSION: 1. Examination is slightly limited as above. NO ACUTE RADIOGRAPHIC FINDING IN THE CHEST. Assessment and Plan - Diagnosis (1) Upper GI bleed Is this a current diagnosis for this admission?: Yes Plan: EGD done by surgicalist & Dr Peterson on 10/24/2019 showed small bleeding lesion just proximal to the ampulla suspected to be an AVM or Dieulafoy lesion. The lesion was ablated and Hemospray was done. Keep holding anticoagulation. I will consider resuming tomorrow if hemoglobin hold steady. Diet escalated to full liquid diet. Protonix IV every 12 hours. (2) Anemia due to acute blood loss Is this a current diagnosis for this admission?: Yes Plan: Likely secondary to upper GI bleed Apparently, patient's hemoglobin had dropped from 15 in the past week to 7 on admission according to documentation Received 2 units of blood on admission with improvement in hemoglobin level to 10 but has now dropped back to 8.7 over the past 2 days. We will need to keep monitoring H&H (3) Buergers disease Is this a current diagnosis for this admission?: Yes Plan: Patient is status post left femoral and popliteal artery stenting with thrombectomy done at [facility] in [place] 7 days ago. Was on Plavix but Plavix has been held given upper GI bleed as documentation of admission says that vascular surgeon in [place] advised holding Plavix I will restart Plavix tomorrow if hemoglobin hold steady. (4) COPD exacerbation Is this a current diagnosis for this admission?: Yes Plan: Mild exacerbation has resolved-nebulizers as needed (5) Diabetes mellitus type 2 in nonobese Is this a current diagnosis for this admission?: Yes Plan: Humalog sliding scale continue metformin. Accu-Cheks (6) Chronic atrial fibrillation Is this a current diagnosis for this admission?: Yes Plan: Continue Lopressor and diltiazem Eliquis on hold giving significant upper GI bleed. Will consider resuming later tomorrow. - Time Time Spent with patient: 15-24 minutes
[2019-10-26 17:41] LABS: HEMATOCRIT 25.7 % (37.9-51.0); HEMOGLOBIN 8.7 g/dL (13.5-17.0); MEAN CORPUSCULAR HGB CONC 33.7 g/dL (32.0-36.0); MEAN CORPUSCULAR VOLUME 92 fl (80-97); PLATELET COUNT 379 10^3/uL (150-450); RED BLOOD COUNT 2.79 10^6/uL (4.35-5.55); RED CELL DISTRIBUTION WIDTH 17.8 % (11.5-14.0); WHITE BLOOD COUNT 12.6 10^3/uL (4.0-10.5)
[2019-10-26] MEDS: OXYCODONE HCL IR 5 MG TABLET PO PRN (19:44)
[2019-10-26] MEDS: ATORVASTATIN CALCIUM 80 MG TABLET PO SCH (21:35)
[2019-10-26] MEDS ORDERED: LIDOCAINE 5% (700 MG) TRANSDERMAL ADH..PATCH TP SCH (22:00)
[2019-10-27 05:20] LABS: HEMATOCRIT 25.7 % (37.9-51.0); HEMOGLOBIN 8.7 g/dL (13.5-17.0); MEAN CORPUSCULAR HEMOGLOBIN 31.1 pg (27.0-33.4); MEAN CORPUSCULAR HGB CONC 33.9 g/dL (32.0-36.0); MEAN CORPUSCULAR VOLUME 92 fl (80-97); PLATELET COUNT 378 10^3/uL (150-450); RED BLOOD COUNT 2.79 10^6/uL (4.35-5.55); RED CELL DISTRIBUTION WIDTH 17.6 % (11.5-14.0); WHITE BLOOD COUNT 11.3 10^3/uL (4.0-10.5)
[2019-10-27 05:47] LABS: ANION GAP 8 (5-19); BLOOD UREA NITROGEN 7 mg/dL (7-20); CALCIUM 8.5 mg/dL (8.4-10.2); CARBON DIOXIDE 22 mmol/L (22-30); CHLORIDE 109 mmol/L (98-107); GLUCOSE 139 mg/dL (75-110)
[2019-10-27] MEDS: NORMAL SALINE 1000 ML 1,000 ML IV PRN (07:42)
[2019-10-27] MEDS: TAMSULOSIN HCL 0.4 MG CAP.SR.24H PO SCH (08:25)
[2019-10-27] MEDS: OXYCODONE HCL IR 5 MG TABLET PO PRN (08:25)
[2019-10-27] MEDS: DILTIAZEM HCL 240 MG CAPSULE.CR PO SCH (08:29)
[2019-10-27] MEDS: AMLODIPINE BESYLATE 5 MG TABLET PO SCH (08:29)
[2019-10-27] MEDS: DIGOXIN 0.125 MG TABLET PO SCH (08:29)
[2019-10-27] MEDS: LISINOPRIL 10 MG TABLET PO SCH (08:29)
[2019-10-27] MEDS: IPRATROPIUM/ALBUTEROL 0.5-2.5 MG/3 ML AMPUL NEB SCH ×2 (08:46→16:35)
[2019-10-27] MEDS: METOPROLOL TARTRATE 25 MG TABLET PO SCH ×2 (09:22→22:15)
[2019-10-27] MEDS: METFORMIN HCL 500 MG TABLET PO SCH (09:22)
[2019-10-27] MEDS: PANTOPRAZOLE SODIUM 40 MG VIAL IV SCH (09:22)
[2019-10-27] MEDS: CLOPIDOGREL BISULFATE 75 MG TABLET PO SCH (10:16)
--- NOTE | 2019-10-27 12:27 | PDOC PROGRESS REPORT ---
Subjective Progress Note for:: 10/27/19 Subjective:: Patient has no complaints today. He is pleased that his hemoglobin is holding steady now. He still does not know exactly why he takes Eliquis and Plavix as well as some of his other medications and he states that he would like his primary care doctor to explain to him why he put him on all those medications. He essentially states that they tell him what to take and he takes its but does not really know what the exact medications he is on and why. He denies any history of blood clot but does know he has irregular heartbeat. I spoke to patient's yesterday who also is not fully certain of the exact indications for certain medications. also tells me that patient is no longer on Zyvox. Reason For Visit: GI BLEED Physical Exam Vital Signs: Temp Pulse Resp BP Pulse Ox 97.6 F 66 16 118/48 L 97 10/27/19 08:30 10/27/19 08:46 10/27/19 08:46 10/27/19 08:30 10/27/19 08:46 Intake & Output 10/26/19 10/27/19 10/28/19 06:59 06:59 06:59 Intake Total 1720 3573 225 Output Total 1550 900 Balance 170 2673 225 Weight 49.4 kg 57.3 kg General appearance: PRESENT: no acute distress, cooperative Neck exam: ABSENT: JVD Respiratory exam: PRESENT: clear to auscultation elise, symmetrical, unlabored. ABSENT: tachypnea, wheezes Cardiovascular exam: PRESENT: irregular rhythm, +S1, +S2. ABSENT: tachycardia GI/Abdominal exam: PRESENT: normal bowel sounds, soft. ABSENT: rebound, rigid, tenderness Neurological exam: PRESENT: alert, awake, oriented to person, oriented to place, oriented to time Results Laboratory Results: 10/27/19 04:41 10/27/19 04:41 10/26/19 10/27/19 10/27/19 17:03 04:41 04:41 WBC 12.6 H 11.3 H RBC 2.79 L 2.79 L Hgb 8.7 L 8.7 L Hct 25.7 L 25.7 L MCV 92 92 MCH 31.0 31.1 MCHC 33.7 33.9 RDW 17.8 H 17.6 H Plt Count 379 378 Sodium 138.7 Potassium 4.0 Chloride 109 H Carbon Dioxide 22 Anion Gap 8 BUN 7 Creatinine 0.67 Est GFR ( Amer) > 60 Glucose 139 H Calcium 8.5 10/23/19 10:45 NT-Pro-B Natriuret Pep 3040 H Impressions: Chest X-Ray 10/23/19 12:48 IMPRESSION: 1. Examination is slightly limited as above. NO ACUTE RADIOGRAPHIC FINDING IN THE CHEST. Assessment and Plan - Diagnosis (1) Upper GI bleed Is this a current diagnosis for this admission?: Yes Plan: EGD done by surgicalist & Dr Peterson on 10/24/2019 showed small bleeding lesion just proximal to the ampulla suspected to be an AVM or Dieulafoy lesion. The lesion was ablated and Hemospray was done. Keep holding anticoagulation. Tolerated full liquid diet. I will escalate to regular consistency diabetic/cardiac diet. Protonix BID. (2) Anemia due to acute blood loss Is this a current diagnosis for this admission?: Yes Plan: Likely secondary to upper GI bleed Apparently, patient's hemoglobin had dropped from 15 in the past week to 7 on admission according to documentation Received 2 units of blood on admission Patient's hemoglobin is now holding at 8.7 We will keep monitoring H&H I will call patient's primary care provider tomorrow once office is open to discuss patient's anticoagulation regimen with Eliquis and also on Plavix to determine if it is okay to simply hold off on Eliquis for now rales just resuming Plavix. In the meantime I will go ahead and resume Plavix given ildefonso sawyer has had a recent stent to his lower extremity. (3) Buergers disease Is this a current diagnosis for this admission?: Yes Plan: Patient is status post left femoral and popliteal artery stenting with thrombectomy done at [facility] in [place] 7 days prior to presentation. Plavix restarted (4) COPD exacerbation Is this a current diagnosis for this admission?: Yes Plan: Mild exacerbation has resolved-nebulizers as needed (5) Diabetes mellitus type 2 in nonobese Is this a current diagnosis for this admission?: Yes Plan: Humalog sliding scale continue metformin. Accu-Cheks Check A1c as patient claims that he is not a diabetic and states he only takes metformin for prediabetes. (6) Chronic atrial fibrillation Is this a current diagnosis for this admission?: Yes Plan: Continue Lopressor, digoxin and diltiazem Patient has a high CHADSVASC score of 5 which puts him at a high yearly stroke risk of 7.2%. However, he has HASBLED score of 4 which also puts him at a high risk of major bleeding of 8.9%. At this point, I will have to talk to patient's primary care provider tomorrow about whether or not he should be restarted on Eliquis with risks vs benefit assessment. As of now I have had some discussion with patient regarding this and we have opted to keep Eliquis on hold for now. - Time Time Spent with patient: 15-24 minutes
[2019-10-27] MEDS: PANTOPRAZOLE SODIUM 40 MG TABLET.DR PO SCH (17:16)
--- NOTE | 2019-10-27 20:21 | PDOC PROGRESS REPORT ---
Subjective Progress Note for:: 10/27/19 Subjective:: This is a 74-year-old male with upper GI bleeding due to a presumed AVM. It is status post cauterization. He has had no further bleeding. He denies melena, hematochezia, hematemesis. He denies any abdominal pain. He reports that he has not been taking his Eliquis or Plavix while in the hospital. He also denies chest pain, shortness of breath, fevers, chills, dizziness, blurry vision. Reason For Visit: GI BLEED Physical Exam Vital Signs: Temp Pulse Resp BP Pulse Ox 97.2 F 58 L 14 118/51 L 99 10/27/19 15:43 10/27/19 16:35 10/27/19 16:35 10/27/19 15:43 10/27/19 16:35 Intake & Output 10/26/19 10/27/19 10/28/19 06:59 06:59 06:59 Intake Total 1720 3573 1185 Output Total 1550 900 400 Balance 170 2673 785 Weight 49.4 kg 57.3 kg General appearance: PRESENT: no acute distress, cooperative Head exam: PRESENT: atraumatic, normocephalic Eye exam: PRESENT: EOMI, PERRLA. ABSENT: scleral icterus Mouth exam: PRESENT: moist, neck supple Neck exam: ABSENT: tenderness, thyromegaly, tracheal deviation Respiratory exam: PRESENT: unlabored. ABSENT: chest wall tenderness, tachypnea, wheezes Cardiovascular exam: ABSENT: tachycardia Vascular exam: PRESENT: normal capillary refill GI/Abdominal exam: PRESENT: soft. ABSENT: distended, firm, guarding, tenderness Rectal exam: PRESENT: deferred Extremities exam: ABSENT: clubbing Neurological exam: PRESENT: alert, awake, oriented to person, oriented to place, oriented to time, oriented to situation, CN II-XII grossly intact Psychiatric exam: ABSENT: agitated, anxious, depressed Focused psych exam: ABSENT: delusional Skin exam: ABSENT: erythema, jaundice Results Laboratory Results: 10/27/19 04:41 10/27/19 04:41 10/27/19 10/27/19 04:41 04:41 WBC 11.3 H RBC 2.79 L Hgb 8.7 L Hct 25.7 L MCV 92 MCH 31.1 MCHC 33.9 RDW 17.6 H Plt Count 378 Sodium 138.7 Potassium 4.0 Chloride 109 H Carbon Dioxide 22 Anion Gap 8 BUN 7 Creatinine 0.67 Est GFR ( Amer) > 60 Glucose 139 H Calcium 8.5 10/23/19 10:45 NT-Pro-B Natriuret Pep 3040 H Impressions: Chest X-Ray 10/23/19 12:48 IMPRESSION: 1. Examination is slightly limited as above. NO ACUTE RADIOGRAPHIC FINDING IN THE CHEST. Assessment & Plan - Diagnosis (1) Melena Is this a current diagnosis for this admission?: Yes (2) Anemia Qualifiers: Anemia type: unspecified type Qualified Code(s): D64.9 - Anemia, u nspecified Is this a current diagnosis for this admission?: Yes - Time Time Spent with patient: Less than 15 minutes - Plan Summary Plan Summary: This is a 74-year-old male with upper GI bleeding. His hemoglobin has been stable over the last several days. I would certainly hold the patient's Eliquis at this time. No further intervention is likely warranted from a surgical perspective. Surgery will sign off at this time. Please renotify with any questions or concerns.
[2019-10-27] MEDS: ATORVASTATIN CALCIUM 80 MG TABLET PO SCH (22:14)
[2019-10-27] MEDS: LIDOCAINE 5% (700 MG) TRANSDERMAL ADH..PATCH TP SCH (22:14)
[2019-10-27] MEDS: DIPHENHYDRAMINE HCL 25 MG CAPSULE PO PRN (22:28)
[2019-10-28] MEDS: IPRATROPIUM/ALBUTEROL 0.5-2.5 MG/3 ML AMPUL NEB SCH ×3 (00:03→16:36)
[2019-10-28 05:11] LABS: HEMATOCRIT 27.2 % (37.9-51.0); HEMOGLOBIN 9.1 g/dL (13.5-17.0); MEAN CORPUSCULAR HEMOGLOBIN 31.3 pg (27.0-33.4); MEAN CORPUSCULAR HGB CONC 33.5 g/dL (32.0-36.0); MEAN CORPUSCULAR VOLUME 94 fl (80-97); PLATELET COUNT 389 10^3/uL (150-450); RED BLOOD COUNT 2.91 10^6/uL (4.35-5.55); RED CELL DISTRIBUTION WIDTH 18.2 % (11.5-14.0); WHITE BLOOD COUNT 11.4 10^3/uL (4.0-10.5)
[2019-10-28 05:59] LABS: ANION GAP 8 (5-19); BLOOD UREA NITROGEN 6 mg/dL (7-20); CALCIUM 8.9 mg/dL (8.4-10.2); CARBON DIOXIDE 21 mmol/L (22-30); CHLORIDE 109 mmol/L (98-107); GLUCOSE 130 mg/dL (75-110); POTASSIUM 4.2 mmol/L (3.6-5.0)
[2019-10-28] MEDS: PANTOPRAZOLE SODIUM 40 MG TABLET.DR PO SCH ×2 (06:22→16:16)
[2019-10-28] MEDS: FUROSEMIDE 20 MG TABLET PO SCH (08:18)
[2019-10-28] MEDS: LISINOPRIL 10 MG TABLET PO SCH (08:18)
[2019-10-28] MEDS: DILTIAZEM HCL 240 MG CAPSULE.CR PO SCH (08:18)
[2019-10-28] MEDS: TAMSULOSIN HCL 0.4 MG CAP.SR.24H PO SCH (08:18)
[2019-10-28] MEDS: AMLODIPINE BESYLATE 5 MG TABLET PO SCH (08:18)
[2019-10-28] MEDS: DIGOXIN 0.125 MG TABLET PO SCH (08:18)
[2019-10-28] MEDS: METOPROLOL TARTRATE 25 MG TABLET PO SCH ×2 (09:23→21:50)
[2019-10-28] MEDS: CLOPIDOGREL BISULFATE 75 MG TABLET PO SCH (09:23)
[2019-10-28] MEDS: METFORMIN HCL 500 MG TABLET PO SCH (09:23)
--- NOTE | 2019-10-28 14:57 | PDOC PROGRESS REPORT ---
Subjective Progress Note for:: 10/28/19 Subjective:: I once again had discussion about risk versus benefits of holding Eliquis. Patient is agreeable to holding Eliquis for now but will think about it and have further discussion with his . Otherwise has no complaints. Reason For Visit: GI BLEED Physical Exam Vital Signs: Temp Pulse Resp BP Pulse Ox 97.9 F 65 18 115/75 93 10/28/19 12:46 10/28/19 12:46 10/28/19 12:46 10/28/19 12:46 10/28/19 12:46 Intake & Output 10/27/19 10/28/19 10/29/19 06:59 06:59 06:59 Intake Total 3573 1425 Output Total 900 850 Balance 2673 575 Weight 57.3 kg 64 kg General appearance: PRESENT: no acute distress, cooperative Neck exam: ABSENT: JVD Respiratory exam: PRESENT: clear to auscultation elise, unlabored. ABSENT: symmetrical, tachypnea, wheezes Cardiovascular exam: PRESENT: irregular rhythm, RRR, +S1, +S2 GI/Abdominal exam: PRESENT: normal bowel sounds, soft. ABSENT: rebound, rigid, tenderness Neurological exam: PRESENT: alert, awake, oriented to person, oriented to place, oriented to time, oriented to situation Results Laboratory Results: 10/28/19 04:38 10/28/19 04:38 10/28/19 10/28/19 04:38 04:38 WBC 11.4 H RBC 2.91 L Hgb 9.1 L Hct 27.2 L MCV 94 MCH 31.3 MCHC 33.5 RDW 18.2 H Plt Count 389 Sodium 138.0 Potassium 4.2 Chloride 109 H Carbon Dioxide 21 L Anion Gap 8 BUN 6 L Creatinine 0.67 Est GFR ( Amer) > 60 Glucose 130 H Calcium 8.9 10/23/19 13:56 Blood Blood Culture - Final NO GROWTH IN 5 DAYS 10/23/19 13:49 Blood Blood Culture - Final NO GROWTH IN 5 DAYS 10/23/19 10:45 NT-Pro-B Natriuret Pep 3040 H Impressions: Chest X-Ray 10/23/19 12:48 IMPRESSION: 1. Examination is slightly limited as above. NO ACUTE RADIOGRAPHIC FINDING IN THE CHEST. Assessment and Plan - Diagnosis (1) Upper GI bleed Is this a current diagnosis for this admission?: Yes Plan: EGD done by surgicalist & Dr Peterson on 10/24/2019 showed small bleeding lesion just proximal to the ampulla suspected to be an AVM or Dieulafoy lesion. The lesion was ablated and Hemospray was done. Keep holding anticoagulation. Tolerated regular consistency diabetic/cardiac diet. Protonix BID. (2) Anemia due to acute blood loss Is this a current diagnosis for this admission?: Yes Plan: Likely secondary to upper GI bleed Apparently, patient's hemoglobin had dropped from 15 in the past week to 7 on admission according to documentation Received 2 units of blood on admission Patient's hemoglobin is now holding steady at 8s-9s (3) Buergers disease Is this a current diagnosis for this admission?: Yes Plan: Patient is status post left femoral and popliteal artery stenting with thrombectomy done at [facility] in [place] 7 days prior to presentation. Plavix restarted and will be continued (4) COPD exacerbation Is this a current diagnosis for this admission?: Yes Plan: Mild exacerbation has resolved-nebulizers as needed (5) Diabetes mellitus type 2 in nonobese Is this a current diagnosis for this admission?: Yes Plan: Humalog sliding scale continue metformin. Accu-Cheks patient claims that he is not a diabetic but A1c is 6.8. (6) Chronic atrial fibrillation Is this a current diagnosis for this admission?: Yes Plan: Continue Lopressor, digoxin and diltiazem Patient has a high CHADSVASC score of 5 which puts him at a high yearly stroke risk of 7.2%. However, he has HASBLED score of 4 which also puts him at a high risk of major bleeding including brain bleed of 8.9%. At this point, I will continue to hold Eliquis and I have spoken with patient's primary care provider Maile Roman PA-C regarding this plan who is ok with plan and she will follow-up with patient and have her office call patient tomorrow to discuss follow-up appointment. I will have also talked to patient about these risks versus benefits of holding Eliquis patient is agreeable with holding it for now but will discuss further with his to determine if it should be held on a long-term basis. - Plan Summary Summary: Currently awaiting SNF placement - Time Anticipated discharge: SNF
[2019-10-28] MEDS: OXYCODONE HCL IR 5 MG TABLET PO PRN ×2 (16:19→21:55)
[2019-10-28] MEDS ORDERED: IPRATROPIUM/ALBUTEROL 0.5-2.5 MG/3 ML AMPUL NEB PRN (18:00)
[2019-10-28] MEDS: ATORVASTATIN CALCIUM 80 MG TABLET PO SCH (21:54)
[2019-10-28] MEDS: LIDOCAINE 5% (700 MG) TRANSDERMAL ADH..PATCH TP SCH ×2 (21:54→22:01)
[2019-10-28] MEDS: DIPHENHYDRAMINE HCL 25 MG CAPSULE PO PRN (21:55)
[2019-10-29] MEDS: PANTOPRAZOLE SODIUM 40 MG TABLET.DR PO SCH ×2 (05:14→17:36)
[2019-10-29] MEDS: OXYCODONE HCL IR 5 MG TABLET PO PRN ×3 (05:17→22:29)
[2019-10-29 06:05] LABS: MEAN CORPUSCULAR HEMOGLOBIN 30.9 pg (27.0-33.4); MEAN CORPUSCULAR HGB CONC 33.5 g/dL (32.0-36.0); MEAN CORPUSCULAR VOLUME 92 fl (80-97); PLATELET COUNT 355 10^3/uL (150-450); RED BLOOD COUNT 2.92 10^6/uL (4.35-5.55); RED CELL DISTRIBUTION WIDTH 18.7 % (11.5-14.0)
[2019-10-29 06:22] LABS: ANION GAP 9 (5-19); BLOOD UREA NITROGEN 8 mg/dL (7-20); CALCIUM 8.8 mg/dL (8.4-10.2); CARBON DIOXIDE 26 mmol/L (22-30); CHLORIDE 102 mmol/L (98-107); GLUCOSE 112 mg/dL (75-110); POTASSIUM 4.1 mmol/L (3.6-5.0)
[2019-10-29] MEDS: LISINOPRIL 10 MG TABLET PO SCH (07:53)
[2019-10-29] MEDS: DIGOXIN 0.125 MG TABLET PO SCH (07:53)
[2019-10-29] MEDS: TAMSULOSIN HCL 0.4 MG CAP.SR.24H PO SCH (07:53)
[2019-10-29] MEDS: FUROSEMIDE 20 MG TABLET PO SCH (07:53)
[2019-10-29] MEDS: DILTIAZEM HCL 240 MG CAPSULE.CR PO SCH (07:53)
[2019-10-29] MEDS: AMLODIPINE BESYLATE 5 MG TABLET PO SCH (07:53)
[2019-10-29] MEDS: CLOPIDOGREL BISULFATE 75 MG TABLET PO SCH (09:16)
[2019-10-29] MEDS: METOPROLOL TARTRATE 25 MG TABLET PO SCH ×2 (09:16→22:30)
[2019-10-29] MEDS: METFORMIN HCL 500 MG TABLET PO SCH (09:16)
--- NOTE | 2019-10-29 11:18 | PDOC PROGRESS REPORT ---
Subjective Progress Note for:: 10/29/19 Subjective:: Patient states he feels well. Denies any shortness of breath chest pain fevers or chills. Incision scar in left lower extremity short started to open up a little bit when working with physical therapy. Reason For Visit: GI BLEED Physical Exam Vital Signs: Temp Pulse Resp BP Pulse Ox 98.0 F 61 16 119/62 98 10/29/19 07:36 10/29/19 10:33 10/29/19 10:33 10/29/19 07:36 10/29/19 10:33 Intake & Output 10/28/19 10/29/19 10/30/19 06:59 06:59 06:59 Intake Total 1425 1389 Output Total 850 1350 Balance 575 39 Weight 64 kg 61.9 kg General appearance: PRESENT: no acute distress, cooperative Respiratory exam: PRESENT: clear to auscultation elise, unlabored. ABSENT: tachypnea, wheezes Cardiovascular exam: PRESENT: irregular rhythm, +S1, +S2. ABSENT: tachycardia GI/Abdominal exam: PRESENT: normal bowel sounds, soft. ABSENT: rebound, rigid, tenderness Extremities exam: PRESENT: other - Dehiscence of left lower extremity incision Neurological exam: PRESENT: alert, awake, oriented to person, oriented to place, oriented to time Results Laboratory Results: 10/29/19 05:03 10/29/19 05:03 10/29/19 10/29/19 05:03 05:03 WBC 12.0 H RBC 2.92 L Hgb 9.0 L Hct 27.0 L MCV 92 MCH 30.9 MCHC 33.5 RDW 18.7 H Plt Count 355 Sodium 136.5 L Potassium 4.1 Chloride 102 Carbon Dioxide 26 Anion Gap 9 BUN 8 Creatinine 0.75 Est GFR ( Amer) > 60 Glucose 112 H Calcium 8.8 10/23/19 13:56 Blood Blood Culture - Final NO GROWTH IN 5 DAYS 10/23/19 13:49 Blood Blood Culture - Final NO GROWTH IN 5 DAYS 10/23/19 10:45 NT-Pro-B Natriuret Pep 3040 H Impressions: Chest X-Ray 10/23/19 12:48 IMPRESSION: 1. Examination is slightly limited as above. NO ACUTE RADIOGRAPHIC FINDING IN THE CHEST. Assessment and Plan - Diagnosis (1) Upper GI bleed Is this a current diagnosis for this admission?: Yes Plan: EGD done by surgicalist & Dr Peterson on 10/24/2019 showed small bleeding lesion just proximal to the ampulla suspected to be an AVM or Dieulafoy lesion. The lesion was ablated and Hemospray was done. Keep holding anticoagulation. Tolerated regular consistency diabetic/cardiac diet. Protonix BID. 10/29/2019 No recurrence of GI bleed (2) Anemia due to acute blood loss Is this a current diagnosis for this admission?: Yes Plan: Likely secondary to upper GI bleed Apparently, patient's hemoglobin had dropped from 15 in the past week to 7 on admission according to documentation Received 2 units of blood on admission Patient's hemoglobin is now holding steady at 8s-9s 10/29/2019-hemoglobin now holding steady. Continue PPI. Continue to hold Eliquis. (3) Buergers disease Is this a current diagnosis for this admission?: Yes Plan: Patient is status post left femoral and popliteal artery stenting with thrombectomy done at [facility] in [place] 7 days prior to presentation. Plavix restarted and will be continued 10/29/2019 continue Plavix and statin (4) COPD exacerbation Is this a current diagnosis for this admission?: Yes Plan: Mild exacerbation has resolved-nebulizers as needed (5) Diabetes mellitus type 2 in nonobese Is this a current diagnosis for this admission?: Yes Plan: Humalog sliding scale continue metformin. Accu-Cheks patient claims that he is not a diabetic but A1c is 6.8. 10/29/2019 continue metformin. Blood sugars acceptably controlled (6) Chronic atrial fibrillation Is this a current diagnosis for this admission?: Yes Plan: Continue Lopressor, digoxin and diltiazem Patient has a high CHADSVASC score of 5 which puts him at a high yearly stroke risk of 7.2%. However, he has HASBLED score of 4 which also puts him at a high risk of major bleeding including brain bleed of 8.9%. At this point, I will continue to hold Eliquis and I have spoken with patient's primary care provider Maile Roman PA-C regarding this plan who is ok with plan and she will follow-up with patient and have her office call patient tomorrow to discuss follow-up appointment. I will have also talked to patient about these risks versus benefits of holding Eliquis patient is agreeable with holding it for now but will discuss further with his to determine if it should be held on a long-term basis. 10/29/2019 continue to hold Eliquis. We will leave it up to primary care provider to determine if she wants to restart upon outpatient follow-up. So far patient is agreeable to keeping it on hold for now despite the risks after thorough explanation yesterday. (7) Surgical wound dehiscence Qualifiers: Encounter type: initial encounter Qualified Code(s): T81.31XA - Disruption of external operation (surgical) wound, not elsewhere classified, initial encounter Is this a current diagnosis for this admission?: Yes Plan: Patient's wound from his stenting of his LLE is dehiscent today after sutures were removed and patient worked with PT. Surgery to evaluate. (8) Constipation Qualifiers: Constipation type: unspecified constipation type Qualified Code(s): K59.00 - Constipation, unspecified Is this a current diagnosis for this admission?: Yes Plan: Today patient is open to docusate but still does not want any laxities. - Plan Summary Summary: Currently awaiting SNF placement - Time Time Spent with patient: 15-24 minutes
[2019-10-29] MEDS: DOCUSATE SODIUM 100 MG CAPSULE PO SCH ×2 (12:14→17:36)
[2019-10-29] MEDS: DIPHENHYDRAMINE HCL 25 MG CAPSULE PO PRN (22:29)
[2019-10-29] MEDS: ATORVASTATIN CALCIUM 80 MG TABLET PO SCH (22:30)
[2019-10-29] MEDS: LIDOCAINE 5% (700 MG) TRANSDERMAL ADH..PATCH TP SCH (22:34)
[2019-10-30 05:14] LABS: HEMATOCRIT 29.4 % (37.9-51.0); HEMOGLOBIN 9.9 g/dL (13.5-17.0); MEAN CORPUSCULAR HEMOGLOBIN 31.1 pg (27.0-33.4); MEAN CORPUSCULAR HGB CONC 33.7 g/dL (32.0-36.0); MEAN CORPUSCULAR VOLUME 92 fl (80-97); PLATELET COUNT 377 10^3/uL (150-450); RED BLOOD COUNT 3.18 10^6/uL (4.35-5.55)
[2019-10-30] MEDS: PANTOPRAZOLE SODIUM 40 MG TABLET.DR PO SCH (05:27)
[2019-10-30 05:37] LABS: ANION GAP 12 (5-19); BLOOD UREA NITROGEN 11 mg/dL (7-20); CALCIUM 8.9 mg/dL (8.4-10.2); CARBON DIOXIDE 26 mmol/L (22-30); CHLORIDE 98 mmol/L (98-107); GLUCOSE 112 mg/dL (75-110); POTASSIUM 4.2 mmol/L (3.6-5.0)
[2019-10-30] MEDS: AMLODIPINE BESYLATE 5 MG TABLET PO SCH (07:40)
[2019-10-30] MEDS: LISINOPRIL 10 MG TABLET PO SCH (07:40)
[2019-10-30] MEDS: DILTIAZEM HCL 240 MG CAPSULE.CR PO SCH (07:42)
[2019-10-30] MEDS: TAMSULOSIN HCL 0.4 MG CAP.SR.24H PO SCH (07:43)
[2019-10-30] MEDS: FUROSEMIDE 20 MG TABLET PO SCH (07:43)
[2019-10-30] MEDS: DIGOXIN 0.125 MG TABLET PO SCH (08:36)
[2019-10-30] MEDS: CLOPIDOGREL BISULFATE 75 MG TABLET PO SCH (09:40)
[2019-10-30] MEDS: METFORMIN HCL 500 MG TABLET PO SCH (09:41)
[2019-10-30] MEDS: DOCUSATE SODIUM 100 MG CAPSULE PO SCH (09:42)
[2019-10-30] MEDS: METOPROLOL TARTRATE 25 MG TABLET PO SCH (09:42)
--- NOTE | 2019-10-30 13:24 | PDOC DISCHARGE SUMMARY ---
Impression - Admit/DC Date/PCP Admission Date/Primary Care Provider: 10/23/19 20:07 SB FERNANDEZ Discharge Date: 10/30/19 - Discharge Diagnosis (1) Upper GI bleed Is this a current diagnosis for this admission?: Yes (2) Anemia due to acute blood loss Is this a current diagnosis for this admission?: Yes (3) Buergers disease Is this a current diagnosis for this admission?: Yes (4) COPD exacerbation Is this a current diagnosis for this admission?: Yes (5) Diabetes mellitus type 2 in nonobese Is this a current diagnosis for this admission?: Yes (6) Longstanding persistent atrial fibrillation Is this a current diagnosis for this admission?: Yes (7) Surgical wound dehiscence Is this a current diagnosis for this admission?: Yes (8) Constipation Is this a current diagnosis for this admission?: Yes - Assessment Summary: Refused SNF placement - Additional Information Resuscitation Status: Full Code Discharge Diet: Cardiac Discharge Activity: Activity As Tolerated, Balance Activity w/Rest Referrals: MAILE ROMAN PA [Primary Care Provider] - 11/07/19 10:00 am Prescriptions: Atorvastatin Calcium [Lipitor 80 mg Tablet] 80 mg PO QHS 14 Days #14 tablet Clopidogrel Bisulfate [Plavix 75 mg Tablet] 75 mg PO DAILY 14 Days #14 tablet Pantoprazole Sodium [Protonix [address] Tablet] 40 mg PO BID@0600,1700 14 Days #28 tablet.dr Home Medications: Acetaminophen [Tylenol] 650 mg PO Q6HP PRN 10/24/19 Amlodipine Besylate [Norvasc 5 mg Tablet] 5 mg PO QAM 10/24/19 Atorvastatin Calcium [Lipitor 80 mg Tablet] 80 mg PO QHS 10/24/19 Clopidogrel Bisulfate [Plavix 75 mg Tablet] 75 mg PO QAM 10/24/19 Digoxin [Lanoxin 0.125 mg Tablet] 0.125 mg PO QAM 10/24/19 Diltiazem HCl [Cardizem Cd 240 mg Capsule.cr] 240 mg PO QAM 10/24/19 Diphenhydramine HCl [Benadryl] 25 mg PO Q6HP PRN 10/24/19 Docusate Sodium [Colace] 100 mg PO BID 10/24/19 Furosemide [Lasix 20 mg Tablet] 20 mg PO QAM 10/24/19 Lidocaine [Lidoderm 5% (700 mg) Transdermal Patch] 1 patch TP QAM 10/24/19 Linezolid [Zyvox 600 mg Tablet] 600 mg PO Q12 10/24/19 Lisinopril [Prinivil 10 mg Tablet] 10 mg PO QAM 10/24/19 Metformin HCl [Glucophage] 1,000 mg PO QAM 10/24/19 Metoprolol Tartrate [Lopressor 25 mg Tablet] 12.5 mg PO Q12 10/24/19 Multivitamin with Minerals [One Daily Plus Minerals] 1 each PO QAM 10/24/19 Nystatin [Mycostatin 672597 Unit/1 ml Susp 60 ml Btl] 5 ml PO QID 10/24/19 Oxycodone HCl [Oxy-Ir 5 mg Tablet] 5 mg PO Q4HP PRN 10/24/19 Polyethylene Glycol 3350 [Miralax Powder 17 gm/Packet] 1 packet PO QAM 10/24/19 Sennosides [Senna] 17.2 mg PO QPM 10/24/19 Tamsulosin HCl [Flomax] 0.4 mg PO QAM 10/24/19 Atorvastatin Calcium [Lipitor 80 mg Tablet] 80 mg PO QHS 14 Days #14 tablet 10/30/19 Clopidogrel Bisulfate [Plavix 75 mg Tablet] 75 mg PO DAILY 14 Days #14 tablet 10/30/19 Docusate Sodium [Colace 100 mg Capsule] 100 mg PO BID capsule 10/30/19 Metformin HCl [Glucophage 500 mg Tablet] 1,000 mg PO DAILY tablet 10/30/19 Pantoprazole Sodium [Protonix [address] Tablet] 40 mg PO BID@0600,1700 14 Days #28 tablet. 10/30/19 History of Present Illiness History of Present Illness: RAJAN KEARNEY is a 74 year old male with a complex medical history. Due to his Buerger's disease he had a left femoral and popliteal arterial stent with thrombectomy 1 week ago at [facility]. Follow-up labs revealed a hemoglobin of 7 down from 15. He was referred to the emergency department. His hemoglobin was indeed 7 and he admits to 6 days of black stool. Stool is Hem occult positive. He was referred to hospital service for admission. The emergency room physician did speak to the vascular surgeon in [place] who recommended temporarily holding Plavix. 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 This was ablated. He was placed on twice daily Protonix. The patient is on Plavix. The Eliquis is currently being held. This was per discussion between and the patient's primary care provider Maile Roman PA-C. She will follow-up with the patient shortly in decide when to resume the Eliquis. Because of the arterial stents Plavix will be continued. The patient did receive a total of 2 units of packed red blood cells and his hemoglobin has been stable. In addition the sutures from his leg incision were removed and slight dehiscence was noted. Surgery then applied Steri-Strips. The patient reports that he is not having follow-up with the vascular surgeon. [place] too far away. I encouraged him to discuss these issues with his primary care provider. Physical Exam Vital Signs: Temp Pulse Resp BP Pulse Ox 98.6 F 80 17 117/45 L 95 10/30/19 11:32 10/30/19 11:32 10/30/19 11:32 10/30/19 11:32 10/30/19 11:32 Intake & Output 10/29/19 10/30/19 10/31/19 06:59 06:59 06:59 Intake Total 1389 580 Output Total 1350 900 Balance 39 -320 Weight 61.9 kg 59.2 kg General appearance: PRESENT: no acute distress, cooperative, well-developed Head exam: PRESENT: atraumatic, normocephalic Eye exam: PRESENT: conjunctiva pink. ABSENT: scleral icterus Respiratory exam: PRESENT: clear to auscultation elise, unlabored. ABSENT: rales, rhonchi, wheezes Cardiovascular exam: PRESENT: irregular rhythm, +S1, +S2 GI/Abdominal exam: PRESENT: normal bowel sounds, soft. ABSENT: distended, tenderness Rectal exam: PRESENT: deferred Extremities exam: PRESENT: other - Steri-Stripped incision with some dried drainage left leg. No erythema.. ABSENT: pedal edema Musculoskeletal exam: PRESENT: ambulatory. ABSENT: deformity Neurological exam: PRESENT: alert, awake, oriented to person, oriented to place, oriented to time, oriented to situation, CN II-XII grossly intact Psychiatric exam: PRESENT: flat affect. ABSENT: agitated, anxious Focused psych exam: ABSENT: delusional, restlessness Skin exam: PRESENT: other - Healing incision as above Results Laboratory Results: WBC 12.0 10^3/uL (4.0-10.5) H 10/30/19 04:14 RBC 3.18 10^6/uL (4.35-5.55) L 10/30/19 04:14 Hgb 9.9 g/dL (13.5-17.0) L 10/30/19 04:14 Hct 29.4 % (37.9-51.0) L 10/30/19 04:14 MCV 92 fl (80-97) 10/30/19 04:14 MCH 31.1 pg (27.0-33.4) 10/30/19 04:14 MCHC 33.7 g/dL (32.0-36.0) 10/30/19 04:14 RDW 18.0 % (11.5-14.0) H 10/30/19 04:14 Plt Count 377 10^3/uL (150-450) 10/30/19 04:14 Lymph % (Auto) 14.0 % (13-45) 10/24/19 06:12 [place] % (Auto) 7.5 % (3-13) 10/24/19 06:12 Eos % (Auto) 1.6 % (0-6) 10/24/19 06:12 Baso % (Auto) 0.4 % (0-2) 10/24/19 06:12 Reticulocyte # 0.153 10^6/uL (0.028-0.122) H 10/23/19 10:45 Absolute Neuts (auto) 11.2 10^3/uL (1.7-8.2) H 10/24/19 06:12 Absolute Lymphs (auto) 2.0 10^3/uL (0.5-4.7) 10/24/19 06:12 Absolute Monos (auto) 1.1 10^3/uL (0.1-1.4) 10/24/19 06:12 Absolute Eos (auto) 0.2 10^3/uL (0.0-0.6) 10/24/19 06:12 Absolute Basos (auto) 0.1 10^3/uL (0.0-0.2) 10/24/19 06:12 Seg Neutrophils % 76.5 % (42-78) 10/24/19 06:12 Retic Count (auto) 6.66 % (0.66-2.85) H 10/23/19 10:45 Sodium 135.7 mmol/L (137-145) L 10/30/19 04:14 Potassium 4.2 mmol/L (3.6-5.0) 10/30/19 04:14 Chloride 98 mmol/L (98-107) 10/30/19 04:14 Carbon Dioxide 26 mmol/L (22-30) 10/30/19 04:14 Anion Gap 12 (5-19) 10/30/19 04:14 BUN 11 mg/dL (7-20) 10/30/19 04:14 Creatinine 0.74 mg/dL (0.52-1.25) 10/30/19 04:14 Est GFR ( Amer) > 60 (>60) 10/30/19 04:14 Est GFR (MDRD) Non-Af > 60 (>60) 10/30/19 04:14 Glucose 112 mg/dL (75-110) H 10/30/19 04:14 POC Glucose 148 mg/dL (70-110) H 10/24/19 18:41 Hemoglobin A1c % 6.8 % (4.7-6.0) H 10/28/19 04:38 Lactic Acid (Sepsis) 1.5 mmol/L (0.7-2.1) 10/23/19 20:27 Calcium 8.9 mg/dL (8.4-10.2) 10/30/19 04:14 Iron 82.9 ug/dL (49-181) 10/23/19 10:45 TIBC 218 ug/dL (250-450) L 10/23/19 10:45 % Saturation 38 % 10/23/19 10:45 Ferritin 163.00 ng/mL (17.9-464.0) 10/23/19 10:45 Total Bilirubin 0.3 mg/dL (0.2-1.3) 10/23/19 10:45 Direct Bilirubin 0.2 mg/dL (0.0-0.4) 10/23/19 10:45 Neonat Total Bilirubin Not Reportable 10/23/19 10:45 Neonat Direct Bilirubin Not Reportable 10/23/19 10:45 Neonat Indirect Bili Not Reportable 10/23/19 10:45 AST 17 U/L (17-59) 10/23/19 10:45 ALT 10 U/L (<50) 10/23/19 10:45 Alkaline Phosphatase 95 U/L (38-126) 10/23/19 10:45 NT-Pro-B Natriuret Pep 3040 pg/mL (<450) H 10/23/19 10:45 Total Protein 6.2 g/dL (6.3-8.2) L 10/23/19 10:45 Albumin 3.1 g/dL (3.5-5.0) L 10/23/19 10:45 Vitamin B12 443.0 pg/mL (239-931) 10/23/19 10:45 Folate 13.60 ng/mL (>2.76) 10/23/19 10:45 Urine Color STRAW 10/23/19 10:45 Urine Appearance CLEAR 10/23/19 10:45 Urine pH 5.0 (5.0-9.0) 10/23/19 10:45 Ur Specific [place] 1.009 10/23/19 10:45 Urine Protein NEGATIVE mg/dL (NEGATIVE) 10/23/19 10:45 Urine Glucose (UA) NEGATIVE mg/dL (NEGATIVE) 10/23/19 10:45 Urine Ketones NEGATIVE mg/dL (NEGATIVE) 10/23/19 10:45 Urine Blood NEGATIVE (NEGATIVE) 10/23/19 10:45 Urine Nitrite (Reflex) NEGATIVE (NEGATIVE) 10/23/19 10:45 Urine Bilirubin NEGATIVE (NEGATIVE) 10/23/19 10:45 Urine Urobilinogen NEGATIVE mg/dL (<2.0) 10/23/19 10:45 Leukocyte Esterase Rfl NEGATIVE (NEGATIVE) 10/23/19 10:45 Urine RBC (Auto) 0 /HPF 10/23/19 10:45 U Hyaline Cast (Auto) 3 /LPF 10/23/19 10:45 Urine WBC (Reflex) < 1 /HPF 10/23/19 10:45 Squamous Epi Cells Auto <1 /HPF 10/23/19 10:45 Urine Mucus (Auto) RARE /LPF 10/23/19 10:45 Urine Ascorbic Acid NEGATIVE (NEGATIVE) 10/23/19 10:45 POC Stool Occult Blood POSITIVE (NEGATIVE) 10/23/19 15:06 Digoxin 0.92 ng/mL (0.8-2.0) 10/30/19 04:14 Blood Type B POSITIVE 10/23/19 10:45 Blood Type Confirm B POSITIVE 10/23/19 13:49 Antibody Screen NEGATIVE 10/23/19 10:45 Crossmatch See Detail 10/23/19 10:45 10/23/19 10:45 NT-Pro-B Natriuret Pep 3040 H Impressions: Chest X-Ray 10/23/19 12:48 IMPRESSION: 1. Examination is slightly limited as above. NO ACUTE RADIOGRAPHIC FINDING IN THE CHEST. Plan Health Concerns: Current antiplatelet therapy as well as resuming anticoagulant therapy for persistent atrial fibrillation versus risk of recurrent bleeding. Plan of Treatment: Hold Eliquis. Resume Plavix. Follow-up with primary care provider. We will need repeat endoscopy. Will defer to primary care provider and gastroenterology. Goals: Appropriate treatment for peripheral arterial disease, atrial fibrillation without recurrent gastrointestinal bleeding. Time Spent: Greater than 30 Minutes Stroke Is this a Stroke Patient?: No Acute Heart Failure - Is this a Heart Failure Patient?: No
[2019-10-30 14:17] VITALS: BP 119/40
== END 2019-10-30 14:55 | disposition home health service (06) | DRG 378 ==
LOC: ER 10:16 → EH 20:07 → 3W 10-24 14:34
PROVIDERS: ADMIT Internal Medicine; ATTEND Internal Medicine
PROC: 30233N1 Transfusion of Nonautologous Red Blood Cells into Peripheral Vein, Percutaneous Approach (ICD-10-PCS; 2019-10-23)
PROC: 0W3P8ZZ Control Bleeding in Gastrointestinal Tract, Via Natural or Artificial Opening Endoscopic (ICD-10-PCS; principal; 2019-10-24 11:37)
PROC: 0DJ08ZZ Inspection of Upper Intestinal Tract, Via Natural or Artificial Opening Endoscopic (ICD-10-PCS; 2019-10-24 11:37)
DX: K31.82 Dieulafoy lesion (hemorrhagic) of stomach and duodenum (principal); D62 Acute posthemorrhagic anemia; J44.1 Chronic obstructive pulmonary disease with (acute) exacerbation; I48.11 Longstanding persistent atrial fibrillation; T81.31XA Disruption of external operation (surgical) wound, not elsewhere classified, initial encounter; I73.1 Thromboangiitis obliterans [Buerger's disease]; E11.51 Type 2 diabetes mellitus with diabetic peripheral angiopathy without gangrene; K59.00 Constipation, unspecified; E78.5 Hyperlipidemia, unspecified; I10 Essential (primary) hypertension; K21.9 Gastro-esophageal reflux disease without esophagitis; R00.1 Bradycardia, unspecified; Z79.02 Long term (current) use of antithrombotics/antiplatelets; Z79.84 Long term (current) use of oral hypoglycemic drugs; Z95.820 Peripheral vascular angioplasty status with implants and grafts; Z87.891 Personal history of nicotine dependence; Z83.6 Family history of other diseases of the respiratory system; Q27.33 Arteriovenous malformation of digestive system vessel
CPT/HCPCS: 36415; 36430; 43235; 43255; 71045; 80048; 80053; 80162; 81001; 82607; 82728; 82746; 82962; 83036; 83540; 83550; 83605; 83880; 85025; 85027; 85045; 86850; 86900; 86901; 86920; 87040; 93005; 93010; 93926; 94640; 96374; 99285; C9113; J0171; J1200; J1610; J1644; J2250; J2310; J2405; J3010; J3490; J7030; J7050; J7620; P9016

== ENCOUNTER 2019-11-28 12:19 | Emergency (ER) | payer MEDICARE ==
--- NOTE | 2019-11-28 13:42 | ER Document Report ---
ED Medical Screen (RME) - General Chief Complaint: Chest Pain Stated Complaint: CHEST PAIN Time Seen by Provider: 11/28/19 13:36 Primary Care Provider: LALITA EDWARD PA [Primary Care Provider] - Follow up as needed TRAVEL OUTSIDE OF THE [place] IN LAST 30 DAYS: No - HPI Notes: 11/28/19 13:48 74-year-old male with a history of COPD, GI bleed in oct 2019, left lower extremity thrombectomy with a blood clot in [place] at the end of September 2019, a fib and is taking Plavix, type 2 diabetes presents emergency room with left sided chest pain and shortness of breath for the last 3 days. States CP radiates to his left shoulder, comes and goes. sharp in characteristics. Patient reports decreased appetite and drinking, weakness. Patient takes Plavix daily. I have greeted and performed a rapid initial assessment of this patient. A comprehensive ED assessment and evaluation of the patient, analysis of test results and completion of the medical decision making process will be conducted by additional ED providers. PHYSICAL EXAMINATION: GENERAL: Chronically ill, malnourished and in no acute distress. HEAD: Atraumatic, normocephalic. EYES: Pupils equal round extraocular movements intact, conjunctiva are normal. NECK: Normal range of motion CV: s1, s2 regular LUNGS: Diminished breath sounds throughout NEUROLOGICAL: Normal speech, generalized weakness SKIN: Warm, Dry, normal turgor, no rashes or lesions noted. - Related Data Allergies/Adverse Reactions: No Known Allergies Allergy (Verified 10/08/19 04:51) Past Medical History - Past Medical History Cardiac Medical History: Reports: Hx Atrial Fibrillation, Hx Hypercholesterolemia, Hx Hypertension, Hx Peripheral Vascular Disease Denies: Hx Heart Attack Pulmonary Medical History: Reports: Hx Bronchitis, Hx COPD, Hx Pneumonia - more than 16 times Denies: Hx Asthma, Hx Intubation, Hx Respiratory Failure Neurological Medical History: Denies: Hx Cerebrovascular Accident, Hx Seizures Endocrine Medical History: Reports: Hx Diabetes Mellitus Type 2. Denies: Hx Diabetes Mellitus Type 1, Hx Hyperthyroidism, Hx Hypothyroidism Renal/ Medical History: Denies: Hx Peritoneal Dialysis Malignancy Medical History: Reports Hx Prostate Cancer GI Medical History: Reports: Hx Gastroesophageal Reflux Disease. Denies: Hx Cirrhosis, Hx Hepatitis, Hx Hiatal Hernia, Hx Ulcer Musculoskeltal Medical History: Denies Hx Arthritis, Denies Hx Gout Skin Medical History: Denies Hx Eczema, Denies Hx Psoriasis Infectious Medical History: Denies: Hx Hepatitis Past Surgical History: Reports: Hx Abdominal Surgery, Hx Vascular Surgery, Other - Prostatectomy. Recent stent placement in lower extremities.. Denies: Hx Open Heart Surgery, Hx Pacemaker - Immunizations Hx Diphtheria, Pertussis, Tetanus Vaccination: Yes - <5 years Physical Exam - Vital signs Vitals: Temp Pulse Resp BP Pulse Ox 97.8 F 89 16 107/61 93 11/28/19 13:22 11/28/19 13:22 11/28/19 13:22 11/28/19 13:22 11/28/19 13:22 Course - Vital Signs Vital signs: Temp Pulse Resp BP Pulse Ox 97.8 F 89 16 107/61 93 11/28/19 13:22 11/28/19 13:22 11/28/19 13:22 11/28/19 13:22 11/28/19 13:22 Doctor's Discharge - Discharge Referrals: LALITA EDWARD PA [Primary Care Provider] - Follow up as needed
[2019-11-28 14:07] LABS: ABSOLUTE BASOPHILS # (AUTO) 0.1 10^3/uL (0.0-0.2); ABSOLUTE LYMPHOCYTES (AUTO) 1.6 10^3/uL (0.5-4.7); ABSOLUTE MONOCYTES (AUTO) 1.4 10^3/uL (0.1-1.4); ABSOLUTE NEUT (AUTO) 14.4 10^3/uL (1.7-8.2); BASOPHILS % (AUTO) 0.5 % (0-2); EOSINOPHILS % (AUTO) 0.1 % (0-6); HEMATOCRIT 39.6 % (37.9-51.0); HEMOGLOBIN 13.1 g/dL (13.5-17.0); LYMPHOCYTES % (AUTO) 9.1 % (13-45); MEAN CORPUSCULAR HEMOGLOBIN 30.1 pg (27.0-33.4); MEAN CORPUSCULAR HGB CONC 33.2 g/dL (32.0-36.0); MEAN CORPUSCULAR VOLUME 91 fl (80-97); MONOCYTES % (AUTO) 7.9 % (3-13); PLATELET COUNT 379 10^3/uL (150-450); RED BLOOD COUNT 4.36 10^6/uL (4.35-5.55); RED CELL DISTRIBUTION WIDTH 17.2 % (11.5-14.0); SEGMENTED NEUTROPHILS % (AUTO) 82.4 % (42-78); TOTAL CELLS COUNTED % (AUTO) 100 %; WHITE BLOOD COUNT 17.4 10^3/uL (4.0-10.5)
[2019-11-28 14:16] LABS: INTERNATIONAL RATION (INR) 1.16; PARTIAL THROMBOPLASTIN TIME 35.8 SEC (23.5-35.8); PROTHROMBIN TIME 14.9 SEC (11.4-15.4)
--- NOTE | 2019-11-28 14:59 | RADIOLOGY REPORT (SQ) ---
EXAM DESCRIPTION: CHEST SINGLE VIEW COMPLETED DATE/TIME: 11/28/2019 2:32 pm REASON FOR STUDY: chest pain COMPARISON: 10/23/2019 NUMBER OF VIEWS: One view. TECHNIQUE: Single frontal radiographic view of the chest acquired. LIMITATIONS: None. FINDINGS: LUNGS AND PLEURA: No opacities, masses or pneumothorax. No pleural effusion. Attenuated bl ood vessels and flattened philip-diaphragms. MEDIASTINUM AND HILAR STRUCTURES: No masses. Contour normal. HEART AND VASCULAR STRUCTURES: Heart normal in size. Normal vasculature. BONES: No acute findings. HARDWARE: None in the chest. OTHER: No other significant finding. IMPRESSION: COPD. NO ACUTE RADIOGRAPHIC FINDING IN THE CHEST. TECHNICAL DOCUMENTATION: JOB ID: [id number] [employer]- All Rights Reserved Reading location - IP/workstation name: [email or web address]
[2019-11-28 15:00] LABS: ALBUMIN 4.3 g/dL (3.5-5.0); ALKALINE PHOSPHATASE 114 U/L (38-126); ANION GAP 15 (5-19); ASPARTATE AMINO TRANSFERASE 21 U/L (17-59); BILIRUBIN,DIRECT 0.3 mg/dL (0.0-0.4); BILIRUBIN,TOTAL 0.7 mg/dL (0.2-1.3); BLOOD UREA NITROGEN 35 mg/dL (7-20); CALCIUM 10.4 mg/dL (8.4-10.2); CARBON DIOXIDE 22 mmol/L (22-30); CHLORIDE 99 mmol/L (98-107); GLUCOSE 207 mg/dL (75-110); POTASSIUM 5.5 mmol/L (3.6-5.0); TOTAL PROTEIN 8.1 g/dL (6.3-8.2)
--- NOTE | 2019-11-28 17:34 | RADIOLOGY REPORT (SQ) ---
EXAM DESCRIPTION: CTA CHEST COMPLETED DATE/TIME: 11/28/2019 3:55 pm REASON FOR STUDY: sob with cp, dx w/ DVT x 1 month ago COMPARISON: None. TECHNIQUE: CT scan of the chest performed using helical scanning technique with dynamic intravenous contrast injection. Images reviewed with lung, soft tissue and bone windows. Reconstructed coronal and sagittal MPR images reviewed. Additional 3 dimensional post-processing performed to develop Maximal Intensity Projection images (MO P). All images stored on PACS. All CT scanners at this facility use dose modulation, iterative reconstruction, and/or weight based d osing when appropriate to reduce radiation dose to as low as reasonably achievable (ALARA). [facility]: Dose Right [facility]: CareDose [facility]: Dose Right [facility]: Teradose 4D [facility]: [place] CONTRAST TYPE AND DOSE: contrast/concentration: Isovue 350.00 mg/ml; Total Contrast Delivered: 50.0 ml; Total Saline Delivered: 61.0 ml Contrast bolus optimized for the pulmonary arteries. Not diagnostic for the aorta. RENAL FUNCTION: GFR > 60. RADIATION DOSE: CT Rad equipment meets quality standard of care and radiation dose reduction techniq ues were employed. CTDIvol: 14.3 - 19.8 mGy. DLP: 564 mGy-cm. . LIMITATIONS: None. FINDINGS: LUNGS AND PLEURA: The trachea has normal caliber and appearance. Background severe pulmon macy emphysema. No focal consolidation. There is an 8 mm solid noncalcified nodule at the right lung base (image 103), indeterminate. No pleural effusion or pneumothorax. AORTA AND GREAT VESSELS: There is extensive atherosclerotic calcification of the ascending aorta with ectasia measuring up to 3.9 cm diameter. No aneurysm. No dissection or significant plaque ulcerati on. 3 great vessels arise from the cephalad portion of the aortic arch. There is at least 50% steno sis of the right brachiocephalic artery near the origin secondary to calcified and noncalcified ather osclerotic plaque. No dissection. There is also narrowing of the proximal left subclavian artery ne ar its origin. The aortic arch and descending thoracic aorta have normal caliber. There is calcifie d and noncalcified atherosclerotic plaque. No periaortic fluid or inflammatory change. HEART: There is a small pericardial effusion/pericardial thickening. Heart is mildly enlarged. No si gnificant coronary artery calcifications. PULMONARY ARTERIES: No emboli visualized in the main pulmonary arteries or the segmental branches. HILAR AND MEDIASTINAL STRUCTURES: No identified masses or abnormal nodes. HARDWARE: None in the chest. UPPER ABDOMEN: Indeterminate 1.4 cm left adrenal nodule. Diffuse thickening of the right adrenal gla nd without focal nodularity. Right superior pole renal cortical cyst. Splenules are noted in the le ft upper abdomen. THYROID AND OTHER SOFT TISSUES: No masses. No adenopathy. BONES: No acute or significant finding. 3D MIPS: Confirm above findings. OTHER: No other significant finding. IMPRESSION: 1. No pulmonary embolism. No acute pulmonary disease. 2. Background severe pulmonary emphysema. 3. Indeterminate 8 mm solid nodule right lung base. A follow-up CT of the chest in 3 months is recom mended for re-evaluation. 4. 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 Clinical cor relation is recommended. There is also stenosis at the origin of the left subclavian artery which is of indeterminate significance. 5. Indeterminate left adrenal nodule and thickening of the right adrenal gland. These could be furth er evaluated with adrenal protocol CT or MRI as clinically indicated. COMMENT: Quality ID # [id number]: Final reports with documentation of one or more dose reduction techniques (e.g., Automated exposure control, adjustment of the mA and/or kV according to patient size, use of iterative reconstruction technique) TECHNICAL DOCUMENTATION: JOB ID: [id number] [employer]- All Rights Reserved Reading location - IP/workstation name: [email or web address]
[2019-11-28] MEDS ORDERED: HYDROCODONE/ACETAMINOPHEN 5-325 MG TABLET PO ONE ×2 (18:00→22:07)
[2019-11-28] MEDS ORDERED: NORMAL SALINE 500 ML IV ONE (18:00)
[2019-11-28 18:12] LABS: APPEARANCE,URINE SLIGHTLY-CLOUDY; BILIRUBIN,URINE NEGATIVE (NEGATIVE); COLOR,URINE YELLOW; GLUCOSE, URINE NEGATIVE (NEGATIVE); KETONES,URINE NEGATIVE (NEGATIVE); LEUKOCYTE ESTERASE,URINE NEGATIVE (NEGATIVE); NITRITE,URINE NEGATIVE (NEGATIVE); PROTEIN,URINE 100 mg/dL (NEGATIVE); URINE SPECIFIC GRAVITY 1.033; UROBILINOGEN,URINE NEGATIVE mg/dL (<2.0)
[2019-11-28] MEDS ORDERED: METOPROLOL TARTRATE 25 MG TABLET PO ONE (20:08)
--- NOTE | 2019-11-28 20:08 | ER Document Report ---
ED General - General Chief Complaint: Chest Pain Stated Complaint: CHEST PAIN Time Seen by Provider: 11/28/19 13:36 Primary Care Provider: LALITA EDWARD PA [Primary Care Provider] - Follow up tomorrow TRAVEL OUTSIDE OF THE [place] IN LAST 30 DAYS: No - HPI Notes: 74 year old male to the ED with C/O chest pain for the past two days, that is most painful with big deep breaths. Patient also admits to a cough. States he feels a little short of breath sometimes. He was seen here and then transferred to [facility] for vascular surgeon. He has a large DVT in his leg which required thrombectomy. He is currently on a blood thinner. He has been faithful on it. Denies any fevers, chills, NV, diarrhea, or any other plans. - Related Data Allergies/Adverse Reactions: No Known Allergies Allergy (Verified 10/08/19 04:51) Home Medications: Plavix 75mg Past Medical History - General Information source: Patient - Social History Smoking Status: Current Every Day Smoker Frequency of alcohol use: None Drug Abuse: None Lives with: Alone Family History: COPD Patient has suicidal ideation: No Patient has homicidal ideation: No - Past Medical History Cardiac Medical History: Reports: Hx Atrial Fibrillation, Hx Hyperchol esterolemia, Hx Hypertension, Hx Peripheral Vascular Disease Denies: Hx Heart Attack Pulmonary Medical History: Reports: Hx Bronchitis, Hx COPD, Hx Pneumonia - more than 16 times Denies: Hx Asthma, Hx Intubation, Hx Respiratory Failure Neurological Medical History: Denies: Hx Cerebrovascular Accident, Hx Seizures Endocrine Medical History: Reports: Hx Diabetes Mellitus Type 2. Denies: Hx Diabetes Mellitus Type 1, Hx Hyperthyroidism, Hx Hypothyroidism Renal/ Medical History: Denies: Hx Peritoneal Dialysis Malignancy Medical History: Reports Hx Prostate Cancer GI Medical History: Reports: Hx Gastroesophageal Reflux Disease. Denies: Hx Cir rhosis, Hx Hepatitis, Hx Hiatal Hernia, Hx Ulcer Musculoskeletal Medical History: Denies Hx Arthritis, Denies Hx Gout Skin Medical History: Denies Hx Eczema, Denies Hx Psoriasis Infectious Medical History: Denies: Hx Hepatitis Past Surgical History: Reports: Hx Abdominal Surgery, Hx Vascular Surgery, Other - Prostatectomy. Recent stent placement in lower extremities.. Denies: Hx Open Heart Surgery, Hx Pacemaker - Immunizations Hx Diphtheria, Pertussis, Tetanus Vaccination: Yes - <5 years Review of Systems - Review of Systems Constitutional: denies: See HPI, Chills, Fever EENT: denies: Nose congestion, Nose discharge, Throat pain Cardiovascular: denies: Chest pain, Dyspnea, Syncope, Dizziness, Lightheaded Respiratory: Cough, Hurts to breathe, Short of breath Gastrointestinal: denies: Abdominal pain, Diarrhea, Nausea, Vomiting Genitourinary: No symptoms reported Male Genitourinary: No symptoms reported Musculoskeletal: No symptoms reported Skin: No symptoms reported Hematologic/Lymphatic: No symptoms reported Neurological/Psychological: No symptoms reported -: Yes All other systems reviewed and negative Physical Exam - Vital signs Vitals: Temp Pulse Resp BP Pulse Ox 97.8 F 89 16 107/61 93 11/28/19 13:22 11/28/19 13:22 11/28/19 13:22 11/28/19 13:22 11/28/19 13:22 - General General appearance: Appears well, Alert In distress: None - HEENT Head: Normocephalic, Atraumatic Eyes: Normal Pupils: PERRL Ears: Normal External canal: Normal Tympanic membrane: Normal Sinus: No: Normal Nasal: Normal Mouth/Lips: Normal. No: Angioedema Mucous membranes: Normal Pharynx: Normal. No: Retropharyngeal abscess, Tonsillar hypertrophy, Potential airway comprom. Neck: Normal, Supple. No: Lymphadenopathy, Meningismus - Respiratory Respiratory status: No respiratory distress Chest status: Nontender Breath sounds: Normal, Nonproductive cough - hacking cough. Only on occasion does he bring up sputum. Mild rhonchi,., Rhonchi. No: Rales, Stridor, Wheezing Chest palpation: Normal - Cardiovascular Rhythm: Regular Heart sounds: Normal auscultation Murmur: No Notes: chest wall is TTP oer the anterior portion. There is no step off or TTP. - Abdominal Inspection: Normal Distension: No distension Bowel sounds: Normal Tenderness: Nontender Organomegaly: No organomegaly - Back Back: Normal, Nontender - Extremities General upper extremity: Normal inspection, Nontender, Normal color, Normal ROM, Normal temperature General lower extremity: Normal inspection, Nontender, Normal color, Normal ROM, Normal temperature, Normal weight bearing. 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 Labs are reassuring. Mostly improvement, no PE in chest after CTA. Will send patient home and encouraged to follow up with PCP without fail. Encourages to return he is worsening. - Vital Signs Vital signs: Temp Pulse Resp BP Pulse Ox 98.4 F 89 13 99/67 L 100 11/28/19 18:01 11/28/19 13:22 11/28/19 23:01 11/28/19 23:00 11/28/19 23:01 - Laboratory Result Diagrams: 11/28/19 13:56 11/28/19 13:56 Laboratory results interpreted by me: 11/28/19 11/28/19 11/28/19 13:56 13:56 17:30 WBC 17.4 H Hgb 13.1 L RDW 17.2 H Lymph % (Auto) 9.1 L Absolute Neuts (auto) 14.4 H Seg Neutrophils % 82.4 H Sodium 135.8 L Potassium 5.5 H BUN 35 H Creatinine 1.26 H Est GFR (MDRD) Non-Af 56 L Glucose 207 H Calcium 10.4 H Urine Protein 100 H Urine Ascorbic Acid 40 H - Diagnostic Test Radiology reviewed: Image reviewed, Reports reviewed - EKG Interpretation by Me Additional EKG results interpreted by me: 11/29/19 rate: 101, rhythm: atrial fibrillation. no STEMI, hx of atrial fibrillation. no significant change from prior. Discharge - Discharge Clinical Impression: Musculoskeletal chest pain, Bronchitis, Leukocytosis Condition: Stable Disposition: HOME, SELF-CARE Instructions: Chest Wall Pain ([facility]) Additional Instructions: PUSH FLUIDS. REST AT HOME. USE INCENTIVE SPIROMETER. SEE PRIMARY CARE TOMORROW. RETURN IF WORSENING SYMPTOMS. YOU DID HAVE COPD ON YOUR CHEST CT and THERE WAS A NODULE. THIS NODULE NEEDS TO BE MONITORED AND A REPEAT CT NEEDS TO BE DONE IN 3 MONTHS. Prescriptions: Hydrocodone/Acetaminophen [[place] 5-325 mg Tablet] 1 tab PO Q6H #10 tablet Referrals: LALITA EDWARD PA [Primary Care Provider] - Follow up tomorrow
--- NOTE | 2019-11-28 21:56 | EKG REPORT ---
SEVERITY:- ABNORMAL ECG - ATRIAL FIBRILLATION, V-RATE 89-113 NON-SPECIFIC ST-T WAVE CHANGES CONSISTENT WITH ISCHEMIA VERSUS LVH : Confirmed by: Everardo Rocha 28-Nov-2019 21:56:10
[2019-11-28 23:24] VITALS: BP 99/67
== END 2019-11-28 23:47 | disposition home or self-care (01) ==
LOC: ER 12:19
DX: J40 Bronchitis, not specified as acute or chronic (principal); R07.89 Other chest pain; D72.829 Elevated white blood cell count, unspecified; R06.00 Dyspnea, unspecified; I48.91 Unspecified atrial fibrillation; E78.00 Pure hypercholesterolemia, unspecified; I10 Essential (primary) hypertension; E11.9 Type 2 diabetes mellitus without complications; Z79.02 Long term (current) use of antithrombotics/antiplatelets; Z85.46 Personal history of malignant neoplasm of prostate
CPT/HCPCS: 93005; 99285; 36415; 87040; 87070; 87880; 83605; 85025; 85610; 85730; 80053; 81001; 84484; 71045; 71275; 93010; J7040; A9270 ×2

== ENCOUNTER 2019-12-16 12:48 | Emergency (ER) | payer MEDICARE ==
[2019-12-16] MEDS ORDERED: HYDROMORPHONE HCL INJ/PF 2 MG/ML AMPULE IV ONE (13:10)
--- NOTE | 2019-12-16 13:14 | ER Document Report ---
ED General - General Chief Complaint: Leg Pain Stated Complaint: LEG PAIN Time Seen by Provider: 12/16/19 13:05 Primary Care Provider: LALITA EDWARD PA [Primary Care Provider] - Follow up as needed Notes: Presents with worsening left lower extremity pain, for about 3 days with some paresthesia on that side, now unable to walk. History of peripheral vascular disease and smoking, had a major procedure [facility] done couple of months ago but is not sure what it wasappears to be fasciotomy and clot retrieval? No longer smoking. TRAVEL OUTSIDE OF THE [place] IN LAST 30 DAYS: No - Related Data Allergies/Adverse Reactions: No Known Allergies Allergy (Verified 10/08/19 04:51) Past Medical History - Social History Smoking Status: Former Smoker Family History: COPD - Past Medical History Cardiac Medical History: Reports: Hx Atrial Fibrillation, Hx Hypercholesterolemia, Hx Hypertension, Hx Peripheral Vascular Disease Denies: Hx Heart Attack Pulmonary Medical History: Reports: Hx Bronchitis, Hx COPD, Hx Pneumonia - more than 16 times Denies: Hx Asthma, Hx Intubation, Hx Respiratory Failure Neurological Medical History: Denies: Hx Cerebrovascular Accident, Hx Seizures Endocrine Medical History: Reports: Hx Diabetes Mellitus Type 2. Denies: Hx Diabetes Mellitus Type 1, Hx Hyperthyroidism, Hx Hypothyroidism Renal/ Medical History: Denies: Hx Peritoneal Dialysis Malignancy Medical History: Reports Hx Prostate Cancer GI Medical History: Reports: Hx Gastroesophageal Reflux Disease. Denies: Hx Cirrhosis, Hx Hepatitis, Hx Hiatal Hernia, Hx Ulcer Musculoskeletal Medical History: Denies Hx Arthritis, Denies Hx Gout Skin Medical History: Denies Hx Eczema, Denies Hx Psoriasis Infectious Medical History: Denies: Hx Hepatitis Past Surgical History: Reports: Hx Abdominal Surgery, Hx Vascular Surgery, Other - Prostatectomy. Recent stent placement in lower extremities.. Denies: Hx Open Heart Surgery, Hx Pacemaker - Immunizations Hx Diphtheria, Pertussis, Tetanus Vaccination: Yes - <5 years Review of Systems - Review of Systems Notes: REVIEW OF SYSTEMS GEN: Denies fever, chills, weight loss ENT: Denies sore throat, nasal discharge, ear pain EYES: Denies blurry vision, eye pain, discharge CV: Denies chest pain, palpitations, edema RESP: Denies cough, shortness of breath, wheezing GI: Denies abdominal pain, nausea, vomiting, diarrhea MSK: Left leg pain, SKIN: Denies rash, skin lesions LYMPH: Denies swollen glands/lymph nodes NEURO: Denies headache, focal weakness or numbness, dizziness PSYCH: Denies depression, suicidal or homicidal ideation PHYSICAL EXAMINATION General: No acute distress, well-nourished Head: Atraumatic, normocephalic ENT: Mouth normal, oropharynx moist, no exudates or tonsillar enlargement Eyes: Conjunctiva normal, pupils equal, lids normal Neck: No JVD, supple, no guarding CVS: Normal rate, regular rhythm, no murmurs Resp: No resp distress, equal and normal breath sounds bilaterally GI: Nondistended, soft, no tenderness to palpation, no rebound or guarding Ext: Cold left lower extremity from the knee down. Paresthesias in the foot with decreased sensation. No palpable pulses. No Doppler pulses. Chronic discoloration. Delayed cap refill. Back: No CVA or midline TTP Skin: No rash, warm Lymphatic: No lymphadeopathy noted Neuro: Awake, alert. Face symmetric. GCS 15. Physical Exam - Vital signs Vitals: Resp 33 H 12/16/19 13:01 Course - Re-evaluation Re-evalutation: 12/16/19 13:13 Afebrile male presents with acute vascular occlusion or ischemia of left lower extremity with a history of the same. He has paresthesias but these appear chronic. The extremity is purple plethoric and pulseless by Doppler. Will give heparin bolus, plan for CTA. Called [facility] at 114 for transfer 12/16/19 15:[address] Luna recommended heparin drip and imaging if can be done. Soonest patient can get transported is 3 PM. Symptoms been going on for 2 days, and Dr. Luna agrees that he can go by ground. His heparin drip was started 80/kg bolus 18 per kick per hour. Remote history of GI bleed but no current symptoms. CTA shows occluded graft with minimal reconstitution. Patient left the department about 3 PM in stable but critical condition - Vital Signs Vital signs: Temp Pulse Resp BP Pulse Ox 97.6 F 98 18 110/72 94 12/16/19 15:10 12/16/19 15:10 12/16/19 15:10 12/16/19 15:10 12/16/19 15:10 - Laboratory Result Diagrams: 12/16/19 13:10 01/27/20 13:10 Laboratory results interpreted by me: 12/16/19 12/16/19 13:10 13:10 WBC 19.6 H RBC 4.17 L Hgb 12.2 L Hct 37.2 L RDW 17.4 H Lymph % (Auto) 8.7 L Absolute Neuts (auto) 16.0 H Absolute Monos (auto) 1.7 H Seg Neutrophils % 81.8 H Sodium 135.1 L Carbon Dioxide 21 L BUN 24 H Glucose 150 H - Diagnostic Test Radiology reviewed: Image reviewed, Reports reviewed Critical Care Note - Critical Care Note Total time excluding time spent on procedures (mins): 35 Comments: The above patient is critically ill. Not including procedures, but including direct re-evaluations, speaking with patient and/or consultants, interpreting results, and documenting, I spent the total amount of minute listed listed above on critical care time Discharge - Discharge Clinical Impression: Critical lower limb ischemia Condition: Critical Disposition: [facility] Referrals: LALITA EDWARD PA [Primary Care Provider] - Follow up as needed
[2019-12-16 13:25] LABS: ABSOLUTE BASOPHILS # (AUTO) 0.1 10^3/uL (0.0-0.2); ABSOLUTE LYMPHOCYTES (AUTO) 1.7 10^3/uL (0.5-4.7); ABSOLUTE MONOCYTES (AUTO) 1.7 10^3/uL (0.1-1.4); BASOPHILS % (AUTO) 0.6 % (0-2); EOSINOPHILS % (AUTO) 0.2 % (0-6); HEMATOCRIT 37.2 % (37.9-51.0); HEMOGLOBIN 12.2 g/dL (13.5-17.0); LYMPHOCYTES % (AUTO) 8.7 % (13-45); MEAN CORPUSCULAR HEMOGLOBIN 29.3 pg (27.0-33.4); MEAN CORPUSCULAR HGB CONC 32.9 g/dL (32.0-36.0); MEAN CORPUSCULAR VOLUME 89 fl (80-97); MONOCYTES % (AUTO) 8.7 % (3-13); PLATELET COUNT 357 10^3/uL (150-450); RED BLOOD COUNT 4.17 10^6/uL (4.35-5.55); RED CELL DISTRIBUTION WIDTH 17.4 % (11.5-14.0); SEGMENTED NEUTROPHILS % (AUTO) 81.8 % (42-78); TOTAL CELLS COUNTED % (AUTO) 100 %; WHITE BLOOD COUNT 19.6 10^3/uL (4.0-10.5)
[2019-12-16 13:28] LABS: INTERNATIONAL RATION (INR) 1.07; PROTHROMBIN TIME 13.9 SEC (11.4-15.4)
[2019-12-16] MEDS ORDERED: HEPARIN SOD (PORCINE) 1,000 UNIT/ML 1 ML VIAL IV ONE (13:33)
[2019-12-16] MEDS ORDERED: HEPARIN SODIUM,PORCINE/D5W 25,000 UNIT/250 ML RTUINJ IV PRN (13:35)
[2019-12-16] MEDS ORDERED: HEPARIN SOD (PORCINE) 1,000 UNIT/ML 10 ML VIAL IV ONE (13:35)
[2019-12-16 13:47] LABS: ANION GAP 13 (5-19); BLOOD UREA NITROGEN 24 mg/dL (7-20); CALCIUM 9.7 mg/dL (8.4-10.2); CARBON DIOXIDE 21 mmol/L (22-30); CHLORIDE 101 mmol/L (98-107); GLUCOSE 150 mg/dL (75-110)
--- NOTE | 2019-12-16 14:36 | RADIOLOGY REPORT (SQ) ---
EXAM DESCRIPTION: CTA ABD AORTA AND EXTREMITY COMPLETED DATE/TIME: 12/16/2019 2:07 pm REASON FOR STUDY: LLE pulseless, prior surg COMPARISON: None. TECHNIQUE: CT scan of the body and lower extremities performed with intravenous contrast using helic al scanning technique with dynamic intravenous contrast injection. Images reviewed with lung, soft ti ssue, and bone windows. Reconstructed coronal and sagittal MPR images reviewed. All images stored on PACS. Advanced 3D imaging as volume-rendering, MIPs, SSD performed? yes All CT scanners at this facility use dose modulation, iterative reconstruction, and/or weight based d osing when appropriate to reduce radiation dose to as low as reasonably achievable (ALARA). [facility]: Dose Right [facility]: CareDose [facility]: Dose Right [facility]: Teradose 4D [facility]: [email or web address] CONTRAST TYPE AND DOSE: contrast/concentration: Isovue 350.00 mg/ml; Total Contrast Delivered: 98.0 ml; Total Saline Delivered: 100.0 ml RENAL FUNCTION: BUN 35, creatinine 1.26 LIMITATIONS: None. FINDINGS: NON-CONTRASTED IMAGING: Post contrast images only. POST-CONTRAST IMAGING: AORTA AND VESSELS: Aorta demonstrates atherosclerotic change. There is calcified plaque throughout t he abdominal aorta. Mild ectasia but no focal aneurysmal dilatation. Largest diameter is 2.8 cm. T here is mural thrombus throughout the infrarenal aorta. There is high-grade stenosis at the origin o f the right common iliac artery. 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 There is diffuse disease in the left common and external iliac artery with high -grade stenosis at the bifurcation of the left common iliac artery extending into the proximal left e xternal iliac artery there is diffuse disease in the right external iliac artery as well. LUNG BASES: Lung bases are not visualized. LIVER: Limited visualization of the liver demonstrates probable hemangioma in the periphery of the ri ght lower lobe. SPLEEN: Not imaged. PANCREAS: Incompletely imaged. GALLBLADDER: Not imaged. ADRENAL GLANDS: Not imaged. RIGHT KIDNEY AND URETER: The right kidney is incompletely visualized. There is a nonobstructing ston e. LEFT KIDNEY AND URETER: The left kidney is incompletely visualized. There is a nonobstructing stone. RETROPERITONEUM: No retroperitoneal adenopathy, hemorrhage or masses. BOWEL AND PERITONEAL CAVITY: No masses or inflammatory changes. No free fluid or peritoneal masses. APPENDIX: Not visualized. ABDOMINAL WALL: No masses. No hernias. BONY STRUCTURES: Degenerative changes in the spine. 3-D IMAGING: Confirms the above findings. OTHER: No other significant finding. LOWER EXTREMITIES: RIGHT LEG: FEMORAL ARTERIES: Calcified plaque in the common femoral artery. High-grade stenosis of the origin o f the profunda femoral artery. 50% narrowing in the SFA at its origin. Diffuse left SFA disease wit h calcified plaque throughout. POPLITEAL ARTERY: Scattered calcified plaque. No high-grade stenosis. TIBIOPERONEAL TRUNK AND RUNOFF VESSELS: Patent tibioperoneal trunk. There is 3 vessel runoff althoug h the peroneal appears to be the dominant outflow vessel. Anterior tibial artery and posterior tibia l artery become very small the level of the ankle. OTHER: No other significant finding. LEFT LEG: FEMORAL ARTERIES: There is calcified plaque in the common femoral artery. The left indwelling stent graft is occluded. There is flow in the deep femoral artery. POPLITEAL ARTERY: Occluded. TIBIOPERONEAL TRUNK AND RUNOFF VESSELS: No definite flow in the calf. OTHER: No other significant finding. IMPRESSION: Occluded left femoral to popliteal stent graft. No flow is seen below the knee on CTA. Bilateral inflow disease. Diffuse right SFA disease. TECHNICAL DOCUMENTATION: JOB ID: [id number] Quality ID # [id number]: Final reports with documentation of one or more dose reduction techniques (e.g., Au tomated exposure control, adjustment of the mA and/or kV according to patient size, use of iterative reconstruction technique) 2010 [employer]- All Rights Reserved Reading location - IP/workstation name: [email or web address]
[2019-12-16 15:11] VITALS: BP 110/72
[2019-12-16] MEDS ORDERED: HEPARIN SOD (PORCINE) 1,000 UNIT/ML 10 ML VIAL IV PRN (16:36)
== END 2019-12-16 15:10 | disposition short-term general hospital (02) ==
LOC: ER 12:48
DX: I99.8 Other disorder of circulatory system (principal); M79.605 Pain in left leg; E11.9 Type 2 diabetes mellitus without complications; I48.91 Unspecified atrial fibrillation; E78.00 Pure hypercholesterolemia, unspecified; I10 Essential (primary) hypertension
CPT/HCPCS: 99291; 96375; 96365; 36415; 85025; 85610; 85730; 80048; 75635; J1644 ×2; J1170

== ENCOUNTER 2020-01-25 05:13 | Inpatient (IN) | payer MEDICARE ==
--- NOTE | 2020-01-25 05:42 | ER Document Report ---
ED Medical Screen (RME) - General Chief Complaint: Low Blood Pressure Stated Complaint: BRADYCARDIA Primary Care Provider: LALITA EDWARD PA [Primary Care Provider] - Follow up as needed TRAVEL OUTSIDE OF THE [place] IN LAST 30 DAYS: No - HPI Notes: 01/25/20 05:39 Patient is a 74-year-old male with a history of atrial fibrillation who presents to the emergency department via EMS for evaluation of bradycardia and hypotension. Patient also complained of generalized weakness. Patient states the symptoms started earlier tonight. Patient denies chest pain or shortness of breath. This HPI represents a RME; initial evaluation and orders started. This is not a complete evaluation. - Related Data Allergies/Adverse Reactions: No Known Allergies Allergy (Verified 10/08/19 04:51) Home Medications: plavix, k+, cardizem, lasix, lisinopril, amlodapine, meformin Past Medical History - Social History Chew tobacco use (# tins/day): No Frequency of alcohol use: None Drug Abuse: None - Past Medical History Cardiac Medical History: Reports: Hx Atrial Fibrillation, Hx Hypercholesterolemia, Hx Hypertension, Hx Peripheral Vascular Disease Denies: Hx Heart Attack Pulmonary Medical History: Reports: Hx Bronchitis, Hx COPD, Hx Pneumonia - more than 16 times Denies: Hx Asthma, Hx Intubation, Hx Respiratory Failure Neurological Medical History: Denies: Hx Cerebrovascular Accident, Hx Seizures Endocrine Medical History: Reports: Hx Diabetes Mellitus Type 2. Denies: Hx Diabetes Mellitus Type 1, Hx Hyperthyroidism, Hx Hypothyroidism Renal/ Medical History: Denies: Hx Peritoneal Dialysis Malignancy Medical History: Reports Hx Prostate Cancer GI Medical History: Reports: Hx Gastroesophageal Reflux Disease. Denies: Hx Cirrhosis, Hx Hepatitis, Hx Hiatal Hernia, Hx Ulcer Musculoskeltal Medical History: Denies Hx Arthritis, Denies Hx Gout Skin Medical History: Denies Hx Eczema, Denies Hx Psoriasis Infectious Medical History: Denies: Hx Hepatitis Past Surgical History: Reports: Hx Abdominal Surgery, Hx Vascular Surgery, Other - Prostatectomy. Recent stent placement in lower extremities.. Denies: Hx Open Heart Surgery, Hx Pacemaker - Immunizations Hx Diphtheria, Pertussis, Tetanus Vaccination: Yes - <5 years Review of Systems - Review of Systems Constitutional: No symptoms reported EENT: No symptoms reported Cardiovascular: See HPI Respiratory: No symptoms reported Gastrointestinal: No symptoms reported Genitourinary: No symptoms reported Male Genitourinary: No symptoms reported Musculoskeletal: No symptoms reported Skin: No symptoms reported Hematologic/Lymphatic: No symptoms reported Neurological/Psychological: No symptoms reported -: Yes All other systems reviewed and negative Physical Exam - Vital signs Vitals: Resp 27 H 01/25/20 05:15 - Notes Notes: CONSTITUTIONAL [Vital signs reviewed, Patient appears comfortable, Alert and oriented X 3, Normal stature.] HEAD [Atraumatic, Normocephalic.] EYES [Eyes are normal to inspection, No discharge from eyes, Extraocular muscles intact, Sclera are normal, Conjunctiva are normal.] ENT [Ears normal to inspection, Nose examination normal, Posterior pharynx normal, Mouth normal to inspection.] NECK [Normal ROM, No jugular venous distention, No meningeal signs, no carotid bruit.] RESPIRATORY CHEST [Chest is nontender, Breath sounds normal, No respiratory distress.] CARDIOVASCULAR [irregular rhythm, No murmurs, Normal S1 S2, No rub, No gallop.] ABDOMEN [Abdomen is nontender, No pulsatile masses, No other masses, Bowel sounds normal, No distension, No peritoneal signs, No hernias.] BACK [There is no CVA Tenderness, There is no tenderness to palpation, Normal inspection.] UPPER EXTREMITY [Inspection normal, No cyanosis, No clubbing, No edema, 2+ radial pulses.] LOWER EXTREMITY [Inspection normal, No cyanosis, No clubbing, No edema, No calf tenderness, 2+ femoral pulses.] NEURO [No focal motor deficits, No focal sensory deficits, Speech normal.] SKIN [Skin is warm, Skin is dry, Skin is normal color.] LYMPHATIC [No adenopathy in neck.] PSYCHIATRIC [Normal affect. ] Course - Vital Signs Vital signs: Temp Pulse Resp BP Pulse Ox 13 97/72 L 01/25/20 05:31 01/25/20 05:31 Doctor's Discharge - Discharge Referrals: LALITA EDWARD PA [Primary Care Provider] - Follow up as needed
[2020-01-25 06:02] LABS: ABSOLUTE BASOPHILS # (AUTO) 0.1 10^3/uL (0.0-0.2); ABSOLUTE EOSINOPHILS # (AUTO) 0.2 10^3/uL (0.0-0.6); ABSOLUTE LYMPHOCYTES (AUTO) 2.2 10^3/uL (0.5-4.7); ABSOLUTE NEUT (AUTO) 6.6 10^3/uL (1.7-8.2); BASOPHILS % (AUTO) 0.8 % (0-2); HEMATOCRIT 37.6 % (37.9-51.0); HEMOGLOBIN 12.4 g/dL (13.5-17.0); LYMPHOCYTES % (AUTO) 21.5 % (13-45); MEAN CORPUSCULAR HEMOGLOBIN 28.3 pg (27.0-33.4); MEAN CORPUSCULAR HGB CONC 32.9 g/dL (32.0-36.0); MEAN CORPUSCULAR VOLUME 86 fl (80-97); PLATELET COUNT 262 10^3/uL (150-450); RED BLOOD COUNT 4.38 10^6/uL (4.35-5.55); RED CELL DISTRIBUTION WIDTH 16.4 % (11.5-14.0); SEGMENTED NEUTROPHILS % (AUTO) 65.7 % (42-78); TOTAL CELLS COUNTED % (AUTO) 100 %
[2020-01-25 06:09] LABS: INTERNATIONAL RATION (INR) 0.97; PROTHROMBIN TIME 12.9 SEC (11.4-15.4)
[2020-01-25 06:23] LABS: ALBUMIN 3.8 g/dL (3.5-5.0); ALKALINE PHOSPHATASE 106 U/L (38-126); ANION GAP 16 (5-19); ASPARTATE AMINO TRANSFERASE 17 U/L (17-59); BILIRUBIN,DIRECT 0.3 mg/dL (0.0-0.4); BILIRUBIN,TOTAL 0.3 mg/dL (0.2-1.3); BLOOD UREA NITROGEN 44 mg/dL (7-20); CALCIUM 9.3 mg/dL (8.4-10.2); CARBON DIOXIDE 17 mmol/L (22-30); CHLORIDE 104 mmol/L (98-107); CREATINE KINASE 21 U/L (55-170); GLUCOSE 111 mg/dL (75-110); POTASSIUM 4.1 mmol/L (3.6-5.0); TOTAL PROTEIN 7.4 g/dL (6.3-8.2)
[2020-01-25] MEDS ORDERED: NORMAL SALINE 1000 ML 1,000 ML IV ONE ×2 (06:29→07:15)
[2020-01-25] MEDS ORDERED: NORMAL SALINE 1000 ML 500 ML IV ONE (06:30)
[2020-01-25 06:35] LABS: CREATINE KINASE MB 0.89 ng/mL (<4.55); TROPONIN I < 0.012 ng/mL
--- NOTE | 2020-01-25 06:35 | RADIOLOGY REPORT (SQ) ---
AP Portable chest: 01/25/2020 5:33 AM [facility] History: 74-year old patient with dyspnea. Comparison: Chest radiograph performed 11/28/2019. Findings: The cardiomediastinal silhouette is normal in size. No pneumothorax is seen. No acute airspace opacities are seen. No discrete pleural effusion is apparent. A defibrillator pad overlies the patient's chest. Atherosclerotic calcifications are seen at the aortic arch. Impression: No acute airspace opacities are seen.
--- NOTE | 2020-01-25 08:30 | EKG REPORT ---
SEVERITY:- ABNORMAL ECG - ATRIAL FIBRILLATION CONSIDER ANTEROSEPTAL INFARCT : Confirmed by: Jamshid Maldonado MD 25-Jan-2020 08:30:21
--- NOTE | 2020-01-25 08:32 | ER Document Report ---
ED General - General Chief Complaint: Low Blood Pressure Stated Complaint: BRADYCARDIA Time Seen by Provider: 01/25/20 06:13 Primary Care Provider: LALITA EDWARD PA [Primary Care Provider] - Follow up as needed Notes: 74-year-old man presents to the emergency department with history of fatigue weakness and poor intake. Apparently, his finally got him to come to the emergency department. EMS picked the patient up and found him to have blood pressure 78 over Pap with heart rate of 38. He was given IV fluids and atropine heart rate improved to 64 bpm with a blood pressure of 91/51. He was given atropine x3 200 mL of lactated Ringer's. Lactate was known to be 3.7 in the field. Upon arrival to the emergency department the patient's heart rate 76 with a blood pressure of 89/49. The patient complaining of right leg pain. He states the pain is been there since his procedure approximately late November for an occluded left femoral popliteal stent graft. He was discharged from rehab 2 weeks ago and has developed in a poor fluid and food intake over the past few days. TRAVEL OUTSIDE OF THE [place] IN LAST 30 DAYS: No - Related Data Allergies/Adverse Reactions: No Known Allergies Allergy (Verified 10/08/19 04:51) Home Medications: plavix, k+, cardizem, lasix, lisinopril, amlodapine, meformin Past Medical History - General Information source: Patient - Social History Smoking Status: Never Smoker Chew tobacco use (# tins/day): No Frequency of alcohol use: None Drug Abuse: None Family History: COPD Patient has suicidal ideation: No Patient has homicidal ideation: No - Past Medical History Cardiac Medical History: Reports: Hx Atrial Fibrillation, Hx Hypercholesterolemia, Hx Hypertension, Hx Peripheral Vascular Disease Denies: Hx Heart Attack Pulmonary Medical History: Reports: Hx Bronchitis, Hx COPD, Hx Pneumonia - more than 16 times Denies: Hx Asthma, Hx Intubation, Hx Respiratory Failure Neurological Medical History: Denies: Hx Cerebrovascular Accident, Hx Seizures Endocrine Medical History: Reports: Hx Diabetes Mellitus Type 2. Denies: Hx Diabetes Mellitus Type 1, Hx Hyperthyroidism, Hx Hypothyroidism Renal/ Medical History: Denies: Hx Peritoneal Dialysis Malignancy Medical History: Reports Hx Prostate Cancer GI Medical History: Reports: Hx Gastroesophageal Reflux Disease. Denies: Hx Cirrhosis, Hx Hepatitis, Hx Hiatal Hernia, Hx Ulcer Musculoskeletal Medical History: Denies Hx Arthritis, Denies Hx Gout Skin Medical History: Denies Hx Eczema, Denies Hx Psoriasis Infectious Medical History: Denies: Hx Hepatitis Past Surgical History: Reports: Hx Abdominal Surgery, Hx Vascular Surgery, Other - Prostatectomy. Recent stent placement in lower extremities.. Denies: Hx Open Heart Surgery, Hx Pacemaker - Immunizations Hx Diphtheria, Pertussis, Tetanus Vaccination: Yes - <5 years Review of Systems - Review of Systems Notes: Constitutional: Generalized weakness, negative for fever. HENT: Negative for sore throat. Eyes: Negative for visual changes. Cardiovascular: Negative for chest pain. Respiratory: Negative for shortness of breath. Gastrointestinal: Negative for abdominal pain, vomiting or diarrhea. Genitourinary: Negative for dysuria. Musculoskeletal: Negative for back pain. Skin: Negative for rash. Neurological: Negative for headaches, weakness or numbness. 10 point ROS negative except as marked above and in HPI. Physical Exam - Vital signs Vitals: Resp 27 H 01/25/20 05:15 - Notes Notes: PHYSICAL EXAMINATION: Physical Exam: General: Dehydrated appearing 74-year-old man in no acute distress HEENT: NC/AT, pupils equal round and reactive to light, MM dry,nares clear, oropharynx clear, airway patent Neck: supple, no adenopathy, no masses. Good range of motion Lungs: clear, no wheezing, no rales no rhonchi CVS: Regular rate and rhythm no murmur gallop or rub Abdomen: Soft, active, nontender, no masses, no hepatosplenomegaly Ext: No edema, clubbing or cyanosis. Neuro: Alert and responsive, moving all 4 extremities on command, cranial nerves intact, no focal findings Skin: Intact no open lesions, no rash PSYCH: Normal mood, normal affect. Course - Vital Signs Vital signs: Temp Pulse Resp BP Pulse Ox 97.3 F 18 107/48 L 99 01/25/20 05:55 01/25/20 07:01 01/25/20 07:01 01/25/20 06:59 - Laboratory Result Diagrams: 01/25/20 05:45 01/25/20 05:45 Laboratory results interpreted by me: 01/25/20 01/25/20 05:45 05:45 Hgb 12.4 L Hct 37.6 L RDW 16.4 H Sodium 136.8 L Carbon Dioxide 17 L BUN 44 H Creatinine 1.62 H Est GFR ( Amer) 51 L Est GFR (MDRD) Non-Af 42 L Glucose 111 H Creatine Kinase 21 L - Diagnostic Test Radiology reviewed: Image reviewed, Reports reviewed - Chest x-ray: No acute pulmonary infiltrate or effusion. Discharge - Discharge Clinical Impression: BALBINA (acute kidney injury), Volume depletion, Bradycardia Hypotension Qualifiers: Hypotension type: unspecified hypotension type Qualified Code(s): I95.9 - Hypotension, unspecified Condition: Good Disposition: ADMITTED INPATIENT Admitting Provider: Shameka (Hospitalist) Unit Admitted: Telemetry Referrals: LALITA EDWARD PA [Primary Care Provider] - Follow up as needed
[2020-01-25 10:05] LABS: APPEARANCE,URINE CLEAR; BILIRUBIN,URINE NEGATIVE (NEGATIVE); COLOR,URINE YELLOW; GLUCOSE, URINE NEGATIVE (NEGATIVE); KETONES,URINE NEGATIVE (NEGATIVE); LEUKOCYTE ESTERASE,URINE NEGATIVE (NEGATIVE); NITRITE,URINE NEGATIVE (NEGATIVE); PROTEIN,URINE 30 mg/dL (NEGATIVE); URINE SPECIFIC GRAVITY 1.014; UROBILINOGEN,URINE NEGATIVE mg/dL (<2.0)
[2020-01-25] MEDS ORDERED: IPRATROPIUM/ALBUTEROL 0.5-2.5 MG/3 ML AMPUL NEB PRN (11:21)
[2020-01-25] MEDS ORDERED: MAGNESIUM HYDROXIDE SUSP 30 ML UDCUP PO PRN (11:21)
[2020-01-25] MEDS ORDERED: ACETAMINOPHEN 325 MG TABLET PO PRN (11:21)
[2020-01-25] MEDS ORDERED: PROMETHAZINE HCL INJ 25 MG/1 ML VIAL IV PRN (11:21)
[2020-01-25] MEDS ORDERED: ONDANSETRON HCL INJ/PF 4 MG/2 ML SDV IV PRN (11:21)
[2020-01-25] MEDS: NORMAL SALINE 1000 ML 1,000 ML IV PRN ×2 (12:45→22:46)
[2020-01-25] MEDS: OXYCODONE-ACETAMINOPHEN 5-325 MG TABLET PO PRN ×2 (13:12→20:32)
[2020-01-25] MEDS: HEPARIN SOD (PORCINE) 5,000 UNIT/ML 1 ML VIAL SUBCUT SCH ×2 (14:25→22:45)
--- NOTE | 2020-01-25 14:41 | EKG REPORT ---
SEVERITY:- ABNORMAL ECG - ATRIAL FIBRILLATION LOW VOLTAGE THROUGHOUT BORDERLINE T ABNORMALITIES, ANTERIOR LEADS V2 DEFECTIVE LEAD : Confirmed by: Jamshid Maldonado MD 25-Jan-2020 14:40:41
--- NOTE | 2020-01-25 16:01 | PDOC H&P ---
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 Patient was brought to ED by EMS fatigued, weakness and poor po intake. When EMS arrived patient was noted to have SBPs of 80s, and heart rate of 30s. Was a started on IV fluids and given atropine and brought to ED. While in ED he was still noted to be hypotensive and was started on IV fluids and hospital was consulted for admission. On my encounter patient is awake and alert, covered with several blankets stating that he is too cold, appears not to be in a in a bad mood and does not w ant to provide much information, when asked why he is in the hospital he says his left leg is hurting. Apparently patient was recently sent to rehab for two weeks after hospitalization for occluded left tomorrow and popliteal stent graft placed in 10/2019 in [facility]. When patient asked why he has low p.o. intake he states that he does not feel like eating and feels feel sick to his stomach. Patient lives with his but unfortunately she is not available to provide more history. Patient denies any headache, shortness of breath, chest pain, fever, chills, nausea, vomiting, diarrhea, constipation. Endorses low p.o. intake, and feeling sick to the stomach, complaining of left l ower extremity pain. Past Medical History Cardiac Medical History: Reports: Atrial Fibrillation, Hyperlipidema, Hypertension, Peripheral Vascular Disease Denies: Myocardial Infarction Pulmonary Medical History: Reports: Bronchitis, Chronic Obstructive Pulmonary Disease (COPD), Pneumonia - more than 16 times Denies: Asthma, Intubation, Respiratory Failure Neurological Medical History: Denies: Seizures Endocrine Medical History: Reports: Diabetes Mellitus Type 2 Denies: Diabetes Mellitus Type 1, Hyperthyroidism, Hypothyroidism GI Medical History: Reports: Gastroesophageal Reflux Disease Denies: Cirrhosis, Hepatitis, Hiatal Hernia Musculoskeltal Medical History: Denies: Arthritis, Gout Skin Medical History: Denies: Eczema, Psoriasis Hematology: Denies: Anemia, Sickle Cell Disease, Bleeding Tendencies Past Surgical History Past Surgical History: Reports: Vascular Surgery, Other - Prostatectomy. Recent stent placement in lower extremities. Denies: Pacemaker Social History Smoking Status: Never Smoker Electronic Cigarette use?: No Frequency of Alcohol Use: None Hx Recreational Drug Use: No Drugs: None Hx Prescription Drug Abuse: No Family History Family History: COPD Parental Family History Reviewed: Yes Children Family History Reviewed: Yes Sibling(s) Family History Reviewed.: Yes Medication/Allergy Home Medications: Amlodipine Besylate [Norvasc 5 mg Tablet] 5 mg PO QAM 10/24/19 Clopidogrel Bisulfate [Plavix 75 mg Tablet] 75 mg PO QAM 10/24/19 Digoxin [Lanoxin 0.125 mg Tablet] 0.125 mg PO QAM 10/24/19 Diltiazem HCl [Cardizem Cd 240 mg Capsule.cr] 240 mg PO QAM 10/24/19 Furosemide [Lasix 20 mg Tablet] 20 mg PO QAM 10/24/19 Lisinopril [Prinivil 10 mg Tablet] 10 mg PO QAM 10/24/19 Metformin HCl [Glucophage] 1,000 mg PO BID 10/24/19 Atorvastatin Calcium [Lipitor 80 mg Tablet] 80 mg PO QHS 14 Days #14 tablet 10/30/19 Allergies/Adverse Reactions: No Known Allergies Allergy (Verified 10/08/19 04:51) Physical Exam Vital Signs: Temp Pulse Resp BP Pulse Ox 97.3 F 16 110/52 L 98 01/25/20 05:55 01/25/20 15:02 01/25/20 15:02 01/25/20 15:01 Intake & Output 01/24/20 01/25/20 01/26/20 06:59 06:59 07:59 Intake Total 500 2000 Balance 500 2000 Weight 53.9 kg General appearance: PRESENT: no acute distress, well-developed, well-nourished Head exam: PRESENT: atraumatic, normocephalic Respiratory exam: PRESENT: clear to auscultation elise. ABSENT: rales, rhonchi, wheezes Cardiovascular exam: PRESENT: RRR. ABSENT: diastolic murmur, rubs, systolic murmur GI/Abdominal exam: PRESENT: normal bowel sounds, soft. ABSENT: distended, guarding, mass, organolmegaly, rebound, tenderness Extremities exam: PRESENT: full ROM, other - Left calf lateral aspect surgical wound covered with scab, no tenderness no discharge.. ABSENT: calf tenderness, clubbing, pedal edema Neurological exam: PRESENT: alert, awake, oriented to person, oriented to place, oriented to time, oriented to situation, CN II-XII grossly intact. ABSENT: motor sensory deficit Results Laboratory Results: 01/25/20 05:45 01/25/20 05:45 01/25/20 01/25/20 01/25/20 05:45 05:45 05:45 WBC 10.0 RBC 4.38 Hgb 12.4 L Hct 37.6 L MCV 86 MCH 28.3 MCHC 32.9 RDW 16.4 H Plt Count 262 Seg Neutrophils % 65.7 Sodium 136.8 L Potassium 4.1 Chloride 104 Carbon Dioxide 17 L Anion Gap 16 BUN 44 H Creatinine 1.62 H Est GFR ( Amer) 51 L Glucose 111 H Calcium 9.3 Magnesium 1.9 Total Bilirubin 0.3 AST 17 Alkaline Phosphatase 106 Total Protein 7.4 Albumin 3.8 Urine Color Urine Appearance Urine pH Ur Specific [place] Urine Protein Urine Glucose (UA) Urine Ketones Urine Blood Urine Nitrite Ur Leukocyte Esterase Urine WBC (Auto) Urine RBC (Auto) 01/25/20 09:30 WBC RBC Hgb Hct MCV MCH MCHC RDW Plt Count Seg Neutrophils % Sodium Potassium Chloride Carbon Dioxide Anion Gap BUN Creatinine Est GFR ( Amer) Glucose Calcium Magnesium Total Bilirubin AST Alkaline Phosphatase Total Protein Albumin Urine Color YELLOW Urine Appearance CLEAR Urine pH 5.0 Ur Specific [place] 1.014 Urine Protein 30 H Urine Glucose (UA) NEGATIVE Urine Ketones NEGATIVE Urine Blood NEGATIVE Urine Nitrite NEGATIVE Ur Leukocyte Esterase NEGATIVE Urine WBC (Auto) 3 Urine RBC (Auto) 1 01/25/20 01/25/20 05:45 05:45 Creatine Kinase 21 L CK-MB (CK-2) 0.89 Troponin I < 0.012 Assessment and Plan - Diagnosis (1) Acute kidney injury superimposed on CKD Is this a current diagnosis for this admission?: Yes Plan: Prerenal. Most likely due to low p.o. intake. Baseline creatinine 2-3. Presented with creatinine of 1.63. Cautious volume resuscitation guided by volume status. Monitor electrolytes and replace as needed. Avoid nephrotoxic meds. (2) Failure to thrive Is this a current diagnosis for this admission?: Yes Plan: We will start on Megace. Encourage p.o. intake. Consult registered dietitian. (3) Atrial fibrillation Qualifiers: Atrial fibrillation type: longstanding persistent Qualified Code(s): I48.11 - Longstanding persistent atrial fibrillation Is this a current diagnosis for this admission?: Yes Plan: History of chronic persistent atrial fibrillation. Rate controlled. Anticoagulation was held in the previous admission due to acute upper GI bleed. Continue beta-blockers. Resume chronic anticoagulation if there is no risk of further bleeding. Hemoglobin is stable. Guaiac is negative. (4) Bradycardia Is this a current diagnosis for this admission?: Yes Plan: Resolved. Received 3 atropine doses by EMS. Admit to telemetry. Monitor vitals. Avoid negative chronotrops. (5) Hypotension Qualifiers: Hypotension type: unspecified hypotension type Qualified Code(s): I95.9 - Hypotension, unspecified Is this a current diagnosis for this admission?: Yes Plan: Due to low p.o. intake. Volume resuscitation guided by volume status. Monitor for fall. (6) Buergers disease Is this a current diagnosis for this admission?: Yes Plan: Resume home meds. (7) Diabetes mellitus type 2 in nonobese Is this a current diagnosis for this admission?: Yes Plan: Diabetic diet. Basal, sliding, correctional insulin. Hypoglycemic protocol. Accu-Chek.
[2020-01-25] MEDS ORDERED: DEXTROSE 40% GEL 15 GM TUBE PO PRN ×2 (16:02)
[2020-01-25] MEDS ORDERED: GLUCAGON,HUMAN RECOMB 1 MG INJ IM PRN (16:02)
[2020-01-25] MEDS ORDERED: DEXTROSE 50%-WATER 25 GM/50 ML DISP.SYRIN IV PRN ×2 (16:02)
[2020-01-25] MEDS: MEGESTROL ACETATE SUSP 400 MG/10 ML UDCUP PO SCH (18:14)
[2020-01-25] MEDS: CLOPIDOGREL BISULFATE 75 MG TABLET PO SCH (18:14)
[2020-01-25] MEDS: DOCUSATE SODIUM 100 MG CAPSULE PO SCH (18:14)
[2020-01-25] MEDS ORDERED: METFORMIN HCL 500 MG TABLET PO ONE (19:00)
[2020-01-25] MEDS ORDERED: SCOPOLAMINE HYDROBROMIDE 1.5 MG PATCH.TD72 TD ONE (19:00)
[2020-01-25] MEDS: INSULIN LISPRO 100 UNIT/ML 3 ML VIAL SUBCUT SCH (22:38)
[2020-01-25] MEDS: ATORVASTATIN CALCIUM 80 MG TABLET PO SCH (22:45)
[2020-01-25] MEDS: FAMOTIDINE 20 MG TABLET PO SCH (22:46)
[2020-01-26] MEDS: OXYCODONE-ACETAMINOPHEN 5-325 MG TABLET PO PRN ×3 (01:42→19:54)
[2020-01-26 05:33] LABS: ABSOLUTE BASOPHILS # (AUTO) 0.1 10^3/uL (0.0-0.2); ABSOLUTE EOSINOPHILS # (AUTO) 0.2 10^3/uL (0.0-0.6); ABSOLUTE LYMPHOCYTES (AUTO) 1.7 10^3/uL (0.5-4.7); BASOPHILS % (AUTO) 0.8 % (0-2); EOSINOPHILS % (AUTO) 1.9 % (0-6); HEMATOCRIT 33.5 % (37.9-51.0); HEMOGLOBIN 11.2 g/dL (13.5-17.0); LYMPHOCYTES % (AUTO) 17.1 % (13-45); MEAN CORPUSCULAR HEMOGLOBIN 28.1 pg (27.0-33.4); MEAN CORPUSCULAR HGB CONC 33.4 g/dL (32.0-36.0); MEAN CORPUSCULAR VOLUME 84 fl (80-97); MONOCYTES % (AUTO) 9.9 % (3-13); PLATELET COUNT 230 10^3/uL (150-450); RED BLOOD COUNT 3.97 10^6/uL (4.35-5.55); RED CELL DISTRIBUTION WIDTH 16.4 % (11.5-14.0); SEGMENTED NEUTROPHILS % (AUTO) 70.3 % (42-78); TOTAL CELLS COUNTED % (AUTO) 100 %
[2020-01-26 05:45] LABS: ALBUMIN 3.2 g/dL (3.5-5.0); ALKALINE PHOSPHATASE 94 U/L (38-126); ANION GAP 11 (5-19); ASPARTATE AMINO TRANSFERASE 13 U/L (17-59); BILIRUBIN,DIRECT 0.3 mg/dL (0.0-0.4); BILIRUBIN,TOTAL 0.3 mg/dL (0.2-1.3); BLOOD UREA NITROGEN 26 mg/dL (7-20); CALCIUM 8.9 mg/dL (8.4-10.2); CARBON DIOXIDE 18 mmol/L (22-30); CHLORIDE 110 mmol/L (98-107); GLUCOSE 115 mg/dL (75-110); POTASSIUM 4.5 mmol/L (3.6-5.0); TOTAL PROTEIN 6.6 g/dL (6.3-8.2)
[2020-01-26] MEDS: HEPARIN SOD (PORCINE) 5,000 UNIT/ML 1 ML VIAL SUBCUT SCH ×3 (05:50→21:20)
[2020-01-26 06:12] LABS: FREE T3 3.32 pg/mL (2.77-5.27); FREE T4 (FREE THYROXINE) 1.43 ng/dL (0.78-2.19)
[2020-01-26 06:26] LABS: THYROID STIMULATING HORMONE 1.11 uIU/mL (0.47-4.68)
[2020-01-26] MEDS: AMLODIPINE BESYLATE 5 MG TABLET PO SCH (08:05)
[2020-01-26] MEDS: CLOPIDOGREL BISULFATE 75 MG TABLET PO SCH (08:05)
[2020-01-26] MEDS: LISINOPRIL 10 MG TABLET PO SCH (08:09)
[2020-01-26] MEDS: INSULIN LISPRO 100 UNIT/ML 3 ML VIAL SUBCUT SCH ×4 (08:09→21:30)
[2020-01-26] MEDS: METFORMIN HCL 500 MG TABLET PO SCH ×2 (10:27→17:35)
[2020-01-26] MEDS: FAMOTIDINE 20 MG TABLET PO SCH ×2 (10:32→21:21)
[2020-01-26] MEDS: DOCUSATE SODIUM 100 MG CAPSULE PO SCH ×2 (10:32→17:36)
[2020-01-26] MEDS: MEGESTROL ACETATE SUSP 400 MG/10 ML UDCUP PO SCH (10:32)
--- NOTE | 2020-01-26 12:08 | PDOC PROGRESS REPORT ---
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 Patient was brought to ED by EMS fatigued, weakness and poor po intake. When EMS arrived patient was noted to have SBPs of 80s, and heart rate of 30s. Was a started on IV fluids and given atropine and brought to ED. While in ED he was still noted to be hypotensive and was started on IV fluids and hospital was consulted for admission. On my encounter patient is awake and alert, covered with several blankets stating that he is too cold, appears not to be in a in a bad mood and does not want to provide much information, when asked why he is in the hospital he says his left leg is hurting. Apparently patient was recently sent to rehab for two weeks after hospitalizati on for occluded left tomorrow and popliteal stent graft placed in 10/2019 in [facility]. When patient asked why he has low p.o. intake he states that he does not feel like eating and feels feel sick to his stomach. Patient lives with his but unfortunately she is not available to provide more history. Patient denies any headache, shortness of breath, chest pain, fever, chills, nausea, vomiting, diarrhea, constipation. Endorses low p.o. intake, and feeling sick to the stomach, complaining of left lower extremity pain. 01/26/2020. No acute events overnight. Still complaining of left lower extremity constant pain, appetite improving, unfortunately patient does not provide much information and when asked for information he loses his temper very fast. Denies any fever, chills, nausea, vomiting, diarrhea, constipation or any urinary symptoms. Reason For Visit: BALBINA, DEHYDRATION, HYOPTENSION Physical Exam Vital Signs: Temp Pulse Resp BP Pulse Ox 98.1 F 99 16 145/78 H 96 01/26/20 08:00 01/26/20 11:59 01/26/20 11:59 01/26/20 08:00 01/26/20 11:59 Intake & Output 01/25/20 01/26/20 01/27/20 05:59 06:59 06:59 Intake Total 1000 Output Total Balance 1000 Weight General appearance: PRESENT: no acute distress, well-developed, well-nourished Head exam: PRESENT: atraumatic, normocephalic Respiratory exam: PRESENT: clear to auscultation elise. ABSENT: rales, rhonchi, wheezes Cardiovascular exam: PRESENT: RRR. ABSENT: diastolic murmur, rubs, systolic murmur GI/Abdominal exam: PRESENT: normal bowel sounds, soft. ABSENT: distended, guarding, mass, organolmegaly, rebound, tenderness Musculoskeletal exam: PRESENT: tenderness - Left lower extremity multiple medial and lateral surgical scar from site of vascular surgeries, tender especially around surgical sites. No sign of infection, no sign of DVT, no swelling no erythema. Neurological exam: PRESENT: alert, awake, oriented to person, oriented to place, oriented to time, oriented to situation, CN II-XII grossly intact. ABSENT: motor sensory deficit Results Laboratory Results: 01/26/20 04:20 01/26/20 04:20 01/25/20 01/26/20 01/26/20 05:45 04:20 04:20 WBC 10.0 RBC 3.97 L Hgb 11.2 L Hct 33.5 L MCV 84 MCH 28.1 MCHC 33.4 RDW 16.4 H Plt Count 230 Seg Neutrophils % 70.3 Sodium 139.2 Potassium 4.5 Chloride 110 H Carbon Dioxide 18 L Anion Gap 11 BUN 26 H Creatinine 0.82 Est GFR ( Amer) > 60 Glucose 115 H Calcium 8.9 Magnesium 1.5 L Total Bilirubin 0.3 AST 13 L Alkaline Phosphatase 94 Total Protein 6.6 Albumin 3.2 L TSH 0.92 Free T4 Free T3 pg/mL 01/26/20 04:20 WBC RBC Hgb Hct MCV MCH MCHC RDW Plt Count Seg Neutrophils % Sodium Potassium Chloride Carbon Dioxide Anion Gap BUN Creatinine Est GFR ( Amer) Glucose Calcium Magnesium Total Bilirubin AST Alkaline Phosphatase Total Protein Albumin TSH 1.11 Free T4 1.43 Free T3 pg/mL 3.32 01/25/20 01/25/20 05:45 05:45 Creatine Kinase 21 L CK-MB (CK-2) 0.89 Troponin I < 0.012 Assessment and Plan - Diagnosis (1) Acute kidney injury superimposed on CKD Is this a current diagnosis for this admission?: Yes Plan: Resolved. Prerenal. Most likely due to low p.o. intake. Baseline creatinine 2-3. Presented with creatinine of 1.63. Monitor electrolytes and replace as needed. Avoid nephrotoxic meds. (2) Failure to thrive Qualifiers: Failure to thrive age range: in adult Qualified Code(s): R62.7 - Adult failure to thrive Is this a current diagnosis for this admission?: Yes Plan: We will start on Megace. Encourage p.o. intake. Consult registered dietitian. (3) Atrial fibrillation Qualifiers: Atrial fibrillation type: longstanding persistent Qualified Code(s): I48.11 - Longstanding persistent atrial fibrillation Is this a current diagnosis for this admission?: Yes Plan: History of chronic persistent atrial fibrillation. Rate controlled. Anticoagulation was held in the previous admission due to acute upper GI bleed. Guaiac negative on this admission. Hemoglobin is stable. Patient noted to be bradycardic on this admission. Hold beta-blockers and negative chronotropic right now. We will consult cardiology for resumption of beta-blockers and possibly a nticoagulation. (4) Bradycardia Is this a current diagnosis for this admission?: Yes Plan: Patient was noted to be bradycardic at home. Received 3 atropine doses by EMS. While in the floor patient was noted to be bradycardic on telemetry monitoring, heart rate going down to 40s. Patient asymptomatic. We will start on scopolamine patch yesterday and bradycardia has resolved most of the time. Continue telemetry. Monitor vitals. Avoid negative chronotrops. Cardiology consulted. Pending recommendations. Remove scopolamine patch once bradycardia has resolved. (5) Hypotension Qualifiers: Hypotension type: unspecified hypotension type Qualified Code(s): I95.9 - Hypotension, unspecified Is this a current diagnosis for this admission?: Yes Plan: Resolved. Due to low p.o. intake. Volume resuscitation guided by volume status. Monitor for fall. (6) Buergers disease Is this a current diagnosis for this admission?: Yes Plan: Complaining of left lower extremity pain. Patient is status post left lower extremity stent placement at [facility] which are unfortunately blocked. Continue Plavix. Continue supportive measures. Outpatient vascular surgeon and cardiology follow-up. (7) Diabetes mellitus type 2 in nonobese Is this a current diagnosis for this admission?: Yes Plan: Diabetic diet. Basal, sliding, correctional insulin. Hypoglycemic protocol. Accu-Chek.
--- NOTE | 2020-01-26 13:22 | PDOC CONSULTATION ---
Consultation Consult Date: 01/26/20 Attending physician:: MAXWELL PHILLIPS Provider Consulted: SPENSER HUI Consult reason:: Bradycardia History of Present Illness Admission Date/PCP: 01/25/20 09:11 SB FERNANDEZ Patient complains of: Left leg pain History of Present Illness: RAJAN KEARNEY is a 74 year old male With the following active problems 1. Atrial fibrillation 2. Systemic hypertension 3. Diabetes mellitus 4. Peripheral vascular disease 5. Dyslipidemia 6. History of CA prostate 74-year-old male with a difficult historian. He reports history of cancer of the prostate for which he was treated approximately 5 years ago. At that time he reports having had atrial fibrillation and reports that his heart rhythm was reset at that time. Does not clear to me whether he is usually on systemic anticoagulation although I do notice clopidogrel as an active medication. Patient is unable to name any of his home medications or his usual medical problems. History is mostly per chart. Patient is irate and upset and is complaining of left lower extremity pain during my conversation with him which is rather brief. Former smoker-cigarettes. Quit 1 year ago. No familial illnesses chronical reported to me. Past Medical History Cardiac Medical History: Reports: Atrial Fibrillation, Hyperlipidema, Hypertension, Peripheral Vascular Disease Denies: Myocardial Infarction Pulmonary Medical History: Reports: Bronchitis, Chronic Obstructive Pulmonary Disease (COPD), Pneumonia - more than 16 times Denies: Asthma, Intubation, Respiratory Failure Neurological Medical History: Denies: Seizures Endocrine Medical History: Reports: Diabetes Mellitus Type 2 Denies: Diabetes Mellitus Type 1, Hyperthyroidism, Hypothyroidism GI Medical History: Reports: Gastroesophageal Reflux Disease Denies: Cirrhosis, Hepatitis, Hiatal Hernia Musculoskeltal Medical History: Denies: Arthritis, Gout Skin Medical History: Denies: Eczema, Psoriasis Hematology: Denies: Anemia, Sickle Cell Disease, Bleeding Tendencies Past Surgical History Past Surgical History: Reports: Vascular Surgery, Other - Prostatectomy. Recent stent placement in lower extremities. Denies: Pacemaker Social History Smoking Status: Never Smoker Electronic Cigarette use?: No Frequency of Alcohol Use: None Hx Recreational Drug Use: No Drugs: None Hx Prescription Drug Abuse: No Family History Family History: COPD Parental Family History Reviewed: No - Patient is irritable. Children Family History Reviewed: NA Sibling(s) Family History Reviewed.: NA Medication/Allergy Home Medications: Amlodipine Besylate [Norvasc 5 mg Tablet] 5 mg PO QAM 10/24/19 Clopidogrel Bisulfate [Plavix 75 mg Tablet] 75 mg PO QAM 10/24/19 Digoxin [Lanoxin 0.125 mg Tablet] 0.125 mg PO QAM 10/24/19 Diltiazem HCl [Cardizem Cd 240 mg Capsule.cr] 240 mg PO QAM 10/24/19 Furosemide [Lasix 20 mg Tablet] 20 mg PO QAM 10/24/19 Lisinopril [Prinivil 10 mg Tablet] 10 mg PO QAM 10/24/19 Metformin HCl [Glucophage] 1,000 mg PO BID 10/24/19 Atorvastatin Calcium [Lipitor 80 mg Tablet] 80 mg PO QHS 14 Days #14 tablet 10/30/19 Allergies/Adverse Reactions: No Known Allergies Allergy (Verified 10/08/19 04:51) Review of Systems Constitutional: PRESENT: as per HPI Eyes: PRESENT: as per HPI Cardiovascular: ABSENT: as per HPI, chest pain, dyspnea on exertion, edema, orthropnea, palpitations, other Respiratory: ABSENT: as per HPI, cough, dyspnea, hemoptysis, sputum, other Gastrointestinal: PRESENT: bloating, nausea, vomiting Integumentary: PRESENT: other - Left leg pain and discomfort Physical Exam Vital Signs: Temp Pulse Resp BP Pulse Ox 98.1 F 99 16 145/78 H 96 01/26/20 08:00 01/26/20 11:59 01/26/20 11:59 01/26/20 08:00 01/26/20 11:59 Intake & Output 01/25/20 01/26/20 01/27/20 05:59 06:59 06:59 Intake Total 1000 Output Total Balance 1000 Weight General appearance: PRESENT: no acute distress, thin, well-developed Head exam: PRESENT: atraumatic, normocephalic Eye exam: PRESENT: conjunctiva pale, EOMI Mouth exam: PRESENT: moist Respiratory exam: PRESENT: clear to auscultation elise, symmetrical, unlabored Cardiovascular exam: PRESENT: bradycardia, irregular rhythm, +S1, +S2 Pulses: PRESENT: normal radial pulses GI/Abdominal exam: PRESENT: soft Rectal exam: PRESENT: deferred Musculoskeletal exam: PRESENT: normal inspection Neurological exam: PRESENT: alert, awake, oriented to person, oriented to place, oriented to time, oriented to situation Psychiatric exam: PRESENT: other - Irritable Skin exam: PRESENT: dry, intact, normal color Results Laboratory Results: 01/26/20 04:20 01/26/20 04:20 01/25/20 01/26/20 01/26/20 05:45 04:20 04:20 WBC 10.0 RBC 3.97 L Hgb 11.2 L Hct 33.5 L MCV 84 MCH 28.1 MCHC 33.4 RDW 16.4 H Plt Count 230 Seg Neutrophils % 70.3 Sodium 139.2 Potassium 4.5 Chloride 110 H Carbon Dioxide 18 L Anion Gap 11 BUN 26 H Creatinine 0.82 Est GFR ( Amer) > 60 Glucose 115 H Calcium 8.9 Magnesium 1.5 L Total Bilirubin 0.3 AST 13 L Alkaline Phosphatase 94 Total Protein 6.6 Albumin 3.2 L TSH 0.92 Free T4 Free T3 pg/mL 01/26/20 04:20 WBC RBC Hgb Hct MCV MCH MCHC RDW Plt Count Seg Neutrophils % Sodium Potassium Chloride Carbon Dioxide Anion Gap BUN Creatinine Est GFR ( Amer) Glucose Calcium Magnesium Total Bilirubin AST Alkaline Phosphatase Total Protein Albumin TSH 1.11 Free T4 1.43 Free T3 pg/mL 3.32 01/25/20 01/25/20 05:45 05:45 Creatine Kinase 21 L CK-MB (CK-2) 0.89 Troponin I < 0.012 EKG Comments: Telemetry shows atrial fibrillation with slow ventricular response 54 bpm Twelve-lead EKG. 01/25/2020-5:24 AM Independently reviewed by me. Atrial fibrillation. Ventricular rate is 63 bpm. Low voltage Twelve-lead EKG 01/25/2020 8:47 AM Atrial fibrillation with ventricular rate 72 bpm, low voltage Status: Image reviewed by me - No acute airspace disease Assessment & Plan - Diagnosis (1) Bradyarrhythmia Is this a current diagnosis for this admission?: Yes Plan: Atrial fibrillation with slow ventricular response which added down to the high 30s yesterday. Presently maintaining ventricular rate in the mid 50s without any symptoms. In conversation with the patient patient was having significant nausea and epigastric discomfort and distress and also bloating. There is gastrointestinal symptoms can cause profound bradycardia. Also with asymptomatic slow ventricular response in the setting of atrial fibrillation no urgent indication for permanent pacing although this may become necessary if patient develops symptoms are not as persistent bradycardia. For the moment it would be prudent to avoid negative chronotropic [id number], calcium blockers and AV naa blockers. (2) Atrial fibrillation with rapid ventricular response Is this a current diagnosis for this admission?: Yes Plan: Ventricular rate presently is in the mid 50s Avoid negative chronotropic agents and AV naa blockers. Patient is already on clopidogrel 75 mg daily He is unable to tell me why he is not on systemic anticoagulation with an oral agent. At the present time unable to obtain more history. Would be reasonable to continue clopidogrel although this would be inferior to systemic anticoagulation with an oral agent
[2020-01-26] MEDS: NORMAL SALINE 1000 ML 1,000 ML IV PRN (21:20)
[2020-01-26] MEDS: ATORVASTATIN CALCIUM 80 MG TABLET PO SCH (21:20)
[2020-01-27] MEDS: OXYCODONE-ACETAMINOPHEN 5-325 MG TABLET PO PRN ×4 (01:39→21:41)
[2020-01-27] MEDS: HEPARIN SOD (PORCINE) 5,000 UNIT/ML 1 ML VIAL SUBCUT SCH ×3 (05:39→21:42)
[2020-01-27] MEDS: NORMAL SALINE 1000 ML 1,000 ML IV PRN (06:34)
[2020-01-27] MEDS: INSULIN LISPRO 100 UNIT/ML 3 ML VIAL SUBCUT SCH ×4 (09:04→21:17)
[2020-01-27] MEDS: LISINOPRIL 10 MG TABLET PO SCH (09:55)
[2020-01-27] MEDS: METFORMIN HCL 500 MG TABLET PO SCH ×2 (09:56→17:46)
[2020-01-27] MEDS: AMLODIPINE BESYLATE 5 MG TABLET PO SCH (09:56)
[2020-01-27] MEDS: CLOPIDOGREL BISULFATE 75 MG TABLET PO SCH (09:57)
[2020-01-27] MEDS: MEGESTROL ACETATE SUSP 400 MG/10 ML UDCUP PO SCH (10:01)
[2020-01-27] MEDS: DOCUSATE SODIUM 100 MG CAPSULE PO SCH ×2 (10:01→17:46)
[2020-01-27] MEDS: FAMOTIDINE 20 MG TABLET PO SCH ×2 (10:01→21:21)
--- NOTE | 2020-01-27 16:21 | PDOC PROGRESS REPORT ---
Subjective Progress Note for:: 01/27/20 Subjective:: Patient still complaining of significant pain in his left leg. Otherwise feels well. Reason For Visit: BALBINA, DEHYDRATION, HYOPTENSION Physical Exam Vital Signs: Temp Pulse Resp BP Pulse Ox 98.3 F 56 L 18 135/64 H 98 01/27/20 11:33 01/27/20 11:33 01/27/20 11:33 01/27/20 11:33 01/27/20 11:33 Intake & Output 01/26/20 01/27/20 01/28/20 06:59 06:59 06:59 Intake Total 3727 Output Total 1800 Balance 1927 Weight 55.9 kg General appearance: PRESENT: no acute distress, cooperative Neck exam: ABSENT: JVD Respiratory exam: PRESENT: clear to auscultation elise, unlabored. ABSENT: tachypnea, wheezes Cardiovascular exam: PRESENT: bradycardia, irregular rhythm, +S1, +S2. ABSENT: tachycardia GI/Abdominal exam: PRESENT: normal bowel sounds, soft. ABSENT: rebound, rigid, tenderness Extremities exam: PRESENT: calf tenderness, pedal edema Neurological exam: PRESENT: alert, awake, oriented to person, oriented to place, oriented to time Results Laboratory Results: 01/26/20 04:20 01/26/20 04:20 01/25/20 01/25/20 05:45 05:45 Creatine Kinase 21 L CK-MB (CK-2) 0.89 Troponin I < 0.012 Assessment and Plan - Diagnosis (1) Acute kidney injury superimposed on CKD Is this a current diagnosis for this admission?: Yes (2) Atrial fibrillation Qualifiers: Atrial fibrillation type: longstanding persistent Qualified Code(s): I48.11 - Longstanding persistent atrial fibrillation Is this a current diagnosis for this admission?: Yes (3) Bradycardia Is this a current diagnosis for this admission?: Yes (4) Failure to thrive Qualifiers: Failure to thrive age range: in adult Qualified Code(s): R62.7 - Adult failure to thrive Is this a current diagnosis for this admission?: Yes (5) Hypotension Qualifiers: Hypotension type: unspecified hypotension type Qualified Code(s): I95.9 - Hypotension, unspecified Is this a current diagnosis for this admission?: Yes (6) Buergers disease Is this a current diagnosis for this admission?: Yes (7) Diabetes mellitus type 2 in nonobese Is this a current diagnosis for this admission?: Yes (8) Left leg pain Is this a current diagnosis for this admission?: Yes - Plan Summary Summary: Patient's blood pressure has normalized. Will take patient off all IV fluids and monitor blood pressure today. Patient still continues to have left leg pain. I have called patient's vascular surgeon's [Morteza Saldana] office and spoke to the staff there who informed me that patient had revascularization done on 12/17/2019 after his stents in the left lower extremity were reoccluded. I have been informed that patient has missed follow-up appointments due to transportation situation. I have informed the office to follow-up with patient to schedule a follow-up appointment sooner than later with Dr. Saldana. In the m eantime we will check venous Dopplers to rule out DVT as cause of patient's left leg pain. Patient's left leg pain likely due to patient beugers disease. Continue statin and Plavix. Neurontin will be started which patient was being prescribed by Dr. Saldana. - Time Time Spent with patient: 15-24 minutes
--- NOTE | 2020-01-27 17:01 | PDOC PROGRESS REPORT ---
Subjective Progress Note for:: 01/27/20 Subjective:: Continues to complain of left lower extremity pain. No dizziness. No dyspnea. Reason For Visit: BALBINA, DEHYDRATION, HYOPTENSION Physical Exam Vital Signs: Temp Pulse Resp BP Pulse Ox 97.9 F 58 L 16 135/53 H 100 01/27/20 16:00 01/27/20 16:00 01/27/20 16:00 01/27/20 16:00 01/27/20 16:00 Intake & Output 01/26/20 01/27/20 01/28/20 06:59 06:59 06:59 Intake Total 3727 Output Total 1800 Balance 1927 Weight 55.9 kg General appearance: PRESENT: no acute distress, cooperative, thin, well- developed Head exam: PRESENT: atraumatic, normocephalic Eye exam: PRESENT: conjunctiva pink, EOMI Mouth exam: PRESENT: moist Respiratory exam: PRESENT: crackles - Basal crackles on both lung bases., symmetrical Cardiovascular exam: PRESENT: irregular rhythm, +S1, +S2 Pulses: PRESENT: normal radial pulses GI/Abdominal exam: PRESENT: soft Rectal exam: PRESENT: deferred Musculoskeletal exam: PRESENT: normal inspection Neurological exam: PRESENT: alert, awake, oriented to person, oriented to place Psychiatric exam: PRESENT: appropriate affect Skin exam: PRESENT: dry, intact, normal color Results Laboratory Results: 01/26/20 04:20 01/26/20 04:20 01/25/20 01/25/20 05:45 05:45 Creatine Kinase 21 L CK-MB (CK-2) 0.89 Troponin I < 0.012 EKG Comments: Telemetry shows atrial fibrillation with controlled ventricular response. Present ventricular rate is 88 bpm. Occasional bradycardic episodes without symptoms. Assessment & Plan - Diagnosis (1) Bradyarrhythmia Is this a current diagnosis for this admission?: Yes Plan: No urgent indication to pursue cardiac pacing in the absence of symptoms Avoid negative chronotropic agents. (2) Chronic atrial fibrillation Is this a current diagnosis for this admission?: Yes Plan: Probable longstanding chronic atrial fibrillation No symptoms mentioned Rate control strategy However with reports of bradycardia will hold off on rate control agents. Presently ventricular rate is well controlled. Systemic anticoagulation is indicated.
[2020-01-27] MEDS: GABAPENTIN 300 MG CAPSULE PO SCH (21:41)
[2020-01-27] MEDS: ATORVASTATIN CALCIUM 80 MG TABLET PO SCH (21:41)
[2020-01-28] MEDS: HEPARIN SOD (PORCINE) 5,000 UNIT/ML 1 ML VIAL SUBCUT SCH ×2 (05:59→13:29)
[2020-01-28] MEDS: INSULIN LISPRO 100 UNIT/ML 3 ML VIAL SUBCUT SCH ×2 (08:34→11:41)
[2020-01-28] MEDS: AMLODIPINE BESYLATE 5 MG TABLET PO SCH (08:52)
[2020-01-28] MEDS: CLOPIDOGREL BISULFATE 75 MG TABLET PO SCH (08:52)
[2020-01-28] MEDS: OXYCODONE-ACETAMINOPHEN 5-325 MG TABLET PO PRN (08:52)
[2020-01-28] MEDS: LISINOPRIL 10 MG TABLET PO SCH (08:52)
[2020-01-28] MEDS: FAMOTIDINE 20 MG TABLET PO SCH (09:00)
[2020-01-28] MEDS: MEGESTROL ACETATE SUSP 400 MG/10 ML UDCUP PO SCH (09:00)
[2020-01-28] MEDS: DOCUSATE SODIUM 100 MG CAPSULE PO SCH (09:00)
[2020-01-28] MEDS: METFORMIN HCL 500 MG TABLET PO SCH (09:00)
[2020-01-28] MEDS: GABAPENTIN 300 MG CAPSULE PO SCH (09:00)
--- NOTE | 2020-01-28 10:50 | PDOC DISCHARGE SUMMARY ---
Impression - Admit/DC Date/PCP Admission Date/Primary Care Provider: 01/25/20 09:11 SB FERNANDEZ Discharge Date: 01/28/20 - Discharge Diagnosis (1) Hypotension Is this a current diagnosis for this admission?: Yes (2) Acute kidney injury superimposed on CKD Is this a current diagnosis for this admission?: Yes (3) Atrial fibrillation Is this a current diagnosis for this admission?: Yes (4) Bradycardia Is this a current diagnosis for this admission?: Yes (5) Failure to thrive Is this a current diagnosis for this admission?: Yes (6) Buergers disease Is this a current diagnosis for this admission?: Yes (7) Diabetes mellitus type 2 in nonobese Is this a current diagnosis for this admission?: Yes (8) Left leg pain Is this a current diagnosis for this admission?: Yes (9) Thrombosis of left saphenous vein Is this a current diagnosis for this admission?: Yes - Assessment Summary: Patient was noted to be hypotensive and bradycardic in the emergency department. EKG revealed sinus bradycardia. Patient received fluids as he appeared very dry on physical exam. He was adequately fluid resuscitated and his blood pressure later normalized. He was evaluated by bilingual teacher assistant who recommended discontinuation of patient's digoxin, diltiazem and refraining from using any AV naa blockers. Patient's blood pressure has remained normal even despite resuming his amlodipine. There was no evidence of sepsis based of infectious work-up. All fluids were discontinued yesterday and patient blood pressure has been sufficient. Patient is mentating well but continued to experience significant pain in his left leg. Review of previous work-up demonstrates that patient had a vascular study that showed occlusion of his left femoropopliteal stent on 12/16/2019. However, I have called patient's vascular surgeon's [Morteza Saldana] office and spoke to the staff there who informed me that patient had revascularization of his left lower extremity done on 12/17/2019. I have been informed that patient has missed follow-up appointments due to transportation situation. I have informed the office to follow-up with patient to schedule a follow-up appointment sooner than later with Dr. Saldana. Patient is to continue treatment of his Buerger's disease with Plavix and atorvastatin. I have also resumed Neurontin which was being prescribed by Dr. Saldana to see if that helps with his pain. Left lower extremity venous Dopplers were obtained which shows no DVT but does show thrombosis of left greater saphenous vein in the thigh. Given his significant left thigh pain, I will restart his Eliquis which had been held on prior hospitalization due to some GI bleed but had been planned to be resumed in outpatient. Patient has declined going to rehabilitation at the SNF and would like to go home instead. Will resume patient's home health. - Additional Information Discharge Diet: Cardiac, Diabetic Discharge Activity: Activity As Tolerated, Slowly Increase Activity Referrals: SPENSER HUI MD [ACTIVE STAFF] - (Left a voicemail for them to contact you to make an appointment.) MORTEZA SALDANA DO [NO LOCAL MD] - 02/19/20 12:00 pm LALITA EDWARD PA [Primary Care Provider] - 02/04/20 9:15 am Prescriptions: Apixaban [Eliquis 5 mg Tablet] 5 mg PO Q12 #60 tablet Atorvastatin Calcium [Lipitor 80 mg Tablet] 80 mg PO QHS 30 Days #30 tablet Gabapentin [Neurontin 300 mg Capsule] 300 mg PO Q12 #60 capsule Oxycodone HCl [Oxy-Ir 5 mg Tablet] 5 mg PO Q6HP PRN #10 tab PRN Reason: Clopidogrel Bisulfate [Plavix 75 mg Tablet] 75 mg PO QAM #30 Home Medications: Amlodipine Besylate [Norvasc 5 mg Tablet] 5 mg PO QAM 10/24/19 Furosemide [Lasix 20 mg Tablet] 20 mg PO QAM 10/24/19 Lisinopril [Prinivil 10 mg Tablet] 10 mg PO QAM 10/24/19 Metformin HCl [Glucophage] 1,000 mg PO BID 10/24/19 Atorvastatin Calcium [Lipitor 80 mg Tablet] 80 mg PO QHS 30 Days #30 tablet 01/27/20 Clopidogrel Bisulfate [Plavix 75 mg Tablet] 75 mg PO QAM #30 01/27/20 Gabapentin [Neurontin 300 mg Capsule] 300 mg PO Q12 #60 capsule 01/27/20 Oxycodone HCl [Oxy-Ir 5 mg Tablet] 5 mg PO Q6HP PRN #10 tab 01/27/20 Apixaban [Eliquis 5 mg Tablet] 5 mg PO Q12 #60 tablet 01/28/20 History of Present Illiness History of Present Illness: RAJAN KEARNEY is a 74 year old male past medical history of atrial fibrillation, hyperlipidemia, hypertension, PVD, COPD, diabetes, prostate cancer, GERD, Buerger's disease status post left femoral and popliteal arterial stent with thrombectomy on 10/2019, GI bleed due to AVM versus Dieulafoy's lesion was recently hospitalized here at [facility] for upper GI bleed and had ablation of AVM. Patient was brought to ED by EMS fatigued, weakness and poor po intake. When EMS arrived patient was noted to have SBPs of 80s, and heart rate of 30s. Was a started on IV fluids and given atropine and brought to ED. While in ED he was still noted to be hypotensive and was started on IV fluids and hospital was consulted for admission. On my encounter patient is awake and alert, covered with several blankets stating that he is too cold, appears not to be in a in a bad mood and does not want to provide much information, when asked why he is in the hospital he says his left leg is hurting. Apparently patient was recently sent to rehab for two weeks after hospitalization for occluded left tomorrow and popliteal stent graft placed in 10/2019 in [facility]. When patient asked why he has low p.o. intake he states that he does not feel like eating and feels feel sick to his stomach. Patient lives with his but unfortunately she is not available to provide more history. Patient denies any headache, shortness of breath, chest pain, fever, chills, nausea, vomiting, diarrhea, constipation. Endorses low p.o. intake, and feeling sick to the stomach, complaining of left lower extremity pain. Physical Exam Vital Signs: Temp Pulse Resp BP Pulse Ox 97.7 F 82 18 125/70 100 01/28/20 07:35 01/28/20 07:35 01/28/20 07:35 01/28/20 07:35 01/28/20 07:35 Intake & Output 01/27/20 01/28/20 01/29/20 06:59 06:59 06:59 Intake Total 3727 1630 Output Total 1800 1400 Balance 1927 230 Weight 55.9 kg 55.7 kg 55.7 kg General appearance: PRESENT: no acute distress, cooperative Neck exam: ABSENT: JVD Respiratory exam: PRESENT: clear to auscultation elise Extremities exam: PRESENT: tenderness - Left leg Neurological exam: PRESENT: alert, awake, oriented to person, oriented to place, oriented to time Results Laboratory Results: WBC 10.0 10^3/uL (4.0-10.5) 01/26/20 04:20 RBC 3.97 10^6/uL (4.35-5.55) L 01/26/20 04:20 Hgb 11.2 g/dL (13.5-17.0) L 01/26/20 04:20 Hct 33.5 % (37.9-51.0) L 01/26/20 04:20 MCV 84 fl (80-97) 01/26/20 04:20 MCH 28.1 pg (27.0-33.4) 01/26/20 04:20 MCHC 33.4 g/dL (32.0-36.0) 01/26/20 04:20 RDW 16.4 % (11.5-14.0) H 01/26/20 04:20 Plt Count 230 10^3/uL (150-450) 01/26/20 04:20 Lymph % (Auto) 17.1 % (13-45) 01/26/20 04:20 Emanuel % (Auto) 9.9 % (3-13) 01/26/20 04:20 Eos % (Auto) 1.9 % (0-6) 01/26/20 04:20 Baso % (Auto) 0.8 % (0-2) 01/26/20 04:20 Absolute Neuts (auto) 7.0 10^3/uL (1.7-8.2) 01/26/20 04:20 Absolute Lymphs (auto) 1.7 10^3/uL (0.5-4.7) 01/26/20 04:20 Absolute Monos (auto) 1.0 10^3/uL (0.1-1.4) 01/26/20 04:20 Absolute Eos (auto) 0.2 10^3/uL (0.0-0.6) 01/26/20 04:20 Absolute Basos (auto) 0.1 10^3/uL (0.0-0.2) 01/26/20 04:20 Seg Neutrophils % 70.3 % (42-78) 01/26/20 04:20 PT 12.9 SEC (11.4-15.4) 01/25/20 05:45 INR 0.97 01/25/20 05:45 Sodium 139.2 mmol/L (137-145) 01/26/20 04:20 Potassium 4.5 mmol/L (3.6-5.0) 01/26/20 04:20 Chloride 110 mmol/L (98-107) H 01/26/20 04:20 Carbon Dioxide 18 mmol/L (22-30) L 01/26/20 04:20 Anion Gap 11 (5-19) 01/26/20 04:20 BUN 26 mg/dL (7-20) H 01/26/20 04:20 Creatinine 0.82 mg/dL (0.52-1.25) 01/26/20 04:20 Est GFR ( Amer) > 60 (>60) 01/26/20 04:20 Est GFR (MDRD) Non-Af > 60 (>60) 01/26/20 04:20 Glucose 115 mg/dL (75-110) H 01/26/20 04:20 POC Glucose 101 mg/dL (70-110) 01/28/20 06:37 Calcium 8.9 mg/dL (8.4-10.2) 01/26/20 04:20 Magnesium 1.5 mg/dL (1.6-2.3) L 01/26/20 04:20 Total Bilirubin 0.3 mg/dL (0.2-1.3) 01/26/20 04:20 Direct Bilirubin 0.3 mg/dL (0.0-0.4) 01/26/20 04:20 Neonat Total Bilirubin Not Reportable 01/26/20 04:20 Neonat Direct Bilirubin Not Reportable 01/26/20 04:20 Neonat Indirect Bili Not Reportable 01/26/20 04:20 AST 13 U/L (17-59) L 01/26/20 04:20 ALT 10 U/L (<50) 01/26/20 04:20 Alkaline Phosphatase 94 U/L (38-126) 01/26/20 04:20 Creatine Kinase 21 U/L (55-170) L 01/25/20 05:45 CK-MB (CK-2) 0.89 ng/mL (<4.55) 01/25/20 05:45 Troponin I < 0.012 ng/mL 01/25/20 05:45 Total Protein 6.6 g/dL (6.3-8.2) 01/26/20 04:20 Albumin 3.2 g/dL (3.5-5.0) L 01/26/20 04:20 TSH 1.11 uIU/mL (0.47-4.68) 01/26/20 04:20 Free T4 1.43 ng/dL (0.78-2.19) 01/26/20 04:20 Free T3 pg/mL 3.32 pg/mL (2.77-5.27) 01/26/20 04:20 Urine Color YELLOW 01/25/20 09:30 Urine Appearance CLEAR 01/25/20 09:30 Urine pH 5.0 (5.0-9.0) 01/25/20 09:30 Ur Specific [place] 1.014 01/25/20 09:30 Urine Protein 30 mg/dL (NEGATIVE) H 01/25/20 09:30 Urine Glucose (UA) NEGATIVE mg/dL (NEGATIVE) 01/25/20 09:30 Urine Ketones NEGATIVE mg/dL (NEGATIVE) 01/25/20 09:30 Urine Blood NEGATIVE (NEGATIVE) 01/25/20 09:30 Urine Nitrite NEGATIVE (NEGATIVE) 01/25/20 09:30 Urine Bilirubin NEGATIVE (NEGATIVE) 01/25/20 09:30 Urine Urobilinogen NEGATIVE mg/dL (<2.0) 01/25/20 09:30 Ur Leukocyte Esterase NEGATIVE (NEGATIVE) 01/25/20 09:30 Urine WBC (Auto) 3 /HPF 01/25/20 09:30 Urine RBC (Auto) 1 /HPF 01/25/20 09:30 U Hyaline Cast (Auto) 12 /LPF 01/25/20 09:30 Squamous Epi Cells Auto <1 /HPF 01/25/20 09:30 Urine Mucus (Auto) RARE /LPF 01/25/20 09:30 Urine Ascorbic Acid NEGATIVE (NEGATIVE) 01/25/20 09:30 POC Stool Occult Blood NEGATIVE (NEGATIVE) 01/25/20 12:39 01/25/20 05:45 CK-MB (CK-2) 0.89 Troponin I < 0.012 Plan Time Spent: Less than 30 Minutes Stroke Is this a Stroke Patient?: No Acute Heart Failure - Is this a Heart Failure Patient?: No
--- NOTE | 2020-01-28 11:05 | RADIOLOGY REPORT (SQ) ---
EXAM DESCRIPTION: VENOUS UNILATERAL LOWER COMPLETED DATE/TIME: 01/28/2020 10:26 am REASON FOR STUDY: left leg swelling pain. r/o dvt COMPARISON: None. TECHNIQUE: Dynamic and static reid scale and color images acquired of the left leg venous system. Se lected spectral images acquired with additional compression and augmentation maneuvers. The contralat eral common femoral vein and saphenofemoral junction were also imaged. Images stored on PACS. LIMITATIONS: None. FINDINGS: LEFT COMMON FEMORAL: Normal phasicity, compression and augmentation. No visualized echogenic material on g ray scale. No defects on color images. FEMORAL: Normal compression and augmentation. No visualized echogenic material on reid scale. No defe cts on color images. POPLITEAL: Normal compression, augmentation. No visualized echogenic material on reid scale. No defec ts on color images. CALF VESSELS: Normal compression, augmentation. No visualized echogenic material on reid scale. No de fects on color images. GSV : ECHOGENIC CLOT is present in the left greater saphenous vein from the saphenous femoral juncti on through the site. This represents chronic thrombosis. SSV: Normal compression, augmentation. No visualized echogenic material on reid scale. No defects on color images. ANY DEEP VENOUS INSUFFICIENCY: Not evaluated. ANY EVIDENCE OF POPLITEAL CYST: No. OTHER: No other significant finding. RIGHT COMMON FEMORAL VEIN AND SAPHENOFEMORAL JUNCTION: Normal phasicity, compression and augmentation. No visualized echogenic material on reid scale. No de fects on color images. 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 TECHNICAL DOCUMENTATION: JOB ID: [id number] [email or web address]- All Rights Reserved Reading location - IP/workstation name: [email or web address]
--- NOTE | 2020-01-28 11:05 | PDOC PROGRESS REPORT ---
Subjective Progress Note for:: 01/28/20 Subjective:: Continues to complain of left lower extremity pain although improved. No dizziness. No dyspnea. Reason For Visit: BALBINA, DEHYDRATION, HYOPTENSION Physical Exam Vital Signs: Temp Pulse Resp BP Pulse Ox 97.7 F 82 18 125/70 100 01/28/20 07:35 01/28/20 07:35 01/28/20 07:35 01/28/20 07:35 01/28/20 07:35 Intake & Output 01/27/20 01/28/20 01/29/20 06:59 06:59 06:59 Intake Total 3727 1630 Output Total 1800 1400 Balance 1927 230 Weight 55.9 kg 55.7 kg 55.7 kg General appearance: PRESENT: cooperative Head exam: PRESENT: atraumatic, normocephalic Eye exam: PRESENT: conjunctiva pink Neck exam: PRESENT: JVD Respiratory exam: PRESENT: clear to auscultation elise, symmetrical, unlabored Cardiovascular exam: PRESENT: bradycardia, irregular rhythm, +S1, +S2 Pulses: PRESENT: normal radial pulses GI/Abdominal exam: PRESENT: soft Rectal exam: PRESENT: deferred Musculoskeletal exam: PRESENT: normal inspection Neurological exam: PRESENT: alert, awake, oriented to person, oriented to place, oriented to time, oriented to situation Psychiatric exam: PRESENT: appropriate affect Skin exam: PRESENT: dry Results Laboratory Results: 01/26/20 04:20 01/26/20 04:20 01/25/20 01/25/20 05:45 05:45 Creatine Kinase 21 L CK-MB (CK-2) 0.89 Troponin I < 0.012 Assessment & Plan - Diagnosis (1) Bradyarrhythmia Is this a current diagnosis for this admission?: Yes Plan: No urgent indication to pursue cardiac pacing in the absence of symptoms Avoid negative chronotropic agents. (2) Chronic atrial fibrillation Is this a current diagnosis for this admission?: Yes Plan: Probable longstanding chronic atrial fibrillation No symptoms mentioned Rate control strategy However with reports of bradycardia will hold off on rate control agents. Presently ventricular rate is well controlled. Systemic anticoagulation is indicated. - Notes Notes: Will arrange for follow up
[2020-01-28 12:14] VITALS: BP 122/60
== END 2020-01-28 13:40 | disposition home health service (06) | DRG 683 ==
LOC: ER 05:13 → EH 09:11 → 4N 15:49
PROVIDERS: ADMIT Internal Medicine; ATTEND Internal Medicine
DX: N17.9 Acute kidney failure, unspecified (principal); I48.11 Longstanding persistent atrial fibrillation; I82.812 Embolism and thrombosis of superficial veins of left lower extremity; Z68.1 Body mass index [BMI] 19.9 or less, adult; I95.9 Hypotension, unspecified; R00.1 Bradycardia, unspecified; E78.5 Hyperlipidemia, unspecified; J44.9 Chronic obstructive pulmonary disease, unspecified; I73.1 Thromboangiitis obliterans [Buerger's disease]; R62.7 Adult failure to thrive; E11.51 Type 2 diabetes mellitus with diabetic peripheral angiopathy without gangrene; I12.9 Hypertensive chronic kidney disease with stage 1 through stage 4 chronic kidney disease, or unspecified chronic kidney disease; E11.22 Type 2 diabetes mellitus with diabetic chronic kidney disease; N18.9 Chronic kidney disease, unspecified; K21.9 Gastro-esophageal reflux disease without esophagitis; Z90.79 Acquired absence of other genital organ(s); Z95.820 Peripheral vascular angioplasty status with implants and grafts; Z79.84 Long term (current) use of oral hypoglycemic drugs; Z79.899 Other long term (current) drug therapy; Z85.46 Personal history of malignant neoplasm of prostate; Z87.891 Personal history of nicotine dependence; Z79.01 Long term (current) use of anticoagulants
CPT/HCPCS: 36415; 71045; 80053; 81001; 82550; 82553; 82962; 83735; 84439; 84443; 84481; 84484; 85025; 85610; 93005; 93010; 93971; 96360; 96361; 99285; J1644; J7030

== ENCOUNTER 2020-04-10 14:25 | Emergency (ER) | payer MEDICARE ==
[2020-04-10 15:25] LABS: ABSOLUTE EOSINOPHILS # (AUTO) 0.2 10^3/uL (0.0-0.6); ABSOLUTE LYMPHOCYTES (AUTO) 2.2 10^3/uL (0.5-4.7); ABSOLUTE NEUT (AUTO) 8.6 10^3/uL (1.7-8.2); BASOPHILS % (AUTO) 0.3 % (0-2); HEMATOCRIT 37.7 % (37.9-51.0); HEMOGLOBIN 12.5 g/dL (13.5-17.0); LYMPHOCYTES % (AUTO) 18.1 % (13-45); MEAN CORPUSCULAR HEMOGLOBIN 28.2 pg (27.0-33.4); MEAN CORPUSCULAR VOLUME 85 fl (80-97); PLATELET COUNT 246 10^3/uL (150-450); RED BLOOD COUNT 4.41 10^6/uL (4.35-5.55); RED CELL DISTRIBUTION WIDTH 17.8 % (11.5-14.0); SEGMENTED NEUTROPHILS % (AUTO) 71.6 % (42-78); TOTAL CELLS COUNTED % (AUTO) 100 %; WHITE BLOOD COUNT 12.1 10^3/uL (4.0-10.5)
[2020-04-10 15:28] LABS: INTERNATIONAL RATION (INR) 1.11; PROTHROMBIN TIME 14.3 SEC (11.4-15.4)
--- NOTE | 2020-04-10 15:29 | ER Document Report ---
ED Extremity Problem, Lower - General TRAVEL OUTSIDE OF THE [place] IN LAST 30 DAYS: No <LEIDY CABALLERO - Last Filed: 04/10/20 18:38> <ROSIETOM IV - Last Filed: 04/10/20 21:42> - General Chief Complaint: Leg Pain Stated Complaint: LEFT LEG PAIN Time Seen by Provider: 04/10/20 14:27 Primary Care Provider: LALITA EDWARD PA [Primary Care Provider] - Follow up as needed Notes: HPI: 75-year-old male who presents today increased left lower leg pain and sw elling over the last 2 days. Mostly to the foot. States it was painful mostly overnight. He has had stents and 2 surgeries to this leg for vascular insufficiency. Patient denies any chest pain, shortness of breath, fever, weakness or numbness. ROS: See HPI All other review of systems reviewed and otherwise negative Reviewed vital signs and nursing note as charted by RN. PHYSICAL EXAM: CONSTITUTIONAL: Alert and oriented and responds appropriately to questions. Well-appearing; well-nourished HEAD: Normocephalic; atraumatic CARD: Regular rate and rhythm; no murmurs; symmetric distal pulses RESP: Normal chest excursion without splinting or tachypnea; breath sounds clear and equal bilaterally; no wheezes, no rhonchi, no rales ABD/GI: Normal bowel sounds; non-distended; soft, non-tender; no palpable organomegaly or masses BACK: The back appears normal and is non-tender to palpation EXT: Multiple surgical scars from the left inguinal area down to the foot of the left lower extremity. Some edema with erythema and slow capillary refill to the left foot itself. Very minimal dopplerable pulses. Sensation is intact. No edema to the mojica and no swelling or tenderness to the calf SKIN: See above NEURO: See above PSYCH: The patient's mood and manner are appropriate. Grooming and personal hygiene are appropriate. (LEIDY CABALLERO) - Related Data Allergies/Adverse Reactions: No Known Allergies Allergy (Verified 10/08/19 04:51) Past Medical History - Social History Smoking Status: Former Smoker Chew tobacco use (# tins/day): No Frequency of alcohol use: None Drug Abuse: None Family History: COPD Patient has homicidal ideation: No - Past Medical History Cardiac Medical History: Reports: Hx Atrial Fibrillation, Hx Hypercholesterolemia, Hx Hypertension, Hx Peripheral Vascular Disease Denies: Hx Heart Attack Pulmonary Medical History: Reports: Hx Bronchitis, Hx COPD, Hx Pneumonia - more than 16 times Denies: Hx Asthma, Hx Intubation, Hx Respiratory Failure Neurological Medical History: Denies: Hx Cerebrovascular Accident, Hx Seizures Endocrine Medical History: Reports: Hx Diabetes Mellitus Type 2. Denies: Hx Diabetes Mellitus Type 1, Hx Hyperthyroidism, Hx Hypothyroidism Renal/ Medical History: Denies: Hx Peritoneal Dialysis Malignancy Medical History: Reports Hx Prostate Cancer GI Medical History: Reports: Hx Gastroesophageal Reflux Disease. Denies: Hx Cirrhosis, Hx Hepatitis, Hx Hiatal Hernia, Hx Ulcer Musculoskeletal Medical History: Denies Hx Arthritis, Denies Hx Gout Skin Medical History: Denies Hx Eczema, Denies Hx Psoriasis Infectious Medical History: Denies: Hx Hepatitis Past Surgical History: Reports: Hx Abdominal Surgery, Hx Orthopedic Surgery - RIGHT ROTATOR CUFF, Hx Vascular Surgery - STENTS LEFT LEG, Other - Prostatectomy. Recent stent placement in lower extremities.. Denies: Hx Open Heart Surgery, Hx Pacemaker - Immunizations Hx Diphtheria, Pertussis, Tetanus Vaccination: Yes - <5 years <LEIDY CABALLERO - Last Filed: 04/10/20 18:38> Physical Exam - Vital signs Vitals: Temp 98.1 F 04/10/20 14:38 Course - Laboratory Result Diagrams: 04/10/20 15:10 04/10/20 15:10 <LEIDY CABALLERO - Last Filed: 04/10/20 18:38> - Laboratory Result Diagrams: 04/10/20 15:10 04/10/20 19:52 - Diagnostic Test Radiology reviewed: Reports reviewed <TOM VELEZ IV - Last Filed: 04/10/20 21:42> - Re-evaluation Re-evalutation: 04/10/20 15:29 Given the history and physical with extensive surgery to the left lower extremity, I will obtain basic labs as well as a CTA of the left lower extremity to evaluate flow. 04/10/20 18:05 Labs as recorded. Patient initially refused to have an IV placed in the antecubital fossa since he Bryan had one in his hand. Radiology states that he needs that location. I then convinced the patient to have that location access. Patient then refused because he states in 1983 he had a lot of burning to the site when the IV contrast infused. I was going to order an arterial Doppler but then the patient agreed. Patient's creatinine is normal as recorded with a elevated potassium. Patient has no history of elevated potassium. We have provided a liter of fluid and will redraw to check its validity. 04/10/20 18:38 EKG shows what appears to be atrial fibrillation, no ST elevation or depression. No peak T waves. Old EKG from January 24 shows similar EKG with atrial fibr illation at that time. (LEIDY CABALLERO) 04/10/20 21:35 Results of lower extremity CTA reviewed by this MD. Results of repeat potassium also reviewed by this MD. Results of ED MSE discussed with patient. All questions were answered prior to discharge. Emergency signs and symptoms, reasons to return to the emergency department discussed with patient. (TOM VELEZ IV) - Vital Signs Vital signs: Temp Pulse Resp BP Pulse Ox 97.8 F 72 16 122/74 100 04/10/20 18:40 04/10/20 18:40 04/10/20 18:40 04/10/20 18:40 04/10/20 18:40 - Laboratory Laboratory results interpreted by me: 04/10/20 04/10/20 04/10/20 15:10 15:10 19:52 WBC 12.1 H Hgb 12.5 L Hct 37.7 L RDW 17.8 H Absolute Neuts (auto) 8.6 H Sodium 134.9 L 135.6 L Potassium 6.2 H* 5.5 H Chloride 108 H 108 H Carbon Dioxide 17 L 17 L BUN 33 H 29 H Glucose 155 H 131 H Discharge <LEIDY CABALLERO - Last Filed: 04/10/20 18:38> <TOM VELEZ IV - Last Filed: 04/10/20 21:42> - Discharge Clinical Impression: Lower extremity pain Qualifiers: Laterality: left Qualified Code(s): M79.605 - Pain in left leg Condition: Good Disposition: HOME, SELF-CARE Additional Instructions: Return to the Emergency Department without delay if any worse. HOME CARE INSTRUCTIONS & INFORMATION: Thank you for choosing us for your [facility] needs. We hope you're satisfied with the care you received. After you leave, you must properly care for your problem and, at the same time, observe its progress. Any condition can change. Some illnesses can change rapidly over hours or days. If your condition worsens, return to the Emergency Department or see your physician promptly. ABOUT YOUR X-RAYS AND EKG'S: If you had an EKG or X-rays taken, they have been read by the Emergency Physician. The X-rays and EKG's will also be read by a Radiologist or Incident Response Specialist within 24 hours. If discrepancies are noted, you will be notified by telephone. Please be certain the ED has a correct telephone number & address where you can be reached. Also, realize that some fractures or abnormalities do not show up on initial X-rays. If your symptoms continue, see your physician. ABOUT YOUR LABORATORY TEST: If you had laboratory tests, the results have been reviewed by the Emergency Physician. Some test results (for example cultures) may not be available for several days. You will be contacted if any test result shows you need additional treatment. Please be certain the ED has a correct telephone number and address where you can be reached. ABOUT YOUR MEDICATIONS: You will receive instructions on how to take your medicine on the prescription label you receive. Additional information may be provided by the Pharmacy. If you have questions afterwards, call the ED for clarification or further instructions. Some prescribed medications may cause drowsiness. Do not perform tasks such as driving a car or operating machinery without consulting your Pharmacist. If you feel you need a refill of pain medication, your condition will need re-evaluation. Please do not call for a refill of any medication. ABOUT YOUR SIGNATURE: Signature of this document acknowledges to followin. Understanding that you received emergency treatment and that you may be released before al medical problems are known or treated. Please be certain the ED has a correct phone number & address where you can be reached. 2. Acknowledgement that you will arrange for follow-up care as recommended. 3. Authorization for the Emergency Physician to provide information to your follow-up Physician in order to maximize your care. AT ANY TIME, IF YOUR SYMPTOMS CHANGE SIGNIFICANTLY OR WORSEN OR YOU DEVELOP NEW SYMPTOMS, RETURN TO THE EMERGENCY DEPARTMENT IMMEDIATELY FOR RE-EVALUATION. OUR GOAL IS TO PROVIDE EXCELLENT MEDICAL CARE! WE HOPE THAT WE HAVE MET YOUR EXPECTATIONS DURING YOUR EMERGENCY DEPARTMENT VISIT AND THAT YOU FEEL YOU HAVE RECEIVED EXCELLENT CARE! Referrals: LALITA EDWARD PA [Primary Care Provider] - Follow up as needed
[2020-04-10 15:39] LABS: ANION GAP 10 (5-19); BLOOD UREA NITROGEN 33 mg/dL (7-20); CALCIUM 9.8 mg/dL (8.4-10.2); CARBON DIOXIDE 17 mmol/L (22-30); CHLORIDE 108 mmol/L (98-107); GLUCOSE 155 mg/dL (75-110)
[2020-04-10 15:43] LABS: POTASSIUM 6.2 mmol/L (3.6-5.0)
[2020-04-10] MEDS ORDERED: NORMAL SALINE 1000 ML 1,000 ML IV ONE (18:05)
--- NOTE | 2020-04-10 18:48 | EKG REPORT ---
SEVERITY:- ABNORMAL ECG - ATRIAL FIBRILLATION LOW VOLTAGE IN FRONTAL LEADS BORDERLINE R WAVE PROGRESSION, ANTERIOR LEADS : Confirmed by: Bing Doty MD 10-Apr-2020 18:48:12
[2020-04-10 20:20] LABS: ANION GAP 11 (5-19); BLOOD UREA NITROGEN 29 mg/dL (7-20); CALCIUM 9.2 mg/dL (8.4-10.2); CARBON DIOXIDE 17 mmol/L (22-30); CHLORIDE 108 mmol/L (98-107); GLUCOSE 131 mg/dL (75-110); POTASSIUM 5.5 mmol/L (3.6-5.0)
--- NOTE | 2020-04-10 21:06 | RADIOLOGY REPORT (SQ) ---
EXAM DESCRIPTION: CT LOWER EXTREMITY ANGIOGRAPHY WITH IV CONTRAST COMPLETED DATE/TME: 04/10/2020 14:50 CLINICAL HISTORY: 75 years, Male, 9; leg swelling COMPARISON: Prior CTA dated 12/16/2019 TECHNIQUE: Contrast enhanced CTA of the left lower extremity was acquired. Images were obtained after the uneventful administration of 100 mL of Omnipaque 350 intravenous contrast. MIPS were created. Images stored on PACS. All CT scanners at this facility use dose modulation, iterative reconstruction, and/or weight based dosing when appropriate to reduce radiation dose to as low as reasonably achievable (ALARA). [facility]: Dose Right [facility]: CareDose [facility]: Dose Right [facility]: Teradose 4D [facility]: Adaptimmune LIMITATIONS: None. FINDINGS: Limited evaluation of the internal abdominopelvic structures reveals a partially collapsed urinary bladder. Bone windows show diffuse osteopenia. Vasculature: Moderate calcified/noncalcified atherosclerotic plaque is noted about the visualized portions of the abdominal aorta. In addition, there is a short segment of severe stenosis involving the origin of the right common iliac artery. 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 Additional moderate calcified/noncalcified atherosclerotic plaque is noted throughout the course of the left common iliac artery extending into the internal and external iliac arteries. The left external iliac artery reveals multifocal moderate stenoses between 50-75%. Ultimately, at the level of the common femoral artery, there are postsurgical changes of common femoral to popliteal artery stent graft placement. This appears completely occluded, similar to the previous examination dated 12/16/2019. In addition, there is severe stenosis involving the origin of the deep femoral profundal artery, best visualized on image 73 of series 3. This also appears unchanged. However, there is a separate vessel which appears emanates from the anterior aspect of the common femoral artery just proximal to the occluded graft extending along the anterolateral aspect of the thigh inferiorly to the level of the anterior tibial artery. As such, the anterior tibial artery appears opacify with contrast normally, as does the peroneal artery. The posterior tibial artery does not appear to opacify with contrast throughout its course. Mild diffuse soft tissue swelling is noted throughout the left lower leg. 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 However, there is an apparent bypass graft emanating from the anterior aspect of the common femoral artery to the level of the anterior tibial artery which appears patent. As such, the anterior tibial and peroneal arteries opacify with contrast below the level of the ankle (2 vessel runoff). Diffuse soft tissue edema throughout the left lower leg. Bilateral inflow atherosclerotic disease. TECHNICAL DOCUMENTATION: Quality ID # [id number]: Final reports with documentation of one or more dose reduction techniques (e.g., Automated exposure control, adjustment of the mA and/or kV according to patient size, use of iterative reconstruction technique) copyright 2011 [employer]- All Rights Reserved
[2020-04-10] MEDS ORDERED: SODIUM POLYSTYRENE SULFONATE 15 GM/60 ML PO ONE (21:34)
[2020-04-10 22:00] VITALS: BP 139/72
== END 2020-04-10 22:15 | disposition home or self-care (01) ==
LOC: ER 14:25
DX: M79.605 Pain in left leg (principal); M79.89 Other specified soft tissue disorders; Z87.891 Personal history of nicotine dependence; I10 Essential (primary) hypertension; I48.91 Unspecified atrial fibrillation; J44.9 Chronic obstructive pulmonary disease, unspecified; E11.9 Type 2 diabetes mellitus without complications
CPT/HCPCS: 93005; 99285; 96360; 36415; 85025; 85610; 80048; 73706; 93010; A9270; J7030